=== PATIENT | female | born 1950 | race Caucasian/White ===

== ENCOUNTER → 2017-12-01 11:20 | Outpatient (CLI) | payer OTHER, SELFPAY ==
[2017-12-01 12:15] LABS: AST(SGOT) 37 U/L (15-37); Alanine Aminotransfer ALT/SGPT 58 U/L (13-56); Albumin, Serum 3.7 g/dL (3.2-5.0); Alkaline Phosphatase 103 U/L (45-117); Bilirubin, Direct 0.22 mg/dL (0.00-0.30); Cholesterol 148 mg/dL (200); Globulin 3.9 g/dL (2.2-4.2); High Density Lipoprotein 38 mg/dL; Protein, Total 7.6 g/dL (6.4-8.2); Triglycerides 201 mg/dL; Very Low Density Lipoprotein 40 mg/dL (5-40)
== END ==
PROVIDERS: Family Provider Nurse Practitioner Primary Care; PCP Nurse Practitioner Primary Care; Referring Provider Internal Medicine Cardiovascular Disease; Visit Provider Internal Medicine Cardiovascular Disease
DX: E78.00 Pure hypercholesterolemia, unspecified (principal)
CPT/HCPCS: 36415; 80061; 80076

== ENCOUNTER → 2018-11-11 | Outpatient (CLI) | payer OTHER, SELFPAY ==
[2018-11-11 13:32] VITALS: BMI 31.3
[2018-11-11 15:39] LABS: AST(SGOT) 16 U/L (15-37); Alanine Aminotransfer ALT/SGPT 20 U/L (13-56); Albumin, Serum 3.6 g/dL (3.2-5.0); Alkaline Phosphatase 94 U/L (45-117); Anion Gap 6 (5-15); BUN 9 mg/dL (7-18); BUN/Creat Ratio 10.1 RATIO (10-20); Bilirubin, Direct 0.18 mg/dL (0.00-0.30); Calcium,Total 8.9 mg/dL (8.5-10.1); Chloride 106 mmol/L (98-107); Cholesterol 176 mg/dL (200); Creatinine, Serum 0.89 mg/dL (0.55-1.02); EST Glomerular Filtration Rate 67 mL/min (>60); Est Glom Filt Rate - Afr Amer 81 mL/min (>60); Glucose 78 mg/dL (74-106); High Density Lipoprotein 40 mg/dL; Potassium 3.9 mmol/L (3.5-5.1); Protein, Total 7.6 g/dL (6.4-8.2); Sodium Level 142 mmol/L (136-145); Thyroid Stim Hormone (TSH) 3.39 uIU/mL (0.358-3.74); Triglycerides 230 mg/dL; Very Low Density Lipoprotein 46 mg/dL (5-40)
== END | disposition home or self-care (01) ==
LOC: LAB 14:13
PROVIDERS: Family Provider Nurse Practitioner Primary Care; PCP Nurse Practitioner Primary Care; Referring Provider Internal Medicine Cardiovascular Disease; Visit Provider Internal Medicine Cardiovascular Disease
DX: I48.0 Paroxysmal atrial fibrillation (principal); E78.00 Pure hypercholesterolemia, unspecified
CPT/HCPCS: 36415; 80048; 80061; 80076; 84443

== ENCOUNTER → 2018-11-21 | Outpatient (CLI) | payer OTHER, SELFPAY ==
[2018-11-11 13:32] VITALS: BMI 31.3
== END | disposition home or self-care (01) ==
LOC: PSN 09:24
PROVIDERS: Family Provider Nurse Practitioner Primary Care; PCP Nurse Practitioner Primary Care; Referring Provider Internal Medicine Cardiovascular Disease; Visit Provider Internal Medicine Cardiovascular Disease
DX: I48.0 Paroxysmal atrial fibrillation (principal)
CPT/HCPCS: 93225; 93226

== ENCOUNTER → 2020-03-07 07:52 | Outpatient (CLI) | payer OTHER, SELFPAY ==
[2020-03-05 08:41] VITALS: BMI 32.1
[2020-03-07 08:56] LABS: AST(SGOT) 13 U/L (15-37); Alanine Aminotransfer ALT/SGPT 16 U/L (13-56); Albumin, Serum 3.8 g/dL (3.2-5.0); Alkaline Phosphatase 81 U/L (45-117); Bilirubin, Direct 0.19 mg/dL (0.00-0.30); Cholesterol 154 mg/dL (200); Globulin 3.9 g/dL (2.2-4.2); High Density Lipoprotein 39 mg/dL; Protein, Total 7.7 g/dL (6.4-8.2); Triglycerides 206 mg/dL; Very Low Density Lipoprotein 41 mg/dL (5-40)
== END ==
PROVIDERS: PCP Nurse Practitioner Primary Care; Referring Provider Internal Medicine Cardiovascular Disease; Visit Provider Internal Medicine Cardiovascular Disease
DX: E78.00 Pure hypercholesterolemia, unspecified (principal)
CPT/HCPCS: 36415; 80061; 80076

== ENCOUNTER → 2021-09-23 | Outpatient (CLI) | payer OTHER, SELFPAY ==
[2021-09-23 12:01] LABS: AST(SGOT) 13 U/L (15-37); Alanine Aminotransfer ALT/SGPT 16 U/L (13-56); Alkaline Phosphatase 79 U/L (45-117); Bilirubin, Direct 0.24 mg/dL (0.00-0.30); Cholesterol 153 mg/dL (200); High Density Lipoprotein 48 mg/dL; Triglycerides 192 mg/dL; Very Low Density Lipoprotein 38 mg/dL (5-40)
== END | disposition home or self-care (01) ==
PROVIDERS: PCP Nurse Practitioner Primary Care; Visit Provider Internal Medicine Cardiovascular Disease
DX: E78.00 Pure hypercholesterolemia, unspecified (principal)
CPT/HCPCS: 36415; 80061; 80076

== ENCOUNTER → 2021-10-03 | Outpatient (CLI) | payer OTHER, SELFPAY ==
--- NOTE | 2021-10-03 12:37 | STRESSREP ---
Stress Test Report Exercise stress test. 71-year-old lady with a history of atrial fibrillation. Stress protocol: Resting EKG demonstrates normal sinus rhythm with a rate of 83 bpm normal intervals are noted resting blood pressure is 138/70 mmHg. The patient exercised according to the regular Bernard protocol for total duration of 4 minutes and 30 seconds completing 1 minute and 30 seconds into stage II of the Bernard protocol. The maximum heart rate attained was 123 bpm which was 83% of max impacted heart rate the maximum workload was 7 metabolic equivalents. The patient maintained sinus rhythm throughout the recording. The peak blood pressure was 178/78 mmHg. Rate-pressure/20,600. No clinical angina was noted the test was terminated due to dyspnea and leg discomfort and the target heart rate being achieved. Conclusion: Exercise stress test with no EKG criteria for ischemia at a moderate workload. No atrial fibrillation noted.
== END | disposition home or self-care (01) ==
LOC: CVS 10:35
PROVIDERS: PCP Nurse Practitioner Primary Care; Referring Provider Internal Medicine Cardiovascular Disease; Visit Provider Internal Medicine Cardiovascular Disease
DX: I48.92 Unspecified atrial flutter (principal); R06.00 Dyspnea, unspecified
CPT/HCPCS: 93017

== ENCOUNTER → 2022-09-16 | Outpatient (CLI) | payer OTHER, SELFPAY ==
[2022-09-16 10:14] LABS: AST(SGOT) 26 U/L (15-37); Alanine Aminotransfer ALT/SGPT 18 U/L (13-56); Albumin, Serum 3.6 g/dL (3.2-5.0); Alkaline Phosphatase 84 U/L (45-117); Bilirubin, Direct 0.13 mg/dL (0.00-0.30); Cholesterol 146 mg/dL (200); Globulin 4.4 g/dL (2.2-4.2); High Density Lipoprotein 47 mg/dL; Triglycerides 165 mg/dL; Very Low Density Lipoprotein 33 mg/dL (5-40)
== END | disposition home or self-care (01) ==
PROVIDERS: PCP Nurse Practitioner Primary Care; Referring Provider Internal Medicine Cardiovascular Disease; Visit Provider Internal Medicine Cardiovascular Disease
DX: E78.00 Pure hypercholesterolemia, unspecified (principal)
CPT/HCPCS: 36415; 80061; 80076

== ENCOUNTER → 2023-01-05 | Outpatient (CLI) | payer OTHER, SELFPAY ==
[2023-01-05 11:28] LABS: Anion Gap 2 (5-15); BUN 21 mg/dL (7-18); BUN/Creat Ratio 19.6 RATIO (10-20); Calcium,Total 9.7 mg/dL (8.5-10.1); Chloride 102 mmol/L (98-107); Creatinine, Serum 1.07 mg/dL (0.55-1.02); EST Glomerular Filtration Rate 53 mL/min (>60); Est Glom Filt Rate - Afr Amer 64 mL/min (>60); Glucose 119 mg/dL (74-106); Potassium 4.1 mmol/L (3.5-5.1); Sodium Level 136 mmol/L (136-145)
== END | disposition home or self-care (01) ==
PROVIDERS: PCP Nurse Practitioner Primary Care; Referring Provider Nurse Practitioner Gerontology; Visit Provider Nurse Practitioner Gerontology
DX: I10 Essential (primary) hypertension (principal); E87.6 Hypokalemia
CPT/HCPCS: 36415; 80048

== ENCOUNTER → 2023-01-27 | Outpatient (CLI) | payer OTHER, SELFPAY ==
[2023-01-27 13:28] LABS: Anion Gap 6 (5-15); BUN 19 mg/dL (7-18); BUN/Creat Ratio 17.1 RATIO (10-20); Calcium,Total 9.6 mg/dL (8.5-10.1); Chloride 100 mmol/L (98-107); Creatinine, Serum 1.11 mg/dL (0.55-1.02); EST Glomerular Filtration Rate 51 mL/min (>60); Est Glom Filt Rate - Afr Amer 62 mL/min (>60); Glucose 165 mg/dL (74-106); Potassium 3.8 mmol/L (3.5-5.1); Sodium Level 135 mmol/L (136-145)
== END | disposition home or self-care (01) ==
LOC: LAB 12:07
PROVIDERS: PCP Nurse Practitioner Primary Care; Referring Provider Nurse Practitioner Gerontology; Visit Provider Nurse Practitioner Gerontology
DX: I10 Essential (primary) hypertension (principal)
CPT/HCPCS: 36415; 80048

== ENCOUNTER → 2024-03-02 | Outpatient (CLI) | payer MEDICARE, SELFPAY ==
[2024-03-02 13:55] LABS: International Normalized Ratio 1.7; Prothrombin Time (Protime)PT. 19.9 SECONDS (11.7-14.9)
[2024-03-02 14:04] LABS: AST(SGOT) 14 U/L (15-37); Alanine Aminotransfer ALT/SGPT 14 U/L (13-56); Albumin, Serum 3.8 g/dL (3.2-5.0); Alkaline Phosphatase 104 U/L (45-117); Bilirubin, Direct 0.31 mg/dL (0.00-0.30); Cholesterol 140 mg/dL (200); Globulin 4.7 g/dL (2.2-4.2); High Density Lipoprotein 49 mg/dL; Protein, Total 8.5 g/dL (6.4-8.2); Triglycerides 128 mg/dL; Very Low Density Lipoprotein 26 mg/dL (5-40)
== END | disposition home or self-care (01) ==
LOC: LAB 13:16
PROVIDERS: Nurse Practitioner Family; PCP Nurse Practitioner Primary Care; Referring Provider Internal Medicine Cardiovascular Disease; Visit Provider Internal Medicine Cardiovascular Disease
DX: E78.00 Pure hypercholesterolemia, unspecified (principal); I48.92 Unspecified atrial flutter; I48.0 Paroxysmal atrial fibrillation; Z79.01 Long term (current) use of anticoagulants
CPT/HCPCS: 36415; 80061; 80076; 85610

== ENCOUNTER → 2024-04-18 | Outpatient (CLI) | payer MEDICARE, SELFPAY | END | disposition home or self-care (01) | LOC: LAB 14:56 | PROVIDERS: PCP Nurse Practitioner Primary Care; Referring Provider Nurse Practitioner Family; Visit Provider Nurse Practitioner Family | DX: Z00.00 Encounter for general adult medical examination without abnormal findings (principal) ==

== ENCOUNTER → 2024-09-12 | Outpatient (CLI) | payer MEDICARE, SELFPAY ==
--- OUTSIDE RECORDS SUMMARY | 2024-09-12 09:25 | XMS RPT_ITS | CCD ---
Author Organization [facility] Care Team Providers Care Brass Pickler Name Role Phone SOPHIA HYDROELECTRIC STATION OPERATOR CHIEF-BIN PACKER, YULISSA S Primary Care Physicia n Staci Hernandez Unavailable Unavailable Shauna Last Unavailable Unavailable Julia Cedeño Unavailable Unavailable Sophia FLATTENING PRESS OPERATOR, FLATTENING PRESS OPERATOR-C Yulissa Primary Care Provider Sophia FLATTENING PRESS OPERATOR, FLATTENING PRESS OPERATOR-C Yulissa Referring Provider [phone] Dr. Akhil Pina Attending Provider Dr. Akhil Pina Referring Provider Dr. Akhil Pina Other Provider SOPHIA HYDROELECTRIC STATION OPERATOR CHIEF-BIN PACKER, YULISSA S Attending Unava ilable SOPHIA HYDROELECTRIC STATION OPERATOR CHIEF-BIN PACKER, YULISSA S Primary Care Unava ilable SOPHIA HYDROELECTRIC STATION OPERATOR CHIEF-BIN PACKER, YULISSA S Attending Unava ilable SOPHIA HYDROELECTRIC STATION OPERATOR CHIEF-BIN PACKER, YULISSA S Primary Care Unava ilable YOVANI ROBISON, MR AKHIL S Attending Unavailable SOPHIA HYDROELECTRIC STATION OPERATOR CHIEF-BIN PACKER, YULISSA S Primary Care Unava ilable YOVANI ROBISON, MR AKHIL S Attending Unavailable SOPHIA HYDROELECTRIC STATION OPERATOR CHIEF-BIN PACKER, YULISSA S Primary Care Unava ilable Sophia FLATTENING PRESS OPERATOR, Yulissa Attending Unavailable Sophia FLATTENING PRESS OPERATOR, Yulissa Primary Care Unavailable Sophia FLATTENING PRESS OPERATOR, Yulissa Primary Care Unavailable Sophia FLATTENING PRESS OPERATOR, Yulissa Referring Unavailable Akhil Pina Attending Unavailable Sophia FLATTENING PRESS OPERATOR, Yulissa Attending Unavailable Roseland FLATTENING PRESS OPERATOR, Yulissa Primary Care Unavailable Ros[place] FLATTENING PRESS OPERATOR, Yulissa Attending Unavailable Sophia FLATTENING PRESS OPERATOR, Yulissa Primary Care Unavailable Sophia FLATTENING PRESS OPERATOR, Yulissa Attending Unavailable [place] FLATTENING PRESS OPERATOR, Yulissa Primary Care Unavailable Sophia FLATTENING PRESS OPERATOR, Yulissa Attending Unavailable [place] FLATTENING PRESS OPERATOR, Yulissa Primary Care Unavailable [place] FLATTENING PRESS OPERATOR, Yulissa Attending Unavailable [place] FLATTENING PRESS OPERATOR, Yulissa Primary Care Unavailable Roof FLATTENING PRESS OPERATOR, Venkatesh H Referring Unavailable Roof FLATTENING PRESS OPERATOR, Venkatesh H Attending Unavailable Sophia FLATTENING PRESS OPERATOR, Yulissa Primary Care Unavailable Sophia FLATTENING PRESS OPERATOR, Yulissa Primary Care Unavailable Yovani, [place] Referring Unavailable Yovani, Akhil Attending Unavailable Sophia FLATTENING PRESS OPERATOR, Yulissa Attending Unavailable [place] FLATTENING PRESS OPERATOR, Yulissa Primary Care Unavailable Sophia FLATTENING PRESS OPERATOR, Yulissa Primary Care Unavailable Sophia FLATTENING PRESS OPERATOR, Yulissa Attending Unavailable Sophia FLATTENING PRESS OPERATOR, Yulissa Primary Care Unavailable Sophia FLATTENING PRESS OPERATOR, Yulissa Attending Unavailable JOSE ISAACS DO Primary Care Physician [phone] SOPHIA HYDROELECTRIC STATION OPERATOR CHIEF-BIN PACKER, YULISSA S Attending Unava ilable SOPHIA HYDROELECTRIC STATION OPERATOR CHIEF-BIN PACKER, YULISSA S Primary Care Unava ilable JOSE ISAACS DO Primary Care Unavailable ADY ROJO DO Consulting Unavailable SAW CHAMBERS MD Attending Unavailable Teagan Patino Unavailable Unavailable CHAYO BELLO MD Attending Unavailadelita e JOSE ISAACS DO Consulting Unavailable JOSE IASACS DO Primary Care Unavailable ADY ROJO DO Admitting Unavailable ADY ROJO DO Consulting Unavailable Medications Current Medications Medication Drug Class(es) Dates Sig (Normalized) Sig (Original) acetaminophen 1000 mg oral tablet (1 source) Start: 09-06-2024 Tylenol Dose : 1,000 mg = 2 tab(s), Oral, TID, PRN as needed for pain, 0 Refill(s) Start Date: 09/06/24 Status: Ordered Repeat number: 1 allopurinol 100 mg oral tablet (20 sources) Xanthine Oxidase Inhibitor Start: 05-18-2024 allopurinol 100 mg oral tablet Dose : 100 mg = 1 tab(s), Oral, qDay, 0 Refill(s) Start Date: 05/18/24 Status: Ordered Repeat number: 1 Start: 11-09-2022 allopurinol 10 0 mg oral tablet Dose : 300 mg = 3 tab(s), Oral, qDay, # 270 tab(s), 3 Refill(s), Pharmacy: [facility] #[id number], 160, cm, 09/02/22 9:48:00 EDT, Height, kg, 09/02/22 9:48:00 EDT, Dosing Weight Start Date: 11/09/22 Status: Ordered Start: 11-06-2021 End: 11-03-2022 allopurinol 100 mg oral tabl et Dose : 300 mg = 3 tab(s), Oral, qDay, # 270 tab(s), 1 Refill(s), Pharmacy: [facility] #[id number], 160, cm, 04/07/22 5:47:00 EST, Height, kg, 04/07/22 5:47:00 EST, Dosing Weight Start Date: 05/07/22 Stop Date: 11/03/22 Status: Ordered Start: 09-23-2021 take 300 mg by mouth once daily Allopurinol Active 300 MG PO DAILY September 23, 2021 9:21am Start: 02-02-2017 End: 09-23-2021 take 100 mg by mouth twice daily Allopurinol Discontinued 100 MG PO TWICE A DAY November 11, 2018 12:38pm September 23, 2021 9:23am amLODIPine 5 mg oral tablet (20 sources) Dihydropyridine Calcium Channel Marycarmen Start: 08-31-2023 amLODIPine 5 mg oral tablet Dose : 5 mg = 1 tab(s), Oral, qDay, 0 Refill(s) Start Date: 08/31/23 Status: Ordered Repeat number: 1 Start: 12-23-2022 take 5 mg by mouth twice daily Amlodipine Active 5 MG PO TWICE A DAY December 23, 2022 10:16am Start: 10-28-2022 End: 10-30-2022 take 5 mg by mouth twice daily Amlodipine Discontinued 5 MG PO TWICE A DAY 180 October 28, 2022 12:40pm October 30, 2022 12:29pm Start: 09-23-2022 End: 10-28-2022 take 5 mg by mouth once daily Amlodipine Discontinued 5 MG PO DAILY September 23, 2022 8:22am October 28, 2022 12:41pm Start: 09-23-2022 End: 09-23-2022 take 5 mg by mouth once daily Amlodipine Discontinued 5 MG PO DAILY September 23, 2022 8:16am September 23, 2022 8:23am Start: 09-23-2021 End: 09-23-2021 take 10 mg by mouth once daily Amlodipine Discontinued 10 MG PO DAILY September 23, 2021 9:22am September 23, 2021 9:38am Start: 09-23-2021 End: 03-19-2023 take 10 mg by mouth once daily Amlodipine Discontinued 10 MG PO DAILY October 30, 2022 12:28pm December 23, 2022 10:16am Start: 05-02-2020 End: 04-27-2021 amLODIPine 10 mg oral tablet Dose : 10 mg = 1 tab(s), Oral, qDay, # 90 tab(s), 3 Refill(s), Pharmacy: [facility], 163, cm, 05/02/20 7:46:00 EST, Height, kg, 05/02/20 7:46:00 EST, Dosing Weight Start Date: 05/02/20 Stop Date: 04/27/21 Status: Ordered Start: 03-21-2019 End: 09-23-2021 take 5 mg by mouth once daily Amlodipine Discontinued 5 MG PO DAILY May 15, 2019 2:32pm March 05, 2020 9:06am calcium citrate 1500 mg / cholecalciferol 250 unt oral tablet (4 sources) Vitamin D Start: 02-02-2017 take 1 tablet by mouth once daily in the morning Calcium Citrate-Vitamin D3 (Citracal + D Maximum) 315-250 mg-unit tablet Active 1 TABLET PO EVERY MORNING February 02, 2017 12:00am Citracal Calcium + D Slow Release 1200 (11 sources) Start: 04-05-2019 Citracal Calci um + D Slow Release 1200 1 tab, Oral, qAM, 0 Refill(s) Start Date: 04/05/19 Status: Ordered Repeat number: 1 Start: 04-05-2019 Citracal Calci um + D Slow Release 1200 1 tab, Oral, qAM, 0 Refill(s) Start Date: 04/05/19 Status: Ordered Start: 04-05-2019 Citracal Calci um + D Slow Release 1200 1 tab, Oral, qAM, 0 Refill(s), 81.7 Start Date: 04/05/19 Status: Ordered flecainide acetate 100 mg oral tablet (20 sources) Antiarrhythmic Start: 08-31-2023 flecainide 100 mg oral tablet Dose : 100 mg = 1 tab(s), Oral, q12h, 0 Refill(s) Start Date: 08/31/23 Status: Ordered Repeat number: 1 Start: 04-05-2019 flecainide 50 mg oral tablet Dose : 50 mg = 1 tab(s), Oral, q12h, 0 Refill(s) Start Date: 04/05/19 Status: Ordered Start: 11-11-2018 End: 09-23-2021 take 100 mg by mouth every twelve hours Flecainide Discontinued 100 MG PO Q12H 180 May 15, 2019 2:34pm March 05, 2020 9:06am Start: 03-30-2017 End: 11-11-2018 take 1 tablet by mouth every twelve hours flecainide 50 mg tablet Discontinued 50 MG PO Q12H 180 June 01, 2018 8:42am November 11, 2018 12:48pm hydroCHLOROthiazide 12.5 mg oral tablet (19 sources) Thiazide Diuretic Start: 05-18-2024 hydroCHLOROthiazide 12.5 mg oral tablet Dose : 12.5 mg = 1 tab(s), Oral, qDay, 0 Refill(s) Start Date: 05/18/24 Status: Ordered Repeat number: 1 Start: 12-24-2022 take 12.5 mg by mout h once daily Hydrochlorothiazide Active 12.5 MG PO DAILY December 23, 2022 11:00pm Start: 03-23-2022 hydroCHLOROthi azide 12.5 mg oral tablet Dose : 12.5 mg = 1 tab(s), Oral, Daily, 0 Refill(s) Start Date: 03/23/22 Status: Ordered Start: 03-05-2020 End: 09-23-2021 take 12.5 mg by mouth once daily Hydrochlorothiazide Discontinued 12.5 MG PO DAILY June 12, 2021 7:57pm September 23, 2021 9:23am rivaroxaban 20 mg oral tablet (20 sources) Factor Xa Inhibitor Start: 03-08-2017 End: 12-28-2022 Rivaroxaban (Xarelto) 20 mg tablet Active 0 .ROUTE .COMPLEX December 28, 2022 7:06am TAKE 1 TABLET DAILY WITH THE EVENING MEAL traZODone hydrochloride 50 mg oral tablet (9 sources) Serotonin Reuptake Inhibitor Start: 08-31-2023 traZODone 50 mg oral tablet Dose : 50 mg = 1 tab(s), Oral, qHS, # 100 tab(s), 3 Refill(s), Pharmacy: [facility] #[id number], 162.3, cm, 08/31/23 9:22:00 EDT, Height, kg, 08/31/23 9:22:00 EDT, Dosing Weight Start Date: 08/31/23 Status: Ordered Quantity: 100.0 Unit: tab(s) Repeat number: 4 Start: 09-30-2021 End: 05-16-2023 traZODone 50 mg oral tablet Dose : 50 mg = 1 tab(s), Oral, qHS, # 90 tab(s), 3 Refill(s), Pharmacy: [facility] #[id number], 160, cm, 04/07/22 5:47:00 EST, Height, kg, 04/07/22 5:47:00 EST, Dosing Weight Start Date: 05/21/22 Stop Date: 05/16/23 Status: Ordered warfarin sodium 4 mg oral tablet (2 sources) Vitamin K Antagonist Start: 08-31-2023 warfarin 4 mg oral tablet See Instructions, 0 Refill(s) Start Date: 08/31/23 Status: Ordered Repeat number: 1 Completed/Discontinued Medications Medication Drug Class(es) Dates Sig (Normalized) Sig (Original) aspirin 81 mg delayed release oral tablet (4 sources) Platelet Aggregation Inhibitor, Nonsteroidal Anti-inflammatory Drug Start: 02-02-2017 End: 02-10-2017 Aspirin (Adult Low Dose Aspirin) 81 mg tablet,delayed release (DR/EC) Discontinued 81 MG PO daily February 02, 2017 12:00am February 10, 2017 2:07pm clopidogrel 75 mg oral tablet (4 sources) [id number] Platelet Inhibitor Start: 02-03-2017 End: 02-10-2017 take 1 tablet by mouth once Clopidogrel (Plavix) 75 mg tablet Discontinued 75 MG PO ONCE 30 February 03, 2017 12:00am February 10, 2017 2:07pm hydroCHLOROthiazide 25 mg / metoprolol tartrate 50 mg oral tablet (4 sources) Thiazide Diuretic, beta-Adrenergic Marycarmen Start: 02-02-2017 End: 02-10-2017 take 1 tablet by mouth twice daily Metoprolol Ta-Hydrochlorothi az Discontinued 1 TABLET PO TWICE A DAY February 02, 2017 12:00am February 10, 2017 2:06pm lisinopril 40 mg oral tablet (20 sources) Angiotensin Converting Enzyme Inhibitor Start: 08-31-2023 End: 08-25-2024 lisinopril 40 mg oral tablet Dose : 40 mg = 1 tab(s), Oral, qDay, # 90 tab(s), 3 Refill(s), Pharmacy: [facility] #[id number], 162.3, cm, 08/31/23 9:22:00 EDT, Height, kg, 08/31/23 9:22:00 EDT, Dosing Weight Start Date: 08/31/23 Stop Date: 08/25/24 Status: Ordered Quantity: 90.0 Unit: tab(s) Repeat number: 4 Start: 01-12-2019 End: 09-23-2022 take 40 mg by mouth once daily Lisinopril Active 40 MG PO DAILY September 23, 2022 8:22am Start: 11-11-2018 End: 01-12-2019 take 20 mg by mouth once daily Lisinopril Discontinued 20 MG PO DAILY November 11, 2018 12:54pm January 12, 2019 10:14am Start: 07-15-2018 End: 11-11-2018 take 20 mg by mouth once daily Lisinopril Discontinued 20 MG PO DAILY July 14, 2018 11:00pm November 11, 2018 12:54pm Start: 02-02-2017 End: 02-10-2017 take 5 mg by mouth once daily Lisinopril Discontinued 5 MG PO daily February 02, 2017 12:00am February 10, 2017 2:07pm 24 hr metoprolol succinate 25 mg extended release oral tablet (20 sources) beta-Adrenergic Marycarmen Start: 09-06-2024 End: 09-06-2024 take 1 tablet by mouth in the morning metoprolol succinate 25 mg oral TABLET extended release Start: 09/06/24 8:00:00 AM EDT, Dose = 25 mg, = 1 tab(s), Oral, 09/03/24 15:24:00 EDT Start Date: 09/06/24 Stop Date: 09/06/24 Status: Completed Repeat number: 1 Start: 09-05-2024 End: 09-05-2024 take 1 tablet by mouth in the morning metoprolol succinate 25 mg oral TABLET extended release Start: 09/05/24 8:00:00 AM EDT, Dose = 25 mg, = 1 tab(s), Oral, 09/03/24 15:24:00 EDT Start Date: 09/05/24 Stop Date: 09/05/24 Status: Completed Repeat number: 1 Start: 09-04-2024 End: 09-04-2024 take 1 tablet by mouth in the morning metoprolol succinate 25 mg oral TABLET extended release Start: 09/04/24 8:00:00 AM EDT, Dose = 25 mg, = 1 tab(s), Oral, 09/03/24 15:24:00 EDT Start Date: 09/04/24 Stop Date: 09/04/24 Status: Completed Repeat number: 1 Start: 09-23-2022 take 12.5 mg by mout h once daily at bedtime Metoprolol Succinate Active 12.5 MG PO .COMPLEX September 23, 2022 8:35am 12.5 mg orally qhs; Start: 09-02-2022 Metoprolol Suc cinate ER 25 mg oral TABLET extended release Dose : 25 mg = 1 tab(s), Oral, qDay, take 1 tablet by mouth at bedtime Start Date: 09/02/22 Status: Ordered Repeat number: 1 Start: 07-31-2022 End: 08-14-2022 take 12.5 mg by mouth once daily at bedtime Metoprolol Succinate Discontinued 12.5 MG PO .COMPLEX July 30, 2022 11:00pm August 14, 2022 8:58am 12.5 mg orally qhs; Start: 12-04-2019 End: 09-23-2022 take 25 mg by mouth once daily at bedtime Metoprolol Succinate Discontinued 25 MG PO .COMPLEX August 14, 2022 8:58am September 23, 2022 9:21am 25 mg orally qhs; Start: 11-11-2018 End: 07-31-2022 take 25 mg by mouth twice daily Metoprolol Tartrate Di scontinued 25 MG PO TWICE A DAY 180 July 15, 2021 7:53am September 23, 2021 9:38am Start: 03-08-2017 End: 11-11-2018 take 50 mg by mouth twice daily Metoprolol Tartrate Di scontinued 50 MG PO TWICE A DAY 180 April 29, 2018 1:11pm July 15, 2018 9:57am microencapsulated potassium chloride 20 meq extended release oral tablet (4 sources) Start: 02-05-2017 End: 02-10-2017 take 20 mEq by mouth twice daily at mealtime Potassium Chloride Discontinued 20 MEQ PO TWICE A DAY 6 3 February 05, 2017 12:00am February 10, 2017 2:07pm administer with food (meal or snack) simvastatin 20 mg oral tablet (20 sources) HMG-CoA Reductase Inhibitor Start: 09-02-2022 End: 08-28-2023 simvastatin 20 mg oral tablet Dose : 20 mg = 1 tab(s), Oral, qHS, # 90 tab(s), 3 Refill(s), Pharmacy: [facility], 160, cm, 09/02/22 9:48:00 EDT, Height Start Date: 09/02/22 Stop Date: 08/28/23 Status: Ordered Quantity: 90.0 Unit: tab(s) Repeat number: 4 Start: 02-02-2017 End: 12-01-2021 take 20 mg by mouth once daily in the evening Simvastatin Discontinued 20 MG PO EVERY EVENING 90 May 03, 2019 1:17pm March 05, 2020 9:06am sour rogers allergenic extract (4 sources) Non-Standardized Food Allergenic Extract, Non-Standardized Plant Allergenic Extract Start: 12-01-2017 End: 11-11-2018 Sour Rogers Extract Discontinued MG PO November 30, 2017 11:00pm November 11, 2018 12:37pm Start: 12-01-2017 End: 11-11-2018 Sour Rogers Extract Disconti nued MG PO December 01, 2017 12:00am November 11, 2018 1:37pm Problems Active Problems Problem Classification Problem Date Documented Da te Episodic/Chronic Allergic reactions (6 sources) Eczema 03-24-2022 Episodic Cardiac dysrhythmias (20 sources) Paroxysmal atrial flutter; Translations: [Unspecified atrial flutter] Onset: Chronic Cardiac dysrhythmias (15 sources) Intermittent palpitations; Translations: [Palpitations] 04-04-2019 Episodic Chronic kidney disease (13 sources) Chronic kidney disease; Translations: [Chronic kidney disease, unspecified] Onset: 5 05-02-2020 Chronic Coagulation and hemorrhagic disorders (3 sources) Other primary thrombophilia; 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] Onset: 5 Chronic Diabetes mellitus without complication (9 sources) Type 2 diabetes mellitus well controlled; Translations: [Type 2 diabetes mellitus without complication] 04-04-2019 Chronic Disorders of lipid metabolism (20 sources) Hypertriglyceridemia; Translations: [Hyperlipidemia] Onset: 5 04-04-2019 Chronic Diverticulosis and diverticulitis (2 sources) Diverticula of intestine; Translations: [Diverticulosis of large intestine without perforation or abscess without bleeding] Onset: 5 Chronic Essential hypertension (17 sources) Benign essential hypertension; Translations: [Essential hypertension] 04-04-2019 Chronic Fluid and electrolyte disorders (1 source) Hypokalemia; Translations: [Hypokalemia] 12-24-2022 Episodic Gout and other crystal arthropathies (11 sources) Gout 04-04-2019 Chronic Headache; including migraine (2 sources) Chronic headache disorder 05-18-2024 Episodic Hypertension with complications and secondary hypertension (2 sources) Chronic kidney disease due to hypertension; Translations: [Hypertensive chronic kidney disease with stage 1 through stage 4 chronic kidney disease, or unspecified chronic kidney disease] Onset: 5 Chronic Osteoarthritis (6 sources) Osteoarthritis of knee 03-24-2022 Chronic Other aftercare (4 sources) Patient encounter status; Translations: [Encounter for therapeutic drug level monitoring] 09-23-2021 Episodic Other aftercare (1 source) Long-term current use of anticoagulant; Translations: [local intermodal truck driver (current) use of anticoagulants] Episodic Other bone disease and musculoskeletal deformities (11 sources) Osteopenia 04-04-2019 Episodic Other circulatory disease (1 source) Retroperitoneal hemorrhage 09-03-2024 Episodic Other connective tissue disease (5 sources) Nontraumatic hematoma of soft tissue; Translations: [Nontraumatic hematoma of soft tissue] Onset: 5 Episodic Other connective tissue disease (2 sources) Subcutaneous hematoma; Translations: [Nontraumatic hematoma of soft tissue] Onset: 5 Episodic Other connective tissue disease (1 source) Hematoma 09-03-2024 Episodic Other gastrointestinal disorders (5 sources) Urgent desire for stool 08-01-2020 Episodic Other gastrointestinal disorders (5 sources) Retroperitoneal hematoma; Translations: [Retroperitoneal hematoma] Onset: 5 Episodic Other injuries and conditions due to external causes (1 source) Ischemia of muscle due to traumatic injury; Translations: [Traumatic ischemia of muscle, initial encounter] Episodic Other injuries and conditions due to external causes (1 source) Traumatic ischemia of muscle, initial encounter; Translations: [Traumatic ischemia of muscle, initial encounter] Onset: 5 Episodic Other lower respiratory disease (4 sources) Dyspnea on exertion; Translations: [Other forms of dyspnea] 09-22-2021 Episodic Other nervous system disorders (11 sources) Carpal tunnel syndrome 05-02-2020 Chronic Other non-traumatic joint disorders (5 sources) Pain in wrist 04-05-2019 Episodic Other non-traumatic joint disorders (5 sources) Shoulder pain 04-05-2019 Episodic Other nutritional; endocrine; and metabolic disorders (4 sources) Obesity; Translations: [Obesity, unspecified] 09-22-2021 Chronic Other screening for suspected conditions (not mental disorders or infectious disease) (4 sources) Thallium stress test abnormal; Translations: [Abnormal result of other cardiovascular function study] 07-31-2017 Episodic Other skin disorders (3 sources) Skin lesion 09-02-2022 Episodic Peripheral and visceral atherosclerosis (3 sources) Renal artery stenosis 04-04-2019 Chronic Phlebitis; thrombophlebitis and thromboembolism (2 sources) Thromboembolism of vein; Translations: [Acute embolism and thrombosis of unspecified vein] Onset: 5 Episodic Poisoning by other medications and drugs (4 sources) Poisoning by anticoagulants, accidental (unintentional), initial encounter; Translations: [Poisoning by anticoagulant] Onset: 5 Episodic Superficial injury; contusion (2 sources) Contusion of left thigh; Translations: [Contusion of left thigh, initial encounter] Onset: 5 Episodic Unclassified (9 sources) Patient encounter status 09-02-2022 Unclassified (1 source) Hypocoagulability state 09-03-2024 Past or Other Problems Problem Classification Problem Date Documented Da te Episodic/Chronic Other aftercare (1 source) local intermodal truck driver (current) use of anticoagulants; Translations: [snf (current) use of anticoagulants] Onset: 09-23-2023 Episodic Other aftercare (1 source) Encounter for therapeutic drug level monitoring; Translations: [Encounter for therapeutic drug level monitoring] Onset: 09-23-2023 Episodic Other aftercare (1 source) Other extermination inspector (current) drug therapy; Translations: [Other intermediate (current) drug therapy] Onset: 09-23-2023 Episodic Results Test Name Value Interpretation Reference Range Facility .Auto Diffon 09-06-2024 Basophil, Absolute 0.1 10 3/mcL Normal 0.0-0.[address] [facility] Comment on above: Performed By: #### H H, CK #### [address] [address] Basophils/100 WBC (Bld) 0.7 % Normal 0.0-2.5 [facility] Comment on above: Performed By: #### H H, CK #### [address] [address] Eosinophil, Absolute 0.1 10 3/mcL Normal 0.0-0.7 [facility] Comment on above: Performed By: #### H H, CK #### [address] [address] Eosinophils/100 WBC (Bld) 1.0 % Normal 0.0-6.0 [facility] Comment on above: Performed By: #### H H, CK #### [address] [address] Lymphocyte, Absolute 1.0 10 3/mcL Normal 0.9-4.3 [facility] Comment on above: Performed By: #### H H, CK #### [address] [address] Lymphocytes/100 WBC (Bld) 9.6 % Low 20.0-40.0 [facility] Comment on above: Performed By: #### H H, CK #### [address] [address] Monocyte, Absolute 0.7 10 3/mcL Normal 0.1-1.[address] [facility] Comment on above: Performed By: #### H H, CK #### [address] [address] Monocytes/100 WBC (Bld) 7.3 % Normal 2.0-13.0 [facility] Comment on above: Performed By: #### H H, CK #### [place] [address] Neutrophils/100 WBC (Bld) 81.4 % High 50.0-75.0 [facility] Comment on above: Performed By: #### H H, CK #### [place] [address] .NEUABSon 09-06-2024 Neutrophil, Absolute 8.4 10 3/mcL High 2.3-8.1 [facility] Comment on above: Performed By: #### H H, CK #### [place] [address] CBCon 09-06-2024 Erythrocyte distribution width (RBC) [Ratio] 15.2 % Normal 11.5-15.5 [facility] Comment on above: Performed By: #### H H, CK #### [place] [address] Hematocrit (Bld) [Volume fraction] 27.2 % Low 34.0-46.0 [facility] Comment on above: Performed By: #### H H, CK #### [place] [address] Hgb 9.2 G/dL Low 12.0-16.0 [facility] Comment on above: Performed By: #### H H, CK #### [place] [address] MCH (RBC) [Entitic mass] 29.3 pg Normal 27.0-33.0 [facility] Comment on above: Performed By: #### H H, CK #### [place] [address] MCHC 33.7 G/dL Normal 32.0-36.0 [facility] Comment on above: Performed By: #### H H, CK #### [place] [address] MCV (RBC) [Entitic vol] 87.0 fL Normal 80.0-99.0 [facility] Comment on above: Performed By: #### H H, CK #### [address] [address] Platelet 411 10 3/mcL Normal 150-450 [facility] Comment on above: Performed By: #### H H, CK #### [facility] [address] [place] [id number] Platelet mean volume (Bld) [Entitic vol] 8.1 fL Normal 6.6-10.5 [facility] Comment on above: Performed By: #### H H, CK #### [facility] [address] [place] [id number] RBC 3.13 10 6/mcL Low 4.10-5.30 [facility] Comment on above: Performed By: #### H H, CK #### [address] [address] WBC 10.3 10 3/mcL Normal 4.5-10.8 [facility] Comment on above: Performed By: #### H H, CK #### [address] [address] CKon 09-06-2024 CK [Catalytic activity/Vol] 286 U/L High 7-185 [facility] Comment on above: Performed By: #### H H, CK #### [address] [address] LABORATORYOrdered By: SYSTEM SYSTEM on 09-06-2024 Basophils (Bld) [#/Vol] 0.1 103/mcL Normal 0.0 - 0.3 10^3/mcL AH Workflow SS Basophils/100 WBC (Bld) 0.7 % Normal 0.0 - 2.5 % AH Workflow SS CK [Catalytic activity/Vol] 286 U/L High 7 - 185 U/L AH ADM SS Eosinophils (Bld) [#/Vol] 0.1 103/mcL Normal 0.0 - 0.7 10^3/mcL AH Workflow SS Eosinophils/100 WBC (Bld) 1.0 % Normal 0.0 - 6.0 % AH Workflow SS Erythrocyte distribution width (RBC) [Ratio] 15.2 % Normal 11.5 - 15.5 % AH Workflow SS Hematocrit (Bld) [Volume fraction] 27.2 % Low 34.0 - 46.0 % Workflow SS Hemoglobin (Bld) [Mass/Vol] 9.2 G/dL Low 12.0 - 16.0 G/dL Workflow SS Lymphocytes (Bld) [#/Vol] 1.0 103/mcL Normal 0.9 - 4.3 10^3/mcL Workflow SS Lymphocytes/100 WBC (Bld) 9.6 % Low 20.0 - 40.0 % Workflow SS MCH (RBC) [Entitic mass] 29.3 pg Normal 27.0 - 33.0 pg Workflow SS MCHC 33.7 G/dL Normal 32.0 - 36.0 G/dL Workflow SS MCV (RBC) [Entitic vol] 87.0 fL Normal 80.0 - 99.0 fL Workflow SS Monocytes (Bld) [#/Vol] 0.7 103/mcL Normal 0.1 - 1.4 10^3/mcL Workflow SS Monocytes/100 WBC (Bld) 7.3 % Normal 2.0 - 13.0 % Workflow SS Neutrophils (Bld) [#/Vol] 8.4 103/mcL High 2.3 - 8.1 10^3/mcL Workflow SS Neutrophils/100 WBC (Bld) 81.4 % High 50.0 - 75.0 % Workflow SS Platelet mean volume (Bld) [Entitic vol] 8.1 fL Normal 6.6 - 10.5 fL Workflow SS Platelets (Bld) [#/Vol] 411 103/mcL Normal 150 - 450 10^3/mcL Workflow SS PT Coag (PPP) [Time] 22.6 s High 9.0 - 1 4.4 seconds [facility] Comment on above: Interpretive Data: E ffective 09/13/07, Protime results may be affected by some antibiotics (i.e. Ciprofloxacin, Azithromycin, Bactrim) which may potentiate the action of oral anticoagulants, with further increases in Protime/INR. PT International Ratio 2.0 ratio Invalid Interpretation Code [facility] Comment on above: Interpretive Data: Ruchi ortiz [employer] (CHEST, 1991, 102:312S-25S) recommended therapeutic range for oral anticoagulant therapy is: LOW RISK: Prophylaxis of venous thrombosis INR: 2.0-3.0 Treatment of pulmonary embolism 2.0-3.0 Prevention of systemic embolism 2.0-3.0 HIGH RISK: Mechanical prosthetic valves 2.5-3.5 RBC (Bld) [#/Vol] 3.13 106/mcL Low 4.10 - 5.3 0 10^6/mcL AH Workflow SS WBC (Bld) [#/Vol] 10.3 103/mcL Normal 4.5 - 10.8 10^3/mcL AH Workflow SS PROon 09-06-2024 INR Coag (PPP) [Relative time] 2.0 {INR} Normal [facility] Comment on above: Result Comment: [employer] (CHEST, 1991, 102:312S-25S) recommended therapeutic range for oral anticoagulant therapy is: LOW RISK: Prophylaxis of venous thrombosis INR: 2.0-3.0 Treatment of pulmonary embolism 2.0-3.0 Prevention of systemic embolism 2.0-3.0 HIGH RISK: Mechanical prosthetic valves 2.5-3.5 Performed By: #### H H, CK #### [place] [address] PT Coag (PPP) [Time] 22.6 s High 9.0-14.[address] [facility] Comment on above: Result Comment: Effe ctive 09/13/07, Protime results may be affected by some antibiotics (i.e. Ciprofloxacin, Azithromycin, Bactrim) which may potentiate the action of oral anticoagulants, with further increases in Protime/INR. Performed By: #### H H, CK #### [place] [address] CKon 09-05-2024 CK [Catalytic activity/Vol] 293 U/L High 7-185 [facility] Comment on above: Performed By: #### H H, CK #### [address] [address] [facility] 09-05-2024 Hematocrit (Bld) [Volume fraction] 26.5 % Low 34.0-46.0 [facility] Comment on above: Performed By: #### H H, CK #### [place] [address] Hgb 9.0 G/dL Low 12.0-16.0 [facility] Comment on above: Performed By: #### H H, CK #### [facility] [address] [place] [address] LABORATORYOrdered By: SYSTEM SYSTEM on 09-05-2024 CK [Catalytic activity/Vol] 293 U/L High 7 - 185 U/L AH ADM SS Hematocrit (Bld) [Volume fraction] 26.5 % Low 34.0 - 46.0 % Workflow SS Hemoglobin (Bld) [Mass/Vol] 9.0 G/dL Low 12.0 - 16.0 G/dL Workflow SS PT Coag (PPP) [Time] 25.5 s High 9.0 - 1 4.4 seconds [facility] Comment on above: Interpretive Data: E ffective 09/13/07, Protime results may be affected by some antibiotics (i.e. Ciprofloxacin, Azithromycin, Bactrim) which may potentiate the action of oral anticoagulants, with further increases in Protime/INR. PT International Ratio 2.2 ratio Invalid Interpretation Code [facility] Comment on above: Interpretive Data: T angel [employer] (CHEST, 1991, 102:312S-25S) recommended therapeutic range for oral anticoagulant therapy is: LOW RISK: Prophylaxis of venous thrombosis INR: 2.0-3.0 Treatment of pulmonary embolism 2.0-3.0 Prevention of systemic embolism 2.0-3.0 HIGH RISK: Mechanical prosthetic valves 2.5-3.5 PROon 09-05-2024 INR Coag (PPP) [Relative time] 2.2 {INR} Normal [facility] Comment on above: Result Comment: [employer] (CHEST, 1991, 102:312S-25S) recommended therapeutic range for oral anticoagulant therapy is: LOW RISK: Prophylaxis of venous thrombosis INR: 2.0-3.0 Treatment of pulmonary embolism 2.0-3.0 Prevention of systemic embolism 2.0-3.0 HIGH RISK: Mechanical prosthetic valves 2.5-3.5 Performed By: #### P RO #### [facility] [address] [place] [address] PT Coag (PPP) [Time] 25.5 s High 9.0-14.[address] [facility] Comment on above: Result Comment: Effe ctive 09/13/07, Protime results may be affected by some antibiotics (i.e. Ciprofloxacin, Azithromycin, Bactrim) which may potentiate the action of oral anticoagulants, with further increases in Protime/INR. Performed By: #### P RO #### [address] [address] .Auto Diffon 09-04-2024 Basophil, Absolute 0.1 10 3/mcL Normal 0.0-0.[address] [facility] Comment on above: Performed By: #### A DIFF, CBC, MG, GFR, ANEU, CMP #### [address] [address] Basophils/100 WBC (Bld) 0.9 % Normal 0.0-2.5 [facility] Comment on above: Performed By: #### A DIFF, CBC, MG, GFR, ANEU, CMP #### [address] [address] Eosinophil, Absolute 0.3 10 3/mcL Normal 0.0-0.7 [facility] Comment on above: Performed By: #### A DIFF, CBC, MG, GFR, ANEU, CMP #### [address] [address] Eosinophils/100 WBC (Bld) 3.4 % Normal 0.0-6.0 [facility] Comment on above: Performed By: #### A DIFF, CBC, MG, GFR, ANEU, CMP #### [address] [address] Lymphocyte, Absolute 1.3 10 3/mcL Normal 0.9-4.3 [facility] Comment on above: Performed By: #### A DIFF, CBC, MG, GFR, ANEU, CMP #### [address] [address] Lymphocytes/100 WBC (Bld) 14.5 % Low 20.0-40.0 [facility] Comment on above: Performed By: #### A DIFF, CBC, MG, GFR, ANEU, CMP #### [address] [address] Monocyte, Absolute 0.9 10 3/mcL Normal 0.1-1.[address] [facility] Comment on above: Performed By: #### A DIFF, CBC, MG, GFR, ANEU, CMP #### [address] [address] Monocytes/100 WBC (Bld) 9.8 % Normal 2.0-13.0 [facility] Comment on above: Performed By: #### A DIFF, CBC, MG, GFR, ANEU, CMP #### [address] [address] Neutrophils/100 WBC (Bld) 71.4 % Normal 50.0-75.0 [facility] Comment on above: Performed By: #### A DIFF, CBC, MG, GFR, ANEU, CMP #### [address] [address] .GFRon 09-04-2024 Estimated Glomerular Filtration Rate 66 ml/min/1.73sqm Normal [facility] Comment on above: Result Comment: Stages of Chronic Kidney Disease (CKD) Stage Description eGFR(ml/min/1.73 sq.m.) CKD 1 Normal kidney function or >=90 normal kindney function with possible kidney damage (ex. Proteinuria) CKD 2 Kidney damage with mild loss 60-89 of kidney function CKD 3a Mild to moderate loss of kidney 45-59 function CKD 3b Moderate to severe loss of 30-44 of kindey function CKD 4 Severe loss of kidney function 15-29 CKD 5 Kidney failure <15 Note: (go live 2024) the eGFR calculation was updated to the 2020 CKD-EPI creatinine equation without a race factor to calculate the eGFR results. Performed By: #### H H, CK #### [address] [address] .NEUABSon 09-04-2024 Neutrophil, Absolute 6.3 10 3/mcL Normal 2.3-8.1 [facility] Comment on above: Performed By: #### A DIFF, CBC, MG, GFR, ANEU, CMP #### [address] [address] CBCon 09-04-2024 Erythrocyte distribution width (RBC) [Ratio] 15.4 % Normal 11.5-15.5 [facility] Comment on above: Performed By: #### A DIFF, CBC, MG, GFR, ANEU, CMP #### [place] [address] Hematocrit (Bld) [Volume fraction] 25.4 % Low 34.0-46.0 [facility] Comment on above: Performed By: #### A DIFF, CBC, MG, GFR, ANEU, CMP #### [place] [address] Hgb 8.6 G/dL Low 12.0-16.0 [facility] Comment on above: Performed By: #### A DIFF, CBC, MG, GFR, ANEU, CMP #### [place] [address] MCH (RBC) [Entitic mass] 29.5 pg Normal 27.0-33.0 [facility] Comment on above: Performed By: #### A DIFF, CBC, MG, GFR, ANEU, CMP #### [place] [address] MCHC 33.7 G/dL Normal 32.0-36.0 [facility] Comment on above: Performed By: #### A DIFF, CBC, MG, GFR, ANEU, CMP #### [place] [address] MCV (RBC) [Entitic vol] 87.4 fL Normal 80.0-99.0 [facility] Comment on above: Performed By: #### A DIFF, CBC, MG, GFR, ANEU, CMP #### [place] [address] Platelet 281 10 3/mcL Normal 150-450 [facility] Comment on above: Performed By: #### A DIFF, CBC, MG, GFR, ANEU, CMP #### [place] [address] Platelet mean volume (Bld) [Entitic vol] 8.4 fL Normal 6.6-10.5 [facility] Comment on above: Performed By: #### A DIFF, CBC, MG, GFR, ANEU, CMP #### [place] [address] RBC 2.91 10 6/mcL Low 4.10-5.30 [facility] Comment on above: Performed By: #### A DIFF, CBC, MG, GFR, ANEU, CMP #### [place] [address] WBC 8.9 10 3/mcL Normal 4.5-10.8 [facility] Comment on above: Performed By: #### A DIFF, CBC, MG, GFR, ANEU, CMP #### [place] [address] CKon 09-04-2024 CK [Catalytic activity/Vol] 467 U/L High 7-185 [facility] Comment on above: Performed By: #### C K, PRO #### [place] [address] CMPon 09-04-2024 Albumin Level 3.2 G/dL Normal 3.2-4.8 [facility] Comment on above: Performed By: #### H H, CK #### [place] [address] Albumin/Globulin [Mass ratio] 1.0 {ratio} Normal 0.9-1.6 [facility] Comment on above: Performed By: #### H H, CK #### [place] [address] ALP [Catalytic activity/Vol] 77 U/L Normal 38-126 [facility] Comment on above: Performed By: #### H H, CK #### [place] [address] ALT [Catalytic activity/Vol] 18 U/L Normal 10-49 [facility] Comment on above: Performed By: #### H H, CK #### [place] [address] AST [Catalytic activity/Vol] 32 U/L Normal 8-34 [facility] Comment on above: Performed By: #### H H, CK #### [place] [address] Bili Total 1.20 mg/dL Normal 0.20-1.20 [facility] Comment on above: Result Comment: Use of this assay is not recommended for patients undergoing treatment with eltrombopag due to the potential for falsely elevated results. Performed By: #### H H, CK #### [place] [address] BUN/Creatinine Ratio 22.2 ratio High 10.0-22.[address] [facility] Comment on above: Performed By: #### H H, CK #### [place] [address] Calcium [Mass/Vol] 9.3 mg/dL Normal 8.7-10.4 [facility] Comment on above: Performed By: #### H H, CK #### [place] [address] Chloride [Moles/Vol] 99 mmol/L Normal 98-[address] [facility] Comment on above: Performed By: #### H H, CK #### [place] [address] CO2 [Moles/Vol] 27 mmol/L Normal 22-32 [facility] Comment on above: Performed By: #### H H, CK #### [place] [address] Creatinine [Mass/Vol] 0.90 mg/dL Normal 0.50-1.20 [facility] Comment on above: Result Comment: Test ing performed on [employer] analyzer using enzymatic creatinine methodology. Performed By: #### H H, CK #### [place] [address] Electrolyte Balance 10.0 mEq/L Normal 4.0-15.0 [facility] Comment on above: Performed By: #### H H, CK #### [place] [id number] Globulin 3.3 G/dL Normal 2.5-4.2 [facility] Comment on above: Performed By: #### H H, CK #### [place] [address] Glucose [Mass/Vol] 113 mg/dL Normal 82-115 [facility] Comment on above: Performed By: #### H H, CK #### [facility] [address] [place] [address] Potassium [Moles/Vol] 4.7 mmol/L Normal 3.5-5.0 [facility] Comment on above: Performed By: #### H H, CK #### [facility] [address] [place] [address] Sodium [Moles/Vol] 136 mmol/L Normal 136-145 [facility] Comment on above: Performed By: #### H H, CK #### [address] [address] Total Protein 6.5 G/dL Normal 5.7-8.2 [facility] Comment on above: Performed By: #### H H, CK #### [address] [address] Urea nitrogen [Mass/Vol] 20.0 mg/dL Normal 8.0-22.0 [facility] Comment on above: Performed By: #### H H, CK #### [address] [address] LABORATORYOrdered By: Sixto Jones on 09-04-2024 Glucose [Mass/Vol] 123 mg/dL High 82 - 115 mg/dL [facility] LABORATORYOrdered By: SYSTEM SYSTEM on 09-04-2024 Albumin BCP dye [Mass/Vol] 3.2 G/dL Normal 3.2 - 4.8 G/dL ADM SS Albumin/Globulin [Mass ratio] 1.0 {ratio} Normal 0.9 - 1.6 ratio ADM SS ALP [Catalytic activity/Vol] 77 U/L Normal 38 - 126 U/L ADM SS ALT No additional P-5'-P [Catalytic activity/Vol] 18 U/L Normal 10 - 49 U/L ADM SS AST [Catalytic activity/Vol] 32 U/L Normal 8 - 34 U/L ADM SS Basophils (Bld) [#/Vol] 0.1 103/mcL Normal 0.0 - 0.3 10^3/mcL Workflow SS Basophils/100 WBC (Bld) 0.9 % Normal 0.0 - 2.5 % Workflow SS Bilirubin [Mass/Vol] 1.20 mg/dL Normal 0.20 - 1.20 mg/dL AH ADM SS Comment on above: Interpretive Data: U se of this assay is not recommended for patients undergoing treatment with eltrombopag due to the potential for falsely elevated results. Calcium [Mass/Vol] 9.3 mg/dL Normal 8.7 - 10. 4 mg/dL ADM SS Chloride [Moles/Vol] 99 mmol/L Normal 98 - 11 0 mEq/L AH ADM SS CK [Catalytic activity/Vol] 467 U/L High 7 - 185 U/L AH ADM SS CO2 [Moles/Vol] 27 mmol/L Normal 22 - 32 mEq/L ADM SS Creatinine [Mass/Vol] 0.90 mg/dL Normal 0.50 - 1.20 mg/dL ADM SS Comment on above: Interpretive Data: T esting performed on [employer] analyzer using enzymatic creatinine methodology. Electrolyte Balance 10.0 mEq/L Normal 4.0 - 15 .0 mEq/L ADM SS Eosinophils (Bld) [#/Vol] 0.3 103/mcL Normal 0.0 - 0.7 10^3/mcL Workflow SS Eosinophils/100 WBC (Bld) 3.4 % Normal 0.0 - 6.0 % Workflow SS Erythrocyte distribution width (RBC) [Ratio] 15.4 % Normal 11.5 - 15.5 % Workflow SS Estimated Glomerular Filtration Rate 66 ml/min/1.73sqm Invalid Interpretation Code Chemistry S Comment on above: Interpretive Data: Stages of Chronic Kidney Disease (CKD) Stage Description eGFR(ml/min/1.73 sq.m.) CKD 1 Normal kidney function or >=90 normal kindney function with possible kidney damage (ex. Proteinuria) CKD 2 Kidney damage with mild loss 60-89 of kidney function CKD 3a Mild to moderate loss of kidney 45-59 function CKD 3b Moderate to severe loss of 30-44 of kindey function CKD 4 Severe loss of kidney function 15-29 CKD 5 Kidney failure <15 Note: (go live 2024) the eGFR calculation was updated to the 2020 CKD-EPI creatinine equation without a race factor to calculate the eGFR results. Globulin 3.3 G/dL Normal 2.5 - 4.2 G/dL ADM SS Glucose [Mass/Vol] 113 mg/dL Normal 82 - 115 mg/dL ADM SS Hematocrit (Bld) [Volume fraction] 25.4 % Low 34.0 - 46.0 % Workflow SS Hemoglobin (Bld) [Mass/Vol] 8.6 G/dL Low 12.0 - 16.0 G/dL Workflow SS Lymphocytes (Bld) [#/Vol] 1.3 103/mcL Normal 0.9 - 4.3 10^3/mcL Workflow SS Lymphocytes/100 WBC (Bld) 14.5 % Low 20.0 - 40.0 % Workflow SS Magnesium [Mass/Vol] 1.8 mg/dL Normal 1.6 - 2 .4 mg/dL ADM SS MCH (RBC) [Entitic mass] 29.5 pg Normal 27.0 - 33.0 pg Workflow SS MCHC 33.7 G/dL Normal 32.0 - 36.0 G/dL Workflow SS MCV (RBC) [Entitic vol] 87.4 fL Normal 80.0 - 99.0 fL Workflow SS Monocytes (Bld) [#/Vol] 0.9 103/mcL Normal 0.1 - 1.4 10^3/mcL Workflow SS Monocytes/100 WBC (Bld) 9.8 % Normal 2.0 - 13.0 % Workflow SS Neutrophils (Bld) [#/Vol] 6.3 103/mcL Normal 2.3 - 8.1 10^3/mcL Workflow SS Neutrophils/100 WBC (Bld) 71.4 % Normal 50.0 - 75.0 % Workflow SS Platelet mean volume (Bld) [Entitic vol] 8.4 fL Normal 6.6 - 10.5 fL Workflow SS Platelets (Bld) [#/Vol] 281 103/mcL Normal 150 - 450 10^3/mcL Workflow SS Potassium [Moles/Vol] 4.7 mmol/L Normal 3.5 - 5.0 mEq/L ADM SS Protein [Mass/Vol] 6.5 G/dL Normal 5.7 - 8.2 G/dL ADM SS PT Coag (PPP) [Time] 26.9 s High 9.0 - 1 4.4 seconds [facility] SS Comment on above: Interpretive Data: E ffective 09/13/07, Protime results may be affected by some antibiotics (i.e. Ciprofloxacin, Azithromycin, Bactrim) which may potentiate the action of oral anticoagulants, with further increases in Protime/INR. PT International Ratio 2.3 ratio Invalid Interpretation Code AH [facility] SS Comment on above: Interpretive Data: [employer]uchi or[employer]iz [employer] (CHEST, 1991, 102:312S-25S) recommended therapeutic range for oral anticoagulant therapy is: LOW RISK: Prophylaxis of venous thrombosis INR: 2.0-3.0 Treatment of pulmonary embolism 2.0-3.0 Prevention of systemic embolism 2.0-3.0 HIGH RISK: Mechanical prosthetic valves 2.5-3.5 RBC (Bld) [#/Vol] 2.91 106/mcL Low 4.10 - 5.3 0 10^6/mcL Workflow SS Sodium [Moles/Vol] 136 mmol/L Normal 136 - 145 mEq/L AH ADM SS Urea nitrogen [Mass/Vol] 20.0 mg/dL Normal 8.0 - 22.0 mg/dL ADM SS Urea nitrogen/Creatinine [Mass ratio] 22.2 ratio High 10.0 - 22.0 ratio AH ADM SS WBC (Bld) [#/Vol] 8.9 103/mcL Normal 4.5 - 10.8 10^3/mcL Workflow SS MGon 09-04-2024 Magnesium [Mass/Vol] 1.8 mg/dL Normal 1.6-2.[address] [facility] Comment on above: Performed By: #### A DIFF, CBC, MG, GFR, ANEU, CMP #### [address] [address] PROon 09-04-2024 INR Coag (PPP) [Relative time] 2.3 {INR} Normal [facility] Comment on above: Result Comment: [employer] (CHEST, 1991, 102:312S-25S) recommended therapeutic range for oral anticoagulant therapy is: LOW RISK: Prophylaxis of venous thrombosis INR: 2.0-3.0 Treatment of pulmonary embolism 2.0-3.0 Prevention of systemic embolism 2.0-3.0 HIGH RISK: Mechanical prosthetic valves 2.5-3.5 Performed By: #### C K, PRO #### [address] [address] PT Coag (PPP) [Time] 26.9 s High 9.0-14.[address] [facility] Comment on above: Result Comment: Effe ctive 09/13/07, Protime results may be affected by some antibiotics (i.e. Ciprofloxacin, Azithromycin, Bactrim) which may potentiate the action of oral anticoagulants, with further increases in Protime/INR. Performed By: #### C K PRO #### [address] [address] .Auto Diffon 09-03-2024 Basophil, Absolute 0.1 10 3/mcL Normal 0.0-0.3 [facility] Comment on above: Performed By: #### C BC, ANEU, PRO, MDW, ADIFF #### [facility] [address] [place], [place] [address] Basophils/100 WBC (Bld) 1.0 % Normal 0.0-2.5 [facility] Comment on above: Performed By: #### C BC, ANEU, PRO, MDW, ADIFF #### [facility] [address] [place], [place] [address] Eosinophil, Absolute 0.2 10 3/mcL Normal 0.0-0.7 [facility] Comment on above: Performed By: #### C BC, ANEU, PRO, MDW, ADIFF #### [facility] [address] [place], [place] [address] Eosinophils/100 WBC (Bld) 1.8 % Normal 0.0-6.0 [facility] Comment on above: Performed By: #### C BC, ANEU, PRO, MDW, ADIFF #### [facility] [address] [place], [place] [address] Lymphocyte, Absolute 1.9 10 3/mcL Normal 0.9-4.3 [facility] Comment on above: Performed By: #### C BC, ANEU, PRO, MDW, ADIFF #### [facility] [address] [place], [place] [address] Lymphocytes/100 WBC (Bld) 15.6 % Low 20.0-40.0 [facility] Comment on above: Performed By: #### C BC, ANEU, PRO, MDW, ADIFF #### [facility] [address] [place], [place] [address] Monocyte, Absolute 1.1 10 3/mcL Normal 0.1-1.4 [facility] Comment on above: Performed By: #### C BC, ANEU, PRO, MDW, ADIFF #### [facility] [address] [place], [place] [address] Monocytes/100 WBC (Bld) 9.0 % Normal 2.0-13.0 [facility] Comment on above: Performed By: #### C BC, ANEU, PRO, MDW, ADIFF #### [facility] [address] [place], [place] [address] Neutrophils/100 WBC (Bld) 72.6 % Normal 50.0-75.0 [facility] Comment on above: Performed By: #### C BC, ANEU, PRO, MDW, ADIFF #### [facility] [address] [place], [place] [address] Basophil, Absolute 0.1 10 3/mcL Normal 0.0-0.3 [facility] Comment on above: Performed By: #### A DIFF, CK, ANEU, MORPH, GFR, CBC, PRO, MDW, BMP #### [facility] [address] [place], [place] [address] Basophils/100 WBC (Bld) 0.9 % Normal 0.0-2.5 [facility] Comment on above: Performed By: #### A DIFF, CK, ANEU, MORPH, GFR, CBC, PRO, MDW, BMP #### [facility] [address] [place], [place] [address] Eosinophil, Absolute 0.2 10 3/mcL Normal 0.0-0.7 [facility] Comment on above: Performed By: #### A DIFF, CK, ANEU, MORPH, GFR, CBC, PRO, MDW, BMP #### [facility] [address] [place], [place] [address] Eosinophils/100 WBC (Bld) 1.5 % Normal 0.0-6.0 [facility] Comment on above: Performed By: #### A DIFF, CK, ANEU, MORPH, GFR, CBC, PRO, MDW, BMP #### [facility] [address] [place], [place] [address] Lymphocyte, Absolute 2.0 10 3/mcL Normal 0.9-4.3 [facility] Comment on above: Performed By: #### A DIFF, CK, ANEU, MORPH, GFR, CBC, PRO, MDW, BMP #### [facility] [address] [place], [place] [address] Lymphocytes/100 WBC (Bld) 15.5 % Low 20.0-40.0 [facility] Comment on above: Performed By: #### A DIFF, CK, ANEU, MORPH, GFR, CBC, PRO, MDW, BMP #### [facility] [address] [place], [place] [address] Monocyte, Absolute 1.4 10 3/mcL Normal 0.1-1.4 [facility] Comment on above: Performed By: #### A DIFF, CK, ANEU, MORPH, GFR, CBC, PRO, MDW, BMP #### [facility] [address] [place], [place] [address] Monocytes/100 WBC (Bld) 10.6 % Normal 2.0-13.0 [facility] Comment on above: Performed By: #### A DIFF, CK, ANEU, MORPH, GFR, CBC, PRO, MDW, BMP #### [facility] [address] [place], [place] [address] Neutrophils/100 WBC (Bld) 71.5 % Normal 50.0-75.0 [facility] Comment on above: Performed By: #### A DIFF, CK, ANEU, MORPH, GFR, CBC, PRO, MDW, BMP #### [facility] [address] [place], [place] [address] .GFRon 09-03-2024 Estimated Glomerular Filtration Rate 53 ml/min/1.73sqm Normal [facility] Comment on above: Result Comment: Stages of Chronic Kidney Disease (CKD) Stage Description eGFR(ml/min/1.73 sq.m.) CKD 1 Normal kidney function or >=90 normal kindney function with possible kidney damage (ex. Proteinuria) CKD 2 Kidney damage with mild loss 60-89 of kidney function CKD 3a Mild to moderate loss of kidney 45-59 function CKD 3b Moderate to severe loss of 30-44 of kindey function CKD 4 Severe loss of kidney function 15-29 CKD 5 Kidney failure <15 Note: (go live 2024) the eGFR calculation was updated to the 2020 CKD-EPI creatinine equation without a race factor to calculate the eGFR results. Performed By: #### C BC, ANEU, PRO, MDW, ADIFF #### [facility] [address] [place], [place] [address] .MDWon 09-03-2024 Monocyte Distribution Width 20.48 High 0.00-20.00 ALBERTO MASSILLON Comment on above: Result Comment: For adults in ED, MDW>20.0 may be associated with a higher risk of sepsis during the first 12hrs of hospital admission Performed By: #### C BC, ANEU, PRO, MDW, ADIFF #### [address] [place] [address] Monocyte Distribution Width 16.95 Normal 0.00-20.00 ALBERTO MASSILLON Comment on above: Result Comment: For ED adult patients suspected of sepsis, MDW<=20.0 does not rule out sepsis or risk of sepsis Performed By: #### A DIFF, CK, ANEU, MORPH, GFR, CBC, PRO, MDW, BMP #### [address] [place], [place] [address] .Morphon 09-03-2024 Platelet Estimate Normal Normal ALBERTO MASSILLON Comment on above: Performed By: #### A DIFF, CK, ANEU, MORPH, GFR, CBC, PRO, MDW, BMP #### [address] [place], [place] [address] .NEUABSon 09-03-2024 Neutrophil, Absolute 8.7 10 3/mcL High 2.3-8.1 AU LTMAN MASSILLON Comment on above: Performed By: #### C BC, ANEU, PRO, MDW, ADIFF #### Alberto [place] [address] [place], [place] [address] Neutrophil, Absolute 9.1 10 3/mcL High 2.3-8.1 AU LTMAN MASSILLON Comment on above: Performed By: #### A DIFF, CK, ANEU, MORPH, GFR, CBC, PRO, MDW, BMP #### Alberto [place] [address] [place], [place] [address] BMPon 09-03-2024 BUN/Creatinine Ratio 32 ratio High 7-27 MATTEO MAN MASSILLON Comment on above: Performed By: #### C BC, ANEU, PRO, MDW, ADIFF #### Alberto [place] [address] [place], [place] [address] Calcium [Mass/Vol] 9.3 mg/dL Normal 8.4-10.2 AULTMA N MASSILLON Comment on above: Performed By: #### C BC, ANEU, PRO, MDW, ADIFF #### [facility] [address] [place], [place] [address] Chloride [Moles/Vol] 98 mmol/L Normal 98-107 MATTEO MAN MASSILLON Comment on above: Performed By: #### C BC, ANEU, PRO, MDW, ADIFF #### [facility] [address] [place], [place] [address] CO2 [Moles/Vol] 30 mmol/L Normal 23-31 ALBERTO MASSILLON Comment on above: Performed By: #### C BC, ANEU, PRO, MDW, ADIFF #### Alberto [place] [address] [place], [place] [address] Creatinine [Mass/Vol] 1.09 mg/dL High 0.51-0.95 AUL TMAN MASSILLON Comment on above: Performed By: #### C BC, ANEU, PRO, MDW, ADIFF #### [facility] [address] [place], [place] [address] Electrolyte Balance 6.0 mEq/L Normal 4.0-15.0 AULTM AN MASSILLON Comment on above: Performed By: #### C BC, ANEU, PRO, MDW, ADIFF #### Alberto [place] [address] [place], [place] [address] Glucose [Mass/Vol] 138 mg/dL High 83-110 AULTMA N MASSILLON Comment on above: Performed By: #### C BC, ANEU, PRO, MDW, ADIFF #### Alberto [place] [address] [place], [place] [address] Potassium [Moles/Vol] 4.1 mmol/L Normal 3.5-5.1 AUL TMAN MASSILLO Comment on above: Performed By: #### C BC, ANEU, PRO, MDW, ADIFF #### Alberto [place] [address] [place], [place] [address] Sodium [Moles/Vol] 134 mmol/L Low 136-145 AULTMA N MASSILLON Comment on above: Performed By: #### C BC, ANEU, PRO, MDW, ADIFF #### Alberto [place] [place], [place] [address] Urea nitrogen [Mass/Vol] 35 mg/dL High 7-18 ALBERTO MASSILLO Comment on above: Performed By: #### C BC, ANEU, PRO, MDW, ADIFF #### Alberto [place] [address] [place], [place] [address] CBCon 09-03-2024 Erythrocyte distribution width (RBC) [Ratio] 15.5 % Normal 11.5-15.5 [facility] Comment on above: Performed By: #### C BC, ANEU, PRO, MDW, ADIFF ####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 High risk 500 or higher Very high risk Performed By: #### L IPID, CMP, ANEU, VIDH, CBC, GFR, ADIFF #### [address] [address] PBNPon 05-17-2024 Natriuretic peptide B (Bld) [Mass/Vol] 189 pg/mL Normal 0-450 [facility] Comment on above: Result Comment: NT-p roBNP results of less than 300 pg/mL effectively rules out acute congestive heart failure with 99% negative predictive value. Performed By: #### P BNP #### [facility] [address] [place], [place] [address] VIDHon 05-17-2024 Vit. D 25-Hydroxy 67.6 ng/mL Normal [facility] Comment on above: Result Comment: Inte rpretive Values Based on Total 25(OH) Vitamin D: Deficient <20 ng/mL Insufficient 20 - <30 ng/mL Sufficient 30-100 ng/mL Performed By: #### L IPID, CMP, ANEU, VIDH, CBC, GFR, ADIFF #### [place] [place], [place] [address] Lipid Profileon 03-02-2024 Cholesterol [Mass/Vol] 140 mg/dL Normal 200 [facility] Comment on above: Order Comment: PT IA NTED LABS DONE NOW Result Comment: <200 mg/dL Desirable 200-240 mg/dL Borderline >240 mg/dL High Risk Performed By: #### L 500.4100, L500.3400 #### [facility] [address] [place], [address] Cholesterol in HDL [Mass/Vol] 49 mg/dL Normal [facility] Comment on above: Order Comment: PT IA NTED LABS DONE NOW Result Comment: The drugs N-Acetylcysteine and Metamizole may falsely depress this assay. Reference Range HDL <40 mg/dL Low HDL Cholesterol HDL >or= 60 mg/dL High HDL Cholesterol Performed By: #### L 500.4100, L500.3400 #### [facility] [address] [place], [address] Cholesterol in LDL [Mass/Vol] 65 mg/dL Normal 0-130 [facility] Comment on above: Order Comment: PT IA NTED LABS DONE NOW Performed By: #### L 500.4100, L500.3400 #### [facility] [address] [place], [address] Cholesterol in VLDL [Mass/Vol] 26 mg/dL Normal 5-40 [facility] Comment on above: Order Comment: PT [place] NTED LABS DONE NOW Performed By: #### L 500.4100, L500.3400 #### [facility] [address] [place], [address] Triglyceride [Mass/Vol] 128 mg/dL Normal [facility] Comment on above: Order Comment: PT IA NTED LABS DONE NOW Result Comment: The drugs N-Acetylcysteine and Metamizole may falsely depress this assay. Serum Triglycerides Reference Interval Normal <150 mg/dL Borderline high 150 - 199 mg/dL High 200 - 499 mg/dL Very High > or = 500 mg/dL Performed By: #### L 500.4100, L500.3400 #### [facility] [address] [place], [address] CHOL Normal 200 [facility] Comment on above: Result Comment: EXPI RED Performed By: #### L 500.3400, L500.4100 #### [facility] [address] [place], [address] HDL Normal [facility] Comment on above: Result Comment: EXPI RED Performed By: #### L 500.3400, L500.4100 #### [facility] [address] [place], [address] LDL Normal 0-130 [facility] Comment on above: Result Comment: EXPI RED Performed By: #### L 500.3400, L500.4100 #### [facility] [address] [place], [address] TRIG Normal [facility] Comment on above: Result Comment: EXPI RED Performed By: #### L 500.3400, L500.4100 #### [facility] [address] [place], [address] VLDL Normal 5-40 [facility] Comment on above: Result Comment: EXPI RED Performed By: #### L 500.3400, L500.4100 #### [facility] [address] [place], [address] Liver Profileon 03-02-2024 Albumin [Mass/Vol] 3.8 g/dL Normal 3.2-5.0 [facility] Comment on above: Order Comment: PT [place] NTED LABS DONE NOW Performed By: #### L 500.4100, L500.3400 #### [facility] [address] [place], [address] ALK P 104 U/L Normal 45-117 [facility] Comment on above: Order Comment: PT IA NTED LABS DONE NOW Performed By: #### L 500.4100, L500.3400 #### [facility] [address] [place], [address] ALT [Catalytic activity/Vol] 14 U/L Normal 13-56 [facility] Comment on above: Order Comment: PT WA NTED LABS DONE NOW Performed By: #### L 500.4100, L500.3400 #### [facility] [address] [place], [address] AST [Catalytic activity/Vol] 14 U/L Low 15-37 [facility] Comment on above: Order Comment: PT WA NTED LABS DONE NOW Performed By: #### L 500.4100, L500.3400 #### [facility] [address] [place], [address] Bilirubin [Mass/Vol] 1.10 mg/dL High 0.20-1.00 [facility] Comment on above: Order Comment: PT WA NTED LABS DONE NOW Result Comment: For patients on eltrombopag therapy, use of Dimension [place] TBIL is not recommended. Performed By: #### L 500.4100, L500.3400 #### [facility] [address] [place], [address] Bilirubin.direct [Mass/Vol] 0.31 mg/dL High 0.00-0.30 [facility] Comment on above: Order Comment: PT IA NTED LABS DONE NOW Performed By: #### L 500.4100, L500.3400 #### [facility] [address] [place], [address] Globulin (S) [Mass/Vol] 4.7 g/dL High 2.2-4.2 [facility] Comment on above: Order Comment: PT IA NTED LABS DONE NOW Performed By: #### L 500.4100, L500.3400 #### [facility] [address] [place], [address] T PROT 8.5 g/dL High 6.4-8.2 [facility] Comment on above: Order Comment: PT IA NTED LABS DONE NOW Performed By: #### L 500.4100, L500.3400 #### [facility] [address] [place], [address] ALB Normal 3.2-5.0 [facility] Comment on above: Result Comment: EXPI RED Performed By: #### L 500.3400, L500.4100 #### [facility] [address] [place], [address] ALK P Normal 45-117 [facility] Comment on above: Result Comment: EXPI RED Performed By: #### L 500.3400, L500.4100 #### [facility] [address] [place], [address] ALT Normal 13-56 [facility] Comment on above: Result Comment: EXPI RED Performed By: #### L 500.3400, L500.4100 #### [facility] [address] [place], [address] AST Normal 15-37 [facility] Comment on above: Result Comment: EXPI RED Performed By: #### L 500.3400, L500.4100 #### [facility] [address] [place], [address] D BILI Normal 0.00-0.30 [facility] Comment on above: Result Comment: EXPI RED Performed By: #### L 500.3400, L500.4100 #### [facility] [address] [place], [address] T BILI Normal 0.20-1.00 [facility] Comment on above: Result Comment: EXPI RED Performed By: #### L 500.3400, L500.4100 #### [facility] [address] [place], [address] T PROT Normal 6.4-8.2 [facility] Comment on above: Result Comment: EXPI RED Performed By: #### L 500.3400, L500.4100 #### [facility] [address] [place], [address] Prothrombin Time w/INRon INR Coag (PPP) [Relative time] 1.7 {INR} Normal [facility] Comment on above: Order Comment: Comme nts: STANDING ORDER: Fax to [facility] Performed By: #### L 300.3900 #### [facility] [address] [place], [address] PT Coag (PPP) [Time] 19.9 s High 11.7-14.9 [facility] Comment on above: Order Comment: Comme nts: STANDING ORDER: Fax to [facility] Performed By: #### L 300.3900 #### [facility] [address] [place], [address] LABORATORYOrdered By: SYSTEM SYSTEM on 01-19-2024 INR Coag (PPP) [Relative time] 2.0 {INR} Invalid Interpretation Code AO [facility] Comment on above: Interpretive Data: [employer]uchi ortiz [employer] (CHEST, 1991, 102:312S-25S) recommended therapeutic range for oral anticoagulant therapy is: LOW RISK: Prophylaxis of venous thrombosis INR: 2.0-3.0 Treatment of pulmonary embolism 2.0-3.0 Prevention of systemic embolism 2.0-3.0 HIGH RISK: Mechanical prosthetic valves 2.5-3.5 PT Coag (PPP) [Time] 23.2 s High 9.0 - 1 4.4 seconds AO [facility] PROon 01-19-2024 PT Coag (PPP) [Time] 23.2 s High 9.0-14.4 [facility] Comment on above: Performed By: #### P RO #### [address] [address] PT International Ratio 2.0 Normal [facility] Comment on above: Result Comment: [employer] (CHEST1991, 102:312S-25S) recommended therapeutic range for oral anticoagulant therapy is: LOW RISK: Prophylaxis of venous thrombosis INR: 2.0-3.0 Treatment of pulmonary embolism 2.0-3.0 Prevention of systemic embolism 2.0-3.0 HIGH RISK: Mechanical prosthetic valves 2.5-3.5 Performed By: #### P RO #### [address] [address] LABORATORYOrdered By: SYSTEM SYSTEM on 12-27-2023 INR Coag (PPP) [Relative time] 1.3 {INR} Invalid Interpretation Code AO [facility] Comment on above: Interpretive Data: [employer]uchi [employer] (CHEST1991, 102:312S-25S) recommended therapeutic range for oral anticoagulant therapy is: LOW RISK: Prophylaxis of venous thrombosis INR: 2.0-3.0 Treatment of pulmonary embolism 2.0-3.0 Prevention of systemic embolism 2.0-3.0 HIGH RISK: Mechanical prosthetic valves 2.5-3.5 PT Coag (PPP) [Time] 15.0 s High 9.0 - 1 4.4 seconds AO [facility] PROon 12-27-2023 PT Coag (PPP) [Time] 15.0 s High 9.0-14.4 [facility] Comment on above: Performed By: #### P RO #### [address] [address] PT International Ratio 1.3 [facility] Comment on above: Result Comment: [employer] (CHEST, 1991, 102:312S-25S) recommended therapeutic range for oral anticoagulant therapy is: LOW RISK: Prophylaxis of venous thrombosis INR: 2.0-3.0 Treatment of pulmonary embolism 2.0-3.0 Prevention of systemic embolism 2.0-3.0 HIGH RISK: Mechanical prosthetic valves 2.5-3.5 Performed By: #### P RO #### [address] [address] LABORATORYOrdered By: SYSTEM SYSTEM on 11-18-2023 INR Coag (PPP) [Relative time] 2.0 {INR} Invalid Interpretation Code AO [facility] Comment on above: Interpretive Data: [employer] (CHEST1991, 102:312S-25S) recommended therapeutic range for oral anticoagulant therapy is: LOW RISK: Prophylaxis of venous thrombosis INR: 2.0-3.0 Treatment of pulmonary embolism 2.0-3.0 Prevention of systemic embolism 2.0-3.0 HIGH RISK: Mechanical prosthetic valves 2.5-3.5 PT Coag (PPP) [Time] 23.3 s High 9.0 - 1 4.4 seconds AO [facility] PROon 11-18-2023 PT Coag (PPP) [Time] 23.3 s High 9.0-14.4 [facility] Comment on above: Performed By: #### L IPID, CMP, ANEU, VIDH, CBC, GFR, ADIFF #### [address] [address] PT International Ratio 2.0 Normal [facility] Comment on above: Result Comment: [employer] (CHEST, 1991, 102:312S-25S) recommended therapeutic range for oral anticoagulant therapy is: LOW RISK: Prophylaxis of venous thrombosis INR: 2.0-3.0 Treatment of pulmonary embolism 2.0-3.0 Prevention of systemic embolism 2.0-3.0 HIGH RISK: Mechanical prosthetic valves 2.5-3.5 Performed By: #### L IPID, CMP, ANEU, VIDH, CBC, GFR, ADIFF #### [address] [place], [place] [address] BD BONE DENSITY DEXA AXIAL S Mariela 10-13-2023 BD BONE DENSITY DEXA AXIAL SKELETON ORIGINAL EXAMINATION: BONE DENSITOMETRY 10/13/2023 2:08 pm TECHNIQUE: A bone density dual x-ray absorptiometry (DEXA) scan was performed of the axial (e.g. hips, spine) and/or appendicular (e.g. radius) skeleton as appropriate. COMPARISON: 05/19/2013 HISTORY: ORDERING SYSTEM PROVIDED HISTORY: Reason for Exam: Osteoporosis Screening FINDINGS: T Score Left Femoral Neck: -2.8 Left Femoral Neck: 0.543 (g/cm2) T Score Left Hip: -2.5 Left Hip: 0.639 (g/cm2) T Score Lumbar Spine: -0.7 Lumbar Spine: 0.969 (g/cmd2) BMD change from previous hip:-8.2% BMD change from previous lumbar Spine: 14.6% IMPRESSION: Osteoporosis by WHO criteria. World Health Organization criteria: (Comparing with young normal sex matched population) - Normal: T-score at or above -1 SD (standard deviation) - Osteopenia: T-score between -1 and -2.5 SD - Osteoporosis: T-score at or below -2.5 SD The NOF recommends that FDA-approved medical therapies be considered in post-menopausal women and men age >/= 50 years with a: * Hip or vertebral fracture, or * T-score of /= 20% for major osteoporotic fractures or * >/= 3% for hip fractures All treatment decisions require clinical judgement and consideration of individual patient factors, including patient preferences, comorbidities, previous drug use, risk factors not captured in the FRAX registered model (e.g., frailty, falls, vitamin D deficiency, increased bone turnover, interval significant decline in bone density) and possible under- or over-estimation of fracture risk by FRAX. Interpreted by: Tano Lentz DO Preliminary Report By: Tano Lentz DO Electronically signed By Tano Lentz DO Dictated Date: 10/13/2023 2:46:24 PM Prelim Date: 10/13/2023 2:47:13 PM Sign Date: 10/13/2023 2:47:13 PM Ordering Provider: YULISSA Quispe [facility] (ID) MA MAMMOGRAM SCREENING BILAT ZHANGL W/TOMOon 10-13-2023 MA MAMMOGRAM SCREENING BILATERAL W/LOIS ORIGINAL FROM: [id number] [place], [place] [address] PROCEDURE FOR: NADGEE PAPPAS [address] [place] [address] Home: PID#: [id number] Exam#: [id number] : 1950 Age: 73 TO: YULISSA ROACH HYDROELECTRIC STATION OPERATOR [facility] [address] [place], [place] [address] Fax: NO FAX EXAMINATION: SCREENING DIGITAL BILATERAL MAMMOGRAM WITH TOMOSYNTHESIS, 10/13/2023 1:47 pm TECHNIQUE: Screening mammography of the bilateral breasts was performed with tomosynthesis. 2D standard and 3D tomosynthesis combination imaging performed through both breasts in the MLO and CC projection. Computer aided detection was utilized in the interpretation of this exam. COMPARISON: 03/05/2014 HISTORY: Breast cancer screening. FINDINGS: BREAST DENSITY: There are scattered areas of fibroglandular density. There are benign appearing calcifications in both breasts. There are no significant masses or calcifications. IMPRESSION: No mammographic evidence of malignancy. Continued screening with annual mammograms is recommended. Shade Ma risk calculations, generated with the history provided, report this patient's 10 year risk and lifetime risk for developing breast cancer at 2.1% and 2.1%, respectively. Based on this assessment tool, if the patient's calculated lifetime risk is below 20%, then the patient is considered at average risk for developing breast cancer. If the patient's calculated lifetime risk is at or above 20%, then the patient is considered high risk for developing breast cancer and may be a candidate for supplemental breast MRI screening in addition to annual mammographic screening per the [employer]. BIRADS: BI-RADS: 2: Benign RECALL: 1 year screening RECALL TYPE: mammo LETTER SENT: Normal BI-RADS 1 and 2 Interpreted by: Tano Wright MD Preliminary Report By: Tano Wright MD Electronically signed By Tano Wright MD Dictated Date: 10/13/2023 7:15:49 PM Prelim Date: 10/13/2023 7:17:57 PM Sign Date: 10/13/2023 7:17:57 PM Ordering Provider: YULISSA ROACH [employer]ove Parts Cutter: MELA TRAN RT(R)(M)(CT) letter sent: Normal BI-RADS 1 and 2 Mammogram BI-RADS: 2 Benign Normal [facility] (ID) PROon 10-13-2023 PT Coag (PPP) [Time] 25.6 s High 9.0-14.4 [facility]) Comment on above: Performed By: #### C MP, GFR, LIPID, CBC, ADIFF, ANEU #### [address] [place], [place] [address] PT International Ratio 2.2 Normal [facility]) Comment on above: Result Comment: [employer] (CHEST, 1992, 102:312S-25S) recommended therapeutic range for oral anticoagulant therapy is: LOW RISK: Prophylaxis of venous thrombosis INR: 2.0-3.0 Treatment of pulmonary embolism 2.0-3.0 Prevention of systemic embolism 2.0-3.0 HIGH RISK: Mechanical prosthetic valves 2.5-3.5 Performed By: #### C MP, GFR, LIPID, CBC, ADIFF, ANEU #### [address] [place], [place] [address] 12 [place] [facility]23 12 Lead EKG performed by [facility] [address] [place] [address] 12 Lead E[place] [facility] 09/23/23 0934 MR#: [id number] Acct: [id number] Name: NADEGE PAPPAS Rep #: [id number] : 1950 73 From: Akhil Pina MD Attending Dr: Dr. Akhil Pina MD Status: DEP A MB Ordering Dr: Akhil Pina MD Date: 09/23/23 [place] [facility] Sex: F C Admitted: BMS/12 Lead [place] [facility] [place] Report Interpretation ---Sinus Bradycardia WITHIN NORMAL LIMITSElectronically signed on 09/27/2023 at 07:23 by Akhil Pina [employer] Version [id number] 09/27/2328 Date Akhil Pina MD CC: DARIO Roach Date Dictated: 09/23/23933 Date Transcribed: 09/23/23933 Drug Abuse Technician: [place] Signed Normal [facility] Cardiology Visit Reporton Cardiology Visit Report [facility] [address] [place] [address]. [address] [place] [address] OFFICE VISIT Date of Service: 09/23/23 MR#: [id number] Acct: [id number] Name: NADEGE PAPPAS Rep #: [id number] : 1950 Provider: Dr. Akhil Pina MD Age/Sex: 73/F [place] [facility] [place] Status: Signed HPI HPI History of Present Illness Details: NADEGE PAPPAS, is a 73 F who presents to the office today for a follow-up visit. She is a lady who had presented with shortness of breath as well as palpitations. She had been evaluated with a stress test which demonstrated mild ischemia involving the basal to mid inferior lateral wall she went on to undergo a cardiac catheterization which demonstrated essentially normal coronary arteries. From a cardiac standpoint, the patient is doing well. She denies any palpitations, chest pain, pressure or heaviness. She denies SOB, Orthopnea, and PND. She does not have bleeding issues; no blood in urine, stool or nosebleeds. She denies any decrease in energy level, myalgias, or claudication. She does not have edema, or sudden weight gain. She denies dizziness, lightheadedness, syncopal or near syncopal episodes, and headaches. Intake Vital Signs 09/23/22 09:10 09/23/23 09:34 Height 5 ft 3 in 5 ft 3 in Weight: 177 lb BMI 31.3 BP 140/79 H Blood Pressure Location Lt brachial Position Sitting Respiration 16 Pulse 58 L Pulse Source Monitor Intake Visit Reasons: 1 Y FU Pulmonologist Intensivist Required: No Accompanied by: Self Is patient in pain?: No Allergies No Known Allergies Allergy (Verified 09/23/23 09:36) Medications ???Medication ???Instructions ???Recorded ???Confirmed ???Type calcium citrate 315 mg 1 tab PO QAM 02/02/17 09/23/23 History calcium-vitamin D3 6.25 mcg (250 unit) tablet (Citracal + Vitamin D Maximum) lisinopril 40 mg tablet 40 mg PO DAILY #90 tabs 05/10/23 09/23/23 Rx metoprolol succinate 25 mg 25 mg PO QHS #90 TABLETS 08/09/23 09/23/23 Rx tablet,extended release 24 hr warfarin 2 mg tablet 2 mg PO DAILY #90 tabs 09/01/23 09/23/23 Rx allopurinol 100 mg tablet 100 mg PO DAILY 09/23/23 09/23/23 History amlodipine 5 mg tablet 5 mg PO DAILY #90 tabs 09/23/23 09/23/23 Rx cholecalciferol (vitamin D3) 10 10 mcg PO DAILY 09/23/23 09/23/23 History mcg (400 unit) capsule flecainide 100 mg tablet 100 mg PO Q12H #180 tabs 09/23/23 09/23/23 Rx simvastatin 20 mg tablet 20 mg PO QPM #90 tabs 09/23/23 09/23/23 Rx trazodone 50 mg tablet 50 mg PO QHS 09/23/23 09/23/23 History Have you fallen in the past year?: No PFSH Medical History Essential hypertension Paroxysmal atrial flutter Paroxysmal atrial fibrillation Type 2 diabetes mellitus without complications Obesity Gout Hyperlipidemia Surgical History History of cataract surgery (12/2019) History of left heart catheterization (02/08/17) Status post right knee replacement Family History Father CAD (coronary artery disease) CABG and PPM Social History Smoking Status: Never smoker alcohol intake: never substance use type: does not use ROS Const Const: Positive for difficulty sleeping (using trazadone); Negative for fatigue, weakness, headache(s) or daytime sleepiness ENT ENT: Negative for headache(s), dizziness or Nosebleed/epistaxis Cardio Chest Pain: No Palpitations: No Edema: None Resp Respiratory: Negative for SOB with activity, SOB at rest, SOB orthopnea SOB lying down or Cough GI GI: Negative nausea, vomiting or heartburn Neuro Neuro: Negative for dizziness, lightheadedness, near syncope, headache(s) or weakness Endo Endo: Negative for fatigue Cardiology Exam Const Appearance: cooperative, healthy appearing, no acute distress, well developed and well groomed Nutritional Appearance: average body habitus and well nourished Orientation: alert, awake and oriented x3 Head Head: normal to inspection, normocephalic and atraumatic Ears: hearing grossly normal bilaterally and external ears normal Nose: external nose normal, nares normal, nasal mucous membranes and turbinates normal, septum normal and no nasal discharge Face and Sinus: face symmetric Mouth: oral mucosae normal, tongue normal, oropharynx normal and moist mucous membranes Teeth and gingiva: dentition normal Throat: posterior oropharynx normal, tonsils normal and uvula midline Eyes General: appearance normal, both eyes and all related structures Eyelids: eyelids normal Conjunctivae: conjunctivae normal Pupils: PERRL, normal by confrontation and accommodation normal EOM: EOM intact bilaterally Neck N (more content not included)... Normal [facility] HFPon 09-20-2023 Bili Indirect 0.5 mg/dL Normal [facility] ([place]) Comment on above: Performed By: #### C MP, GFR, LIPID, CBC, ADIFF, ANEU #### Alberto [address] [address] Albumin Level 3.6 G/dL Normal 3.4-4.8 [facility] ([place]) Comment on above: Performed By: #### C MP, GFR, LIPID, CBC, ADIFF, ANEU #### [address] [address] Albumin/Globulin [Mass ratio] 0.9 {ratio} Low 1.1-2.5 [facility] ([place]) Comment on above: Performed By: #### C MP, GFR, LIPID, CBC, ADIFF, ANEU #### [address] [address] ALP [Catalytic activity/Vol] 84 U/L Normal 40-135 [facility] ([place]) Comment on above: Performed By: #### C MP, GFR, LIPID, CBC, ADIFF, ANEU #### [place] [id number] ALT [Catalytic activity/Vol] 20 U/L Normal 14-59 [facility] ([place]) Comment on above: Performed By: #### C MP, GFR, LIPID, CBC, ADIFF, ANEU #### [place] [id number] AST [Catalytic activity/Vol] 10 U/L Normal 10-40 [facility] ([place]) Comment on above: Performed By: #### C MP, GFR, LIPID, CBC, ADIFF, ANEU #### [address] [address] Bili Direct 0.1 mg/dL Normal 0.0-0.2 [facility] ([place]) Comment on above: Result Comment: Use of this assay is not recommended for patients undergoing treatment with eltrombopag due to the potential for falsely elevated results. Performed By: #### C MP, GFR, LIPID, CBC, ADIFF, ANEU #### [address] [address] Bili Total 0.6 mg/dL Normal 0.2-1.0 [facility] ([place]) Comment on above: Result Comment: Use of this assay is not recommended for patients undergoing treatment with eltrombopag due to the potential for falsely elevated results. Performed By: #### C MP, GFR, LIPID, CBC, ADIFF, ANEU #### [address] [address] Globulin 3.8 G/dL Normal [facility] ([place]) Comment on above: Performed By: #### C MP, GFR, LIPID, CBC, ADIFF, ANEU #### [address] [address] Total Protein 7.4 G/dL Normal 6.4-8.2 [facility] ([place]) Comment on above: Performed By: #### C MP, GFR, LIPID, CBC, ADIFF, ANEU #### [address] [address] LIPIDon 09-20-2023 Cholesterol [Mass/Vol] 147 mg/dL Normal 0-200 [facility] ([place]) Comment on above: Result Comment: Chol esterol Reference Interval: Less than 200 Desirable 200-239 Borderline high risk 240 and above High risk Performed By: #### C MP, GFR, LIPID, CBC, ADIFF, ANEU #### [address] [address] Cholesterol in HDL [Mass/Vol] 50 mg/dL Normal 40-60 [facility] ([place]) Comment on above: Performed By: #### C MP, GFR, LIPID, CBC, ADIFF, ANEU #### [address] [address] Cholesterol in LDL [Mass/Vol] 68 mg/dL Normal 0-130 [facility] ([place]) Comment on above: Performed By: #### C MP, GFR, LIPID, CBC, ADIFF, ANEU #### [address] [address] Triglyceride [Mass/Vol] 145 mg/dL Normal 0-150 [facility] ([place]) Comment on above: Result Comment: Trig lyceride Reference Interval: Less than 150 Normal 150-199 Borderline high risk 200-499 High risk 500 or higher Very high risk Performed By: #### C MP, GFR, LIPID, CBC, ADIFF, ANEU #### [address] [address] PROon 09-20-2023 PT Coag (PPP) [Time] 28.1 s High 9.0-14.4 [facility] ([place]) Comment on above: Performed By: #### P RO #### [address] [address] PT International Ratio 2.4 Normal [facility] ([place]) Comment on above: Result Comment: [employer] (CHEST, 1991, 102:312S-25S) recommended therapeutic range for oral anticoagulant therapy is: LOW RISK: Prophylaxis of venous thrombosis INR: 2.0-3.0 Treatment of pulmonary embolism 2.0-3.0 Prevention of systemic embolism 2.0-3.0 HIGH RISK: Mechanical prosthetic valves 2.5-3.5 Performed By: #### P RO #### [address] [address] .Auto Diffon 08-31-2023 Basophil, Absolute 0.1 10 3/mcL Normal 0.0-0.2 [facility] ([place]) Comment on above: Performed By: #### C MP, GFR, LIPID, CBC, ADIFF, ANEU #### [address] [address] Basophils/100 WBC (Bld) 0.9 % Normal 0.0-2.5 [facility] ([place]) Comment on above: Performed By: #### C MP, GFR, LIPID, CBC, ADIFF, ANEU #### [address] [address] Eosinophil, Absolute 0.2 10 3/mcL Normal 0.0-0.4 [facility] ([place]) Comment on above: Performed By: #### C MP, GFR, LIPID, CBC, ADIFF, ANEU #### [address] [address] Eosinophils/100 WBC (Bld) 2.1 % Normal 0.0-7.0 [facility] ([place]) Comment on above: Performed By: #### C MP, GFR, LIPID, CBC, ADIFF, ANEU #### [address] [address] Lymphocyte, Absolute 1.8 10 3/mcL Normal 0.8-3.9 [facility] ([place]) Comment on above: Performed By: #### C MP, GFR, LIPID, CBC, ADIFF, ANEU #### [address] [address] Lymphocytes/100 WBC (Bld) 20.8 % Normal 10.0-50.0 [facility] ([place]) Comment on above: Performed By: #### C MP, GFR, LIPID, CBC, ADIFF, ANEU #### [address] [address] Monocyte, Absolute 0.7 10 3/mcL Normal 0.2-1.0 [facility] ([place]) Comment on above: Performed By: #### C MP, GFR, LIPID, CBC, ADIFF, ANEU #### [address] [address] Monocytes/100 WBC (Bld) 8.0 % Normal 1.7-13.0 [facility] ([place]) Comment on above: Performed By: #### C MP, GFR, LIPID, CBC, ADIFF, ANEU #### [address] [address] Neutrophils/100 WBC (Bld) 68.2 % Normal 37.0-80.0 [facility] ([place]) Comment on above: Performed By: #### C MP, GFR, LIPID, CBC, ADIFF, ANEU #### [address] [address] .GFRon 08-31-2023 GFR Non- 44 ml/min/1.73sqm Normal [facility] ([place]) Comment on above: Result Comment: GFR Population mean for , Non- Americans Ages 20-29 = 116 mL/min/1.73 sq.m. Ages 30-39 = 107 mL/min/1.73 sq.m. Ages 40-49 = 99 mL/min/1.73 sq.m. Ages 50-59 = 93 mL/min/1.73 sq.m. Ages 60-69 = 85 mL/min/1.73 sq.m. Ages 70+ = 75 mL/min/1.73 sq.m. Chronic Kidney Disease: Less than 60 mL/min/1.73 square meters End Stage Renal Disease: Less than 15 mL/min/1.73 square meters Performed By: #### C MP, GFR, LIPID, CBC, ADIFF, ANEU #### [address] [address] GFR 54 ml/min/1.73sqm Normal [facility] ([place]) Comment on above: Result Comment: GFR Population mean for , Non- Americans Ages 20-29 = 116 mL/min/1.73 sq.m. Ages 30-39 = 107 mL/min/1.73 sq.m. Ages 40-49 = 99 mL/min/1.73 sq.m. Ages 50-59 = 93 mL/min/1.73 sq.m. Ages 60-69 = 85 mL/min/1.73 sq.m. Ages 70+ = 75 mL/min/1.73 sq.m. Chronic Kidney Disease: Less than 60 mL/min/1.73 square meters End Stage Renal Disease: Less than 15 mL/min/1.73 square meters Performed By: #### C MP, GFR, LIPID, CBC, ADIFF, ANEU #### [address] [address] .NEUABSon 08-31-2023 Neutrophil, Absolute 6.0 10 3/mcL Normal 2.9-6.2 [facility] ([place]) Comment on above: Performed By: #### C MP, GFR, LIPID, CBC, ADIFF, ANEU #### [address] [address] CBCon 08-31-2023 Erythrocyte distribution width (RBC) [Ratio] 15.3 % High 11.5-14.5 [facility] ([place]) Comment on above: Performed By: #### C MP, GFR, LIPID, CBC, ADIFF, ANEU #### [address] [address] Hematocrit (Bld) [Volume fraction] 37.5 % Normal 37.0-47.0 [facility] ([place]) Comment on above: Performed By: #### C MP, GFR, LIPID, CBC, ADIFF, ANEU #### [address] [address] Hgb 12.4 G/dL Normal 12.0-16.0 [facility] ([place]) Comment on above: Performed By: #### C MP, GFR, LIPID, CBC, ADIFF, ANEU #### [address] [address] MCH (RBC) [Entitic mass] 30.0 pg Normal 27.0-31.2 [facility] ([place]) Comment on above: Performed By: #### C MP, GFR, LIPID, CBC, ADIFF, ANEU #### [address] [address] MCHC 33.0 G/dL Normal 33.0-37.0 [facility] ([place]) Comment on above: Performed By: #### C MP, GFR, LIPID, CBC, ADIFF, ANEU #### [address] [address] MCV (RBC) [Entitic vol] 91.0 fL Normal 80.0-94.0 [facility] ([place]) Comment on above: Performed By: #### C MP, GFR, LIPID, CBC, ADIFF, ANEU #### [address] [address] Platelet 282 10 3/mcL Normal 130-400 [facility] ([place]) Comment on above: Performed By: #### C MP, GFR, LIPID, CBC, ADIFF, ANEU #### [address] [address] Platelet mean volume (Bld) [Entitic vol] 8.7 fL Normal 7.4-10.4 [facility] ([place]) Comment on above: Performed By: #### C MP, GFR, LIPID, CBC, ADIFF, ANEU #### [place] [id number] RBC 4.12 10 6/mcL Low 4.20-5.40 [facility] ([place]) Comment on above: Performed By: #### C MP, GFR, LIPID, CBC, ADIFF, ANEU #### [address] [address] WBC 8.8 10 3/mcL Normal 4.6-10.8 [facility] ([place]) Comment on above: Performed By: #### C MP, GFR, LIPID, CBC, ADIFF, ANEU #### [address] [address] CMPon 08-31-2023 Albumin Level 3.9 G/dL Normal 3.4-4.8 [facility] ([place]) Comment on above: Performed By: #### C MP, GFR, LIPID, CBC, ADIFF, ANEU #### [address] [address] Albumin/Globulin [Mass ratio] 1.1 {ratio} Normal 1.1-2.5 [facility] ([place]) Comment on above: Performed By: #### C MP, GFR, LIPID, CBC, ADIFF, ANEU #### [address] [address] ALP [Catalytic activity/Vol] 82 U/L Normal 40-135 [facility] ([place]) Comment on above: Performed By: #### C MP, GFR, LIPID, CBC, ADIFF, ANEU #### [address] [address] ALT [Catalytic activity/Vol] 16 U/L Normal 14-59 [facility] ([place]) Comment on above: Performed By: #### C MP, GFR, LIPID, CBC, ADIFF, ANEU #### [address] [address] AST [Catalytic activity/Vol] 13 U/L Normal 10-40 [facility] ([place]) Comment on above: Performed By: #### C MP, GFR, LIPID, CBC, ADIFF, ANEU #### [address] [address] Bili Total 0.6 mg/dL Normal 0.2-1.0 [facility] ([place]) Comment on above: Result Comment: Use of this assay is not recommended for patients undergoing treatment with eltrombopag due to the potential for falsely elevated results. Performed By: #### C MP, GFR, LIPID, CBC, ADIFF, ANEU #### [address] [address] BUN/Creatinine Ratio 23 ratio Normal 7-27 [facility] ([place]) Comment on above: Performed By: #### C MP, GFR, LIPID, CBC, ADIFF, ANEU #### [address] [address] Calcium [Mass/Vol] 9.6 mg/dL Normal 8.4-10.2 [facility] ([place]) Comment on above: Performed By: #### C MP, GFR, LIPID, CBC, ADIFF, ANEU #### [address] [address] Chloride [Moles/Vol] 98 mmol/L Normal 98-107 [facility] ([place]) Comment on above: Performed By: #### C MP, GFR, LIPID, CBC, ADIFF, ANEU #### [address] [address] CO2 [Moles/Vol] 31 mmol/L Normal 23-31 [facility] ([place]) Comment on above: Performed By: #### C MP, GFR, LIPID, CBC, ADIFF, ANEU #### [address] [address] Creatinine [Mass/Vol] 1.19 mg/dL High 0.55-1.02 [facility] ([place]) Comment on above: Performed By: #### C MP, GFR, LIPID, CBC, ADIFF, ANEU #### [address] [address] Electrolyte Balance 7.0 mEq/L Normal 4.0-15.0 [facility] ([place]) Comment on above: Performed By: #### C MP, GFR, LIPID, CBC, ADIFF, ANEU #### [address] [address] Globulin 3.7 G/dL Normal [facility] ([place]) Comment on above: Performed By: #### C MP, GFR, LIPID, CBC, ADIFF, ANEU #### [address] [address] Glucose [Mass/Vol] 104 mg/dL Normal 83-110 [facility] ([place]) Comment on above: Performed By: #### C MP, GFR, LIPID, CBC, ADIFF, ANEU #### [address] [address] Potassium [Moles/Vol] 4.4 mmol/L Normal 3.5-5.1 [facility] ([place]) Comment on above: Performed By: #### C MP, GFR, LIPID, CBC, ADIFF, ANEU #### [address] [address] Sodium [Moles/Vol] 136 mmol/L Normal 136-145 [facility] ([place]) Comment on above: Performed By: #### C MP, GFR, LIPID, CBC, ADIFF, ANEU #### [address] [address] Total Protein 7.6 G/dL Normal 6.4-8.2 [facility] ([place]) Comment on above: Performed By: #### C MP, GFR, LIPID, CBC, ADIFF, ANEU #### [address] [address] Urea nitrogen [Mass/Vol] 27 mg/dL High 7-18 [facility] ([place]) Comment on above: Performed By: #### C MP, GFR, LIPID, CBC, ADIFF, ANEU #### [address] [address] LIPIDon 08-31-2023 Cholesterol [Mass/Vol] 132 mg/dL Normal 0-200 [facility] ([place]) Comment on above: Result Comment: Chol esterol Reference Interval: Less than 200 Desirable 200-239 Borderline high risk 240 and above High risk Performed By: #### C MP, GFR, LIPID, CBC, ADIFF, ANEU #### [address] [address] Cholesterol in HDL [Mass/Vol] 47 mg/dL Normal 40-60 [facility] ([place]) Comment on above: Performed By: #### C MP, GFR, LIPID, CBC, ADIFF, ANEU #### [address] [address] Cholesterol in LDL [Mass/Vol] 49 mg/dL Normal 0-130 [facility] ([place]) Comment on above: Performed By: #### C MP, GFR, LIPID, CBC, ADIFF, ANEU #### [address] [address] Triglyceride [Mass/Vol] 181 mg/dL High 0-150 [facility] ([place]) Comment on above: Result Comment: Trig lyceride Reference Interval: Less than 150 Normal 150-199 Borderline high risk 200-499 High risk 500 or higher Very high risk Performed By: #### C MP, GFR, LIPID, CBC, ADIFF, ANEU #### [address] [address] PROon 08-31-2023 PT Coag (PPP) [Time] 31.9 s High 9.0-14.4 [facility] ([place]) Comment on above: Performed By: #### C MP, GFR, LIPID, CBC, ADIFF, ANEU #### [address] [address] PT International Ratio 2.8 Normal [facility] ([place]) Comment on above: Result Comment: [employer] (CHEST, 1992, 102:312S-25S) recommended therapeutic range for oral anticoagulant therapy is: LOW RISK: Prophylaxis of venous thrombosis INR: 2.0-3.0 Treatment of pulmonary embolism 2.0-3.0 Prevention of systemic embolism 2.0-3.0 HIGH RISK: Mechanical prosthetic valves 2.5-3.5 Performed By: #### C MP, GFR, LIPID, CBC, ADIFF, ANEU #### [address] [address] PROon 08-27-2023 PT Coag (PPP) [Time] 73.0 s High 9.0-14.4 [facility] ([place]) Comment on above: Performed By: #### P RO #### [address] [address] PT International Ratio 6.2 Critically abnormal [facility] ([place]) Comment on above: Result Comment: [employer] (CHEST, 1991, 102:312S-25S) recommended therapeutic range for oral anticoagulant therapy is: LOW RISK: Prophylaxis of venous thrombosis INR: 2.0-3.0 Treatment of pulmonary embolism 2.0-3.0 Prevention of systemic embolism 2.0-3.0 HIGH RISK: Mechanical prosthetic valves 2.5-3.5 Performed By: #### P RO #### [place] [id number] PROon 08-18-2023 PT Coag (PPP) [Time] 46.9 s High 9.0-14.4 [facility] ([place]) Comment on above: Performed By: #### C MP, GFR, LIPID, CBC, ADIFF, ANEU #### [place] [id number] PT International Ratio 4.0 Normal [facility] ([place]) Comment on above: Result Comment: [employer] (CHEST1991, 102:312S-25S) recommended therapeutic range for oral anticoagulant therapy is: LOW RISK: Prophylaxis of venous thrombosis INR: 2.0-3.0 Treatment of pulmonary embolism 2.0-3.0 Prevention of systemic embolism 2.0-3.0 HIGH RISK: Mechanical prosthetic valves 2.5-3.5 Performed By: #### C MP, GFR, LIPID, CBC, ADIFF, ANEU #### [place] [address] PROon 08-09-2023 PT Coag (PPP) [Time] 18.9 s High 9.0-14.4 [facility] ([place]) Comment on above: Performed By: #### C MP, GFR, LIPID, CBC, ADIFF, ANEU #### [place] [address] PT International Ratio 1.6 Normal [facility] ([place]) Comment on above: Result Comment: [employer] (CHEST, 1991, 102:312S-25S) recommended therapeutic range for oral anticoagulant therapy is: LOW RISK: Prophylaxis of venous thrombosis INR: 2.0-3.0 Treatment of pulmonary embolism 2.0-3.0 Prevention of systemic embolism 2.0-3.0 HIGH RISK: Mechanical prosthetic valves 2.5-3.5 Performed By: #### C MP, GFR, LIPID, CBC, ADIFF, ANEU #### [address] [place] [address] [place], [place] [address] Basophil percentageOrdered B y: Annalisa Mabry on 01-27-2023 Chloride [Moles/Vol] 100 mmol/L 98-107 [facility] Glucose [Mass/Vol] 165 mg/dL 74-106 [facility] Comment on above: Fasting Glucose resu lt greater than or equal to 126 mg/dL suggests DIABETES MELLITUS per A.D.A. criteria. Potassium [Moles/Vol] 3.8 mmol/L 3.5-5.1 [facility] Sodium [Moles/Vol] 135 mmol/L 136-145 [facility] Laboratory - Chemistry and C hemistry - challengeOrdered By: Annalisa Mabry on 01-27-2023 CO2 [Moles/Vol] 29.0 mmol/L 21.0-32.0 [facility] Urea nitrogen/Creatinine [Mass ratio] 17.1 mg/mg 10-20 [facility] No Panel InformationOrdered By: Annalisa Mabry on 01-27-2023 Estimated GFR (MDRD) Amer 62 mL/min >60 [facility] Comment on above: GFR Calc Estimated GFR (MDRD) Non-Af Amer 51 mL/min >60 [facility] Comment on above: Non- GFR Calc Serum or plasma calcium carter urement (mass/volume)Ordered By: Annalisa Mabry on 01-27-2023 Calcium [Mass/Vol] 9.6 mg/dL 8.5-10.1 [facility] Serum or plasma creatinine m easurement (mass/volume)Ordered By: Annalisa Mabry on 01-27-2023 Creatinine [Mass/Vol] 1.11 mg/dL 0.55-1.02 [facility] Comment on above: The validity of the calculated GFR & GFRAA in patients over 70 years has not been determined. Clinical correlation is essential. Serum or plasma urea nitroge n measurement (mass/volume)Ordered By: Annalisa Mabry on 01-27-2023 Urea nitrogen [Mass/Vol] 19 mg/dL - [facility] Thin prep Papanicolaou smear with manual screeningOrdered By: Annalisa Mabry on 01-27-2023 Thin prep Papanicolaou smear with manual screening 6 5-15 [facility] Basophil percentageOrdered B y: Annalisa Mabry on 01-05-2023 Chloride [Moles/Vol] 102 mmol/L 98-107 [facility] Glucose [Mass/Vol] 119 mg/dL 74-106 [facility] Comment on above: Fasting Glucose resu lt from 100 to 125 mg/dL suggests IMPAIRED HOMEOSTASIS per A.D.A. criteria. Potassium [Moles/Vol] 4.1 mmol/L 3.5-5.1 [facility] Sodium [Moles/Vol] 136 mmol/L 136-145 [facility] Laboratory - Chemistry and C hemistry - challengeOrdered By: Annalisa Mabry on 01-05-2023 CO2 [Moles/Vol] 32.0 mmol/L 21.0-32.0 [facility] Urea nitrogen/Creatinine [Mass ratio] 19.6 mg/mg 10- [facility] No Panel InformationOrdered By: Annalisa Mabry on 01-05-2023 Estimated GFR (MDRD) Amer 64 mL/min >60 [facility] Comment on above: GFR Calc Estimated GFR (MDRD) Non-Af Amer 53 mL/min >60 [facility] Comment on above: Non- GFR Calc Serum or plasma calcium carter urement (mass/volume)Ordered By: Annalisa Mabry on 01-05-2023 Calcium [Mass/Vol] 9.7 mg/dL 8.5-10.1 [facility] Serum or plasma creatinine m easurement (mass/volume)Ordered By: Annalisa Mabry on 01-05-2023 Creatinine [Mass/Vol] 1.07 mg/dL 0.55-1.02 [facility] Comment on above: The validity of the calculated GFR & GFRAA in patients over 70 years has not been determined. Clinical correlation is essential. Serum or plasma urea nitroge n measurement (mass/volume)Ordered By: Annalisa Mabry on 01-05-2023 Urea nitrogen [Mass/Vol] 21 mg/dL - [facility] Thin prep Papanicolaou smear with manual screeningOrdered By: Annalisa Mabry on 01-05-2023 Thin prep Papanicolaou smear with manual screening 2 5-15 [facility] Basophil percentageOrdered B y: Akhil Pina on 09-16-2022 Bilirubin [Mass/Vol] 0.80 mg/dL 0.20-1.00 [facility] Comment on above: For patients on eltr ombopag therapy, use of Dimension Imboden TBIL is not recommended. Cholesterol [Mass/Vol] 146 mg/dL <200 [facility] Comment on above: <200 mg/dL Desirable 200-240 mg/dL Borderline >240 mg/dL High Risk Protein [Mass/Vol] 8.0 g/dL 6.4-8.2 [facility] Triglyceride [Mass/Vol] 165 mg/dL <199 [facility] Comment on above: The drugs N-Acetylcy steine and Metamizole may falsely depress this assay.Serum Triglycerides Reference Interval Normal <150 mg/dL Borderline high 150 - 199 mg/dL High 200 - 499 mg/dL Very High > or = 500 mg/dL Direct bilirubinOrdered By: Akhil Pina on 09-16-2022 Bilirubin.direct [Mass/Vol] 0.13 mg/dL 0.00-0.30 [facility] Laboratory - Chemistry and C hemistry - challengeOrdered By: Akhil Pina on 09-16-2022 ALP [Catalytic activity/Vol] 84 U/L 45-117 [facility] ALT [Catalytic activity/Vol] 18 U/L 13-56 [facility] Globulin (S) [Mass/Vol] 4.4 g/dL 2.2-4.2 [facility] Serum or plasma albumin carter urement (mass/volume)Ordered By: Akhil Pina on 09-16-2022 Albumin [Mass/Vol] 3.6 g/dL 3.2-5.0 [facility] Serum or plasma cholesterol in HDL measurement (mass/volume)Ordered By: Akhil Pina on 09-16-2022 Cholesterol in HDL [Mass/Vol] 47 mg/dL >40 [facility] Comment on above: The drugs N-Acetylcy steine and Metamizole may falsely depress this assay. Reference Range HDL <40 mg/dL Low HDL Cholesterol HDL >or= 60 mg/dL High HDL Cholesterol Serum or plasma cholesterol in VLDL measurement (mass/volume)Ordered By: Akhil Pina on 09-16-2022 Cholesterol in VLDL [Mass/Vol] 33 mg/dL 5-40 [facility] Serum or plasma low density lipoprotein (LDL) cholesterol measurement (mass/volume)Ordered By: Akhil Pina on 09-16-2022 Cholesterol in LDL [Mass/Vol] 66 mg/dL 0-130 [facility] Thin prep Papanicolaou smear with manual screeningOrdered By: Akhil Pina on 09-16-2022 Thin prep Papanicolaou smear with manual screening 26 U/L 15-37 [facility] Comment on above: Slight Hemolysis, Re sult may be falsely increased. LABORATORYOrdered By: SYSTEM SYSTEM on 08-31-2022 Albumin BCP dye [Mass/Vol] 3.8 G/dL Invalid Interpretation Code 3.4 - 4.8 G/dL AO ADM SS Albumin/Globulin [Mass ratio] 1.1 {ratio} Invalid Interpretation Code 1.1 - 2.5 ratio AO ADM SS ALP [Catalytic activity/Vol] 84 U/L Invalid Interpretation Code 40 - 135 U/L AO ADM SS ALT With P-5'-P [Catalytic activity/Vol] 16 U/L Invalid Interpretation Code 14 - 59 U/L AO ADM SS AST With P-5'-P [Catalytic activity/Vol] 14 U/L Invalid Interpretation Code 10 - 40 U/L AO ADM SS Basophil, Absolute 0.1 103/mcL Invalid Interpretation Code 0.0 - 0.2 10^3/mcL AO Workflow SS Basophils/100 WBC (Bld) 1.0 % Invalid Interpretation Code 0.0 - 2.5 % AO Workflow SS Bilirubin [Mass/Vol] 0.7 mg/dL Invalid Interpretation Code 0.2 - 1.0 mg/dL AO ADM SS Calcium [Mass/Vol] 9.6 mg/dL Invalid Interpretation Code 8.4 - 10.2 mg/dL AO ADM SS Chloride [Moles/Vol] 101 mmol/L Invalid Interpretation Code 98 - 107 mmol/L AO ADM SS CO2 [Moles/Vol] 29 mmol/L Invalid Interpretation Code 23 - 31 mmol/L AO ADM SS Creatinine [Mass/Vol] 0.95 mg/dL Invalid Interpretation Code 0.55 - 1.02 mg/dL AO ADM SS Electrolyte Balance 10.0 mEq/L Invalid Interpretation Code 4.0 - 15.0 mEq/L AO ADM SS Eosinophil, Absolute 0.2 103/mcL Invalid Interpretation Code 0.0 - 0.4 10^3/mcL AO Workflow SS Eosinophils/100 WBC (Bld) 2.6 % Invalid Interpretation Code 0.0 - 7.0 % AO Workflow SS Erythrocyte distribution width (RBC) [Ratio] 16.3 % Invalid Interpretation Code 11.5 - 14.5 % AO Workflow SS Free T4 [Mass/Vol] 0.77 ng/dL Invalid Interpretation Code 0.76 - 1.46 ng/dL AO ADM SS GFR/1.73 sq M.predicted among blacks MDRD (S/P/Bld) [Vol rate/Area] 70 ml/min/1.73sqm Invalid Interpretation Code AO Chemistry S GFR/1.73 sq M.predicted among non-blacks MDRD (S/P/Bld) [Vol rate/Area] 58 ml/min/1.73sqm Invalid Interpretation Code AO Chemistry S Globulin 3.5 G/dL Invalid Interpretation Code AO ADM SS Glucose [Mass/Vol] 118 mg/dL Invalid Interpretation Code 83 - 110 mg/dL AO ADM SS HbA1c (Bld) [Mass fraction] 6.4 % Invalid Interpretation Code 4.3 - 6.4 % AO ADM SS Hematocrit (Bld) [Volume fraction] 38.5 % Invalid Interpretation Code 37.0 - 47.0 % AO Workflow SS Hemoglobin (Bld) [Mass/Vol] 12.7 G/dL Invalid Interpretation Code 12.0 - 16.0 G/dL AO Workflow SS Lymphocyte, Absolute 1.8 103/mcL Invalid Interpretation Code 0.8 - 3.9 10^3/mcL AO Workflow SS Lymphocytes/100 WBC (Bld) 24.1 % Invalid Interpretation Code 10.0 - 50.0 % AO Workflow SS MCH (RBC) [Entitic mass] 29.1 pg Invalid Interpretation Code 27.0 - 31.2 pg AO Workflow SS MCHC 33.0 G/dL Invalid Interpretation Code 33.0 - 37.0 G/dL AO Workflow SS MCV (RBC) [Entitic vol] 88.4 fL Invalid Interpretation Code 80.0 - 94.0 fL AO Workflow SS Monocyte, Absolute 0.6 103/mcL Invalid Interpretation Code 0.2 - 1.0 10^3/mcL AO Workflow SS Monocytes/100 WBC (Bld) 8.0 % Invalid Interpretation Code 1.7 - 13.0 % AO Workflow SS Neutrophil, Absolute 4.9 103/mcL Invalid Interpretation Code 2.9 - 6.2 10^3/mcL AO Workflow SS Neutrophils/100 WBC (Bld) 64.3 % Invalid Interpretation Code 37.0 - 80.0 % AO Workflow SS Platelet mean volume (Bld) [Entitic vol] 8.9 fL Invalid Interpretation Code 7.4 - 10.4 fL AO Workflow SS Platelets (Bld) [#/Vol] 293 103/mcL Invalid Interpretation Code 130 - 400 10^3/mcL AO Workflow SS Potassium [Moles/Vol] 4.6 mmol/L Invalid Interpretation Code 3.5 - 5.1 mmol/L AO ADM SS Protein [Mass/Vol] 7.3 G/dL Invalid Interpretation Code 6.4 - 8.2 G/dL AO ADM SS RBC (Bld) [#/Vol] 4.36 106/mcL Invalid Interpretation Code 4.20 - 5.40 10^6/mcL AO Workflow SS Sodium [Moles/Vol] 140 mmol/L Invalid Interpretation Code 136 - 145 mmol/L AO ADM SS TSH Qn 3.34 m[IU]/L Invalid Interpretation Code 0.36 - 3.74 mcIU/mL AO ADM SS Urea nitrogen [Mass/Vol] 18 mg/dL Invalid Interpretation Code 7 - 18 mg/dL AO ADM SS Urea nitrogen/Creatinine [Mass ratio] 19 ratio Invalid Interpretation Code 7 - 27 ratio AO ADM SS Uric Acid Lvl 5.5 mg/dL Invalid Interpretation Code 2.6 - 6.2 mg/dL AO ADM SS WBC (Bld) [#/Vol] 7.6 103/mcL Invalid Interpretation Code 4.6 - 10.8 10^3/mcL AO Workflow SS LABORATORYOrdered By: Lu Mcbride on 08-31-2022 Cholesterol [Mass/Vol] 152 mg/dL Invalid Interpretation Code 0 - 200 mg/dL AO ADM SS Cholesterol in HDL [Mass/Vol] 47 mg/dL Invalid Interpretation Code 40 - 60 mg/dL AO ADM SS Cholesterol in LDL [Mass/Vol] 79 mg/dL Invalid Interpretation Code 0 - 130 mg/dL AO ADM SS Triglyceride [Mass/Vol] 128 mg/dL Invalid Interpretation Code 0 - 150 mg/dL AO ADM SS LABORATORYOrdered By: Jolynn Cantrell on 04-07-2022 ABO/Rh Interp Positive Invalid Interpretation Code AO BB SS Antibody Screen Gel Negative ABSC (04/07/22 6:47 AM) Invalid Interpretation Code AO BB SS LABORATORYOrdered By: Lu Mcbride on 03-23-2022 ABO/Rh Interp Positive Invalid Interpretation Code AO BB SS Antibody Screen Gel Negative ABSC (03/23/22 9:41 AM) Invalid Interpretation Code AO BB SS Basophil, Absolute 0.1 103/mcL Invalid Interpretation Code 0.0 - 0.2 10^3/mcL AO Workflow SS Basophils/100 WBC (Bld) 0.7 % Invalid Interpretation Code 0.0 - 2.5 % AO Workflow SS Eosinophil, Absolute 0.2 103/mcL Invalid Interpretation Code 0.0 - 0.4 10^3/mcL AO Workflow SS Eosinophils/100 WBC (Bld) 2.1 % Invalid Interpretation Code 0.0 - 7.0 % AO Workflow SS Erythrocyte distribution width (RBC) [Ratio] 15.6 % Invalid Interpretation Code 11.5 - 14.5 % AO Workflow SS Hematocrit (Bld) [Volume fraction] 40.1 % Invalid Interpretation Code 37.0 - 47.0 % AO Workflow SS Hemoglobin (Bld) [Mass/Vol] 13.3 G/dL Invalid Interpretation Code 12.0 - 16.0 G/dL AO Workflow SS Lymphocyte, Absolute 1.5 103/mcL Invalid Interpretation Code 0.8 - 3.9 10^3/mcL AO Workflow SS Lymphocytes/100 WBC (Bld) 19.2 % Invalid Interpretation Code 10.0 - 50.0 % AO Workflow SS MCH (RBC) [Entitic mass] 28.9 pg Invalid Interpretation Code 27.0 - 31.2 pg AO Workflow SS MCHC 33.1 G/dL Invalid Interpretation Code 33.0 - 37.0 G/dL AO Workflow SS MCV (RBC) [Entitic vol] 87.2 fL Invalid Interpretation Code 80.0 - 94.0 fL AO Workflow SS Monocyte, Absolute 0.6 103/mcL Invalid Interpretation Code 0.2 - 1.0 10^3/mcL AO Workflow SS Monocytes/100 WBC (Bld) 7.4 % Invalid Interpretation Code 1.7 - 13.0 % AO Workflow SS Neutrophil, Absolute 5.6 103/mcL Invalid Interpretation Code 2.9 - 6.2 10^3/mcL AO Workflow SS Neutrophils/100 WBC (Bld) 70.6 % Invalid Interpretation Code 37.0 - 80.0 % AO Workflow SS Platelet mean volume (Bld) [Entitic vol] 8.8 fL Invalid Interpretation Code 7.4 - 10.4 fL AO Workflow SS Platelets (Bld) [#/Vol] 314 103/mcL Invalid Interpretation Code 130 - 400 10^3/mcL AO Workflow SS RBC (Bld) [#/Vol] 4.59 106/mcL Invalid Interpretation Code 4.20 - 5.40 10^6/mcL AO Workflow SS WBC (Bld) [#/Vol] 7.9 103/mcL Invalid Interpretation Code 4.6 - 10.8 10^3/mcL AO Workflow SS LABORATORYOrdered By: SYSTEM SYSTEM on 03-23-2022 Albumin BCP dye [Mass/Vol] 4.0 G/dL Invalid Interpretation Code 3.4 - 4.8 G/dL AO ADM SS Calcium [Mass/Vol] 9.7 mg/dL Invalid Interpretation Code 8.4 - 10.2 mg/dL AO ADM SS Chloride [Moles/Vol] 101 mmol/L Invalid Interpretation Code 98 - 107 mmol/L AO ADM SS CO2 [Moles/Vol] 28 mmol/L Invalid Interpretation Code 23 - 31 mmol/L AO ADM SS Creatinine [Mass/Vol] 0.87 mg/dL Invalid Interpretation Code 0.55 - 1.02 mg/dL AO ADM SS Electrolyte Balance 8.0 mEq/L Invalid Interpretation Code 4.0 - 15.0 mEq/L AO ADM SS GFR 77 ml/min/1.73sqm Invalid Interpretation Code AO Chemistry S GFR Non- 64 ml/min/1.73sqm Invalid Interpretation Code AO Chemistry S Glucose [Mass/Vol] 116 mg/dL Invalid Interpretation Code 83 - 110 mg/dL AO ADM SS HbA1c (Bld) [Mass fraction] 6.3 % Invalid Interpretation Code 4.3 - 6.4 % AO ADM SS Potassium [Moles/Vol] 4.3 mmol/L Invalid Interpretation Code 3.5 - 5.1 mmol/L AO ADM SS Sodium [Moles/Vol] 137 mmol/L Invalid Interpretation Code 136 - 145 mmol/L AO ADM SS Urea nitrogen [Mass/Vol] 15 mg/dL Invalid Interpretation Code 7 - 18 mg/dL AO ADM SS Urea nitrogen/Creatinine [Mass ratio] 17 ratio Invalid Interpretation Code 7 - 27 ratio AO ADM SS LABORATORYOrdered By: Estevan Izaguirre on 09-30-2021 Albumin BCP dye [Mass/Vol] 3.0 G/dL Invalid Interpretation Code 3.4 - 4.8 G/dL AO ADM SS Albumin/Globulin [Mass ratio] 0.6 {ratio} Invalid Interpretation Code 1.1 - 2.5 ratio AO ADM SS ALP [Catalytic activity/Vol] 83 U/L Invalid Interpretation Code 40 - 135 U/L AO ADM SS ALT With P-5'-P [Catalytic activity/Vol] 20 U/L Invalid Interpretation Code 14 - 59 U/L AO ADM SS AST With P-5'-P [Catalytic activity/Vol] 15 U/L Invalid Interpretation Code 10 - 40 U/L AO ADM SS Bilirubin [Mass/Vol] 0.9 mg/dL Invalid Interpretation Code 0.2 - 1.0 mg/dL AO ADM SS Calcium [Mass/Vol] 9.9 mg/dL Invalid Interpretation Code 8.4 - 10.2 mg/dL AO ADM SS Chloride [Moles/Vol] 98 mmol/L Invalid Interpretation Code 98 - 107 mmol/L AO ADM SS CO2 [Moles/Vol] 32 mmol/L Invalid Interpretation Code 23 - 31 mmol/L AO ADM SS Creatinine [Mass/Vol] 0.97 mg/dL Invalid Interpretation Code 0.55 - 1.02 mg/dL AO ADM SS Electrolyte Balance 7.0 mEq/L Invalid Interpretation Code 4.0 - 15.0 mEq/L AO ADM SS Globulin 4.9 G/dL Invalid Interpretation Code AO ADM SS Glucose [Mass/Vol] 117 mg/dL Invalid Interpretation Code 83 - 110 mg/dL AO ADM SS Potassium [Moles/Vol] 4.7 mmol/L Invalid Interpretation Code 3.5 - 5.1 mmol/L AO ADM SS Protein [Mass/Vol] 7.9 G/dL Invalid Interpretation Code 6.4 - 8.2 G/dL AO ADM SS Sodium [Moles/Vol] 137 mmol/L Invalid Interpretation Code 136 - 145 mmol/L AO ADM SS Urea nitrogen [Mass/Vol] 18 mg/dL Invalid Interpretation Code 7 - 18 mg/dL AO ADM SS Urea nitrogen/Creatinine [Mass ratio] 19 ratio Invalid Interpretation Code 7 ratio AO ADM SS Uric Acid Lvl 5.4 mg/dL Invalid Interpretation Code 2.6 - 6.2 mg/dL AO ADM SS LABORATORYOrdered By: Lu Mcbride on 09-30-2021 Basophil, Absolute 0.1 103/mcL Invalid Interpretation Code 0.0 - 0.2 10^3/mcL AO Workflow SS Basophils/100 WBC (Bld) 1.0 % Invalid Interpretation Code 0.0 - 2.5 % AO Workflow SS Eosinophil, Absolute 0.2 103/mcL Invalid Interpretation Code 0.0 - 0.4 10^3/mcL AO Workflow SS Eosinophils/100 WBC (Bld) 2.7 % Invalid Interpretation Code 0.0 - 7.0 % AO Workflow SS Erythrocyte distribution width (RBC) [Ratio] 14.5 % Invalid Interpretation Code 11.5 - 14.5 % AO Workflow SS HbA1c (Bld) [Mass fraction] 6.5 % Invalid Interpretation Code 4.3 - 6.4 % AO ADM SS Hematocrit (Bld) [Volume fraction] 41.0 % Invalid Interpretation Code 37.0 - 47.0 % AO Workflow SS Hemoglobin (Bld) [Mass/Vol] 13.8 G/dL Invalid Interpretation Code 12.0 - 16.0 G/dL AO Workflow SS Lymphocyte, Absolute 1.8 103/mcL Invalid Interpretation Code 0.8 - 3.9 10^3/mcL AO Workflow SS Lymphocytes/100 WBC (Bld) 22.9 % Invalid Interpretation Code 10.0 - 50.0 % AO Workflow SS MCH (RBC) [Entitic mass] 30.0 pg Invalid Interpretation Code 27.0 - 31.2 pg AO Workflow SS MCHC 33.6 G/dL Invalid Interpretation Code 33.0 - 37.0 G/dL AO Workflow SS MCV (RBC) [Entitic vol] 89.3 fL Invalid Interpretation Code 80.0 - 94.0 fL AO Workflow SS Monocyte, Absolute 0.6 103/mcL Invalid Interpretation Code 0.2 - 1.0 10^3/mcL AO Workflow SS Monocytes/100 WBC (Bld) 7.7 % Invalid Interpretation Code 1.7 - 13.0 % AO Workflow SS Neutrophil, Absolute 5.3 103/mcL Invalid Interpretation Code 2.9 - 6.2 10^3/mcL AO Workflow SS Neutrophils/100 WBC (Bld) 65.7 % Invalid Interpretation Code 37.0 - 80.0 % AO Workflow SS Platelet mean volume (Bld) [Entitic vol] 9.0 fL Invalid Interpretation Code 7.4 - 10.4 fL AO Workflow SS Platelets (Bld) [#/Vol] 307 103/mcL Invalid Interpretation Code 130 - 400 10^3/mcL AO Workflow SS RBC (Bld) [#/Vol] 4.59 106/mcL Invalid Interpretation Code 4.20 - 5.40 10^6/mcL AO Workflow SS WBC 8.1 103/mcL Invalid Interpretation Code 4.6 - 10.8 10^3/mcL AO Workflow SS LABORATORYOrdered By: SYSTEM SYSTEM on 09-30-2021 GFR 68 ml/min/1.73sqm Invalid Interpretation Code AO Chemistry S GFR Non- 56 ml/min/1.73sqm Invalid Interpretation Code AO Chemistry S Monocyte distribution width Auto (Bld) [Entitic vol] Not Performed 1 *NA* (09/30/21 10:38 AM) Invalid Interpretation Code 0.00 - 20.00 AO Hematology S Comment on above: Result Comment: MDW testing performed only on adult ER patients between the ages of 18-89 years. Basophil percentageon 2021 Bilirubin [Mass/Vol] 0.80 mg/dL 0.20-1.00 [facility] Work Phone: Comment on above: For patients on eltr ombopag therapy, use of Dimension Imboden TBIL is not recommended. Cholesterol [Mass/Vol] 153 mg/dL <200 [facility] Work Phone: Comment on above: <200 mg/dL Desirable 200-240 mg/dL Borderline >240 mg/dL High Risk Protein [Mass/Vol] 8.0 g/dL 6.4-8.2 [facility] Work Phone: Triglyceride [Mass/Vol] 192 mg/dL <199 [facility] Work Phone: Comment on above: The drugs N-Acetylcy steine and Metamizole may falsely depress this assay.Serum Triglycerides Reference Interval Normal <150 mg/dL Borderline high 150 - 199 mg/dL High 200 - 499 mg/dL Very High > or = 500 mg/dL Direct bilirubinon Bilirubin.direct [Mass/Vol] 0.24 mg/dL 0.00-0.30 [facility] Work Phone: Laboratory - Chemistry and C hemistry - challengeon 09-23-2021 ALP [Catalytic activity/Vol] 79 U/L 45-117 [facility] Work Phone: ALT [Catalytic activity/Vol] 16 U/L 13-56 [facility] Work Phone: Globulin (S) [Mass/Vol] 4.0 g/dL 2.2-4.2 [facility] Work Phone: Serum or plasma albumin carter urement (mass/volume)on 09-23-2021 Albumin [Mass/Vol] 4.0 g/dL 3.2-5.0 [facility] Work Phone: Serum or plasma cholesterol in HDL measurement (mass/volume)on 09-23-2021 Cholesterol in HDL [Mass/Vol] 48 mg/dL >40 [facility] Work Phone: Comment on above: The drugs N-Acetylcy steine and Metamizole may falsely depress this assay. Reference Range HDL <40 mg/dL Low HDL Cholesterol HDL >or= 60 mg/dL High HDL Cholesterol Serum or plasma cholesterol in VLDL measurement (mass/volume)on 09-23-2021 Cholesterol in VLDL [Mass/Vol] 38 mg/dL 5-40 [facility] Work Phone: Serum or plasma low density lipoprotein (LDL) cholesterol measurement (mass/volume)on 09-23-2021 Cholesterol in LDL [Mass/Vol] 67 mg/dL 0-130 [facility] Work Phone: Thin prep Papanicolaou smear with manual screeningon 09-23-2021 Thin prep Papanicolaou smear with manual screening 13 U/L 15-37 [facility] Work Phone: LABORATORYOrdered By: Tena Morley on 03-03-2021 ADMITTED TO INTENSIVE CARE UNIT FOR CONDITION OF INTEREST:FIND:PT:^PAT IENT:ORD: No (03/03/21 12:15 PM) Invalid Interpretation Code AO Auto Urine SS EMPLOYED IN A HEALTHCARE SETTING:FIND:PT:^TALON ENT:ORD: Unknown (03/03/21 12:15 PM) Invalid Interpretation Code AO Auto Urine SS FIRST TEST FOR CONDITION OF INTEREST:FIND:PT:^PAT IENT:ORD: Unknown (03/03/21 12:15 PM) Invalid Interpretation Code AO Auto Urine SS HAS SYMPTOMS RELATED TO CONDITION OF INTEREST:FIND:PT:^PAT IENT:ORD: Yes (03/03/21 12:15 PM) Invalid Interpretation Code AO Auto Urine SS Illness or injury onset date and time [id number] Invalid Interpretation Code AO Auto Urine SS Patient was hospitalized because of this condition No (03/03/21 12:15 PM) Invalid Interpretation Code AO Auto Urine SS status Unknown (03/03/21 12:15 PM) Invalid Interpretation Code AO Auto Urine SS RESIDES IN A CONGREGATE CARE SETTING:FIND:PT:^TALON ENT:ORD: Unknown (03/03/21 12:15 PM) Invalid Interpretation Code AO Auto Urine SS SARS-CoV-2 (COVID-19) RNA RICARDO+probe Ql (Resp) Positive *ABN* (03/03/21 12:15 PM) Invalid Interpretation Code Negative AO Auto Urine SS SARS-CoV-2 (COVID-19) RNA RICARDO+probe Ql (Unsp spec) Positive results are indicative of the presence of SARS-CoV-2 RNA; clinical correlation with patient history and other diagnostic information is necessary to determine patient infection status. Positive results do not rule out bacterial infection or co-infection with other viruses. The agent detected may not be the definite cause of disease. Laboratories within the [facility] and its territories are required to report all positive results to the appropriate public health authorities.Detection of analyte target(s) does not imply that the corresponding virus(es) are infectious or are the causative agents for clinical symptoms.There is a risk of false positive values resulting from cross-contamination by target organisms, their nucleic acids or amplified product, or from non-specific signals in the assay.NIKOLAY SARS-CoV-2 Assay is a Real-Time reverse-transcriptase polymerase chain reaction (RT-PCR) based qualitative in vitro diagnostic test intended for the qualitative detection of nucleic acid from the SARS-CoV-2 in nasopharyngeal swab specimens collected from individuals suspected of COVID-19 by their healthcare provider. Testing is limited to laboratories certified under the Clinical Laboratory Improvement Amendments of 1988 (CLIA), 42 U.S.C. 263a, to perform moderate and high complexity tests. Invalid Interpretation Code AO Auto Urine SS History and Physical - Surgi denice Update < 30 dayson 01-04-2020 History and Physical - Surgical Update < 30 days History & Physical Reviewed: I have reviewed the History and Physical dated: 16-Dec-2019 History and Physical reviewed and relevant findings noted. Patient examined to review pertinent physical findings.: No significant changes Home Medications Reviewed: no changes noted Allergies Reviewed: no changes noted ERAS (Enhanced Recovery After Surgery): ERAS Patient: no Consent: COVID-19 Consent: COVID-19 Risk ConsentSurgeon has reviewed palma risks related to the risk of candace COVID-19 and if they contract COVID-19 what the risks are. Signatures/Attestation: Note Completion: Attending Provider Inpatient Certification StatementObservation patient/other outpatient visits Electronic Signatures: Mitch Dominguez) (Signed 04-Jan-2020 07:06) Authored: History & Physical Reviewed, ERAS, Consent, Note Completion Last Updated: 04-Jan-2020 07:06 by Mitch Doimnguez) [facility] Preop Checkliston 01-04-2020 Preop Checklist Preop Checklist: Preop Checklist: Arrival [id number] Arrival Time06:35 Procedure Typeleft eye cataract Temperature C37.4 degrees C Temperature F99.3 degrees F Heart Rate55 beats per minute Respiratory Rate16 breath per minute Blood Pressure Czyvltvk330 mm/Hg Blood Pressure Tdgaxwomv18 mm/Hg NPO [id number] 17:30 ID Band Onyes Allergy Bandno known allergies Consent Signedyes H&P Completeyes Anesthesia Assessment Completedyes EKG Performednot ordered Chest X-Ray Performednot ordered HCG Urine TestN/A Chlorhexadine Bath Givennot applicable Nasal Antiseptic Appliednot applicable Hair Washednot applicable Hat placed on prior to transportnot applicable SCD's Appliednot applicable LOVE Hose Appliednot ordered Denturesnot applicable Prostheticsnot applicable Hearing Aidsnot applicable Valuables Securedleft in patient room Glasses / Contactsnot applicable Bowel Prepno Cardiovascular Assessment: Apicalregular Radial Pulsespalpable Pedal Pulsespalpable Respiratory Assessment: Respirationsunlabored Air Exchangeequal Breath Soundsclear Neurological Assessment: Level of Consciousnessalert Mobilitymoves all extremities Able to Express Selfyes Age Appropriateyes Emotional Statuscalm Preop Education: Surgical Site Infection Preventionyes Pain Scales and Managementyes Language / Communication: Language / CommunicationEnglish Electronic Signatures: Mami Tomlin (RN) (Signed 04-Jan-2020 07:14) Authored: Preop Checklist Last Updated: 04-Jan-2020 07:14 by Mami Tomlin (RN) [facility] CORONAVIRUS 2019, SCREEN ASY NELAOMATICon 01-01-2020 CORONAVIRUS 2019,PCR NOT DETECTED Normal Not Detected [facility] Comment on above: Result Comment: . This assay is designed to detect the N, ORF1ab and/or S genes of SARS-CoV-2 via nucleic acid amplification. A Negative (NOT DETECTED) result does not preclude 2019-nCoV infection since the adequacy of sample collection and/or low viral burden may result in presence of viral nucleic acids below the clinical sensitivity of this test method. Negative (NOT DETECTED) result should not be used as the sole basis for treatment or other patient management decisions. Rather negative results should be combined with clinical observations, patient history, and epidemiological information to make patient management decisions. Fact sheet for providers: https://www.fda.gov/media/936901/download Fact sheet for patients: https://www.fda.gov/media/061322/download This test has received FDA Emergency Use Authorization (EUA) and has been verified by [facility] ([facility]). This test is only authorized for the duration of time that circumstances exist to justify the authorization of the emergency use of in vitro diagnostic tests for the detection of SARS-CoV-2 virus and/or diagnosis of COVID-19 infection under section 564(b)(1) of the Act, 21 U.S.C. 360bbb-3(b)(1), unless the authorization is terminated or revoked sooner. [facility] is certified under CLIA-88 as qualified to perform high complexity testing. Testing is performed in the [facility] laboratories located at [address] [place] [address]. Performed By: #### C OVSC #### [address] [place] [address] Lab Specimen Source Nasal, Nasopharyngeal [facility] Comment on above: Performed By: #### C OVSC #### [facility] [id number] [place] [address] CORONAVIRUS 2019, SCREEN ASY MPTOMATICon 12-27-2019 EMPLOYED IN HEALTHCARE? Unknown Normal [facility] Comment on above: Performed By: #### C OVSC #### [facility] [id number] [place] [id number] FIRST COVID NASAL SWAB TEST? Unknown [facility] Comment on above: Performed By: #### C OVSC #### [facility] [address] [place] [address] HOSPITALIZED (OR PLANNED TO BE ADMITTED)? Unknown Normal [facility] Comment on above: Performed By: #### C OVSC #### [facility] [address] [place] [address] ICU? Unknown Normal [facility] Comment on above: Performed By: #### C OVSC #### [facility] [address] [place] [address] ? Unknown Normal [facility] Comment on above: Performed By: #### C OVSC #### [facility] [address] [place] [address] REQUIRED FOR PROCEDURE/SURGERY? Unknown Normal [facility] Comment on above: Performed By: #### C OVSC #### [facility] [address] [place] [address] RESIDENT IN CONGREGATE CARE SETTING? Unknown Normal [facility] Comment on above: Performed By: #### C OVSC #### [facility] [address] [place] [address] SYMPTOMATIC DEFINED BY CDC? Unknown Normal [facility] Comment on above: Performed By: #### C OVSC #### [facility] [address] EMPLOYEE? Unknown Normal [facility] Comment on above: Performed By: #### C OVSC #### [facility] [address] [place] [id number] Patient Profile - Preop v2on 12-27-2019 Patient Profile - Preop v2 Profile: Initial Info: How to be Addressedsharon(1) Spoken Language PreferredEnglish (1) Source of Informationpatient Are you currently using the [email or web address] Record or MyDentistMIG Chinayes (1) Instructions Givenappropriate clothing, bring responsible adult as the tram driver (procedure may be cancelled if no tram driver), center location, insurance information Prep Instructions Reviewedyes Instructed to Have No Fluids Aftermidnight Stated Reason for Admissionleft eye cataract Primary Contact Name and [phone] Limitations on Visitors/Phone Callsnone Patient Belongingsremains with patient Patient Belongings Remaining with Patientclothing Medications Brought to Hospitalno General Health: Weight in kg81.5 kilogram(s) Weight in ouk752.6 pound(s) Weight Methodactual (measured) Scale Typestanding Height in feet5 feet Height in inches4 inch(es) Height in cm162.5 centimeter(s) Height Methodstated BMI (kg/m2)30.863 square meter Patient or Family Member Reaction to Anesthesiano previous reaction; no previous family member reaction Blood Avoidance/Restrictionsn one Previous Transfusion Reactionno Health Mgmt: Symptoms/Conditions Managed at [facility] Barriers to Managing Healthnone Relationship/Environ: Living Arrangementshouse Lives Withspouse Resource/Environmental Concernsnone Anticipated Transition [facility] Services Anticipated at Transitionnone Substance: Current or Former Substance Use never: Cigarette/Tobacco(1), e-Cigarette/Vaping(1), Alcohol(1), Street Drugs Risk Screens: COVID-19 Screening Completedno exposure or symptoms Advance Directive/DNRno Advance Directive Information Givenpatient/family declined During the past month, have you often been bothered by feeling down, depressed or hopelessno During the past month, have you often had little interest or pleasure in doing thingsno Have you had any thoughts of harming yourselfno Have you had any thoughts of harming anyone elseno Are you or have you been threatened or abused physically,emotionally or sexually abused by anyoneno Do you feel UNSAFE going back to the place you are livingno Patient is Able to be Assessed for Learningyes Factors Influencing Readiness to Learnmotivation to learn Factors that Impact Ability to Learnnone Devices/Methods Used to Communicatenone Learning Preferencesverbal instruction; written material Cultural Considerationsnone Developmental Considerationsnone Alevism Considerationsnone Other learner availableyes... Learnerfamily Factors Influencing Readiness to Learnrequests information, motivation to learn Factors that Impact Ability to Learnvisual problems Devices/Methods Used to Communicatenone Learning Preferencesverbal instruction, written material Cultural Considerationsnone Developmental Considerationsnone Alevism Considerationsnone Falls RiskPatient location auto qualifies him/her for HIGH RISK. Are there any cultural, spiritual, yarsanism practices/values/needs that are important for us to knowno Do you want a visit/item from Pastoral Ca[facility] Would you like your Director Retail Brand Development/Cash Register Mechanic notifiedno Pain Scalenumerical 0-10 Pain Scale Educationteaching provided Current Pain Level0 = None Acceptable Pain Level3 = Mild Expression of Pain (nonverbal)none Chronic Painno Information Review: Allergies, Home Meds and Significant Events have been Reviewed and Verified with Patient/Familyyes Allergy, Intolerance, Adverse Event: Allergies: No Known Allergies: Active Electronic Signatures: Mami Tomlin (IVAN) (Signed 04-Jan-2020 06:51) Authored: Initial Info, General Health, Health Mgmt, Relationship/Environ, Risk Screens, Additional Information Staci Torres) (Signed 27-Dec-2019 14:31) Authored: Initial Info, General Health, Relationship/Environ, Substance, Risk Screens, Additional Information Last Updated: 04-Jan-2020 06:51 by Mami Tomlin (IVAN) References: 1. Data Referenced From Patient Profile - Preop v2 04-Dec-2019 11:53 Normal [facility] History and Physical - Surgi denice Update < 30 dayson 12-07-2019 History and Physical - Surgical Update < 30 days History & Physical Reviewed: I have reviewed the History and Physical dated: 13-Nov-2019 History and Physical reviewed and relevant findings noted. Patient examined to review pertinent physical findings.: No significant changes Home Medications Reviewed: no changes noted Allergies Reviewed: no changes noted ERAS (Enhanced Recovery After Surgery): ERAS Patient: no Consent: COVID-19 Consent: COVID-19 Risk ConsentSurgeon has reviewed palma risks related to the risk of candace COVID-19 and if they contract COVID-19 what the risks are. Signatures/Attestation: Note Completion: Attending Provider Inpatient Certification StatementObservation patient/other outpatient visits Electronic Signatures: Mitch Dominguez) (Signed 07-Dec-2019 07:01) Authored: History & Physical Reviewed, ERAS, Consent, Note Completion Last Updated: 07-Dec-2019 07:01 by Mitch Dominguez) [facility] Preop Checkliston 12-07-2019 Preop Checklist Preop Checklist: Preop Checklist: Arrival [id number] Arrival Time06:20 Procedure Typeright cataract NPO [id number] 20:30 NPO Commentsips of water with am meds ID Band Onyes Allergy Bandno known allergies Consent Signedyes H&P Completeyes Anesthesia Assessment Completedyes SCD's Appliednot applicable LOVE Hose Appliednot ordered Denturesnot applicable Prostheticsnot applicable Hearing Aidsnot applicable Valuables Securednot applicable Glasses / Contactsnot applicable Cardiovascular Assessment: Apicalregular Radial Pulsespalpable Extremitieswarm Respiratory Assessment: Respirationsunlabored regular Air Exchangeequal Breath Soundsclear Neurological Assessment: Level of Consciousnessalert Mobilitymoves all extremities Able to Express Selfyes Age Appropriateyes Emotional Statuscalm Preop Education: Surgical Site Infection Preventionyes Pain Scales and Managementyes Language / Communication: Language / CommunicationEnglish Electronic Signatures: Irene Snowden (IVAN) (Signed 07-Dec-2019 06:57) Authored: Preop Checklist Last Updated: 07-Dec-2019 06:57 by Irene Snowden (IVAN) [facility] CORONAVIRUS 2019, SCREEN ASY MPTOMATICon 12-06-2019 CORONAVIRUS 2019,PCR NOT DETECTED Normal Not Detected [facility] Comment on above: Result Comment: This assay is designed to detect the N, ORF1ab and/or S genes of SARS-CoV-2 via nucleic acid amplification. A Negative (NOT DETECTED) result does not preclude 2019-nCoV infection since the adequacy of sample collection and/or low viral burden may result in presence of viral nucleic acids below the clinical sensitivity of this test method. Negative (NOT DETECTED) result should not be used as the sole basis for treatment or other patient management decisions. Rather negative results should be combined with clinical observations, patient history, and epidemiological information to make patient management decisions. Fact sheet for providers: https://www.fda.gov/media/079630/download Fact sheet for patients: https://www.fda.gov/media/660789/download This test has received FDA Emergency Use Authorization (EUA) and has been verified by [facility] ([facility]). This test is only authorized for the duration of time that circumstances exist to justify the authorization of the emergency use of in vitro diagnostic tests for the detection of SARS-CoV-2 virus and/or diagnosis of COVID-19 infection under section 564(b)(1) of the Act, 21 U.S.C. 360bbb-3(b)(1), unless the authorization is terminated or revoked sooner. [facility] is certified under CLIA-88 as qualified to perform high complexity testing. Testing is performed in the [facility] laboratories located at [address] [place] [address]. Performed By: #### C [facility] #### [address] [place] [address] CORONAVIRUS 2019, SCREEN ASY MPTOMATICon 12-05-2019 Lab Specimen Source Nasal, Nasopharyngeal Normal [facility] Comment on above: Performed By: #### C [facility] #### [address] [place] [address] Patient Profile - Preop v2on 12-04-2019 Patient Profile - Preop v2 Profile: Initial Info: How to be Addressedsharon Spoken Language PreferredEnglish Source of Informationpatient Are you currently using the Personal Electronic Health Record or MyDentistMIG Chinayes Instructions Givenappropriate clothing, center location, bring responsible adult as the tram driver (procedure may be cancelled if no tram driver) Prep Instructions Reviewedyes Instructed to Have No Fluids Aftermidnight Stated Reason for Admissionright eye cataract Primary Contact Name and [phone] Patient Belongingsremains with patient Patient Belongings Remaining with Patientclothing Medications Brought to Hospitalno General Health: Weight in kg81.1 kilogram(s) Weight in bcw620.7 pound(s) Weight Methodactual (measured) Scale Typestanding Height in feet5 feet Height in inches4 inch(es) Height in cm162.5 centimeter(s) Height Methodstated BMI (kg/m2)30.712 square meter Patient or Family Member Reaction to Anesthesiano previous reaction Relationship/Environ: Resource/Environmental Concernsnone Substance: Current or Former Substance Use never: Cigarette/Tobacco, e-Cigarette/Vaping, Alcohol, Street Drugs Risk Screens: COVID-19 Screening Completedno exposure or symptoms Advance Directive/DNRno Advance Directive Information Givenpatient/family declined During the past month, have you often been bothered by feeling down, depressed or hopelessno During the past month, have you often had little interest or pleasure in doing thingsno Have you had any thoughts of harming yourselfno Have you had any thoughts of harming anyone elseno Are you or have you been threatened or abused physically,emotionally or sexually abused by anyoneno Do you feel UNSAFE going back to the place you are livingno Patient is Able to be Assessed for Learningyes Factors Influencing Readiness to Learnmotivation to learn Factors that Impact Ability to Learnnone Devices/Methods Used to Communicatenone Learning Preferencesverbal instruction; written material Cultural Considerationsnone Developmental Considerationsnone Alevism Considerationsnone Other learner availableyes... Learnerfamily Factors Influencing Readiness to Learnrequests information, motivation to learn Factors that Impact Ability to Learnvisual problems Devices/Methods Used to Communicatenone Learning Preferencesverbal instruction, written material Cultural Considerationsnone Developmental Considerationsnone Alevism Considerationsnone Falls RiskPatient location auto qualifies him/her for HIGH RISK. Are there any cultural, spiritual, yarsanism practices/values/needs that are important for us to knowno Do you want a visit/item from [facility] Would you like your Director Retail Brand Development/Cash Register Mechanic notifiedno Pain Scalenumerical 0-10 Pain Scale Educationteaching provided Current Pain Level0 = None Acceptable Pain Level3 = Mild Chronic Painno Information Review: Allergies, Home Meds and Significant Events have been Reviewed and Verified with Patient/Familyyes Allergy, Intolerance, Adverse Event: Allergies: No Known Allergies: Active Problem List: Medical History: Hypercholesterolemia: Catalog Name: Pure hypercholesterolemia, unspecified Hypertension: Catalog Name: Essential (primary) hypertension Gout: Catalog Name: Gout, unspecified Angina of effort: Catalog Name: Other forms of angina pectoris Surg History: History of tubal ligation: Catalog Name: Tubal ligation status H/O total knee replacement: Catalog Name: Presence of unspecified artificial knee joint Electronic Signatures: Irene Snowden) (Signed 07-Dec-2019 06:48) Authored: Initial Info, General Health, Relationship/Environ, Risk Screens, Additional Information Staci Torres) (Signed 04-Dec-2019 11:55) Authored: Initial Info, General Health, Substance, Risk Screens, Additional Information Last Updated: 07-Dec-2019 06:48 by Irene Snowden (RN) [facility] Vital Signs Date Time Vital Sign Value Performing Clinician Facility 04-18-2022 09:32-0500 Body temperature 98.24 [degF] MONTRELL VERDIN DO [facility] 04-18-2022 09:32-0500 Diastolic Blood Pressure Non-Invasive 70 1 MONTRELL VERDIN DO [facility] 04-18-2022 09:32-0500 Heart rate 77 /min MONTRELL VERDIN DO [facility] 04-18-2022 09:32-0500 Respiratory rate 18 /min MONTRELL VERDIN DO [facility] 04-18-2022 09:32-0500 Systolic Blood Pressure Non-Invasive 132 1 MONTRELL VERDIN DO [facility] 04-07-2022 14:26-0500 Diastolic Blood Pressure Non-Invasive [address] ELIZABET MYERS MD [facility] 04-07-2022 14:26-0500 Heart rate 65 /min DR ELIZABET MYERS MD [facility] 04-07-2022 14:26-0500 Respiratory rate 14 /min DR ELIZABET MYERS MD [facility] 04-07-2022 14:26-0500 Systolic Blood Pressure Non-Invasive [address] ELIZABET MYERS MD [facility] 04-07-2022 12:40-0500 Diastolic Blood Pressure Non-Invasive [address] ELIZABET MYERS MD [facility] 04-07-2022 12:40-0500 Heart rate 67 /min DR ELIZABET MYERS MD [facility] 04-07-2022 12:40-0500 Respiratory rate 13 /min DR ELIZABET MYERS MD [facility] 04-07-2022 12:40-0500 Systolic Blood Pressure Non-Invasive [address] ELIZABET MYERS MD [facility] 04-07-2022 12:02-0500 Diastolic Blood Pressure Non-Invasive [address] ELIZABET MYERS MD [facility] 04-07-2022 12:02-0500 Heart rate 65 /min DR ELIZABET MYERS MD [facility] 04-07-2022 12:02-0500 Respiratory rate 15 /min DR ELIZABET MYERS MD [facility] 04-07-2022 12:02-0500 Systolic Blood Pressure Non-Invasive [address] ELIZABET MYERS MD [facility] 04-07-2022 08:48-0500 Body temperature 97.16 [degF] DR ELIZABET MYERS MD [facility] 04-07-2022 08:48-0500 Reason For Taking VItal Signs DR ELIZABET MYERS MD [facility] 04-07-2022 08:40-0500 Heart rate 65 /min DR ELIZABET MYERS MD [facility] 04-07-2022 08:40-0500 Respiratory Rate - Anes 12 br/min DR ELIZABET MYERS MD [facility] 04-07-2022 08:35-0500 Heart rate 60 /min DR ELIZABET MYERS MD [facility] 04-07-2022 08:35-0500 Respiratory Rate - Anes 11 br/min DR ELIZABET MYERS MD [facility] 04-07-2022 08:30-0500 Heart rate 61 /min DR ELIZABET MYERS MD [facility] 04-07-2022 08:30-0500 Respiratory Rate - Anes 0 br/min DR ELIZABET MYERS MD [facility] 04-07-2022 05:47-05[address] Blood Pressure Cuff Size DR ELIZABET MYERS MD [facility] 04-07-2022 05:47-[address] ELIZABET MYERS MD [facility] 04-07-2022 05:47-[address] ELIZABET Menjivar [facility] 04-07-2022 05:47-0500 Body height [address] ELIZABET MYERS MD [facility] 04-07-2022 05:47-0500 Body temperature 98.06 [degF] DR ELIZABET MYERS MD [facility] 04-07-2022 05:47-0500 Body weight 77.[address] ELIZABET MYERS MD [facility] 04-07-2022 05:47-0500 Body weight 30.2 kg/m2 DR ELIZABET MYERS MD [facility] 03-23-2022 09:20-[address] ELIZABET MYERS MD [facility] 03-23-2022 09:20-[address] ELIZABET Menjivar [facility] 03-23-2022 09:20-0500 Body height [address] ELIZABET MYERS MD [facility] 03-23-2022 09:20-0500 Body weight 79.[address] ELIZABET MYERS MD [facility] 03-23-2022 09:20-0500 Body weight 31.05 kg/m2 DR ELIZABET MYERS MD [facility] 03-23-2022 09:20-0500 Diastolic Blood Pressure Non-Invasive [address] ELIZABET MYERS MD [facility] 03-23-2022 09:20-0500 Heart rate 48 /min DR ELIZABET MYERS MD [facility] 03-23-2022 09:20-0500 Respiratory rate 18 /min DR ELIZABET MYERS MD [facility] 03-23-2022 09:20-0500 Systolic Blood Pressure Non-Invasive [address] ELIZABET MYERS MD [facility] 09-23-2021 10:16-0400 Body height 160.02 cm FLATTENING PRESS OPERATORWaqar Roach FLATTENING PRESS OPERATOR Work Phone: [facility] Work Phone: 09-23-2021 10:16-0400 Body mass index (BMI) [Ratio] 32.4 kg/m2 FLATTENING PRESS OPERATORWaqar Roach FLATTENING PRESS OPERATOR Work Phone: [facility] Work Phone: 09-23-2021 10:16-0400 Body weight 83 kg FLATTENING PRESS OPERATORWaqar Roach FLATTENING PRESS OPERATOR Work Phone: [facility] Work Phone: 09-23-2021 10:16-0400 Diastolic blood pressure 66 mm[Hg] FLATTENING PRESS OPERATOR-C Yulissa Roach FLATTENING PRESS OPERATOR Work Phone: [facility] Work Phone: 09-23-2021 10:16-0400 Heart rate 56 /min FLATTENING PRESS OPERATOR-C Yulissa Roach FLATTENING PRESS OPERATOR Work Phone: [facility] Work Phone: 09-23-2021 10:16-0400 Respiratory rate 16 /min FLATTENING PRESS OPERATOR-C Yulissa Roach FLATTENING PRESS OPERATOR Work Phone: [facility] Work Phone: 09-23-2021 10:16-0400 SaO2% (BldA) [Mass fraction] 96 % FLATTENING PRESS OPERATOR-C Yulissa Roach FLATTENING PRESS OPERATOR Work Phone: [facility] Work Phone: 09-23-2021 10:16-0400 Systolic blood pressure 127 mm[Hg] FLATTENING PRESS OPERATOR-C Yulissa Roach FLATTENING PRESS OPERATOR Work Phone: [facility] Work Phone: Encounters Encounter Date Encounter Type Care Provider Facility Start: 09-03-2024 Emergency department patient visit JOSE ISAACS DO Facility:[facility] Start: 09-03-2024 End: 09-06-2024 Evaluation and management of inpatient ADY ROJO DO [facility] Start: 07-28-2024 Encounter for genera l adult medical examination without abnormal findings Venkatesh Myles NP [facility] Start: 05-17-2024 End: 05-17-2024 ambulatory YULISSA ROACH HYDROELECTRIC STATION OPERATOR CHIEF-BIN PACKER Facility:[facility] Start: 04-18-2024 End: 04-18-2024 ambulatory Venkatesh Myles NP Facility:[facility] Start: 03-02-2024 End: 03-02-2024 ambulatory Yulissa Roach FLATTENING PRESS OPERATOR Facility:[facility] Start: 01-19-2024 ambulatory Yulissa Roach FLATTENING PRESS OPERATOR Facil ity:[facility] Start: 12-27-2023 ambulatory Yulissa Roach FLATTENING PRESS OPERATOR Facil ity:[facility] Start: 11-18-2023 ambulatory Yulissa Roach FLATTENING PRESS OPERATOR Facil ity:[facility] Start: 10-13-2023 End: 10-13-2023 ambulatory YULISSA ROACH HYDROELECTRIC STATION OPERATOR CHIEF-BIN PACKER Facility:[facility] Start: 10-13-2023 End: 10-13-2023 Patient encounter procedure YULISSA ROACH HYDROELECTRIC STATION OPERATOR CHIEF-BIN PACKER [facility] Start: 10-13-2023 ambulatory Yulissa Flormer FLATTENING PRESS OPERATOR Facil ity:[facility] Start: 09-23-2023 End: 09-23-2023 ambulatory Yulissa Flormer FLATTENING PRESS OPERATOR Facility:[facility] Start: 09-20-2023 ambulatory Yulissa Roach FLATTENING PRESS OPERATOR Facil ity:[facility] Start: 09-20-2023 End: 09-20-2023 ambulatory MR AKHIL PINA MD Facility:[facility] Start: 08-31-2023 ambulatory Yulissa Flormer FLATTENING PRESS OPERATOR Facil ity:[facility] Start: 08-31-2023 End: 08-31-2023 ambulatory YULISSA ROACH HYDROELECTRIC STATION OPERATOR CHIEF-BIN PACKER Facility:[facility] Start: 08-27-2023 ambulatory Yulissa Roach FLATTENING PRESS OPERATOR Facil ity:[facility] Start: 08-18-2023 ambulatory Yulissa Roach FLATTENING PRESS OPERATOR Facil ity:[facility] Start: 08-09-2023 ambulatory MR AKHIL PINA MD Fac ility:[facility] Start: 08-09-2023 End: 09-02-2024 Lab-Standing Order MR AKHIL PINA MD [facility] Start: 08-09-2023 ambulatory Yulissa Roach FLATTENING PRESS OPERATOR Facil ity:[facility] Start: 01-27-2023 End: 01-27-2023 ambulatory [facility] Work Phone: Start: 01-27-2023 End: 01-27-2023 Patient encounter procedure [facility] Work Phone: Start: 01-05-2023 End: 01-05-2023 Patient encounter procedure [facility] Work Phone: Start: 09-16-2022 End: 09-16-2022 ambulatory [facility] Work Phone: Start: 09-16-2022 End: 09-16-2022 Patient encounter procedure [facility] Work Phone: Start: 08-31-2022 End: 08-31-2022 Patient encounter procedure YULISSA ROACH HYDROELECTRIC STATION OPERATOR CHIEF-BIN PACKER [facility] Start: 04-18-2022 End: 04-18-2022 Emergency department patient visit MONTRELL Hsieh LAMBERT BUCHANAN [facility] Start: 04-07-2022 End: 04-07-[address] ELIZABET MYERS MD [facility] Start: 03-23-2022 End: 03-23-[address] ELIZABET MYERS MD [facility] Start: 03-23-2022 End: 03-23-[address] ELIZABET MYERS MD [facility] Start: 10-03-2021 Non-patient / Non-visit FLATTENING PRESS OPERATOR-C Aimee Roach FLATTENING PRESS OPERATOR Work Phone: [facility] Start: 10-03-2021 End: 10-03-2021 Patient encounter procedure FLATTENING PRESS OPERATOR-C Yulissa Roach FLATTENING PRESS OPERATOR Work Phone: [facility] Start: 09-30-2021 End: 09-30-2021 Patient encounter procedure YULISSA ROACH HYDROELECTRIC STATION OPERATOR CHIEF-BIN PACKER [facility] Start: 09-23-2021 End: 09-23-2021 Patient encounter procedure FLATTENING PRESS OPERATOR-C Yulissa Roach FLATTENING PRESS OPERATOR Work Phone: [facility] Start: 09-23-2021 End: 09-23-2021 Patient encounter procedure FLATTENING PRESS OPERATOR-C Yulissa Roach FLATTENING PRESS OPERATOR Work Phone: [facility] Start: 04-02-2021 End: 04-02-2021 Patient encounter procedure ZAHRAA JACOBS HYDROELECTRIC STATION OPERATOR CHIEF-BIN PACKER [facility] Start: 03-03-2021 End: 03-03-2021 Patient encounter procedure JOSE ISAACS DO [facility] Procedures Date Procedure Procedure Detail Performing Clinician Start: 04-07-2022 Total replacement of left knee joint DR ELIZABET MYERS MD Start: 02-08-2017 Cardiac catheter (ph ysical object) JOSE ISAACS DO Laparoscopy JOSE ISAACS D O Comment on above: opened tubes before [address] RICKIE ROBISON Comment on above: right Plan of Treatment Date Care Activity Detail Author Cardiovascular stress testing [facility] Work Phone: Immunizations Immunization Date Immunization Notes Care Provider [facility] 11-22-2023 influenza, high dose seasonal, preservative-free; Translations: [Fluad PF Prefilled Syringe ] MR AKHIL PINA MD [facility] 08-31-2023 Pneumococcal conjuga te PCV20, polysaccharide [id number] conjugate, adjuvant, PF; Translations: [Prevnar 20] YULISSA ROACH HYDROELECTRIC STATION OPERATOR CHIEF-BIN PACKER [facility] 12-14-2022 influenza virus vacc ine, unspecified formulation YULISSA ROACH HYDROELECTRIC STATION OPERATOR CHIEF-BIN PACKER [facility] 01-01-2022 influenza virus vacc ine, unspecified formulation DR ELIZABET MYERS MD [facility] 12-01-2019 influenza, injectabl e, quadrivalent, preservative free; Translations: [Fluarix PF Quadrivalent ] JOSE ISAACS DO [facility] 12-06-2018 influenza, injectabl e, quadrivalent, preservative free; Translations: [Fluarix PF Quadrivalent ] JOSE ISAACS DO [facility] 12-27-2017 influenza virus vacc ine, unspecified formulation JOSE ISAACS DO [facility] 08-07-2013 pneumococcal polysaccharide vaccine, [address] ELIZABET MYERS MD [facility] 08-07-2013 zoster vaccine, live DR GRETTA MYERS MD [facility] 07-29-2012 tetanus toxoid, redu hunter diphtheria toxoid, and acellular pertussis vaccine, adsorbed JOSE ISAACS DO [facility] Payers Date Payer Category Payer Medicare [id number] 2024 Private Health Insurance [id number] 2024 Medicare [id number] 2023 Unknown [id number] 2023 Medicare [id number] 2023 [facility] [id number] 2012 Unknown [id number] 2010 Unknown [id number] 1948 Unknown [id number] 2.16.8 [id number] 1948 Unknown [id number] 2.16.8 40.1.579156.3.579.2.627 1948 Unknown [id number] 2.16.8 40.1.882036.3.579.2.627 1948 Unknown [id number] 2.16.8 40.1.698841.3.579.2.627 1948 Unknown [id number] 2.16.8 40.1.357250.3.579.2.627 1948 Unknown [id number] 2.16. 840.1.464457.3.579.2.627 1948 Unknown [id number] 2.16. 840.1.726058.3.579.2.627 Unknown [id number] 2.16.8 40.1.659020.3.579.2.462 Unknown [id number] 2.16.8 40.1.540365.3.579.2.462 Unknown [id number] 2.16.8 40.1.634441.3.579.2.462 Unknown [id number] 2.16.8 40.1.251234.3.579.2.462 Unknown [id number] 2.16.8 40.1.721170.3.579.2.462 Unknown [id number] 2.16.8 40.1.423711.3.579.2.462 Unknown [id number] 2.16.8 40.1.552833.3.579.2.462 Unknown [id number] 2.16.8 40.1.835077.3.579.2.462 Unknown [id number] 2.16.8 40.1.776657.3.579.2.462 Unknown [id number] 2.16.8 40.1.714171.3.579.2.462 Unknown [id number] 2.16.8 40.1.942697.3.579.2.462 Unknown [id number] 2.16.8 40.1.324699.3.579.2.462 Social History Date Type Detail Facility Start: 04-04-2019 End: 05-18-2024 Never smoked tobacco (finding) [facility] Start: 1950 Sex Assigned At Female A [facility] Start: 09-23-2021 End: 09-23-2022 Tobacco smoking status MIIS Unknown if ever smoked [facility] Sexual Orientation [facility] Start: 01-24-2019 Sex Female (finding) [facility] Functional Status Date Assessment Result Facility 04-18-2022 Functional Status ID band on, Call device within reach, Bed in low position, Wheels locked, Upper/Half-Length side-rails up, Phone within reach, personal items within reach, Assistive devices within reach, Toileting device within reach, Bedside Cart Locked, Visitor at bedside, Safety level maintained [facility] 04-07-2022 Functional Status Mod I [facility] 04-07-2022 Functional Status ice on [facility] 04-07-2022 Functional Status Maintained [facility] 03-23-2022 Functional Status Sensory Deficits None A [facility] Mental Status Date Assessment Result Facility 04-18-2022 Mental Status Oriented x 4 [facility] 04-07-2022 Mental Status Oriented x 4 [facility] 04-07-2022 Mental Status [facility] Clinical Notes 08-01-2020 to 09-06-2024 Note Date & Type Note Facility 09-06-2024 Discharge summary Date of Service 09/06/2024 Discharge Diagnosis Acute left knee pain with a hematoma. Extension of hematoma into the retroperitoneal region. Supratherapeutic INR. History of atrial fibrillation on Coumadin. Rhabdomyolysis. Hypertension. Morbid obesity. Anemia. Hospital Course 74-year-old female with history of atrial fibrillation on Coumadin, prediabetes, essential hypertension, chronic kidney disease who was at [place] 2 weeks ago noted that she had trauma to her left lower extremity Wednesday 08/30 followed by progressively worsening pain and swelling of the left lower extremity presented to the ER in [place] today due to significant left lower extremity pain, swelling, difficulty with ambulation. On evaluation in the ER vitals unremarkable. CBC white count 12.7, PT 95, INR 7.8, creatinine 1.09, BUN 35, CPK 726. CT left lower extremity identified intramuscular hematoma of the left iliopsoas muscle with extension into the posterior left retroperitoneum and intramuscular hematoma in the left thigh. She received morphine 4 mg IV push, 2.5 mg oral vitamin K, 1500 units of IV Kcentra stat and was transferred to [facility] for further management. Patient was gently hydrated for rhabdomyolysis which continued to trend down. Coumadin has been held. INR at the time of discharge is 2. Patient follows with a locomotive electrician at [facility] who also manages her Coumadin levels. Discussed with patient and her to follow-up with locomotive electrician in 1 to 2 weeks regarding restarting Coumadin versus Xarelto versus Eliquis. She may also discuss about what possible watchman's procedure with her locomotive electrician. Her pain has been controlled with oxycodone in the beginning, now only on Tylenol 1 g scheduled 4 times a day. Continue to monitor liver enzymes. Patient has also been found to be anemic likely secondary to blood loss. This can also be monitored as outpatient. She can also benefit from iron supplements as outpatient. Patient was advised to follow-up with both her locomotive electrician and PCP regarding resumption of anticoagulation. Allergies NKA Consults No qualifying data available. Imaging Results and Diagnostics CT Angiography Abd/Pelvis/Bilat Lower Ex Result Date: September 03, 2024 Verified By: MAYCOL ABAD MD CLINICAL STATEMENT: IMPRESSION: 1. No arterial stenosis or occlusion in the pelvis or bilateral lowerextremities.2. Intramuscular hematoma in the left iliacus muscle with extension into theposterior left retroperitoneum.3. Intramuscular hematoma in the left thigh.4. Bilateral total knee replacements with left knee joint effusion.5. Diverticulosis of the colon without signs of acute diverticulitis.6. 2.2 cm calcified uterine fibroid. XR Knee 3 Views Left Result Date: September 03, 2024 Verified By: MAYCOL ABAD MD CLINICAL STATEMENT: IMPRESSION: 1. No fracture or dislocation of the left hip or left femur.2. Left total knee arthroplasty without radiographic evidence of complication.3. Moderate left knee joint effusion. XR Femur Minimum 2 Views Left Result Date: September 03, 2024 Verified By: MAYCOL ABAD MD CLINICAL STATEMENT: IMPRESSION: 1. No fracture or dislocation of the left hip or left femur.2. Left total knee arthroplasty without radiographic evidence of complication.3. Moderate left knee joint effusion. Subjective Patient indicates improvement in her and leg pain. Physical Exam Vitals and Measurements T: 36.8 C (Oral) HR: 96 (Apical) RR: 18 BP: 132/60 SpO2: 96% Weight Dosing Weight: 80.1 kg (09/03/24) Dosing Weight: 80.1 kg (09/03/24) General: Alert, no acute distress Heart: RRR, S1/S2. No murmurs. Lungs: CTA B/L, unlabored Abdomen: Soft, nontender, nondistended, positive bowel sounds Extremities: swelling in the left thigh and knee, improved per patient, +2 dorsalis pedis pulses bilaterally. Pending Labs and Studies CBC, INR, CMP Code Status No qualifying data available. Admission Date 09/03/2024 Discharge Date 09/06/2024 Medications New Prescription acetaminophen (Tylenol)1,000 Milligram by mouth three (3) times a day as needed as needed for pain. Unchanged allopurinol (allopurinol 100 mg oral tablet)1 tab(s) by mouth once a day. calcium-vitamin D (Citracal Calcium + D Slow Release 1200)1 tab by mouth once a day (in the morning). flecainide (flecainide 100 mg oral tablet)1 tab(s) by mouth every 12 hours. metoprolol (Metoprolol Succinate ER 25 mg oral TABLET extended release)1 tab(s) by mouth once a day. take 1 tablet by mouth at bedtime. simvastatin (simvastatin 20 mg oral tablet)1 tab(s) by mouth daily at bedtime for 90 Days. Refills: 3. traZODone (traZODone 50 mg oral tablet)1 tab(s) by mouth daily at bedtime. Refills: 3. Discontinued amLODIPine (amLODIPine 5 mg oral tablet)1 tab(s) by mouth once a day. lisinopril (lisinopril 40 mg oral tablet)1 tab(s) by mouth once a day for 90 Days. Refills: 3. warfarin (warfarin 4 mg oral tablet) Follow Up Follow Up with Dr. Muñoz, Cardiology. Follow-up for recommendations about future anticoagulation warfarin versus Xarelto versus Eliquis versus watchman's procedure. When:Within 1-2 days Follow Up with JOSE ISAACS DO When:Within 1-2 days Where:[address] [place] [address]- [phone] Additional Information: Please call the office to schedule a hospital follow up appointment. Follow Up Appointments No qualifying data available. Follow Up Labs/Studies Discharge Labs Discharge Outpatient Labwork - Ordered -- CBC, INR, Bleeding, follow-up within: 1-2 days, Results Notify to: JOSE ISAACS DO, 09/06/24 13:51:00 EDT Discharge Outpatient Labwork - Ordered -- CBC, INR CBC, INR, CMP, Bleeding, follow-up within: 1-2 days, Results Notify to: JOSE ISAACS DO, 09/06/24 13:54:00 EDT Discharge Studies No Follow-up Studies Discharge Diet Discharge Diet - Ordered -- No changes were made to your diet during your hospital stay. Please resume your pre hospitalization diet on discharge., 09/06/24 13:51:00 EDT Discharge Activity Discharge Activity - Ordered -- Activity As Tolerated, Additional instructions include:, 09/06/24 13:51:00 EDT Condition on Discharge Improved Discharge Disposition Home Information Provided To patient, her , medical staff Time Spent > 35 min Digitally Signed by FRED ROSALES MD on 09/06/2024 09:52 PM [facility] 09-06-2024 Hospital Discharg e instructions Patient Education 09/06/2024 16:16:54 Acute Pain, Adult Acute Pain, Adult Acute pain is a type of sudden pain that may last for just a few days or for as long as six months. It is often related to an illness, injury, or medical procedure. Acute pain may be mild, moderate, or severe. Pain can make it hard for you to do your normal, daily activities. It can cause anxiety and lead to other problems if it is left untreated. Treatment depends on the cause and severity of your pain. Acute pain usually goes away once your injury has healed or you are no longer ill. Follow these instructions at home: Medicines Take hegc-rql-ljzierl and prescription medicines only as told by your health care provider. Take the lowest dose of medicine for the shortest amount of time needed to relieve the pain. If you are taking prescription pain medicine: ?Do not stop taking the medicine suddenly. Talk to your health care provider about how and when to discontinue prescription medicine. ?Do not take more pills than told by your health care provider even if your pain is severe. ?Do not take other watb-dzi-clwryev pain medicines in addition to prescription pain medicine unless told by your health care provider. ?Ask your health care provider if the medicine requires you to avoid driving or using heavy machinery. ?Ask your health care provider if the medicine can cause constipation. You may need to take these actions to prevent or treat constipation: ?Drink enough fluid to keep your urine pale yellow. ?Eat foods that are high in fiber, such as beans, whole grains, and fresh fruits and vegetables. ?Take ulmx-ylb-cacboyw or prescription medicines. ?Limit foods that are high in fat and processed sugars, such as fried or sweet foods. Managing pain, stiffness, and swelling If directed, put ice on the affected area. To do this: Put ice in a plastic bag. Place a towel between your skin and the bag. Leave the ice on for 20 minutes, 2 3 times a day. If directed, apply heat to the affected area as often as told by your health care provider. Use the heat source that your health care provider recommends, such as a moist heat pack or a heating pad. Place a towel between your skin and the heat source. Leave the heat on for 20 30 minutes. Remove the heat if your skin turns bright red. This is especially important if you are unable to feel pain, heat, or cold. You may have a greater risk of getting burned. Activity Rest as told by your health care provider. Return to your normal activities as told by your health care provider. Ask your health care provider what activities are safe for you. General instructions Check your pain level as told by your health care provider. Ask your health care provider if other strategies such as distraction, relaxation, or physical therapies can help your pain. Keep all follow-up visits as told by your health care provider. This is important. Contact a health care provider if: Your pain is not controlled by medicine. Your pain does not improve or gets worse. You have side effects from pain medicines, such as vomiting or confusion. Get help right away if you: Have severe pain. Have trouble breathing. Lose consciousness. Have chest pain or pressure that lasts for more than a few minutes, or if you have other symptoms along with chest pain, including if you: ?Have pain or discomfort in one or both arms, your back, neck, jaw, or stomach. ?Have shortness of breath. ?Break out in a cold sweat. ?Feel nauseous. ?Become light-headed. These symptoms may represent a serious problem that is an emergency. Do not wait to see if the symptoms will go away. Get medical help right away. Call your local emergency services (911 in the [place] Do not drive yourself to the hospital. Summary Acute pain may be mild, moderate, or severe. It usually goes away once your injury has healed or you are no longer ill. Take paer-taf-eetrysn and prescription medicines only as told by your health care provider. Ask your health care provider if the medicine prescribed to you can cause constipation. Contact a health care provider if your pain is not controlled by medicine. This information is not intended to replace advice given to you by your health care provider. Make sure you discuss any questions you have with your health care provider. Document Released: 03/01/2016 Document Revised: 07/03/2019 Document Reviewed: 07/03/2019 Elsevier Patient Education 2020 [employer] Follow Up Care 09/03/2024 00:01:16 With:Dr. Muñoz, Cardiology. Follow-up for recommendations about future anticoagulation warfarin versus Xarelto versus Eliquis versus watchman's procedure. Address:Unknown When:1-2 days With:JOSE ISAACS DO Address: [address] [place] [phone]- [phone] When:1-2 days Comments:Please call the office to schedule a hospital follow up appointment. [facility] 09-06-2024 Note Discharge Instructions Thank you for allowing [facility] to assist you with your healthcare needs. The following is important discharge information regarding your hospital visit. Your Care Team JOSE ISAACS DO Your Diagnosis Hypocoagulable state Nontraumatic hematoma of muscle Retroperitoneal bleed Warfarin toxicity What to do next Scheduled Follow-Up Appointments Appointment Type When With Where Contact Information StatusPC OV 10/19/2024 10:00 AM EDT JOSE ISAACS DO [facility] Confirmed Follow Up Appointments Follow Up with Dr. Muñoz, Cardiology. Follow-up for recommendations about future anticoagulation warfarin versus Xarelto versus Eliquis versus watchman's procedure. When:Within 1-2 days Follow Up with JOSE ISAACS DO When:Within 1-2 days Where:[address] [place] [phone]- [phone] Additional Information: Please call the office to schedule a hospital follow up appointment. The Following Activity and Diet Have Been Ordered for You Discharge Activity - Ordered -- Activity As Tolerated, Additional instructions include:, 09/06/24 13:51:00 EDT Discharge Diet - Ordered -- No changes were made to your diet during your hospital stay. Please resume your pre hospitalization diet on discharge., 09/06/24 13:51:00 EDT The Following Equipment Has Been Ordered for You No qualifying data available. The Following Treatments Have Been Ordered for You Discharge Labs Discharge Outpatient Labwork - Ordered -- CBC, INR, Bleeding, follow-up within: 1-2 days, Results Notify to: JOSE ISAACS DO, 09/06/24 13:51:00 EDT Discharge Outpatient Labwork - Ordered -- CBC, INR CBC, INR, CMP, Bleeding, follow-up within: 1-2 days, Results Notify to: TAMARAKRISTOPHERJOSE , 09/06/24 13:54:00 EDT Discharge Radiology No qualifying data available. Other Therapies No qualifying data available. Post Acute Orders No qualifying data available. Someone Will Contact You Regarding These Home Health Referrals No home referrals have been ordered for you. No one will call you. Allergies NKA Medications Please ask your primary doctor or pharmacist before taking any other medication not listed, including over the counter drugs, herbal medications, vitamins and or supplements as they may interact with your home medications. What How Much When Instructions Last Dose New acetaminophen (Tylenol) 1,000 Milligram by mouth Three (3) times a day as needed for as needed for pain Unchanged allopurinol (allopurinol 100 mg oral tablet) 1 tab(s) by mouth Once a day Unchanged calcium-vitamin D (Citracal Calcium + D Slow Release 1200) 1 tab by mouth Once a day (in the morning) Unchanged flecainide (flecainide 100 mg oral tablet) 1 tab(s) by mouth Every 12 hours Unchanged metoprolol (Metoprolol Succinate ER 25 mg oral TABLET extended release) 1 tab(s) by mouth Once a day take 1 tablet by mouth at bedtime Unchanged simvastatin (simvastatin 20 mg oral tablet) 1 tab(s) by mouth Daily at bedtime Duration: 90 Days Unchanged traZODone (traZODone 50 mg oral tablet) 1 tab(s) by mouth Daily at bedtime What How Much When Comments Stop Taking amLODIPine (amLODIPine 5 mg oral tablet) 1 tab(s) by mouth Once a day Stop Taking lisinopril (lisinopril 40 mg oral tablet) 1 tab(s) by mouth Once a day Duration: 90 Days Stop Taking warfarin (warfarin 4 mg oral tablet) See instructions Please take this list to your next doctor s visit. Bring all medications you take, including over the counter medications, herbals and other supplements with you to your doctor s visit. Patients and families are reminded to discard old lists and to update any records with all medication providers or retail pharmacies. Education Materials Acute Pain, Adult Acute pain is a type of sudden pain that may last for just a few days or for as long as six months. It is often related to an illness, injury, or medical procedure. Acute pain may be mild, moderate, or severe. Pain can make it hard for you to do your normal, daily activities. It can cause anxiety and lead to other problems if it is left untreated. Treatment depends on the cause and severity of your pain. Acute pain usually goes away once your injury has healed or you are no longer ill. Follow these instructions at home: Medicines Take nhag-qyq-zznipic and prescription medicines only as told by your health care provider. Take the lowest dose of medicine for the shortest amount of time needed to relieve the pain. If you are taking prescription pain medicine: ? Do not stop taking the medicine suddenly. Talk to your health care provider about how and when to discontinue prescription medicine. ? Do not take more pills than told by your health care provider even if your pain is severe. ? Do not take other mant-tue-vllypov pain medicines in addition to prescription pain medicine unless told by your health care provider. ? Ask your health care provider if the medicine requires you to avoid driving or using heavy machinery. ? Ask your health care provider if the medicine can cause constipation. You may need to take these actions to prevent or treat constipation: ? Drink enough fluid to keep your urine pale yellow. ? Eat foods that are high in fiber, such as beans, whole grains, and fresh fruits and vegetables. ? Take ycms-usz-wogutef or prescription medicines. ? Limit foods that are high in fat and processed sugars, such as fried or sweet foods. Managing pain, stiffness, and swelling If directed, put ice on the affected area. To do this: Put ice in a plastic bag. Place a towel between your skin and the bag. Leave the ice on for 20 minutes, 2 3 times a day. If directed, apply heat to the affected area as often as told by your health care provider. Use the heat source that your health care provider recommends, such as a moist heat pack or a heating pad. Place a towel between your skin and the heat source. Leave the heat on for 20 30 minutes. Remove the heat if your skin turns bright red. This is especially important if you are unable to feel pain, heat, or cold. You may have a greater risk of getting burned. Activity Rest as told by your health care provider. Return to your normal activities as told by your health care provider. Ask your health care provider what activities are safe for you. General instructions Check your pain level as told by your health care provider. Ask your health care provider if other strategies such as distraction, relaxation, or physical therapies can help your pain. Keep all follow-up visits as told by your health care provider. This is important. Contact a health care provider if: Your pain is not controlled by medicine. Your pain does not improve or gets worse. You have side effects from pain medicines, such as vomiting or confusion. Get help right away if you: Have severe pain. Have trouble breathing. Lose consciousness. Have chest pain or pressure that lasts for more than a few minutes, or if you have other symptoms along with chest pain, including if you: ? Have pain or discomfort in one or both arms, your back, neck, jaw, or stomach. ? Have shortness of breath. ? Break out in a cold sweat. ? Feel nauseous. ? Become light-headed. These symptoms may represent a serious problem that is an emergency. Do not wait to see if the symptoms will go away. Get medical help right away. Call your local emergency services (911 in the [place] Do not drive yourself to the hospital. Summary Acute pain may be mild, moderate, or severe. It usually goes away once your injury has healed or you are no longer ill. Take kuzc-ddd-zgiygyw and prescription medicines only as told by your health care provider. Ask your health care provider if the medicine prescribed to you can cause constipation. Contact a health care provider if your pain is not controlled by medicine. This information is not intended to replace advice given to you by your health care provider. Make sure you discuss any questions you have with your health care provider. Document Released: 03/01/2016 Document Revised: 07/03/2019 Document Reviewed: 07/03/2019 [employer] Patient Education 2020 [employer] Additional Information VACCINATE! IT SAVES LIVES! Members of the community who have not yet received the COVID-19 vaccine and would like to receive it can visit one of [facility] vaccine clinics. There are many vaccine clinic locations within the [facility]. For locations and available times, please visit https://gettheshot.coronavirus.o hio.gov/. It is important to note that some COVID mobile vaccine clinics are held outdoors and may be canceled in rainy or stormy conditions. To learn more about pediatric vaccinations (ages 5-11), we invite you to visit the [facility] webpage. [email or web address].[facility].org/p ages/3590-Dlkna-Oevoaptfskq-Freq zwgoty-Yzgdb-Ezfeiczqv.html To learn more about the COVID-19 vaccine, we invite you to visit the CDC website for a list of frequently asked questions.https://www.cdc.gov/co ronavirus/2019-ncov/vaccines/faq .html [employer] Patient Portal Access Instructions: Stay connected with your healthcare team and access your personal medical information anytime with the [employer] Patient Portal. Please follow the directions below to create your [employer] account: 1.Access the email account you provided upon registration to the hospital/physician office.2.Look for an invitation email from [facility].3.Open the email and access the invitation link: Accept Invitation to [employer].4.Fill in the required luong to create your account. To access your account, visit [employer]. Click the blue button labeled Access Patient Portal and then log in with the username and password that you created in the steps above. You will be able to view your test results, lab results, a summary of your visits, upcoming appointments and more. There is also a convenient messaging option where you can send secure messages to your provider. In addition, you will have the ability to download any documents or summaries to your computer and/or send the information securely to a physician. Remember that your healthcare information is confidential, so carefully consider who you will allow to register on the [employer] Patient Portal for access to your information. You can also access the [employer] Patient Portal on the [employer]. Simply click on Patient Portal and then log into your account. If you would like to receive a full copy of your medical records, please contact the [facility] Medical Records Department by calling [phone], Wednesday through Wednesday between 8 a.m. and 4:30 p.m. HOW TO SAFELY DISPOSE OF PRESCRIPTION MEDICATIONS Please use one of the following methods to safely dispose of your unused medications. 1.Use a drug disposal kit: the drug disposal pouch allows you to safely discard your old and unused drugs. Ask your nurse to give you one when you are discharged.2.Visit a local take-back location: Many local pharmacies and police departments have programs that collect old and unwanted prescription drugs. Call your local pharmacy or go to http://[email or web address] [place] [employer]/6Q2Wp6m to find one close to you.3.Make use of household items: Use cat litter or old coffee grounds to dispose medications if other options are not available. Mix your drugs with these household products, seal them in an airtight container and throw it into the garbage. Call [facility]: [phone] to be sure your drugs can be disposed of in this way. Some medicines may require a different approach.4.Never flush your medications down the toilet. IF YOU HAVE BEEN PRESCRIBED AN OPIOID FOR PAIN If you have been prescribed an opioid (such as hydrocodone, oxycodone or morphine), it is critical to understand the possible side effects and risks of opioid pain medications. Even when taken as directed, opioids can have several side effects including: Tolerance, meaning you might need to take more of a medication for the same pain relief. Nausea, vomiting and/or constipation. Sleepiness, dizziness, dry mouth, confusion, depression or itching. Physical dependence, meaning you have withdrawal symptoms when a medication is stopped, can develop within a few days. KNOW YOUR RESPONSIBILITIES It is important to know exactly how much and how often to take the opioid pain medications you are prescribed. Never take opioids in higher amounts or more often than prescribed. Do not combine opioids with alcohol or other drugs that cause drowsiness, such as benzodiazepines, also known as benzos, including diazepam and alprazolam, muscle relaxants or sleep aids. Never sell or share prescription opioids. This is illegal. Store opioids in a secure place and out of reach of others (including children, family, friends and visitors). The last page of this document has been signed and retained as a CHART COPY. Signatures Patient Education Materials Acute Pain, Adult Medication Leaflets My discharge plan and instructions have been reviewed and explained to me and IMIAN SHARON L understand my current condition and have read and understand these discharge instructions. I have received a written copy of the plan/instructions. If I have questions, I am aware that I should contact my doctor. Patient/Conveyor Worker Signature: Date/Time: Relationship to Patient: Witness Name/Signature: Date/Time: [facility] 09-06-2024 Note Date of Service 09/06/2024 Subjective 74-year-old female with history of atrial fibrillation on Coumadin, prediabetes, essential hypertension, chronic kidney disease who was at [facility] 2 weeks ago noted that she had trauma to her left lower extremity Wednesday 08/30 followed by progressively worsening pain and swelling of the left lower extremity presented to the ER in [place] today due to significant left lower extremity pain, swelling, difficulty with ambulation. On evaluation in the ER vitals unremarkable. CBC white count 12.7, PT 95, INR 7.8, creatinine 1.09, BUN 35, CPK 726. CT left lower extremity identified intramuscular hematoma of the left iliopsoas muscle with extension into the posterior left retroperitoneum and intramuscular hematoma in the left thigh. She received morphine 4 mg IV push, 2.5 mg oral vitamin K, 1500 units of IV Kcentra stat and was transferred to [facility] for further management. Patient has been getting gentle hydration for rhabdomyolysis which is continued to trend down. Coumadin has been held. Her pain has been controlled with oxycodone in the beginning, now only on Tylenol 1 g scheduled 4 times a day. Continue to monitor liver enzymes. Patient has also been found to be anemic likely secondary to blood loss. Patient to be discharged on iron supplements at the time of discharge. Objective Vitals and Measurements T: 36.8 C (Oral) TMIN: 36.8 C (Oral) TMAX: 37.0 C (Oral) HR: 96 (Apical) RR: 18 BP: 132/60 SpO2: 96% Intake and Output 7AM Yesterday to 7AM Today Intake and Output (Last 24 hours) Intake Oral Intake 1335.00 Administration Information 600.00 Output Weighed Diapers 1.00 Stool Count 2.00 Urine Count 10.00 Total Summary Total Intake 1935.00 Total Output 1.00 Fluid Balance 1934.00 Physical Exam Weight Dosing Weight: 80.1 kg (09/03/24) Dosing Weight: 80.1 kg (09/03/24) Medications Medications (16) Active Scheduled: (9) acetaminophen 500 mg Tablet 1,000 mg 2 tab(s), Oral, QID allopurinol 100 mg tablet 100 mg 1 tab(s), Oral, qDay calcium-vitamin D 500 mg-200 units tablet 1 tab, Oral, qAM docusate-senna (Senokot S) 50 mg-8.6 mg Tablet 1 tab(s), Oral, BID flecainide 100 mg tablet 100 mg 1 tab(s), Oral, q12h heparin 5,000 units/mL (1 mL) vial 5,000 unit(s) 1 mL, Subcutaneous, q8h metoprolol succinate 25 mg ER tablet 25 mg 1 tab(s), Oral, qDay polyethylene glycol 3350 - UD packet 17 gram(s) 15 mL, Oral, qDay traZODONE 50 mg Tablet 50 mg 1 tab(s), Oral, qHS Continuous: (1) Lactated Ringers 1,000 mL 1,000 mL, Intravenous, 75 mL/hr PRN: (6) dextrose 50% Solution Disp syringe 50 mL 25 gram(s) 50 mL, IV Push, AsDirected melatonin 3 mg tablet 3 mg 1 tab(s), Oral, qHS morphine 2 mg/mL 1 mL syringe 2 mg 1 mL, IV Push, q2h ondansetron 2 mg/ 1 mL 2 mL INJ 4 mg 2 mL, IV Push, q6h ondansetron 4 mg tablet 4 mg 1 tab(s), Oral, q6h oxycodone 5 mg tablet (immediate release) 5 mg 1 tab(s), Oral, q6hr Lab Results 09/06 09:09 WBC: 10.3 Hgb: 9.2 L Hct: 27.2 L Platelet: 411 Neutrophil %: 81.4 H Protime: 22.6 H PT International Ratio: 2.0 08 09:55 Hgb: 9.0 L Hct: 26.5 L Protime: 25.5 H PT International Ratio: 2.2 EKG No qualifying data available. Assessment/Plan Acute left knee pain with a hematoma. Extension of hematoma into the retroperitoneal region. Supratherapeutic INR. History of atrial fibrillation on Coumadin. Rhabdomyolysis. Hypertension. Morbid obesity. Anemia. Digitally Signed by FRED ROSALES MD on 09/06/2024 09:47 PM [facility] 09-05-2024 Note Date of Service 09/05/2024 Chief Complaint left knee pain, hematoma Subjective Patient seen and examined discussed with staff. Patient is currently lying in bed not in any distress more alert interactive. Patient had been somewhat less responsive earlier on. Patient's pain medications are being adjusted at this time. Patient complaining of severe pain 9 out of 10 in his left knee as well as on the side on the left side. Patient appears to have contusion and ecchymotic areas. HPI: 74-year-old female with history of atrial fibrillation on Coumadin, prediabetes, essential hypertension, chronic kidney disease who was at [place] 2 weeks ago noted that she had trauma to her left lower extremity Wednesday 08/30 followed by progressively worsening pain and swelling of the left lower extremity presented to the ER in [place] today due to significant left lower extremity pain, swelling, difficulty with ambulation. On evaluation in the ER vitals unremarkable. CBC white count 12.7, PT 95, INR 7.8, creatinine 1.09, BUN 35, CPK 726. CT left lower extremity identified intramuscular hematoma of the left iliopsoas muscle with extension into the posterior left retroperitoneum and intramuscular hematoma in the left thigh. She received morphine 4 mg IV push, 2.5 mg oral vitamin K, 1500 units of IV Kcentra stat and was transferred to [facility] for further management. Patient has left knee pain which is being closely monitored and adjusted in pain medication has been adjusted to oxycodone 5 mg Q6 because of increased sedation with the higher dose. Patient INR appears to have come down at this time and will need to be restarted on Coumadin. Patient CPK is trending down. Patient is continued on IV fluids. Patient noted to have anemia will benefit from iron at the time of discharge. Objective Vitals and Measurements T: 37.0 C (Oral) TMIN: 36.1 C (Oral) TMAX: 37.0 C (Oral) HR: 83 RR: 18 BP: 133/67 SpO2: 93% General Appearance: no acute distress, Head: atraumatic, perrrla, EENT:moist mucosa,, normal pharynx, normal tonsils and adenoids and tongue Neck:trachea midline, no carotid bruit, no mass or lymphadenopathy. Cardiac: RRR, no murmurs, normal S1 and S2 Lungs: Normal chest wall expansion, clear to auscultation Abdomen: Soft nontender nondistended, normal bowel sounds all quadrants, no hepatomegaly, guarding Genitourinary: No inguinal hernia, Musculoskeletal:Range of Motion intact in all extremities, strength intact, Extremities: No edema, Neurological:Awake alert oriented x3, cranial nerves II through XII intact, DTR intact, sensory function intact, Skin: Warm dry, pink, no rash, purpura, petechia. left knee edema, dusky, left chest wall with ecchymotic area Psychiatric: Normal affect, intact cognition, Intake and Output 7AM Yesterday to 7AM Today Intake and Output (Last 24 hours) Intake Oral Intake 980.00 Output Stool Count 3.00 Urine Count 8.00 Total Summary Total Intake 980.00 Total Output 0.00 Fluid Balance 980.00 Physical Exam Weight Dosing Weight: 80.1 kg (09/03/24) Dosing Weight: 80.1 kg (09/03/24) Medications Medications (16) Active Scheduled: (9) acetaminophen 500 mg Tablet 1,000 mg 2 tab(s), Oral, QID allopurinol 100 mg tablet 100 mg 1 tab(s), Oral, qDay calcium-vitamin D 500 mg-200 units tablet 1 tab, Oral, qAM docusate-senna (Senokot S) 50 mg-8.6 mg Tablet 1 tab(s), Oral, BID flecainide 100 mg tablet 100 mg 1 tab(s), Oral, q12h heparin 5,000 units/mL (1 mL) vial 5,000 unit(s) 1 mL, Subcutaneous, q8h metoprolol succinate 25 mg ER tablet 25 mg 1 tab(s), Oral, qDay polyethylene glycol 3350 - UD packet 17 gram(s) 15 mL, Oral, qDay traZODONE 50 mg Tablet 50 mg 1 tab(s), Oral, qHS Continuous: (1) Lactated Ringers 1,000 mL 1,000 mL, Intravenous, 75 mL/hr PRN: (6) dextrose 50% Solution Disp syringe 50 mL 25 gram(s) 50 mL, IV Push, AsDirected melatonin 3 mg tablet 3 mg 1 tab(s), Oral, qHS morphine 2 mg/mL 1 mL syringe 2 mg 1 mL, IV Push, q2h ondansetron 2 mg/ 1 mL 2 mL INJ 4 mg 2 mL, IV Push, q6h ondansetron 4 mg tablet 4 mg 1 tab(s), Oral, q6h oxycodone 5 mg tablet (immediate release) 5 mg 1 tab(s), Oral, q6hr Lab Results 09/05 09:55 Hgb: 9.0 L Hct: 26.5 L Protime: 25.5 H PT International Ratio: 2.2 09/04 08:03 WBC: 8.9 Hgb: 8.6 L Hct: 25.4 L Platelet: 281 Neutrophil %: 71.4 Protime: 26.9 H PT International Ratio: 2.3 Glucose Level: 113 Sodium Level: 136 Potassium Level: 4.7 BUN: 20.0 Creatinine Lvl (s): 0.90 EKG No qualifying data available. Assessment/Plan Hypocoagulable state Nontraumatic hematoma of muscle Retroperitoneal bleed Warfarin toxicity Orders: oxyCODONE(oxyCODONE 5 mg oral tablet ( IMMEDIATE release )), 5 mg= 1 tab(s), Oral, q6hr, PRN Complete Blood Count(CBC), 09/06/24 5:00:00 EDT, Next AM Draw (one day only), Blood, Once, Preferred Lab: [facility], Stop date 09/06/24 5:00:00 EDT CPK, 09/06/24 5:00:00 EDT, Next AM Draw (one day only), Blood, Once, Preferred Lab: [facility], Stop date 09/06/24 5:00:00 EDT Prothrombin Time - Panel(INR/PT), 09/06/24 5:01:00 EDT, Next AM Draw (one day only), Blood, Once, Preferred Lab: [facility], Stop date 09/06/24 5:01:00 EDT ROUTINE EMERGENCY TREATMENT - DNRCC-A, DO NOT INTUBATE, 09/05/24 16:22:00 EDT, Constant order Vital Signs, 09/05/24 16:21:00 EDT, q8hr assessment and plan: 1: Acute left knee pain, with hematoma: continue with pain control, increased activity, will decrease oxycodone 5mg q6 prn, 2: supratherapeutic INR, reversed in ED with Kcentra and vitamin k, inr trending down merry 2.2 today 3: hypercoagulable state inr being monitored closely 4: traumatic rhabdomyolysis due to fall, cpk trending down, gentle hydration to be continmued 5: htn continue home bp meds 6: morbid obesity : diet exercise 7: a fib rate controlled with flecainide and will need to restart coumadin in 1 2 days and follow hgb/hct 8: Anemia likely acute blood loss continue to monitor will benefit from iron at the time of discharge. High risk due to complicated medical history status post fall intractable pain will need to restart Coumadin in the next 1 to 2 days follow-up with CPK which is trending down. cbc, pt/inr cpk in am Anticipated Date of Discharge Level of Care Indication Regular Floor DVT Prophylaxis Contraindicated Maintenance IVF Indication Hypovolemia / RUT Indwelling Urinary Catheter Indication NA No indwelling catheter Anticipated Timeline of Discharge 48 hours Anticipated DC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 fracture, or * T-score of /= 20% for major osteoporotic fractures or * >/= 3% for hip fractures All treatment decisions require clinical judgement and consideration of individual patient factors, including patient preferences, comorbidities, previous drug use, risk factors not captured in the FRAX registered model (e.g., frailty, falls, vitamin D deficiency, increased bone turnover, interval significant decline in bone density) and possible under- or over-estimation of fracture risk by FRAX. Interpreted by: Tano Lentz DO Preliminary Report By: Tano Lentz DO Electronically signed By Tano Lentz DO Dictated Date: 10/13/2023 2:46:24 PM Prelim Date: 10/13/2023 2:47:13 PM Sign Date: 10/13/2023 2:47:13 PM [facility] Plan note Future Scheduled Tests Laboratory* Basic Metabolic Panel 09/01/23 [facility] 02-18-2023 Hospital Discharge instructions Patient Education 04/18/2022 09:46:51 Post Op Wound Check, General Wound Check After Surgery, No Complication Surgery involves cutting through layers of skin, fatty tissue, muscle, and sometimes bone and cartilage. Stitches or courtney are used to close all layers of the wound. The stitches on the inside willdissolve in about 2 to 3 weeks. Any stitches or courtney used on the outside need to be removed in about 7 to 14 days, depending on the location. It is normal to have some clear or bloody discharge on the wound covering or bandage (dressing) forthe first few days after surgery. If your wound was stitched closed, you should not have to change the dressing more than twice a day in the first few days. Bleeding or discharge requiring more frequent dressing changes can be a sign of a problem. It is normal to feel pain at the incision site. The pain decreases as the wound heals. Most of the pain and soreness from the skin incision should go away by the time the sutures or courtney are removed. Soreness and pain from deeper tissues may last another week or two. Pain that continues more than a few weeks after surgery or pain that worsens anytime after surgery can be a sign of a problem, such as: Infection Separation of wound edges Collection of blood or other below the skin Home care Different types of surgery require different types of care and dressing changes. It is important tofollow all instructions and advice from your surgeon, as well as other members of your healthcare team. Wound care If you smoke, get help to quit. Smoking interferes with wound healing. Ask your healthcare providerabout ways to quit. Keep the wound clean, as directed by your healthcare provider. Change the dressing as directed. Change the dressing sooner if it becomes wet or stained with bloodor fluid from the wound. Bathe with a sponge (no shower or tub baths) for the first few days after surgery, or until there is no more drainage from the wound. Unless you received different instructions from your surgeon, youcan then shower. Don't soak the area in water (no baths or swimming) until the tape, stitches, or courtney are removed and any wound opening has dried out and healed. Changing the dressing Wash your hands before changing the dressings. Carefully remove the dressing and tape; don t just yank it off. If it sticks to the wound, you may need to wet it a little to remove it, unless your healthcare provider told you not to wet it. Wash your hands again before putting on a new, clean dressing. Gently clean the wound with clean water (or saline) using gauze or a clean washcloth. Don't rub it or pick at it. Don't use soap, alcohol, hydrogen peroxide, or any other cleanser. If you were told to dry the wound before putting on a new dressing, gently pat it dry. Don't rub. Put the old dressing in a sealed plastic bag and throw it out. Don't reuse it. Wash your hands again when you are done. Types of dressings Your healthcare team will tell you what type of dressing to put on your wound. Follow your healthcare team s instructions carefully, and contact them if you have any questions. Two common types of dressings are described below. You may have one of these or another type. Dry dressing. Use dry gauze. If the wound is still draining, use a nonadherent dressing, which shouldn t stick to the wound. Wet-to-dry dressing. Wet the gauze, and squeeze out the excess water (or saline), before putting iton. Then, cover this with a dry pad. Medicines If you were given antibiotics, take them until they are used up or your healthcare provider tells you to stop. It is important to finish the antibiotics even though you feel better, to make sure the infection has cleared. You can take acetaminophen or ibuprofen for pain, unless you were given a different pain medicine to use. If you have chronic liver or kidney disease, or have ever had a stomach ulcer or gastrointestinal bleeding, or are taking blood thinner medicines, talk with your healthcare provider before using these medicines. Aspirin should never be used in anyone under 18 years of age who is ill with a fever. It may cause severe liver damage. Follow-up care Follow up with your healthcare provider, or as advised, for your next wound check or removal of your stitches, courtney, or tape. If a culture was done, you will be notified if the results will affect your treatment. You can callas directed for the results. If imaging tests, such as X-rays, an ultrasound, or CT scan were done, they will be reviewed by a specialist. You will be notified of the results, especially if they affect treatment. Call 911 Call 911 if any of these occur: Trouble breathing or swallowing, wheezing Hoarse voice or trouble speaking Extreme confusion Extreme drowsiness or trouble awakening Fainting or loss of consciousness Rapid heart rate or very slow heart rate Vomiting blood, or large amounts of blood in stool Discomfort in the center of the chest that feels like pressure, squeezing, a sense of fullness, or pain. Discomfort or pain in other upper body areas, such as the back, one or both arms, neck, jaw, or stomach Stroke symptoms (spot a stroke FAST ) oF: Face drooping. One side of the face is numb or droops. oA: Arm weakness. One arm feels weak or numb. oS: Speech difficulty: Speech is slurred, or the person is unable to speak. oT: Time to call 911. Even if symptoms go away, call 911. When to seek medical advice Call your healthcare provider right away if any of the following occur: Increasing pain at the site of surgery Fever of 100.4 F (38 C) or higher, or as directed by your healthcare provider Redness around the wound Fluid, pus, or blood draining from the wound Vomiting, constipation, or diarrhea [id number] [employer]. [address] [place] [address]. All rights reserved. This information is not intended as a substitute for professional medical care. Always follow yourhealthcare professional's instructions. Follow Up Care 04/18/2022 09:26:34 With:ELIZABET MYERS MD Address: [address] [place] [address] [address] [employer] [facility] [place] [address] [phone] When:2-4 days [facility] 02-18-2023 Note Discharge Instructions Thank you for allowing [facility] to assist you with your healthcare needs. The following is importantdischarge information regarding your hospital visit. Diagnosis from Today's Visit Knee pain-swelling What to Do Next Instructions from Your Care Team No qualifying data available. Post Acute Orders No qualifying data available. You Need to Schedule the Following Appointments Follow Up with ELIZABET MYERS MD When Within 2-4 days Where: [address] [place] [address] [facility] [address] [place] [address]- [phone] Allergies NKA Medications Please ask your primary doctor or pharmacist before taking any other medication not listed, including over the counter drugs, herbal medications, vitamins and or supplements as they may interact withyour home medications. What How Much When Instructions Last Dose Unchanged allopurinol (allopurinol 100 mg oral tablet) 3 tab(s) by mouth Once a day Duration: 90 Days Unchanged amLODIPine (amLODIPine 10 mg oral tablet) 1 tab(s) by mouth Once a day Duration: 90 Days Unchanged calcium-vitamin D (Citracal Calcium + D Slow Release 1200) 1 tab by mouth Once a day (in the morning) Unchanged flecainide (flecainide 50 mg oral tablet) 1 tab(s) by mouth Every 12 hours Unchanged hydroCHLOROthiazide (hydroCHLOROthiazide 12.5 mg oral tablet) 1 tab(s) by mouth Every day Unchanged lisinopril (lisinopril 40 mg oral tablet) 1 tab(s) by mouth Once a day Unchanged metoprolol (metoprolol succinate 25 mg oral TABLET extended release) 1 tab(s) by mouth Two (2) times a day Do not crush or chew (controlled release) Unchanged rivaroxaban (Xarelto 20 mg oral tablet) 1 tab(s) by mouth Once a day (in the evening) Unchanged simvastatin (simvastatin 20 mg oral tablet) 1 tab(s) by mouth Daily at bedtime Unchanged traZODone (traZODone 50 mg oral tablet) 1 tab(s) by mouth Daily at bedtime Duration: 90 Days Please take this list to your next doctor s visit. Bring all medications you take, including over the counter medications, herbals and other supplements with you to your doctor s visit. Patients and families are reminded to discard old lists and to update any records with all medication providers or retail pharmacies. Education Materials Wound Check After Surgery, No Complication Surgery involves cutting through layers of skin, fatty tissue, muscle, and sometimes bone and cartilage. Stitches or courtney are used to close all layers of the wound. The stitches on the inside willdissolve in about 2 to 3 weeks. Any stitches or courtney used on the outside need to be removed in about 7 to 14 days, depending on the location. It is normal to have some clear or bloody discharge on the wound covering or bandage (dressing) forthe first few days after surgery. If your wound was stitched closed, you should not have to change the dressing more than twice a day in the first few days. Bleeding or discharge requiring more frequent dressing changes can be a sign of a problem. It is normal to feel pain at the incision site. The pain decreases as the wound heals. Most of the pain and soreness from the skin incision should go away by the time the sutures or courtney are removed. Soreness and pain from deeper tissues may last another week or two. Pain that continues more than a few weeks after surgery or pain that worsens anytime after surgery can be a sign of a problem, such as: Infection Separation of wound edges Collection of blood or other below the skin Home care Different types of surgery require different types of care and dressing changes. It is important tofollow all instructions and advice from your surgeon, as well as other members of your healthcare team. Wound care If you smoke, get help to quit. Smoking interferes with wound healing. Ask your healthcare providerabout ways to quit. Keep the wound clean, as directed by your healthcare provider. Change the dressing as directed. Change the dressing sooner if it becomes wet or stained with bloodor fluid from the wound. Bathe with a sponge (no shower or tub baths) for the first few days after surgery, or until there is no more drainage from the wound. Unless you received different instructions from your surgeon, youcan then shower. Don't soak the area in water (no baths or swimming) until the tape, stitches, or courtney are removed and any wound opening has dried out and healed. Changing the dressing Wash your hands before changing the dressings. Carefully remove the dressing and tape; don t just yank it off. If it sticks to the wound, you may need to wet it a little to remove it, unless your healthcare provider told you not to wet it. Wash your hands again before putting on a new, clean dressing. Gently clean the wound with clean water (or saline) using gauze or a clean washcloth. Don't rub it or pick at it. Don't use soap, alcohol, hydrogen peroxide, or any other cleanser. If you were told to dry the wound before putting on a new dressing, gently pat it dry. Don't rub. Put the old dressing in a sealed plastic bag and throw it out. Don't reuse it. Wash your hands again when you are done. Types of dressings Your healthcare team will tell you what type of dressing to put on your wound. Follow your healthcare team s instructions carefully, and contact them if you have any questions. Two common types of dressings are described below. You may have one of these or another type. Dry dressing. Use dry gauze. If the wound is still draining, use a nonadherent dressing, which shouldn t stick to the wound. Wet-to-dry dressing. Wet the gauze, and squeeze out the excess water (or saline), before putting iton. Then, cover this with a dry pad. Medicines If you were given antibiotics, take them until they are used up or your healthcare provider tells you to stop. It is important to finish the antibiotics even though you feel better, to make sure the infection has cleared. You can take acetaminophen or ibuprofen for pain, unless you were given a different pain medicine to use. If you have chronic liver or kidney disease, or have ever had a stomach ulcer or gastrointestinal bleeding, or are taking blood thinner medicines, talk with your healthcare provider before using these medicines. Aspirin should never be used in anyone under 18 years of age who is ill with a fever. It may cause severe liver damage. Follow-up care Follow up with your healthcare provider, or as advised, for your next wound check or removal of your stitches, courtney, or tape. If a culture was done, you will be notified if the results will affect your treatment. You can callas directed for the results. If imaging tests, such as X-rays, an ultrasound, or CT scan were done, they will be reviewed by a specialist. You will be notified of the results, especially if they affect treatment. Call 911 Call 911 if any of these occur: Trouble breathing or swallowing, wheezing Hoarse voice or trouble speaking Extreme confusion Extreme drowsiness or trouble awakening Fainting or loss of consciousness Rapid heart rate or very slow heart rate Vomiting blood, or large amounts of blood in stool Discomfort in the center of the chest that feels like pressure, squeezing, a sense of fullness, or pain. Discomfort or pain in other upper body areas, such as the back, one or both arms, neck, jaw, or stomach Stroke symptoms (spot a stroke FAST ) oF: Face drooping. One side of the face is numb or droops. oA: Arm weakness. One arm feels weak or numb. oS: Speech difficulty: Speech is slurred, or the person is unable to speak. oT: Time to call 911. Even if symptoms go away, call 911. When to seek medical advice Call your healthcare provider right away if any of the following occur: Increasing pain at the site of surgery Fever of 100.4 F (38 C) or higher, or as directed by your healthcare provider Redness around the wound Fluid, pus, or blood draining from the wound Vomiting, constipation, or diarrhea [id number] [employer] [address] [place] [address], [place] [address]. All rights reserved. This information is not intended as a substitute for professional medical care. Always follow yourhealthcare professional's instructions. Additional Information VACCINATE! IT SAVES LIVES! Members of the community who have not yet received the COVID-19 vaccine and would like to receive it can visit one of [facility] vaccine clinics. There are many vaccine clinic locations within the [facility]. For locations and available times, please visit www.[email or web address].[email or web address]/. It is important to note that some COVID mobile vaccine clinics are held outdoors and may be canceled in rainy or stormy conditions. To learn more about pediatric vaccinations (ages 5-11), we invite you to visit the [facility] webpage. https://www.[email or web address].org/pages/[email or web address]-Uaplf-Wjdpwfnuayd-Nxdenaaodq-Pesna-Eik [email or web address] learn more about the COVID-19 vaccine, we invite you to visit the CDC website for a list of frequently asked questions. https://www.cdc.gov/coronavirus/2019-ncov/vaccines/faq.html [facility] Patient Portal Access Instructions: Stay connected with your healthcare team and access your personal medical information anytime with the [facility] Patient Portal. If you would like a full copy of your medical records please contact the [facility] Medical Records Department Wednesday through Wednesday between 8a.m. and 4:30p.m. Please follow the directions below to access the portal: 1.Access the email account you provided upon registration to the hospital.2.Look for an invitation email from [facility].3.Open the email and access the invitation link: Accept Invitation to [facility]4.Fill in the required luong to create your account. Sign into [email or web address] with your username and password that you created in the above steps to stay up to date. You can then view a summary of results, a summary of your visits, and the ability to download your summaries to your computer or send the information securely to a physician. Remember that your healthcare information is confidential, so carefully consider who you will allow to register on the [facility] Patient Portal for access to your information. You can also access the [facility] Patient Portal on the [employer] sophia. Simply click on Health Records under [employer] and then click on the [employer] logo. HOW TO SAFELY DISPOSE OF PRESCRIPTION MEDICATIONS Please use one of the following methods to safely dispose of your unused medications. 1.Use a drug disposal kit: the drug disposal pouch allows you to safely discard your old and unuseddrugs. Ask your nurse to give you one when you are discharged.2.Visit a local take-back location: Many local pharmacies and police departments have programs that collect old and unwanted prescriptiondrugs. Call your local pharmacy or go to [email or web address]/2A1Jy3j to find one close to you.3.Make use of household items: Use cat litter or old coffee grounds to dispose medications if other options arenot available. Mix your drugs with these household products, seal them in an airtight container andthrow it into the garbage. Call [facility]: [phone] to be sure your drugs can be disposed of in this way. Some medicines may require a different approach.4.Never flush your medications down the toilet. IF YOU HAVE BEEN PRESCRIBED AN OPIOIDS FOR PAIN If you have been prescribed an opioid (such as hydrocodone, oxycodone or morphine), it is critical to understand the possible side effects and risks of opioid pain medications. Even when taken as directed, opioids can have several side effects including: Tolerance, meaning you might need to take more of a medication for the same pain relief. Nausea, vomiting and/or constipation. Sleepiness, dizziness, dry mouth, confusion, depression or itching. Physical dependence, meaning you have withdrawal symptoms when a medication is stopped ? this can develop within a few days. KNOW YOUR RESPONSIBILITIES It is important to know exactly how much and how often to take the opioid pain medications you are prescribed. Never take opioids in higher amounts or more often than prescribed. Do not combine opioids with alcohol or other drugs that cause drowsiness, such as benzodiazepines, also known as benzos,including diazepam and alprazolam, muscle relaxants or sleep aids. Never sell or share prescriptionopioids. This is illegal. Store opioids in a secure place and out of reach of others (including children, family, friends and visitors). The last page(s) of this document has been signed and retained as a CHART COPY Signatures Patient Education Materials Post Op Wound Check, General Medication Leaflets My discharge plan and instructions have been reviewed and explained to me and IMIAN SHARON L understand my current condition and have read and understand these discharge instructions. I have received a written copy of the plan/instructions. If I have questions, I am aware that I should contact my doctor. Patient/Conveyor Worker Signature: Date/Time: Relationship to Patient: Witness Name/Signature: Date/Time: [facility]02-07-2023 Hospital Discharge instructions Patient Education 04/07/2022 09:02:54 Monitored Anesthesia Care, Care After Monitored Anesthesia Care, Care After These instructions provide you with information about caring for yourself after your procedure. Your health care provider may also give you more specific instructions. Your treatment has been plannedaccording to current medical practices, but problems sometimes occur. Call your health care provider if you have any problems or questions after your procedure. What can I expect after the procedure? After your procedure, you may: Feel sleepy for several hours. Feel clumsy and have poor balance for several hours. Feel forgetful about what happened after the procedure. Have poor judgment for several hours. Feel nauseous or vomit. Have a sore throat if you had a breathing tube during the procedure. Follow these instructions at home: For at least 24 hours after the procedure: Have a responsible adult stay with you. It is important to have someone help care for you until youare awake and alert. Rest as needed. Do not: ?Participate in activities in which you could fall or become injured. ?Drive. ?Use heavy machinery. ?Drink alcohol. ?Take sleeping pills or medicines that cause drowsiness. ?Make important decisions or sign legal documents. ?Take care of children on your own. Eating and drinking Follow the diet that is recommended by your health care provider. If you vomit, drink water, juice, or soup when you can drink without vomiting. Make sure you have little or no nausea before eating solid foods. General instructions Take mlta-ucn-ksoswmz and prescription medicines only as told by your health care provider. If you have sleep apnea, surgery and certain medicines can increase your risk for breathing problems. Follow instructions from your health care provider about wearing your sleep device: ?Anytime you are sleeping, including during daytime naps. ?While taking prescription pain medicines, sleeping medicines, or medicines that make you drowsy. If you smoke, do not smoke without supervision. Keep all follow-up visits as told by your health care provider. This is important. Contact a health care provider if: You keep feeling nauseous or you keep vomiting. You feel light-headed. You develop a rash. You have a fever. Get help right away if: You have trouble breathing. Summary For several hours after your procedure, you may feel sleepy and have poor judgment. Have a responsible adult stay with you for at least 24 hours or until you are awake and alert. This information is not intended to replace advice given to you by your health care provider. Make sure you discuss any questions you have with your health care provider. Document Released: 06/07/2016 Document Revised: 05/16/2018 Document Reviewed: 06/07/2016 [employer] Patient Education 2020 [employer]. 04/07/2022 09:02:47 Spinal Anesthesia and Epidural Anesthesia, Care After Spinal Anesthesia and Epidural Anesthesia, Care After These instructions provide you with information about caring for yourself after your procedure. Your health care provider may also give you more specific instructions. Your treatment has been plannedaccording to current medical practices, but problems sometimes occur. Call your health care provider if you have any problems or questions after your procedure. What can I expect after the procedure? After the procedure, it is common to have: Sleepiness. Nausea. Vomiting. Numbness or tingling in your legs. Trouble urinating. Itching. Follow these instructions at home: For at least 24 hours after the procedure: Have a responsible adult stay with you. It is important to have someone help care for you until youare awake and alert. Rest as needed. Do not: ?Participate in activities in which you could fall or become injured. ?Drive. ?Use heavy machinery. ?Drink alcohol. ?Take sleeping pills or medicines that cause drowsiness. ?Make important decisions or sign legal documents. ?Take care of children on your own. Eating and drinking If you vomit, drink water, juice, or soup when you can drink without vomiting. Drink enough fluid to keep your urine pale yellow. Make sure you have little or no nausea before eating solid foods. Follow the diet recommended by your health care provider. General instructions Return to your normal activities as told by your health care provider. Ask your health care provider what activities are safe for you. Take dwlf-yme-ykvzptm and prescription medicines only as told by your health care provider. If you have sleep apnea, surgery and certain medicines can increase your risk for breathing problems. Follow instructions from your health care provider about wearing your sleep device: ?Anytime you are sleeping, including during daytime naps. ?While taking prescription pain medicines, sleeping medicines, or medicines that make you drowsy. Do not use any products that contain nicotine or tobacco, such as cigarettes and e-cigarettes. If you need help quitting, ask your health care provider. If you smoke, do not smoke without supervision. Keep all follow-up visits as told by your health care provider. This is important. Contact a health care provider if: You have nausea and vomiting that continue the day after anesthetic medicine was given. You develop a rash. Get help right away if: You have a fever. You have a persistent or severe headache. You develop blurred or double vision. You develop dizziness or feel light-headed. You faint. You have weakness, numbness, or tingling in your arms or legs. You have difficulty breathing. You are unable to pass urine. Summary After your procedure, it is common to have sleepiness, nausea, vomiting, and trouble passing urine. For at least 24 hours after the procedure, do not do things that will make you more likely to get hurt. Also, do not drive, use heavy machinery, or make important decisions. Do not eat solid foods until you have no nausea and no vomiting. Do not use products that contain nicotine or tobacco. Get help if you have a fever, persistent headache, blurred or double vision, weakness or numbness in arms and legs, or difficulty breathing or passing urine. This information is not intended to replace advice given to you by your health care provider. Make sure you discuss any questions you have with your health care provider. Document Released: 05/07/2004 Document Revised: 08/07/2019 Document Reviewed: 06/08/2016 [employer] Patient Education 2020 [employer]. 04/07/2022 09:02:33 Nausea and Vomiting, Adult Nausea and Vomiting, Adult Nausea is the feeling that you have an upset stomach or that you are about to vomit. Vomiting is when stomach contents are thrown up and out of the mouth as a result of nausea. Vomiting can make you feel weak and cause you to become dehydrated. Dehydration can make you feel tired and thirsty, cause you to have a dry mouth, and decrease how often you urinate. Older adults and people with other diseases or a weak disease-fighting system (immune system) are at higher risk for dehydration. It is important to treat your nausea and vomiting as told by your health care provider. Follow these instructions at home: Watch your symptoms for any changes. Tell your health care provider about them. Follow these instructions to care for yourself at home. Eating and drinking Take an oral rehydration solution (ORS). This is a drink that is sold at pharmacies and retail stores. Drink clear fluids slowly and in small amounts as you are able. Clear fluids include water, ice chips, low-calorie sports drinks, and fruit juice that has water added (diluted fruit juice). Eat bland, aiiq-jm-dujtzy foods in small amounts as you are able. These foods include bananas, applesauce, rice, lean meats, toast, and crackers. Avoid fluids that contain a lot of sugar or caffeine, such as energy drinks, sports drinks, and soda. Avoid alcohol. Avoid spicy or fatty foods. General instructions Take vzlt-suu-bsnrrlm and prescription medicines only as told by your health care provider. Drink enough fluid to keep your urine pale yellow. Wash your hands often using soap and water. If soap and water are not available, use hand certified prosthetist vice president. Make sure that all people in your household wash their hands well and often. Rest at home while you recover. Watch your condition for any changes. Breathe slowly and deeply when you feel nauseated. Keep all follow-up visits as told by your health care provider. This is important. Contact a health care provider if: Your symptoms get worse. You have new symptoms. You have a fever. You cannot drink fluids without vomiting. Your nausea does not go away after 2 days. You feel light-headed or dizzy. You have a headache. You have muscle cramps. You have a rash. You have pain while urinating. Get help right away if: You have pain in your chest, neck, arm, or jaw. You feel extremely weak or you faint. You have persistent vomiting. You have vomit that is bright red or looks like black coffee grounds. You have bloody or black stools or stools that look like tar. You have a severe headache, a stiff neck, or both. You have severe pain, cramping, or bloating in your abdomen. You have difficulty breathing, or you are breathing very quickly. Your heart is beating very quickly. Your skin feels cold and clammy. You feel confused. You have signs of dehydration, such as: ?Dark urine, very little urine, or no urine. ?Cracked lips. ?Dry mouth. ?Sunken eyes. ?Sleepiness. ?Weakness. These symptoms may represent a serious problem that is an emergency. Do not wait to see if the symptoms will go away. Get medical help right away. Call your local emergency services (911 in the [place] Do not drive yourself to the hospital. Summary Nausea is the feeling that you have an upset stomach or that you are about to vomit. As nausea getsworse, it can lead to vomiting. Vomiting can make you feel weak and cause you to become dehydrated. Follow instructions from your health care provider about eating and drinking to prevent dehydration. Take rfnu-llb-zvrenmt and prescription medicines only as told by your health care provider. Contact your health care provider if your symptoms get worse, or you have new symptoms. Keep all follow-up visits as told by your health care provider. This is important. This information is not intended to replace advice given to you by your health care provider. Make sure you discuss any questions you have with your health care provider. Document Released: 02/15/2006 Document Revised: 06/09/2019 Document Reviewed: 07/26/2018 [employer] Patient Education 2020 [employer]. 04/07/2022 09:02:27 Total Knee Replacement, Care After Total Knee Replacement, Care After This sheet gives you information about how to care for yourself after your procedure. Your health care provider may also give you more specific instructions. If you have problems or questions, contact your health care provider. What can I expect after the procedure? After the procedure, it is common to have: Pain. Swelling. A small amount of blood or clear fluid coming from your incision. Limited range of motion. Follow these instructions at home: Medicines Take pgwz-zyn-opyqqzj and prescription medicines only as told by your health care provider. If you were prescribed a blood thinner (anticoagulant), take it as told by your health care provider. Ask your health care provider if the medicine prescribed to you: ?Requires you to avoid driving or using heavy machinery. ?Can cause constipation. You may need to take actions to prevent or treat constipation, such as: ?Drink enough fluid to keep your urine pale yellow. ?Take woot-evj-duntyqr or prescription medicines. ?Eat foods that are high in fiber, such as beans, whole grains, and fresh fruits and vegetables. ?Limit foods that are high in fat and processed sugars, such as fried or sweet foods. Bathing Do not take baths, swim, or use a hot tub until your health care provider approves. Ask your healthcare provider if you may take showers. You may only be allowed to take sponge baths. Keep your bandage (dressing) dry until your health care provider says it can be removed. Incision care and drain care Follow instructions from your health care provider about how to take care of your incision. Make sure you: ?Wash your hands with soap and water before and after you change your dressing. If soap and water are not available, use hand certified prosthetist vice president. ?Change your dressing as told by your health care provider. ?Leave stitches (sutures), skin glue, or adhesive strips in place. These skin closures may need to stay in place for 2 weeks or longer. If adhesive strip edges start to loosen and curl up, you may trim the loose edges. Do not remove adhesive strips completely unless your health care provider tells you to do that. Check your incision area and drain site every day for signs of infection. Check for: ?More redness, swelling, or pain. ?More fluid or blood. ?Warmth. ?Pus or a bad smell. If you have a drain, follow instructions from your health care provider about caring for it. Managing pain, stiffness, and swelling If directed, put ice on your knee. ?Put ice in a plastic bag or use the icing device (cold flow pad or cryocuff) that you were given. Follow instructions from your health care provider about how to use the icing device. ?Place a towel between your skin and the bag or between your skin and the icing device. ?Leave the ice on for 20 minutes, 2 3 times per day. If directed, apply heat to the affected area before you exercise. Use the heat source that your health care provider recommends, such as a moist heat pack or a heating pad. ?Place a towel between your skin and the heat source. ?Leave the heat on for 20 30 minutes. ?Remove the heat if your skin turns bright red. This is especially important if you are unable to feel pain, heat, or cold. You may have a greater risk of getting burned. Move your toes often to avoid stiffness and to lessen swelling. Raise (elevate) your leg above the level of your heart while you are sitting or lying down. ?Use several pillows to keep your leg straight. ?Do not put a pillow just under the knee. If the knee is bent for a long time, this may lead to stiffness. Wear elastic knee support as told by your health care provider. Activity Rest as told by your health care provider. Avoid sitting for a long time without moving. Get up to take short walks every 1 2 hours. This is important to improve blood flow and breathing. Ask for help if you feel weak or unsteady. Ask your health care provider what activities are safe for you. Avoid high-impact activities, including running, jumping rope, and jumping jacks. Do not play contact sports until your health care provider approves. Do exercises as told by your physical therapist. If you have been sent home with a continuous passive motion machine, use it as told by your health care provider. Safety Do not use your leg to support your body weight until your health care provider approves. Use crutches or a walker as told by your health care provider. Do not drive until your health care provider approves. Ask your health care provider when it is safe to drive. General instructions Do not use any products that contain nicotine or tobacco, such as cigarettes, e- cigarettes, and chewing tobacco. These can delay healing after surgery. If you need help quitting, ask your health careprovider. Wear compression stockings as told by your health care provider. Tell your health care provider if you plan to have dental work. Also: ?Tell your dentist about your joint replacement. ?Ask your health care provider if there are any special instructions you need to follow before having dental care and routine cleanings. Keep all follow-up visits as told by your health care provider. This is important. Contact a health care provider if you have: More redness, swelling, or pain around your incision or drain. More fluid or blood coming from your incision or drain. Pus or a bad smell coming from your incision or drain. Warmth on your incision or drain site. A fever. An incision that breaks open. Knee pain that does not go away. Range of motion in your knee that is getting worse. A prosthesis that feels loose. Get help right away if you have: Pain or swelling in your calf or thigh. Shortness of breath or difficulty breathing. Chest pain. Summary After the procedure, it is common to have pain and swelling, blood or fluid coming from your incision, and limited range of motion. Follow instructions from your health care provider about how to take care of your incision. Use crutches or a walker as told by your health care provider. If you were prescribed a blood thinner (anticoagulant), take it as told by your health care provider. Keep all follow-up visits as told by your health care provider. This is important. This information is not intended to replace advice given to you by your health care provider. Make sure you discuss any questions you have with your health care provider. Document Released: 09/04/2005 Document Revised: 06/26/2019 Document Reviewed: 09/29/2018 [employer] Patient Education 2020 [employer]. Follow Up Care 01/20/2022 11:31:21 With:LAURA RAMIREZ Address: [facility] [address] [place] [phone] (1) When:04/20/2022 10:15:00 [facility] 02-07-2023 Note ORIGINAL EXAMINATION: TWO XRAY VIEWS OF THE LEFT KNEE04/07/2022 9:05 am XR portable AP and cross-table lateral two views COMPARISON: 04/02/2021 HISTORY: ORDERING SYSTEM PROVIDED HISTORY: Reason for Exam: Status Post Arthroplasty, Status Post Arthroplasty , check prosthesis alignment FINDINGS: The left knee joint has been replaced with a prosthesis that show satisfactory alignment. There are expected postoperative changes in the soft tissues. IMPRESSION: Expected postoperative appearance following left knee replacement surgery. Interpreted by: Dragan Blunt MD Preliminary Report By: Dragan Blunt MD Electronically signed By Dragan Blunt MD Dictated Date: 04/07/2022 9:27:00 AM Prelim Date: 04/07/2022 9:27:28 AM Sign Date: 04/07/2022 9:27:28 AM Ordering Provider[facility] [id number] Summary of episode note Discharge Instructions Thank you for allowing [facility] to assist you with your healthcare needs. The following is importantdischarge information regarding your hospital visit. Your Care Team YULISSA ROACH What to do next Scheduled Follow-Up Appointments Appointment Type When With Where Contact InformationPT Outpatient Evaluation 04/09/2022 09:30 AM EST [facility] OV 09/22/2022 09:30 AM EDT YULISSA ROACH [facility] [address] [id number] Follow Up Appointments Follow Up with LAURA RAMIREZ When 04/20/2022 10:15 AM EST Where: [facility] [address] [place] [address]- [employer] (1) The Following Activity and Diet Have Been Ordered for You No qualifying data available. No qualifying data available. Someone Will Contact You Regarding These Home Health Referrals No home referrals have been ordered for you. No one will call you. Allergies NKA Medications Please ask your primary doctor or pharmacist before taking any other medication not listed, including over the counter drugs, herbal medications, vitamins and or supplements as they may interact withyour home medications. What How Much When Instructions Last Dose Unchanged allopurinol (allopurinol 100 mg oral tablet) 3 tab(s) by mouth Once a day Duration: 90 Days Unchanged amLODIPine (amLODIPine 10 mg oral tablet) 1 tab(s) by mouth Once a day Duration: 90 Days Unchanged calcium-vitamin D (Citracal Calcium + D Slow Release 1200) 1 tab by mouth Once a day (in the morning) Unchanged flecainide (flecainide 50 mg oral tablet) 1 tab(s) by mouth Every 12 hours Unchanged hydroCHLOROthiazide (hydroCHLOROthiazide 12.5 mg oral tablet) 1 tab(s) by mouth Every day Unchanged lisinopril (lisinopril 40 mg oral tablet) 1 tab(s) by mouth Once a day Unchanged metoprolol (metoprolol succinate 25 mg oral TABLET extended release) 1 tab(s) by mouth Two (2) times a day Do not crush or chew (controlled release) Unchanged rivaroxaban (Xarelto 20 mg oral tablet) 1 tab(s) by mouth Once a day (in the evening) Unchanged simvastatin (simvastatin 20 mg oral tablet) 1 tab(s) by mouth Daily at bedtime Unchanged traZODone (traZODone 50 mg oral tablet) 1 tab(s) by mouth Daily at bedtime Duration: 90 Days Unchanged triamcinolone topical (triamcinolone 0.5% topical cream) 1 application Topical Two (2) times a day Duration: 14 Days Please take this list to your next doctor s visit. Bring all medications you take, including over the counter medications, herbals and other supplements with you to your doctor s visit. Patients and families are reminded to discard old lists and to update any records with all medication providers or retail pharmacies. Education Materials Monitored Anesthesia Care, Care After These instructions provide you with information about caring for yourself after your procedure. Your health care provider may also give you more specific instructions. Your treatment has been plannedaccording to current medical practices, but problems sometimes occur. Call your health care provider if you have any problems or questions after your procedure. What can I expect after the procedure? After your procedure, you may: Feel sleepy for several hours. Feel clumsy and have poor balance for several hours. Feel forgetful about what happened after the procedure. Have poor judgment for several hours. Feel nauseous or vomit. Have a sore throat if you had a breathing tube during the procedure. Follow these instructions at home: For at least 24 hours after the procedure: Have a responsible adult stay with you. It is important to have someone help care for you until youare awake and alert. Rest as needed. Do not: ? Participate in activities in which you could fall or become injured. ? Drive. ? Use heavy machinery. ? Drink alcohol. ? Take sleeping pills or medicines that cause drowsiness. ? Make important decisions or sign legal documents. ? Take care of children on your own. Eating and drinking Follow the diet that is recommended by your health care provider. If you vomit, drink water, juice, or soup when you can drink without vomiting. Make sure you have little or no nausea before eating solid foods. General instructions Take cgcx-ecc-afjzvji and prescription medicines only as told by your health care provider. If you have sleep apnea, surgery and certain medicines can increase your risk for breathing problems. Follow instructions from your health care provider about wearing your sleep device: ? Anytime you are sleeping, including during daytime naps. ? While taking prescription pain medicines, sleeping medicines, or medicines that make you drowsy. If you smoke, do not smoke without supervision. Keep all follow-up visits as told by your health care provider. This is important. Contact a health care provider if: You keep feeling nauseous or you keep vomiting. You feel light-headed. You develop a rash. You have a fever. Get help right away if: You have trouble breathing. Summary For several hours after your procedure, you may feel sleepy and have poor judgment. Have a responsible adult stay with you for at least 24 hours or until you are awake and alert. This information is not intended to replace advice given to you by your health care provider. Make sure you discuss any questions you have with your health care provider. Document Released: 06/07/2016 Document Revised: 05/16/2018 Document Reviewed: 06/07/2016 [employer] Patient Education 2020 [employer] Spinal Anesthesia and Epidural Anesthesia, Care After These instructions provide you with information about caring for yourself after your procedure. Your health care provider may also give you more specific instructions. Your treatment has been plannedaccording to current medical practices, but problems sometimes occur. Call your health care provider if you have any problems or questions after your procedure. What can I expect after the procedure? After the procedure, it is common to have: Sleepiness. Nausea. Vomiting. Numbness or tingling in your legs. Trouble urinating. Itching. Follow these instructions at home: For at least 24 hours after the procedure: Have a responsible adult stay with you. It is important to have someone help care for you until youare awake and alert. Rest as needed. Do not: ? Participate in activities in which you could fall or become injured. ? Drive. ? Use heavy machinery. ? Drink alcohol. ? Take sleeping pills or medicines that cause drowsiness. ? Make important decisions or sign legal documents. ? Take care of children on your own. Eating and drinking If you vomit, drink water, juice, or soup when you can drink without vomiting. Drink enough fluid to keep your urine pale yellow. Make sure you have little or no nausea before eating solid foods. Follow the diet recommended by your health care provider. General instructions Return to your normal activities as told by your health care provider. Ask your health care provider what activities are safe for you. Take srqv-isg-dpvwkfk and prescription medicines only as told by your health care provider. If you have sleep apnea, surgery and certain medicines can increase your risk for breathing problems. Follow instructions from your health care provider about wearing your sleep device: ? Anytime you are sleeping, including during daytime naps. ? While taking prescription pain medicines, sleeping medicines, or medicines that make you drowsy. Do not use any products that contain nicotine or tobacco, such as cigarettes and e-cigarettes. If you need help quitting, ask your health care provider. If you smoke, do not smoke without supervision. Keep all follow-up visits as told by your health care provider. This is important. Contact a health care provider if: You have nausea and vomiting that continue the day after anesthetic medicine was given. You develop a rash. Get help right away if: You have a fever. You have a persistent or severe headache. You develop blurred or double vision. You develop dizziness or feel light-headed. You faint. You have weakness, numbness, or tingling in your arms or legs. You have difficulty breathing. You are unable to pass urine. Summary After your procedure, it is common to have sleepiness, nausea, vomiting, and trouble passing urine. For at least 24 hours after the procedure, do not do things that will make you more likely to get hurt. Also, do not drive, use heavy machinery, or make important decisions. Do not eat solid foods until you have no nausea and no vomiting. Do not use products that contain nicotine or tobacco. Get help if you have a fever, persistent headache, blurred or double vision, weakness or numbness in arms and legs, or difficulty breathing or passing urine. This information is not intended to replace advice given to you by your health care provider. Make sure you discuss any questions you have with your health care provider. Document Released: 05/07/2004 Document Revised: 08/07/2019 Document Reviewed: 06/08/2016 [employer] Patient Education 2020 [employer]. Nausea and Vomiting, Adult Nausea is the feeling that you have an upset stomach or that you are about to vomit. Vomiting is when stomach contents are thrown up and out of the mouth as a result of nausea. Vomiting can make you feel weak and cause you to become dehydrated. Dehydration can make you feel tired and thirsty, cause you to have a dry mouth, and decrease how often you urinate. Older adults and people with other diseases or a weak disease-fighting system (immune system) are at higher risk for dehydration. It is important to treat your nausea and vomiting as told by your health care provider. Follow these instructions at home: Watch your symptoms for any changes. Tell your health care provider about them. Follow these instructions to care for yourself at home. Eating and drinking Take an oral rehydration solution (ORS). This is a drink that is sold at pharmacies and retail stores. Drink clear fluids slowly and in small amounts as you are able. Clear fluids include water, ice chips, low-calorie sports drinks, and fruit juice that has water added (diluted fruit juice). Eat bland, qhvm-pv-csremk foods in small amounts as you are able. These foods include bananas, applesauce, rice, lean meats, toast, and crackers. Avoid fluids that contain a lot of sugar or caffeine, such as energy drinks, sports drinks, and soda. Avoid alcohol. Avoid spicy or fatty foods. General instructions Take zqad-uce-cidptdi and prescription medicines only as told by your health care provider. Drink enough fluid to keep your urine pale yellow. Wash your hands often using soap and water. If soap and water are not available, use hand certified prosthetist vice president. Make sure that all people in your household wash their hands well and often. Rest at home while you recover. Watch your condition for any changes. Breathe slowly and deeply when you feel nauseated. Keep all follow-up visits as told by your health care provider. This is important. Contact a health care provider if: Your symptoms get worse. You have new symptoms. You have a fever. You cannot drink fluids without vomiting. Your nausea does not go away after 2 days. You feel light-headed or dizzy. You have a headache. You have muscle cramps. You have a rash. You have pain while urinating. Get help right away if: You have pain in your chest, neck, arm, or jaw. You feel extremely weak or you faint. You have persistent vomiting. You have vomit that is bright red or looks like black coffee grounds. You have bloody or black stools or stools that look like tar. You have a severe headache, a stiff neck, or both. You have severe pain, cramping, or bloating in your abdomen. You have difficulty breathing, or you are breathing very quickly. Your heart is beating very quickly. Your skin feels cold and clammy. You feel confused. You have signs of dehydration, such as: ? Dark urine, very little urine, or no urine. ? Cracked lips. ? Dry mouth. ? Sunken eyes. ? Sleepiness. ? Weakness. These symptoms may represent a serious problem that is an emergency. Do not wait to see if the symptoms will go away. Get medical help right away. Call your local emergency services (911 in the [place] Do not drive yourself to the hospital. Summary Nausea is the feeling that you have an upset stomach or that you are about to vomit. As nausea getsworse, it can lead to vomiting. Vomiting can make you feel weak and cause you to become dehydrated. Follow instructions from your health care provider about eating and drinking to prevent dehydration. Take jlcq-nch-agzklqc and prescription medicines only as told by your health care provider. Contact your health care provider if your symptoms get worse, or you have new symptoms. Keep all follow-up visits as told by your health care provider. This is important. This information is not intended to replace advice given to you by your health care provider. Make sure you discuss any questions you have with your health care provider. Document Released: 02/15/2006 Document Revised: 06/09/2019 Document Reviewed: 07/26/2018 [employer] Patient Education 2020 [employer] Total Knee Replacement, Care After This sheet gives you information about how to care for yourself after your procedure. Your health care provider may also give you more specific instructions. If you have problems or questions, contact your health care provider. What can I expect after the procedure? After the procedure, it is common to have: Pain. Swelling. A small amount of blood or clear fluid coming from your incision. Limited range of motion. Follow these instructions at home: Medicines Take bmns-gdx-ramyunx and prescription medicines only as told by your health care provider. If you were prescribed a blood thinner (anticoagulant), take it as told by your health care provider. Ask your health care provider if the medicine prescribed to you: ? Requires you to avoid driving or using heavy machinery. ? Can cause constipation. You may need to take actions to prevent or treat constipation, such as: ? Drink enough fluid to keep your urine pale yellow. ? Take ecgu-woc-vktyjtf or prescription medicines. ? Eat foods that are high in fiber, such as beans, whole grains, and fresh fruits and vegetables. ? Limit foods that are high in fat and processed sugars, such as fried or sweet foods. Bathing Do not take baths, swim, or use a hot tub until your health care provider approves. Ask your healthcare provider if you may take showers. You may only be allowed to take sponge baths. Keep your bandage (dressing) dry until your health care provider says it can be removed. Incision care and drain care Follow instructions from your health care provider about how to take care of your incision. Make sure you: ? Wash your hands with soap and water before and after you change your dressing. If soap and water are not available, use hand certified prosthetist vice president. ? Change your dressing as told by your health care provider. ? Leave stitches (sutures), skin glue, or adhesive strips in place. These skin closures may need to stay in place for 2 weeks or longer. If adhesive strip edges start to loosen and curl up, you may trim the loose edges. Do not remove adhesive strips completely unless your health care provider tells you to do that. Check your incision area and drain site every day for signs of infection. Check for: ? More redness, swelling, or pain. ? More fluid or blood. ? Warmth. ? Pus or a bad smell. If you have a drain, follow instructions from your health care provider about caring for it. Managing pain, stiffness, and swelling If directed, put ice on your knee. ? Put ice in a plastic bag or use the icing device (cold flow pad or cryocuff) that you were given. Follow instructions from your health care provider about how to use the icing device. ? Place a towel between your skin and the bag or between your skin and the icing device. ? Leave the ice on for 20 minutes, 2 3 times per day. If directed, apply heat to the affected area before you exercise. Use the heat source that your health care provider recommends, such as a moist heat pack or a heating pad. ? Place a towel between your skin and the heat source. ? Leave the heat on for 20 30 minutes. ? Remove the heat if your skin turns bright red. This is especially important if you are unable to feel pain, heat, or cold. You may have a greater risk of getting burned. Move your toes often to avoid stiffness and to lessen swelling. Raise (elevate) your leg above the level of your heart while you are sitting or lying down. ? Use several pillows to keep your leg straight. ? Do not put a pillow just under the knee. If the knee is bent for a long time, this may lead to stiffness. Wear elastic knee support as told by your health care provider. Activity Rest as told by your health care provider. Avoid sitting for a long time without moving. Get up to take short walks every 1 2 hours. This is important to improve blood flow and breathing. Ask for help if you feel weak or unsteady. Ask your health care provider what activities are safe for you. Avoid high-impact activities, including running, jumping rope, and jumping jacks. Do not play contact sports until your health care provider approves. Do exercises as told by your physical therapist. If you have been sent home with a continuous passive motion machine, use it as told by your health care provider. Safety Do not use your leg to support your body weight until your health care provider approves. Use crutches or a walker as told by your health care provider. Do not drive until your health care provider approves. Ask your health care provider when it is safe to drive. General instructions Do not use any products that contain nicotine or tobacco, such as cigarettes, e- cigarettes, and chewing tobacco. These can delay healing after surgery. If you need help quitting, ask your health careprovider. Wear compression stockings as told by your health care provider. Tell your health care provider if you plan to have dental work. Also: ? Tell your dentist about your joint replacement. ? Ask your health care provider if there are any special instructions you need to follow before having dental care and routine cleanings. Keep all follow-up visits as told by your health care provider. This is important. Contact a health care provider if you have: More redness, swelling, or pain around your incision or drain. More fluid or blood coming from your incision or drain. Pus or a bad smell coming from your incision or drain. Warmth on your incision or drain site. A fever. An incision that breaks open. Knee pain that does not go away. Range of motion in your knee that is getting worse. A prosthesis that feels loose. Get help right away if you have: Pain or swelling in your calf or thigh. Shortness of breath or difficulty breathing. Chest pain. Summary After the procedure, it is common to have pain and swelling, blood or fluid coming from your incision, and limited range of motion. Follow instructions from your health care provider about how to take care of your incision. Use crutches or a walker as told by your health care provider. If you were prescribed a blood thinner (anticoagulant), take it as told by your health care provider. Keep all follow-up visits as told by your health care provider. This is important. This information is not intended to replace advice given to you by your health care provider. Make sure you discuss any questions you have with your health care provider. Document Released: 09/04/2005 Document Revised: 06/26/2019 Document Reviewed: 09/29/2018 [employer] Patient Education 2020 [employer] Additional Information VACCINATE! IT SAVES LIVES! Members of the community who have not yet received the COVID-19 vaccine and would like to receive it can visit one of [facility] vaccine clinics. There are many vaccine clinic locations within the [facility]. For locations and available times, please visit [email or web address]/. It is important to note that some COVID mobile vaccine clinics are held outdoors and may be canceled in rainy or stormy conditions. To learn more about pediatric vaccinations (ages 5-11), we invite you to visit the [facility] webpage. [email or web address]/[email or web address]-Zyqns-[email or web address] stions.htmlTo learn more about the COVID-19 vaccine, we invite you to visit the [email or web address] website for a list of frequently asked questions. [email or web address]-[email or web address]-Oicosexk/zqznl-Xcqhexs-Zsdnrstyyt _[email or web address]-Questions.pdf [facility] Patient Portal Access Instructions: Stay connected with your healthcare team and access your personal medical information anytime with the [employer] Patient Portal.If you would like a full copy of your medical records, please contact the [facility] Medical Records Department, Wednesday through Wednesday between 8a.m. and 4:30p.m. Please follow the directions below to access the portal: 1.Access the email account you provided upon registration to the [facility].2.Look for an invitation email from [facility].3.Open the email and access the invitation link: Accept Invitation to [employer]4.Fill in the required luong to create your account. Sign into [email or web address] with your username and password that you created in the above steps to stay up to date. You can then view a summary of results, a summary of your visits, and the ability to download your summaries to your computer or send the information securely to a physician. Remember that your healthcare information is confidential, so carefully consider who you will allow to register on the [employer] Patient Portal for access to your information. You can also access the [employer] Patient Portal on the [email or web address]. Simply click on Health Records under [employer] and then click on the [email or web address] logo. HOW TO SAFELY DISPOSE OF PRESCRIPTION MEDICATIONS Please use one of the following methods to safely dispose of your unused medications. 1.Use a drug disposal kit: the drug disposal pouch allows you to safely discard your old and unuseddrugs. Ask your nurse to give you one when you are discharged.2.Visit a local take-back location: Many local pharmacies and police departments have programs that collect old and unwanted prescriptiondrugs. Call your local pharmacy or go to [email or web address]/3M6Tl9d to find one close to you.3.Make use of household items: Use cat litter or old coffee grounds to dispose medications if other options arenot available. Mix your drugs with these household products, seal them in an airtight container andthrow it into the garbage. Call [facility]: [phone] to be sure your drugs can be disposed of in this way. Some medicines may require a different approach.4.Never flush your medications down the toilet. IF YOU HAVE BEEN PRESCRIBED AN OPIOID FOR PAIN If you have been prescribed an opioid (such as hydrocodone, oxycodone or morphine), it is critical to understand the possible side effects and risks of opioid pain medications. Even when taken as directed, opioids can have several side effects including: Tolerance, meaning you might need to take more of a medication for the same pain relief. Nausea, vomiting and/or constipation. Sleepiness, dizziness, dry mouth, confusion, depression or itching. Physical dependence, meaning you have withdrawal symptoms when a medication is stopped, can develop within a few days. KNOW YOUR RESPONSIBILITIES It is important to know exactly how much and how often to take the opioid pain medications you are prescribed. Never take opioids in higher amounts or more often than prescribed. Do not combine opioids with alcohol or other drugs that cause drowsiness, such as benzodiazepines, also known as benzos, including diazepam and alprazolam, muscle relaxants or sleep aids. Never sell or share prescription opioids. This is illegal. Store opioids in a secure place and out of reach of others (including children, family, friends and visitors). The last page of this document has been signed and retained as a CHART COPY. [employer] Patient Education Materials Monitored Anesthesia Care, Care After Spinal Anesthesia and Epidural Anesthesia, Care After Nausea and Vomiting, Adult Total Knee Replacement, Care After Medication Leaflets My discharge plan and instructions have been reviewed and explained to me and I,NADEGE PAPPAS understand my current condition and have read and understand these discharge instructions. I have received a written copy of the plan/instructions. If I have questions, I am aware that I should contact my doctor. Patient/Conveyor Worker Signature: Date/Time: Relationship to Patient: Witness Name/Signature: Date/Time: [facility]02-07-2023 Note ORIGINAL EXAMINATION: TWO XRAY VIEWS OF THE LEFT KNEE04/07/2022 9:05 am XR portable AP and cross-table lateral two views COMPARISON: 04/02/2021 HISTORY: ORDERING SYSTEM PROVIDED HISTORY: Reason for Exam: Status Post Arthroplasty, Status Post Arthroplasty , check prosthesis alignment FINDINGS: The left knee joint has been replaced with a prosthesis that show satisfactory alignment. There are expected postoperative changes in the soft tissues. IMPRESSION: Expected postoperative appearance following left knee replacement surgery. Interpreted by: Dragan Blunt MD Preliminary Report By: Dragan Blunt MD Electronically signed By Dragan Blunt MD Dictated Date: 04/07/2022 9:27:00 AM Prelim Date: 04/07/2022 9:27:28 AM Sign Date: 04/07/2022 9:27:28 AM Ordering Provider: [facility]02-07-2023 Anesthesiology Consult note Patient: NADEGE PAPPAS Age: 71 years Sex: Female : 1950 Associated Diagnoses: None Author: VETO PERDOMO Preoperative Information Anesthesia history Patient's history: negative. Family's history: negative. Health Status Allergies: Allergic Reactions (Selected) NKA, Allergies (1) ActiveReaction NKANone Documented Current medications: (Selected) Inpatient Medications Ordered Betadine 10% topical solution: 17.5 mL, mL/hr, Topical (INT), PREOP pharm Decadron: 10 mg, 1 mL, IV Push, AsDirected Kefzol: 2 gram(s), 200 mL/hr, IV Piggyback, PREOP pharm LR 1,000 mL: 20 mL/hr, Intravenous, Stop: 04/07/22 23:59:00 EST Naropin 25 mg + Toradol 15 mg + EPINEPHrine 1 mg/mL injectable solution 0.3 mg + morphine 2.5 mg...: 25 mg, 5 mL, mL/hr, Other, PREOP pharm Naropin 25 mg + Toradol 15 mg + EPINEPHrine 1 mg/mL injectable solution 0.3 mg + morphine 2.5 mg...: 25 mg, 5 mL, mL/hr, Other, PREOP pharm tranexamic acid 1 g / 100 mL 0.7% NaCl PMX: 1 gram(s), 100 mL, 300 mL/hr, IV Piggyback, AsDirected tranexamic acid 1 g / 100 mL 0.7% NaCl PMX: 1 gram(s), 100 mL, 300 mL/hr, IV Piggyback, AsDirected Prescriptions Prescribed allopurinol 100 mg oral tablet: 300 mg, 3 tab(s), Oral, qDay, for 90 day(s), 270 tab(s), 1 Refill(s) amLODIPine 10 mg oral tablet: 10 mg, 1 tab(s), Oral, qDay, for 90 day(s), 90 tab(s), 3 Refill(s) traZODone 50 mg oral tablet: 50 mg, 1 tab(s), Oral, qHS, for 90 day(s), 90 tab(s), 3 Refill(s) triamcinolone 0.5% topical cream: 1 sophia, Topical, BID, for 14 day(s), 60 gram(s), 0 Refill(s) Documented Medications Documented Citracal Calcium + D Slow Release 1200: 1 tab, Oral, qAM, 0 Refill(s) Xarelto 20 mg oral tablet: 20 mg, 1 tab(s), Oral, qPM, 0 Refill(s) flecainide 50 mg oral tablet: 50 mg, 1 tab(s), Oral, q12h, 0 Refill(s) hydroCHLOROthiazide 12.5 mg oral tablet: 12.5 mg, 1 tab(s), Oral, Daily, 0 Refill(s) lisinopril 40 mg oral tablet: 40 mg, 1 tab(s), Oral, qDay, 0 Refill(s) metoprolol succinate 25 mg oral TABLET extended release: 25 mg, 1 tab(s), Oral, BID, Do not crush or chew (controlled release), 90 tab(s), 0 Refill(s) simvastatin 20 mg oral tablet: 20 mg, 1 tab(s), Oral, qHS, 0 Refill(s), Medications (8) Active Scheduled: (7) ceFAZolin 2 gram(s), IV Piggyback, PREOP pharm dexamethasone 10 mg/mL (1mL) SDV 10 mg 1 mL, IV Push, AsDirected povidone iodine topical 17.5 mL, Topical (INT), PREOP pharm ropivacaine 25 mg + ketorolac 15 mg + epinephrine 0.3 mg + morphine 2.5 mg 25 mg 5 mL, Other, PREOPpharm ropivacaine 25 mg + ketorolac 15 mg + epinephrine 0.3 mg + morphine 2.5 mg 25 mg 5 mL, Other, PREOPpharm tranexamic acid PMX 1 gram(s) 100 mL, IV Piggyback, AsDirected tranexamic acid PMX 1 gram(s) 100 mL, IV Piggyback, AsDirected Continuous: (1) Lactated Ringers 1,000 mL 1,000 mL, Intravenous, 20 mL/hr PRN: (0) Problem list: Medical Atrial fibrillation / SNOMED CT 58444174 / Confirmed Benign essential hypertension / SNOMED CT 1097574 / Confirmed Carpal tunnel syndrome / SNOMED CT 56989604 / Confirmed Chronic kidney disease / SNOMED CT 5968072227 / Confirmed Eczema / SNOMED CT 36074568 / Confirmed Gout / SNOMED CT 844830668 / Confirmed Hypertriglyceridemia / SNOMED CT 896821435 / Confirmed Intermittent palpitations / SNOMED CT 172350434 / Confirmed Knee osteoarthritis / SNOMED CT 319917220 / Confirmed Osteopenia / SNOMED CT 747160635 / Confirmed, Active Problems (10) Atrial fibrillation Benign essential hypertension Carpal tunnel syndrome Chronic kidney disease Eczema Gout Hypertriglyceridemia Intermittent palpitations Knee osteoarthritis Osteopenia Histories Past Medical History: No active or resolved past medical history items have been selected or recorded. Family History: Cancer Mother () Myocardial infarction Father () Procedure history: Cardiac catheter ([id number]) on 02/08/2017 at 66 Years. Laparoscopy ([id number]). 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 . Physical Examination Vital Signs 04/07/2022 5:47 EST Temperature Temporal Artery 36.7 DegC Apical Heart Rate 72 bpm Respiratory Rate 12 br/min LOW Systolic Blood Pressure Non-Invasive 130 mmHg Diastolic Blood Pressure Non-Invasive 65 mmHg Blood Pressure Method Automatic Blood Pressure Location Left arm Blood Pressure Cuff Size Large Vital Signs(last 24 hrs) Last Charted Resp Rate L 12br/min (APR 07 05:47) SGF318 mmHg (APR 07:47) DBP65 mmHg (APR 07 05:47) BMI30.2 (APR 07:47) Measurements from flowsheet : Measurements 04/07/2022 5:47 EST Height 160 cm Admission Weight 77.3 kg Weight Method Stated Willis Body Weight 52.38 kg Body Mass Index 30.2 kg/m2 Body Mass Index 30.2 kg/m2 Pain assessment: Pain Assessment 04/07/2022 6:11 EST Primary Pain Intensity 8 04/07/2022 5:47 EST Primary Pain Location Knee Primary Pain Laterality Left Primary Pain Intensity 8 Pain Scale Type 0-10 Pain scale . General: Alert and oriented. Airway: Normal temporomandibular joint mobility. Mallampati classification: II (soft palate, fauces, uvula visible). Dentition Evaluation: Denies loose/chipped teeth. Respiratory: Lungs are clear to auscultation, Respirations are non-labored. Cardiovascular: Normal rate, Regular rhythm. Neurologic: Alert, Oriented. Review / Management Results review: No qualifying data available , Lab results 04/07/2022 6:15 EST SN - Preop - CTm Pt Ready for OR/Proced 04/07/2022 6:15 04/07/2022 6:15 EST SN - Preop - CTm Pt in SDS Room 04/07/2022 5:43 04/07/2022 6:11 EST Primary Pain Intensity 8 IV Present Present Hand Right 04/07/2022 20 gauge Peripheral IV Activity: Insert new site Peripheral IV Dressing Condition: Clean, Dry, Intact Peripheral IV Dressing Activity: Applied, Transparent dressing Peripheral IV Line Status/Patency: Flushes easily Peripheral IV Site Condition: No complications Peripheral IV Equipment: Extension set, PRN Adaptor Peripheral IV Number of Attempts: 2 celecoxib 400 mg mg citric acid-sodium citrate Not Done: Not Appropriate at this Time (Not Done) famotidine 20 mg mg oxyCODONE 10 mg mg Lactated Ringers Injection 1,000 mL mL 04/07/2022 5:47 EST Designated Person #1 We May Share MELBA SCHMITT [phone] Designated Person #1 Relationship Daughter Privacy Restrictions Requested None Height 160 cm Admission Weight 77.3 kg Weight Method Stated Willis Body Weight 52.38 kg Body Mass Index 30.2 kg/m2 Body Mass Index 30.2 kg/m2 Temperature Temporal Artery 36.7 DegC Apical Heart Rate 72 bpm Respiratory Rate 12 br/min LOW Systolic Blood Pressure Non-Invasive 130 mmHg Diastolic Blood Pressure Non-Invasive 65 mmHg Blood Pressure Method Automatic Blood Pressure Location Left arm Blood Pressure Cuff Size Large Primary Pain Location Knee Primary Pain Laterality Left Primary Pain Intensity 8 Pain Scale Type 0-10 Pain scale Heart Rhythm Regular Oxygen Therapy Room air Oxygen Saturation 96 % Abdomen Description Non-distended Abdomen Palpation Non-Tender Bowel Sounds All Quadrants Present Urinary Elimination Voiding, no difficulties Status N/A Skin Temperature Warm Skin Description [place], Dry Skin Integrity Intact Neurological Symptoms Patient denies Extremity Movement Equal Characteristics of Speech Clear Level of Consciousness Alert ROMINA Yes Strength All Extremities Strong Tone All Extremities Normal Sensation All Extremities Intact Affect/Behavior Appropriate Orientation Oriented x 4 Sensory Deficits None Sleep Apnea Snore No Sleep Apnea Tired No Sleep Apnea Obstruction No Sleep Apnea Pressure Yes Sleep Apnea BMI No Sleep Apnea Age Yes Sleep Apnea Neck No Sleep Apnea Gender No Sleep Apnea Score 2 High Risk for Sleep Apnea No Diagnosed With Sleep Apnea No Advanced Directives No - refuses information Infectious Disease Symptoms Patient states no symptoms Infectious Disease Recent Exposure No Alcohol and Drug Use No Employee of Institutional Living No Health Care Employee No History of Exposure to TB No History of Positive Chest X-Ray for TB No History of Positive TB Skin Test No Homeless No Known Immunosuppression No Recent Immigrant No Resident of Institutional Living No Bloody Sputum No Fatigue No Fever No Loss of Appetite No Night Sweats No Persistent Cough > 3 Weeks No Weight Loss No Allergies No Director Acute On Yes Consent Form Signed Yes Patient Dressed In Hospital gown CHG Preoperative Wash/Wipe Night before procedure, Day of procedure, Site specific wipe CHG Skin Prep Completed for Eligible Surgery History & Physical Update On Chart Yes History & Physical On Chart Yes Obstructive Sleep Apnea Assess Completed Yes Safety Brochure Information Reviewed Unable to complete Alberto Coello Video Viewed No Barriers to Learning None evident Teaching Method Explanation, Printed materials Teaching Evaluation Verbalizes/Nonverbally indicates understanding Preferred Written Language Upper Sorbian Preferred Spoken Language Upper Sorbian Information Given by Patient Patient's Current Physicians Patient's Current Physicians Discharge To, Anticipated Home independently Activity Status ADL Awake SCD On/Re-applied right knee high Antiembolism Stocking On/Re-applied right thigh high NPO Status Maintained Standard Safety ID band on, Call device within reach, Bed in low position, Wheels locked, Upper/Half-Length side-rails up, Safety level maintained, Non- Slip footwear Prev Test Positive/Diagnosis w/COVID-19 No Current Quarantine/Isolated any Illness No Any Contact with Sick Animals/Birds No Traveled Anywhere in Last 30 Days No Allergy Band on and Verified No Patient ID Band on and Verified Yes Implants Verified Yes Pacemaker/AICD Verified Yes Blood Consent Signed Yes Last Fluid Intake 04/06/2022 20:00 Last Food Intake 04/06/2022 18:00 Patient Cleared for Surgery By YULISSA ROACH APRN-BIN PACKER Cardiac Clearance For Surgery By AKHIL PINA MD Lost Weight Unintentionally Recently No Eat Poorly Due to Decreased Appetite No Total MST Score 0 N/A Personal Devices, Patient Valuables None Anesthesia/Transfusions Prior anesthesia Admission Note-Nursing Same Day Patient History . Assessment and Plan [place] [employer] Anesthesiologists (ASA) physical status classification: Class III. Anesthetic Preoperative Plan Anesthetic technique: Spinal. Regional: Spinal. Postoperative pain management: adductor canal. Risks discussed: nausea, vomiting, headache, hypotension, allergic reaction, serious complications. Informed consent: signed by patient. Digitally Signed by VETO PERDOMO on 04/07/2022 06:47 AM [facility]01-23-2023 Note ORIGINAL EXAMINATION: CT OF THE LEFT KNEE WITHOUT CONTRAST 03/23/2022 9:13 am TECHNIQUE: CT of the left knee was performed without the administration of intravenous contrast. Multiplanar reformatted images are provided for review. Automated exposure control, iterative reconstruction, and/or weight based adjustment of the mA/kV was utilized to reduce the radiation dose to as low as reasonably achievable. COMPARISON: 04/02/2021 HISTORY ORDERING SYSTEM PROVIDED HISTORY: Reason for Exam: UNILATERAL PRIMARY OSTEOARTHRITIS, LEFT KNEE FINDINGS: Bones: Diffuse osseous demineralization. No evidence of acute fracture or dislocation. No aggressive appearing osseous abnormality or periostitis. Soft Tissue: There is a small to moderate suprapatellar effusion. Small to moderate volume popliteal cyst. Joint: There are severe degenerative changes in the medial femorotibial compartment including osteophyte formation, joint space loss, subchondral sclerosis, and subchondral cystic changes. There is mild lateral femorotibial and mild to moderate patellofemoral degenerative changes including osteophyte formation, subchondral sclerosis, and subchondral cystic formation. Chondrocalcinosis present of the mediolateral femorotibial compartments. Small quadriceps and patellar enthesophyte. Mild pubic symphysis osteoarthrosis. No erosions. Right knee arthroplasty noted on crosscutter radiographs. Scattered colonic diverticulosis without diverticulitis. Phleboliths. No lymphadenopathy. Type 1 os navicular. IMPRESSION: 1. No aggressive osseous lesion. No acute osseous abnormalities. 2. Advanced tricompartmental osteoarthrosis with chondrocalcinosis. 3. Moderate volume joint effusion. I have personally reviewed the images of this examination and agree with the resident's findings and interpretations. Interpreted by: Montrell Rodriguez DO Preliminary Report By: Alton Ramsey Electronically signed By Montrell Rodriguez DO Dictated Date: 03/23/2022 9:14:31 AM Prelim Date: 03/23/2022 9:53:09 PM Sign Date: 03/23/2022 9:53:09 PM Ordering Provider: ELIZABET LUCIA [facility]01-23-2023 Note ORIGINAL EXAMINATION: CT OF THE LEFT KNEE WITHOUT CONTRAST 03/23/2022 9:13 am TECHNIQUE: CT of the left knee was performed without the administration of intravenous contrast. Multiplanar reformatted images are provided for review. Automated exposure control, iterative reconstruction, and/or weight based adjustment of the mA/kV was utilized to reduce the radiation dose to as low as reasonably achievable. COMPARISON: 04/02/2021 HISTORY ORDERING SYSTEM PROVIDED HISTORY: Reason for Exam: UNILATERAL PRIMARY OSTEOARTHRITIS, LEFT KNEE FINDINGS: Bones: Diffuse osseous demineralization. No evidence of acute fracture or dislocation. No aggressive appearing osseous abnormality or periostitis. Soft Tissue: There is a small to moderate suprapatellar effusion. Small to moderate volume popliteal cyst. Joint: There are severe degenerative changes in the medial femorotibial compartment including osteophyte formation, joint space loss, subchondral sclerosis, and subchondral cystic changes. There is mild lateral femorotibial and mild to moderate patellofemoral degenerative changes including osteophyte formation, subchondral sclerosis, and subchondral cystic formation. Chondrocalcinosis present of the mediolateral femorotibial compartments. Small quadriceps and patellar enthesophyte. Mild pubic symphysis osteoarthrosis. No erosions. Right knee arthroplasty noted on crosscutter radiographs. Scattered colonic diverticulosis without diverticulitis. Phleboliths. No lymphadenopathy. Type 1 os navicular. IMPRESSION: 1. No aggressive osseous lesion. No acute osseous abnormalities. 2. Advanced tricompartmental osteoarthrosis with chondrocalcinosis. 3. Moderate volume joint effusion. I have personally reviewed the images of this examination and agree with the resident's findings and interpretations. Interpreted by: Montrell Rodriguez DO Preliminary Report By: Alton Ramsey Electronically signed By Montrell Rodriguez DO Dictated Date: 03/23/2022 9:14:31 AM Prelim Date: 03/23/2022 9:53:09 PM Sign Date: 03/23/2022 9:53:09 PM Ordering Provider: [facility]01-21-2022 Note HNO ID: [id number] Author: Mitch Dominguez MD Service: ? Author Type: Physician Type: Progress Notes Filed: 03/21/2021 9:25 AM Note Text: ASSESSMENT/PLAN: 1. 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 2. Pseudophakia of both eyes - ICD9: V43.1, ICD10: Z96.1 Intraocular lens implant in good position Both Eyes. 3. Essential hypertension - ICD9: 401.9, ICD10: I10 Continue to monitor with primary care physician. Mitch Dominguez MD I have confirmed and edited as necessary the relevant ophthalmic history, review of systems, surgical history, and ophthalmological examination findings as obtained by the ophthalmic technical staff. I have seen and examined Nadege Pappas. I have discussed the examination findings, diagnosis, and treatment options with Nadege Pappas and/or her family. I have also reviewed and agree with the assessment and plan as stated above and agree with all its relevant components. I gave the patient the opportunity to ask questions about the findings, diagnosis, and treatment options.[facility]12-17-2021 NoteHNO ID: [id number] Author: Catalina Barrios OD Service: ? Author Type: HEEL ROOM SUPERVISOR Type: Progress Notes Filed: 02/14/2021 8:43 AM Note Text: ASSESSMENT/PLAN: 1. Punctate keratitis of both eyes - ICD9: 370.21, ICD10: H16.143 (primary diagnosis) Recommended the use of artificial tears four times per day to maintain good vision and comfort. Discussed contacting the office if there is a change in comfort or vision. Also suggested the use of hot compresses as desired. 2. Posterior vitreous detachment of right eye - ICD9: 379.21, ICD10: H43.811 3. Vitreous floaters of both eyes - ICD9: 379.24, ICD10: H43.393 Vitreal floaters stable both eyes. Retinas flat and intact with no apparent retinal tear or traction. Discussed symptoms of retinal tear/detachment and if seen patient will return to clinic without delay. 4. After cataract not obscuring vision, bilateral - ICD9: 366.52, ICD10: H26.493 Continue to monitor. 5. Pseudophakia of both eyes - ICD9: V43.1, ICD10: Z96.1 Posterior chamber intraocular lenses are well positioned. Return in 3 weeks to check dry eye and acuities [facility]ina [facility] + Plan note Future Scheduled Tests Laboratory* Basic Metabolic Panel 08/01/20 Radiology* XR Knee 3 Views Left 04/02/21 [facility] Evaluation + Plan note Future Appointments Appointment Date:03/04/2021 08:20:00 AM Scheduled Provider:VENU WAKEFIELD Location:[facility] Appointment Type:Telehealth Future Scheduled Tests Laboratory* Basic Metabolic Panel 08/01/20 * A1C Hemoglobin 03/08/20 [facility] Evaluation + Plan note Future Appointments Appointment Date:04/07/2022 09:30:00 AM Scheduled Provider:YULISSA ROACH Location:[facility] Appointment Type:PC OV Follow Up Future Scheduled Tests Radiology* XR Knee 3 Views Left 04/02/21 [facility] evaluation + Plan note Future Appointments Appointment Date:03/24/2022 10:00:00 AM Scheduled Provider:YULISSA ROACH Location:[facility] Appointment Type:PC OV Follow Up Appointment Date:04/09/2022 09:30:00 AM Scheduled Provider: [facility] Type:PT Outpatient Evaluation Future Scheduled Tests Radiology* XR Knee 3 Views Left 04/02/21 [facility] Evaluation + Plan note Future Appointments Appointment Date:04/09/2022 09:30:00 AM Scheduled Provider: Location:[facility] Appointment Type:PT Outpatient Evaluation Appointment Date:09/22/2022 09:30:00 AM Scheduled Provider:YULISSA ROACH Location:[facility] Appointment Type:PC OV [facility] Evaluation + Plan note Future Appointments Appointment Date:04/21/2022 09:30:00 AM Scheduled Provider:Brian Young PTA [id number] Location:[facility] Appointment Type:PT Treatment - [place] Appointment Date:04/22/2022 10:00:00 AM Scheduled Provider: Location:[facility] Appointment Type:PT Treatment - [place] Appointment Date:04/24/2022 09:45:00 AM Scheduled Provider: Location:[facility] Appointment Type:[place] Appointment Date:04/27/2022 10:00:00 AM Scheduled Provider: Location:[facility] Appointment Type:PT [place] Appointment Date:04/29/2022 10:00:00 AM Scheduled Provider: Location:[facility] Appointment Type:PT [place] Appointment Date:05/01/2022 09:45:00 AM Scheduled Provider: Location:[facility] Appointment Type:PT Treatment - [place] Appointment Date:05/04/2022 09:15:00 AM Scheduled Provider:Brian Young PTA [id number] Location:[facility] Appointment Type:PT Treatment - [place] Appointment Date:05/08/2022 10:15:00 AM Scheduled Provider: Location:[facility] Appointment Type:PT Treatment - [place] Appointment Date:09/22/2022 09:30:00 AM Scheduled Provider:YULISSA ROACH Location:[facility] Appointment Type:[facility] Evaluation + Plan note Future Appointments Appointment Date:09/02/2022 10:00:00 AM Scheduled Provider:YULISSA ROACH Location:[facility] Appointment Type: OV [facility] Evaluation + Plan note Future Appointments Appointment Date:10/19/2024 10:00:00 AM Scheduled Provider:JOSE ISAACS DO Location:[facility] Appointment Type:[facility] Evaluation note* Diagnosis Onset Date Resolution Status Essential hypertension chron ic Hyperlipidemia chronic Paroxysmal atrial flutter ch ronic [facility] Work Phone: Evaluation noteNo assessment information available [facility] Work Phone: Hospital course Narrative No data available for this section [facility] Hospital Discharge instructions No data available for this section [facility] Progress note No data available for this section [facility] Summary Purpose Family History No Family History Records Found Relationship Condition Age at Onset Recorded Date/T chase father Coronary artery disease Unknown Advance Directives No Advanced Directives Records Found Advance Directive Response Recorded Date/ Time Advance Directives No January 11:04am Living Will No February 08 11:04am Power of Six Pack Loader Operator No February 08, 2017 11:04am Advance Directive Response Recorded Date/ Time Advance Directives No January 10:04am Living Will No February 08 10:04am Power of Six Pack Loader Operator No February 08, 2017 10:04am Procedure Findings Note Post Operative Note: Post-Pr ocedure Diagnosis: 1. 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 Regular Astigmatism Right Eye Procedure: 1. Cataract Extraction with Toric Intraocular Lens Implant Right Eye Surgeon: Mitch Dominguez MD Resident/Fellow/Other Stone Cleaner: None Estimated Blood Loss (mL): none Specimen: no Findings: 1. 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 Regular Astigmatism Right Eye Operative Report Dictated: Dictation: not applicable - note contains Operative Report Operative Report: The patient was correctly identified in the pre-operative area and the operative eye was marked. The operative eye was dilated in the pre-op area. Under the slit lamp the operative eye was marked using a fine marking pen at 3 o'clock, 6 o'clock and 9 o'clock at the limbus. The patient was taken to the operating room and time out was performed prior to starting the procedure. Combined anesthesia with IV sedation and topical tetracaine eye drops was given. The operative eye was prep (more content not included)... Note Post Operative Note: Post-Pr ocedure Diagnosis: 1. Combined Form Age Related Cataract Left Eye 2. Regular Astigmatism Left Eye Procedure: 1. Cataract Extraction with Toric Intraocular Lens Implant Left Eye Surgeon: Mitch Dominguez MD Resident/Fellow/Other Stone Cleaner: None Estimated Blood Loss (mL): none Specimen: no Findings: 1. Combined Form Age Related Cataract Left Eye 2. Regular Astigmatism Left Eye Operative Report Dictated: Dictation: not applicable - note contains Operative Report Operative Report: The patient was correctly identified in the pre-operative area and the operative eye was marked. The operative eye was dilated in the pre-op area. Under the slit lamp the operative eye was marked using a fine marking pen at 3 o'clock, 6 o'clock and 9 o'clock at the limbus. The patient was taken to the operating room and time out was performed prior to starting the procedure. Combined anesthesia with IV sedation and topical tetracaine eye drops was given. The operative eye was prepped a (more content not included)... Chief Complaint and Reason for Visit Chief Complaint 1 Y FU E ORDER Reason for Visit Essential hypertensi on Hyperlipidemia Paroxysmal atrial flutter Chief Complaint 1 Y FU E ORDER AFIB Atrial fibrillation Reason for Visit Essential hypertensi on Hyperlipidemia Paroxysmal atrial flutter Chief Complaint E ORDER E ORDER Additional Source Comments INFORMATION SOURCE (unrecogn ized section and content) DATE CREATED AUTHOR 01/02/2020 [facility] DATE CREATED AUTHOR AUTHOR'S ORGANIZ ATION 01/09/2020 [facility] DATE CREATED AUTHOR AUTHOR'S ORGANIZ ATION 03/24/2021 [facility] DATE CREATED AUTHOR AUTHOR'S ORGANIZ ATION 10/16/2023 [facility] ([place] DATE CREATED AUTHOR AUTHOR'S ORGANIZ ATION 07/30/2024 [facility] DATE CREATED AUTHOR AUTHOR'S ORGANIZ ATION 09/04/2024 [facility] DATE CREATED AUTHOR AUTHOR'S ORGANIZ ATION 09/04/2024 [facility] DATE CREATED AUTHOR AUTHOR'S ORGANIZ ATION 09/11/2024 [facility] Goals (unrecognized section and content) Goals may be documented in a n alternate section Care Team (unrecognized sect ion and content) Care Team Personnel Name: Miguel Last Position: P3 Scheduling - Bill Of Lading Clerk Advanced Member Role: Other Name: Staci Hernandez Position: P3 Scheduling - Bill Of Lading Clerk Advanced Member Role: Other Name: Miguel Cedeño Bill Of Lading Clerkyash Sánchez Position: P3 Scheduling - Bill Of Lading Clerk Advanced Member Role: Other Name: YULISSA ROACH HYDROELECTRIC STATION OPERATOR CHIEF-BIN PACKER Position: P4 Advanced Practice Nurse Med Service: Employed Provider Member Role: Primary Care Physician Address: Address: [address] [place] [address] Care Team Related Persons Name: DECLINED, DECLINED Name: KESHIA SANTACRUZ Care Team Personnel Name: Staci Hernandez Position: P3 Scheduling - Bill Of Lading Clerk Advanced Member Role: Other Name: Miguel Cedeño Bill Of Lading Clerk Julia Sánchez Position: P3 Scheduling - Bill Of Lading Clerk Advanced Member Role: Other Name: YULISSA ROACH HYDROELECTRIC STATION OPERATOR CHIEF-BIN PACKER Position: P4 Advanced Practice Nurse Member Role: Primary Care Physician Address: Address: [address] Care Team Related Persons Name: DECLINED, DECLINED Name: KESHIA SANTACRUZ Care Team Personnel Name: Staci Hernandez Position: P3 Scheduling - Bill Of Lading Clerk Advanced Member Role: Other Name: Miguel Cedeño Bill Of Lading Clerkyash Sánchez Position: P3 Scheduling - Bill Of Lading Clerk Advanced Member Role: Other Name: SOPHIA YULISSA Garcia HYDROELECTRIC STATION OPERATOR CHIEF-BIN PACKER Position: P4 Advanced Practice Nurse Member Role: Primary Care Physician Address: Address: [address] Care Team Related Persons Name: DECLINED, DECLINED Name: KESHIA SANTACRUZ Care Team Personnel Name: Staci Hernandez Position: P3 Scheduling - Bill Of Lading Clerk Advanced Member Role: Other Name: Miguel Cedeño Bill Of Lading Clerk Julia L Position: P3 Scheduling - Bill Of Lading Clerk Advanced Member Role: Other Name: SOPHIA YULISSA Garcia HYDROELECTRIC STATION OPERATOR CHIEF-BIN PACKER Position: P4 Advanced Practice Nurse Member Role: Primary Care Physician Address: Address: [address] Care Team Related Persons Name: KESHIA SANTACRUZ Name: KESHIA SANTACRUZ Care Team Personnel Name: Staci Hernandez Position: P3 Scheduling - Bill Of Lading Clerk Advanced Member Role: Other Name: Miguel Cedeño Bill Of Lading Clerk Julia L Position: P3 Scheduling - Bill Of Lading Clerk Advanced Member Role: Other Name: YULISSA ROACH HYDROELECTRIC STATION OPERATOR CHIEF-BIN PACKER Position: P4 Advanced Practice Nurse Member Role: Primary Care Physician Address: Address: [address] Care Team Related Persons Name: DECLINED, DECLINED Name: NEETA KESHIA Patient Care team informatio n (unrecognized section and content) Team Status: Active Member Role Status Dates Yulissa Roach FLATTENING PRESS OPERATOR, FLATTENING PRESS OPERATOR-C Family Provider Active Yulissa Roach FLATTENING PRESS OPERATOR, FLATTENING PRESS OPERATOR-C Primary Care Provider Active Team Status: Inactive Member Role Status Dates Yulissa Roach FLATTENING PRESS OPERATOR, FLATTENING PRESS OPERATOR-C Primary Care Provider Active Akhil ROBBINS MD Attending Provider Active Dr. Akhil Pina MD Referring Provider Active Team Status: Inactive Member Role Status Dates Yulissa Roach FLATTENING PRESS OPERATOR, FLATTENING PRESS OPERATOR-C Primary Care Provider Active Annalisa Mabry FLATTENING PRESS OPERATOR, FLATTENING PRESS OPERATOR-C Attending Provider, Referring P louise Active FOR RECORDS PERTAINING TO PATIENTS WHO ARE OR HAVE BEEN ENROLLED IN A CHEMICAL DEPENDENCY/SUBSTANCEABUSE PROGRAM, SOME INFORMATION MAY BE OMITTED. This clinical summary was aggregated from multiple sources. Caution should be exercised in using it in the provision of clinical care. This summary normalizes information from multiple sources, and as a consequence, information in this document may materially change the coding, format and clinical context of patient data. In addition, data may be omitted in some cases. CLINICAL DECISIONS SHOULD BE BASED ON THE PRIMARY CLINICAL RECORDS. [facility] [employer] [facility]. provides no warranty or guarantee of the accuracy or completeness of information in this document.
--- OUTSIDE RECORDS SUMMARY | 2024-09-12 09:25 | XMS RPT_ITS | CCD ---
Author Organization [facility] Care Team Providers Care Plastics Bench Mechanic Name Role Phone SOPHIA ARTS EDUCATION TEACHER-CAR CLEANING SUPERVISOR, YULISSA S Primary Care Physicia n Staci Hernandez Unavailable Unavailable Shauna Last Unavailable Unavailable Julia Cedeño Unavailable Unavailable Sophia HIGH SCHOOL ADMISSIONS REPRESENTATIVE, HIGH SCHOOL ADMISSIONS REPRESENTATIVE-C Yulissa Primary Care Provider Sophia HIGH SCHOOL ADMISSIONS REPRESENTATIVE, HIGH SCHOOL ADMISSIONS REPRESENTATIVE-C Yulissa Referring Provider [phone] Dr. Akhil Pina Attending Provider Dr. Akhil Pina Referring Provider [phone] Akhil Pina Other Provider SOPHIA ARTS EDUCATION TEACHER-CAR CLEANING SUPERVISOR, YULISSA S Attending Unava ilable SOPHIA ARTS EDUCATION TEACHER-CAR CLEANING SUPERVISOR, YULISSA S Primary Care Unava ilable SOPHIA ARTS EDUCATION TEACHER-CAR CLEANING SUPERVISOR, YULISSA S Attending Unava ilable OSPHIA ARTS EDUCATION TEACHER-CAR CLEANING SUPERVISOR, YULISSA S Primary Care Unava ilable YOVANI ROBISON, MR AKHIL S Attending Unavailable SOPHIA ARTS EDUCATION TEACHER-CAR CLEANING SUPERVISOR, YULISSA S Primary Care Unava ilable YOVANI ROBISON, MR AKHIL S Attending Unavailable SOPHIA ARTS EDUCATION TEACHER-CAR CLEANING SUPERVISOR, YULISSA S Primary Care Unava ilable Sophia HIGH SCHOOL ADMISSIONS REPRESENTATIVE, Yulissa Attending Unavailable Sophia HIGH SCHOOL ADMISSIONS REPRESENTATIVE, Yulissa Primary Care Unavailable Sophia HIGH SCHOOL ADMISSIONS REPRESENTATIVE, Yulissa Primary Care Unavailable Sophia HIGH SCHOOL ADMISSIONS REPRESENTATIVE, Yulissa Referring Unavailable Akhil Pina Attending Unavailable Sophia HIGH SCHOOL ADMISSIONS REPRESENTATIVE, Yulissa Attending Unavailable Cordry [place] HIGH SCHOOL ADMISSIONS REPRESENTATIVE, Yulissa Primary Care Unavailable Cordry [place] HIGH SCHOOL ADMISSIONS REPRESENTATIVE, Yulissa Attending Unavailable Sophia HIGH SCHOOL ADMISSIONS REPRESENTATIVE, Yulissa Primary Care Unavailable Sophia HIGH SCHOOL ADMISSIONS REPRESENTATIVE, Yulissa Attending Unavailable Cordry [place] HIGH SCHOOL ADMISSIONS REPRESENTATIVE, Yulissa Primary Care Unavailable Sophia HIGH SCHOOL ADMISSIONS REPRESENTATIVE, Yulissa Attending Unavailable Cordry [place] HIGH SCHOOL ADMISSIONS REPRESENTATIVE, Yulissa Primary Care Unavailable Cordry [place] HIGH SCHOOL ADMISSIONS REPRESENTATIVE, Yulissa Attending Unavailable Cordry [place] HIGH SCHOOL ADMISSIONS REPRESENTATIVE, Yulissa Primary Care Unavailable Roof HIGH SCHOOL ADMISSIONS REPRESENTATIVE, Venkatesh H Referring Unavailable Roof HIGH SCHOOL ADMISSIONS REPRESENTATIVE, Venkatesh H Attending Unavailable Sophia HIGH SCHOOL ADMISSIONS REPRESENTATIVE, Yulissa Primary Care Unavailable Sophia HIGH SCHOOL ADMISSIONS REPRESENTATIVE, Yulissa Primary Care Unavailable Yovani, Callands Referring Unavailable Yovani, Akhil Attending Unavailable Sophia HIGH SCHOOL ADMISSIONS REPRESENTATIVE, Yulissa Attending Unavailable Cordry [place] HIGH SCHOOL ADMISSIONS REPRESENTATIVE, Yulissa Primary Care Unavailable Sophia HIGH SCHOOL ADMISSIONS REPRESENTATIVE, Yulissa Primary Care Unavailable Sophia HIGH SCHOOL ADMISSIONS REPRESENTATIVE, Yulissa Attending Unavailable Sophia HIGH SCHOOL ADMISSIONS REPRESENTATIVE, Yulissa Primary Care Unavailable Sophia HIGH SCHOOL ADMISSIONS REPRESENTATIVE, Yulissa Attending Unavailable JOSE ISAACS DO Primary Care Physician [phone] SOPHIA ARTS EDUCATION TEACHER-CAR CLEANING SUPERVISOR, YULISSA S Attending Unava ilable SOPHIA ARTS EDUCATION TEACHER-CAR CLEANING SUPERVISOR, YULISSA S Primary Care Unava ilable JOSE ISAACS DO Primary Care Unavailable ADY ROJO DO Consulting Unavailable SAW CHAMBERS MD Attending Unavailable Teagan Patino Unavailable Unavailable CHAYO BELLO MD Attending Unavailadelita e JOSE ISAACS DO Consulting Unavailable JOSE ISAACS DO Primary Care Unavailable ADY [...] qDay, # 270 tab(s), 3 Refill(s), Pharmacy: [facility] #[id number], 160, cm, 09/02/22 9:48:00 EDT, Height, kg, 09/02/22 9:48:00 EDT, Dosing Weight Start Date: 11/09/22 Status: Ordered Start: 11-06-2021 End: 11-03-2022 allopurinol 100 mg oral tabl et Dose : 300 mg = 3 tab(s), Oral, qDay, # 270 tab(s), 1 Refill(s), [id number], 160, cm, 04/07/22 5:47:00 EST, Height, kg, [...] qDay, # 90 tab(s), 3 Refill(s), Pharmacy: [facility], 163, cm, 05/02/20 7:46:00 EST, [...] qHS, # 100 tab(s), 3 Refill(s), Pharmacy: [facility] #[id number], 162.3, cm, 08/31/23 9:22:00 EDT, Height, kg, 08/31/23 9:22:00 EDT, Dosing Weight Start Date: 08/31/23 Status: Ordered Quantity: 100.0 Unit: tab(s) Repeat number: 4 Start: 09-30-2021 End: 05-16-2023 traZODone 50 mg oral tablet Dose : 50 mg = 1 tab(s), Oral, qHS, # 90 tab(s), 3 Refill(s), Pharmacy: [facility] #[id number], 160, cm, 04/07/22 5:47:00 EST, Height, kg, [...] qDay, # 90 tab(s), 3 Refill(s), Pharmacy: [facility] #[id number], 162.3, cm, 08/31/23 9:22:00 EDT, Height, kg, [...] qHS, # 90 tab(s), 3 Refill(s), Pharmacy: [facility], 160, cm, 09/02/22 9:48:00 EDT, [...] source) Long-term current use of anticoagulant; Translations: [ad terminal makeup operator (current) use of anticoagulants] Episodic Other bone [...] Da te Episodic/Chronic Other aftercare (1 source) ad terminal makeup operator (current) use of anticoagulants; Translations: [MCFP (current) use of anticoagulants] Onset: 09-23-2023 Episodic Other aftercare (1 source) Encounter for therapeutic drug level monitoring; Translations: [Encounter for therapeutic drug level monitoring] Onset: 09-23-2023 Episodic Other aftercare (1 source) Other terminal gauger (current) drug therapy; Translations: [Other detention (current) drug therapy] Onset: 09-23-2023 Episodic Results Test Name Value Interpretation Reference Range Facility .Auto Diffon 09-06-2024 Basophil, Absolute 0.1 10 3/mcL Normal 0.0-0.3 [facility] Comment on above: Performed By: #### H H, CK #### [address] [address] Basophils/100 WBC (Bld) 0.7 % Normal 0.0-2.5 [facility] Comment on above: Performed By: #### H H, CK #### [address] [address] Eosinophil, Absolute 0.1 10 3/mcL Normal 0.0-0.7 [facility] Comment on above: Performed By: #### H H, CK #### [address] [address] Eosinophils/100 WBC (Bld) 1.0 % Normal 0.0-6.0 [facility] Comment on above: Performed By: #### H H, CK #### [address] [address] Lymphocyte, Absolute 1.0 10 3/mcL Normal 0.9-4.3 [facility] Comment on above: Performed By: #### H H, CK #### [address] [address] Lymphocytes/100 WBC (Bld) 9.6 % Low 20.0-40.0 [facility] Comment on above: Performed By: #### H H, CK #### [address] [address] Monocyte, Absolute 0.7 10 3/mcL Normal 0.1-1.4 [facility] Comment on above: Performed By: #### H H, CK #### [address] [address] Monocytes/100 WBC (Bld) 7.3 % Normal 2.0-13.0 [facility] Comment on above: Performed By: #### H H, CK #### [place] [address] Neutrophils/100 WBC (Bld) 81.4 % High 50.0-75.0 [facility] Comment on above: Performed By: #### H H, CK #### [place] [address] .NEUABSon 09-06-2024 Neutrophil, Absolute 8.4 10 3/mcL High 2.3-8.1 [facility] Comment on above: Performed By: #### H H, CK #### [place] [address] CBCon 09-06-2024 Erythrocyte distribution width (RBC) [Ratio] 15.2 % Normal 11.5-15.5 [facility] Comment on above: Performed By: #### H H, CK #### [place] [address] Hematocrit (Bld) [Volume fraction] 27.2 % Low 34.0-46.0 [facility] Comment on above: Performed By: #### H H, CK #### [place] [address] Hgb 9.2 G/dL Low 12.0-16.0 [facility] Comment on above: Performed By: #### H H, CK #### [place] [address] MCH (RBC) [Entitic mass] 29.3 pg Normal 27.0-33.0 [facility] Comment on above: Performed By: #### H H, CK #### [place] [address] MCHC 33.7 G/dL Normal 32.0-36.0 [facility] Comment on above: Performed By: #### H H, CK #### [place] [address] MCV (RBC) [Entitic vol] 87.0 fL Normal 80.0-99.0 [facility] Comment on above: Performed By: #### H H, CK #### [address] [address] Platelet 411 10 3/mcL Normal 150-450 [facility] Comment on above: Performed By: #### H H, CK #### [facility] [address] [place] [address] Platelet mean volume (Bld) [Entitic vol] 8.1 fL Normal 6.6-10.5 [facility] Comment on above: Performed By: #### H H, CK #### [facility] [address] [place] [address] RBC 3.13 10 6/mcL Low 4.10-5.30 [facility] Comment on above: Performed By: #### H H, CK #### [address] [address] WBC 10.3 10 3/mcL Normal 4.5-10.8 [facility] Comment on above: Performed By: #### H H, CK #### [address] [address] CKon 09-06-2024 CK [Catalytic activity/Vol] 286 U/L High 7-185 [facility] Comment on above: Performed By: #### H H, CK #### [address] [address] LABORATORYOrdered By: SYSTEM SYSTEM on 09-06-2024 Basophils [...] s High 9.0 - 1 4.4 seconds [facility] Comment on above: Interpretive Data: E ffective 09/13/07, Protime results may be affected by some antibiotics (i.e. Ciprofloxacin, Azithromycin, Bactrim) which may potentiate the action of oral anticoagulants, with further increases in Protime/INR. PT International Ratio 2.0 ratio Invalid Interpretation Code [facility] Comment on above: Interpretive Data: Ruchi ortiz [employer] (CHEST, 1991, 102:312S-25S) [...] Coag (PPP) [Relative time] 2.0 {INR} Normal [facility] Comment on above: Result Comment: [employer] (CHEST, 1991, 102:312S-25S) recommended therapeutic range for oral anticoagulant therapy is: LOW RISK: Prophylaxis of venous thrombosis INR: 2.0-3.0 Treatment of pulmonary embolism 2.0-3.0 Prevention of systemic embolism 2.0-3.0 HIGH RISK: Mechanical prosthetic valves 2.5-3.5 Performed By: #### H H, CK #### [place] [address] PT Coag (PPP) [Time] 22.6 s High 9.0-14.4 [facility] Comment on above: Result Comment: Effe ctive 09/13/07, Protime results may be affected by some antibiotics (i.e. Ciprofloxacin, Azithromycin, Bactrim) which may potentiate the action of oral anticoagulants, with further increases in Protime/INR. Performed By: #### H H, CK #### [place] [address] CKon 09-05-2024 CK [Catalytic activity/Vol] 293 U/L High 7-185 [facility] Comment on above: Performed By: #### H H, CK #### [address] [address] [facility] 09-05-2024 Hematocrit (Bld) [Volume fraction] 26.5 % Low 34.0-46.0 [facility] Comment on above: Performed By: #### H H, CK #### [place] [address] Hgb 9.0 G/dL Low 12.0-16.0 [facility] Comment on above: Performed By: #### H H, CK #### [facility] [address] [place] [address] LABORATORYOrdered By: SYSTEM SYSTEM on 09-05-2024 CK [...] Comment on above: Interpretive Data: T angel [employer] (CHEST, 1991, 102:312S-25S) recommended therapeutic range for oral anticoagulant therapy is: LOW RISK: Prophylaxis of venous thrombosis INR: 2.0-3.0 Treatment of pulmonary embolism 2.0-3.0 Prevention of systemic embolism 2.0-3.0 HIGH RISK: Mechanical prosthetic valves 2.5-3.5 PROon 09-05-2024 INR Coag (PPP) [Relative time] 2.2 {INR} Normal [facility] Comment on above: Result Comment: [employer] (CHEST, 1991, 102:312S-25S) recommended therapeutic range for oral anticoagulant therapy is: LOW RISK: Prophylaxis of venous thrombosis INR: 2.0-3.0 Treatment of pulmonary embolism 2.0-3.0 Prevention of systemic embolism 2.0-3.0 HIGH RISK: Mechanical prosthetic valves 2.5-3.5 Performed By: #### P RO #### [facility] [address] [place] [address] PT Coag (PPP) [Time] 25.5 s High 9.0-14.4 [facility] Comment on above: Result Comment: Effe ctive 09/13/07, Protime results may be affected by some antibiotics (i.e. Ciprofloxacin, Azithromycin, Bactrim) which may potentiate the action of oral anticoagulants, with further increases in Protime/INR. Performed By: #### P RO #### [address] [address] .Auto Diffon 09-04-2024 Basophil, Absolute 0.1 10 3/mcL Normal 0.0-0.3 [facility] Comment on above: Performed By: #### A DIFF, CBC, MG, GFR, ANEU, CMP #### [address] [address] Basophils/100 WBC (Bld) 0.9 % Normal 0.0-2.5 [facility] Comment on above: Performed By: #### A DIFF, CBC, MG, GFR, ANEU, CMP #### [address] [address] Eosinophil, Absolute 0.3 10 3/mcL Normal 0.0-0.7 [facility] Comment on above: Performed By: #### A DIFF, CBC, MG, GFR, ANEU, CMP #### [address] [address] Eosinophils/100 WBC (Bld) 3.4 % Normal 0.0-6.0 [facility] Comment on above: Performed By: #### A DIFF, CBC, MG, GFR, ANEU, CMP #### [address] [address] Lymphocyte, Absolute 1.3 10 3/mcL Normal 0.9-4.3 [facility] Comment on above: Performed By: #### A DIFF, CBC, MG, GFR, ANEU, CMP #### [address] [address] Lymphocytes/100 WBC (Bld) 14.5 % Low 20.0-40.0 [facility] Comment on above: Performed By: #### A DIFF, CBC, MG, GFR, ANEU, CMP #### [address] [address] Monocyte, Absolute 0.9 10 3/mcL Normal 0.1-1.4 [facility] Comment on above: Performed By: #### A DIFF, CBC, MG, GFR, ANEU, CMP #### [address] [address] Monocytes/100 WBC (Bld) 9.8 % Normal 2.0-13.0 [facility] Comment on above: Performed By: #### A DIFF, CBC, MG, GFR, ANEU, CMP #### [address] [address] Neutrophils/100 WBC (Bld) 71.4 % Normal 50.0-75.0 [facility] Comment on above: Performed By: #### A DIFF, CBC, MG, GFR, ANEU, CMP #### [address] [address] .GFRon 09-04-2024 Estimated Glomerular Filtration Rate 66 ml/min/1.73sqm Normal [facility] Comment on above: Result Comment: [...] Performed By: #### H H, CK #### [address] [address] .NEUABSon 09-04-2024 Neutrophil, Absolute 6.3 10 3/mcL Normal 2.3-8.1 [facility] Comment on above: Performed By: #### A DIFF, CBC, MG, GFR, ANEU, CMP #### [address] [address] CBCon 09-04-2024 Erythrocyte distribution width (RBC) [Ratio] 15.4 % Normal 11.5-15.5 [facility] Comment on above: Performed By: #### A DIFF, CBC, MG, GFR, ANEU, CMP #### [place] [address] Hematocrit (Bld) [Volume fraction] 25.4 % Low 34.0-46.0 [facility] Comment on above: Performed By: #### A DIFF, CBC, MG, GFR, ANEU, CMP #### [place] [address] Hgb 8.6 G/dL Low 12.0-16.0 [facility] Comment on above: Performed By: #### A DIFF, CBC, MG, GFR, ANEU, CMP #### [place] [address] MCH (RBC) [Entitic mass] 29.5 pg Normal 27.0-33.0 [facility] Comment on above: Performed By: #### A DIFF, CBC, MG, GFR, ANEU, CMP #### [place] [address] MCHC 33.7 G/dL Normal 32.0-36.0 [facility] Comment on above: Performed By: #### A DIFF, CBC, MG, GFR, ANEU, CMP #### [place] [address] MCV (RBC) [Entitic vol] 87.4 fL Normal 80.0-99.0 [facility] Comment on above: Performed By: #### A DIFF, CBC, MG, GFR, ANEU, CMP #### [place] [address] Platelet 281 10 3/mcL Normal 150-450 [facility] Comment on above: Performed By: #### A DIFF, CBC, MG, GFR, ANEU, CMP #### [place] [address] Platelet mean volume (Bld) [Entitic vol] 8.4 fL Normal 6.6-10.5 [facility] Comment on above: Performed By: #### A DIFF, CBC, MG, GFR, ANEU, CMP #### [place] [address] RBC 2.91 10 6/mcL Low 4.10-5.30 [facility] Comment on above: Performed By: #### A DIFF, CBC, MG, GFR, ANEU, CMP #### [place] [address] WBC 8.9 10 3/mcL Normal 4.5-10.8 [facility] Comment on above: Performed By: #### A DIFF, CBC, MG, GFR, ANEU, CMP #### [place] [address] CKon 09-04-2024 CK [Catalytic activity/Vol] 467 U/L High 7-185 [facility] Comment on above: Performed By: #### C K, PRO #### [place] [address] CMPon 09-04-2024 Albumin Level 3.2 G/dL Normal 3.2-4.8 [facility] Comment on above: Performed By: #### H H, CK #### [place] [address] Albumin/Globulin [Mass ratio] 1.0 {ratio} Normal 0.9-1.6 [facility] Comment on above: Performed By: #### H H, CK #### [place] [address] ALP [Catalytic activity/Vol] 77 U/L Normal 38-126 [facility] Comment on above: Performed By: #### H H, CK #### [place] [address] ALT [Catalytic activity/Vol] 18 U/L Normal 10-49 [facility] Comment on above: Performed By: #### H H, CK #### [place] [address] AST [Catalytic activity/Vol] 32 U/L Normal 8-34 [facility] Comment on above: Performed By: #### H H, CK #### [place] [address] Bili Total 1.20 mg/dL Normal 0.20-1.20 [facility] Comment on above: Result Comment: Use of this assay is not recommended for patients undergoing treatment with eltrombopag due to the potential for falsely elevated results. Performed By: #### H H, CK #### [place] [address] BUN/Creatinine Ratio 22.2 ratio High 10.0-22.0 [facility] Comment on above: Performed By: #### H H, CK #### [place] [address] Calcium [Mass/Vol] 9.3 mg/dL Normal 8.7-10.4 [facility] Comment on above: Performed By: #### H H, CK #### [place] [address] Chloride [Moles/Vol] 99 mmol/L Normal 98-110 [facility] Comment on above: Performed By: #### H H, CK #### [place] [address] CO2 [Moles/Vol] 27 mmol/L Normal 22-32 [facility] Comment on above: Performed By: #### H H, CK #### [place] [address] Creatinine [Mass/Vol] 0.90 mg/dL Normal 0.50-1.20 [facility] Comment on above: Result Comment: Test ing performed on DropMat analyzer using enzymatic creatinine methodology. Performed By: #### H H, CK #### [place] [address] Electrolyte Balance 10.0 mEq/L Normal 4.0-15.0 [facility] Comment on above: Performed By: #### H H, CK #### [place] [id number] Globulin 3.3 G/dL Normal 2.5-4.2 [facility] Comment on above: Performed By: #### H H, CK #### [place] [address] Glucose [Mass/Vol] 113 mg/dL Normal 82-115 [facility] Comment on above: Performed By: #### H H, CK #### [facility] [address] [place] [address] Potassium [Moles/Vol] 4.7 mmol/L Normal 3.5-5.0 [facility] Comment on above: Performed By: #### H H, CK #### [facility] [address] [place] [address] Sodium [Moles/Vol] 136 mmol/L Normal 136-145 [facility] Comment on above: Performed By: #### H H, CK #### [address] [address] Total Protein 6.5 G/dL Normal 5.7-8.2 [facility] Comment on above: Performed By: #### H H, CK #### [address] [address] Urea nitrogen [Mass/Vol] 20.0 mg/dL Normal 8.0-22.0 [facility] Comment on above: Performed By: #### H H, CK #### [address] [address] LABORATORYOrdered By: Sixto Jones on 09-04-2024 Glucose [Mass/Vol] 123 mg/dL High 82 - 115 mg/dL [facility] LABORATORYOrdered By: SYSTEM SYSTEM on 09-04-2024 [...] above: Interpretive Data: T esting performed on DropMat analyzer using enzymatic creatinine methodology. Electrolyte Balance [...] Comment on above: Interpretive Data: Ruchi ortiz [employer] (CHEST, 1991, 102:312S-25S) [...] 09-04-2024 Magnesium [Mass/Vol] 1.8 mg/dL Normal 1.6-2.4 [facility] Comment on above: Performed By: #### A DIFF, CBC, MG, GFR, ANEU, CMP #### [address] [address] PROon 09-04-2024 INR Coag (PPP) [Relative time] 2.3 {INR} Normal [facility] Comment on above: Result Comment: [employer] (CHEST, 1991, 102:312S-25S) recommended therapeutic range for oral anticoagulant therapy is: LOW RISK: Prophylaxis of venous thrombosis INR: 2.0-3.0 Treatment of pulmonary embolism 2.0-3.0 Prevention of systemic embolism 2.0-3.0 HIGH RISK: Mechanical prosthetic valves 2.5-3.5 Performed By: #### C K, PRO #### [address] [address] PT Coag (PPP) [Time] 26.9 s High 9.0-14.4 [facility] Comment on above: Result Comment: Effe ctive 09/13/07, Protime results may be affected by some antibiotics (i.e. Ciprofloxacin, Azithromycin, Bactrim) which may potentiate the action of oral anticoagulants, with further increases in Protime/INR. Performed By: #### C K PRO #### [address] [address] .Auto Diffon 09-03-2024 Basophil, Absolute 0.1 10 3/mcL Normal 0.0-0.3 [facility] Comment on above: Performed By: #### C BC, ANEU, PRO, MDW, ADIFF #### [facility] [address] [place], [place] [address] Basophils/100 WBC (Bld) 1.0 % Normal 0.0-2.5 [facility] Comment on above: Performed By: #### C BC, ANEU, PRO, MDW, ADIFF #### [facility] [address] [place], [place] [address] Eosinophil, Absolute 0.2 10 3/mcL Normal 0.0-0.7 [facility] Comment on above: Performed By: #### C BC, ANEU, PRO, MDW, ADIFF #### [facility] [address] [place], [place] [address] Eosinophils/100 WBC (Bld) 1.8 % Normal 0.0-6.0 [facility] Comment on above: Performed By: #### C BC, ANEU, PRO, MDW, ADIFF #### [facility] [address] [place], [place] [address] Lymphocyte, Absolute 1.9 10 3/mcL Normal 0.9-4.3 [facility] Comment on above: Performed By: #### C BC, ANEU, PRO, MDW, ADIFF #### [facility] [address] [place], [place] [address] Lymphocytes/100 WBC (Bld) 15.6 % Low 20.0-40.0 [facility] Comment on above: Performed By: #### C BC, ANEU, PRO, MDW, ADIFF #### [facility] [address] [place], [place] [address] Monocyte, Absolute 1.1 10 3/mcL Normal 0.1-1.4 [facility] Comment on above: Performed By: #### C BC, ANEU, PRO, MDW, ADIFF #### [facility] [address] [place], [place] [address] Monocytes/100 WBC (Bld) 9.0 % Normal 2.0-13.0 [facility] Comment on above: Performed By: #### C BC, ANEU, PRO, MDW, ADIFF #### [facility] [address] [place], [place] [address] Neutrophils/100 WBC (Bld) 72.6 % Normal 50.0-75.0 [facility] Comment on above: Performed By: #### C BC, ANEU, PRO, MDW, ADIFF #### [facility] [address] [place], [place] [address] Basophil, Absolute 0.1 10 3/mcL Normal 0.0-0.3 [facility] Comment on above: Performed By: #### A DIFF, CK, ANEU, MORPH, GFR, CBC, PRO, MDW, BMP #### [facility] [address] [place], [place] [address] Basophils/100 WBC (Bld) 0.9 % Normal 0.0-2.5 [facility] Comment on above: Performed By: #### A DIFF, CK, ANEU, MORPH, GFR, CBC, PRO, MDW, BMP #### [facility] [address] [place], [place] [address] Eosinophil, Absolute 0.2 10 3/mcL Normal 0.0-0.7 [facility] Comment on above: Performed By: #### A DIFF, CK, ANEU, MORPH, GFR, CBC, PRO, MDW, BMP #### [facility] [address] [place], [place] [address] Eosinophils/100 WBC (Bld) 1.5 % Normal 0.0-6.0 [facility] Comment on above: Performed By: #### A DIFF, CK, ANEU, MORPH, GFR, CBC, PRO, MDW, BMP #### [facility] [place] [address] [place], [place] [address] Lymphocyte, Absolute 2.0 10 3/mcL Normal 0.9-4.3 [facility] Comment on above: Performed By: #### A DIFF, CK, ANEU, MORPH, GFR, CBC, PRO, MDW, BMP #### [facility] [address] [place], [place] [address] Lymphocytes/100 WBC (Bld) 15.5 % Low 20.0-40.0 ALBERTO MASSILLON Comment on above: Performed By: #### A DIFF, CK, ANEU, MORPH, GFR, CBC, PRO, MDW, BMP #### [facility] [place] [address] [place], [place] [address] Monocyte, Absolute 1.4 10 3/mcL Normal 0.1-1.4 MATTEO MAN MASSILLON Comment on above: Performed By: #### A DIFF, CK, ANEU, MORPH, GFR, CBC, PRO, MDW, BMP #### [facility] [place] [address] [place], [place] [address] Monocytes/100 WBC (Bld) 10.6 % Normal 2.0-13.0 ALBERTO MASSILLON Comment on above: Performed By: #### A DIFF, CK, ANEU, MORPH, GFR, CBC, PRO, MDW, BMP #### [facility] [address] [place], [place] [address] Neutrophils/100 WBC (Bld) 71.5 % Normal 50.0-75.0 ALBERTO MASSILLON Comment on above: Performed By: #### A DIFF, CK, ANEU, MORPH, GFR, CBC, PRO, MDW, BMP #### [facility] [place] [address] [place], [place] [address] .GFRon 09-03-2024 Estimated Glomerular Filtration Rate 53 [...] BC, ANEU, PRO, MDW, ADIFF #### [facility] [place] [address] [place], [place] [address] .MDWon 09-03-2024 Monocyte Distribution Width 20.48 High 0.00-20.00 ALBERTO MASSILLON Comment on above: Result Comment: For adults in ED, MDW>20.0 may be associated with a higher risk of sepsis during the first 12hrs of hospital admission Performed By: #### C BC, ANEU, PRO, MDW, ADIFF #### [facility] [place] [address] [place] [address] Monocyte Distribution Width 16.95 Normal 0.00-20.00 ALBERTO MASSILLON Comment on above: Result Comment: For ED adult patients suspected of sepsis, MDW<=20.0 does not rule out sepsis or risk of sepsis Performed By: #### A DIFF, CK, ANEU, MORPH, GFR, CBC, PRO, MDW, BMP #### [facility] [place] [address] [place], [place] [address] .Morphon 09-03-2024 Platelet Estimate Normal Normal ALBERTO MASSILLON Comment on above: Performed By: #### A DIFF, CK, ANEU, MORPH, GFR, CBC, PRO, MDW, BMP #### [facility] [place] [address] [place], [place] [address] .NEUABSon 09-03-2024 Neutrophil, Absolute 8.7 10 3/mcL High 2.3-8.1 AU LTMAN MASSILLON Comment on above: Performed By: #### C BC, ANEU, PRO, MDW, ADIFF #### [facility]to [place] [address] [place], [place] [address] Neutrophil, Absolute 9.1 10 3/mcL High 2.3-8.1 AU LTMAN MASSILLON Comment on above: Performed By: #### A DIFF, CK, ANEU, MORPH, GFR, CBC, PRO, MDW, BMP #### [facility] [place] [address] [place], [place] [address] BMPon 09-03-2024 BUN/Creatinine Ratio 32 ratio High 7-27 MATTEO MAN MASSILLON Comment on above: Performed By: #### C BC, ANEU, PRO, MDW, ADIFF #### [facility] [place] [address] [place], [place] [address] Calcium [Mass/Vol] 9.3 mg/dL Normal 8.4-10.2 AULTMA N MASSILLON Comment on above: Performed By: #### C BC, ANEU, PRO, MDW, ADIFF #### [facility] [address] [place], [place] [address] Chloride [Moles/Vol] 98 mmol/L Normal 98-107 MATTEO MAN MASSILLON Comment on above: Performed By: #### C BC, ANEU, PRO, MDW, ADIFF #### [facility] [address] [place], [place] [address] CO2 [Moles/Vol] 30 mmol/L Normal 23-31 ALBERTO MASSILLON Comment on above: Performed By: #### C BC, ANEU, PRO, MDW, ADIFF #### [facility] [place] [address] [place], [place] [address] Creatinine [Mass/Vol] 1.09 mg/dL High 0.51-0.95 AUL TMAN MASSILLON Comment on above: Performed By: #### C BC, ANEU, PRO, MDW, ADIFF #### [facility] [address] [place], [place] [address] Electrolyte Balance 6.0 mEq/L Normal 4.0-15.0 AULTM AN MASSILLON Comment on above: Performed By: #### C BC, ANEU, PRO, MDW, ADIFF #### [facility] [place] [address] [place], [place] [address] Glucose [Mass/Vol] 138 mg/dL High 83-110 AULTMA N MASSILLON Comment on above: Performed By: #### C BC, ANEU, PRO, MDW, ADIFF #### [facility] [place] [address] [place], [place] [address] Potassium [Moles/Vol] 4.1 mmol/L Normal 3.5-5.1 AUL TMAN MASSILLO Comment on above: Performed By: #### C BC, ANEU, PRO, MDW, ADIFF #### [facility] [place] [address] [place], [place] [address] Sodium [Moles/Vol] 134 mmol/L Low 136-145 AULTMA N MASSILLON Comment on above: Performed By: #### C BC, ANEU, PRO, MDW, ADIFF #### [facility] [place] [address] [place], [place] [address] Urea nitrogen [Mass/Vol] 35 mg/dL High 7-18 ALBERTO MASSILLO Comment on above: Performed By: #### C BC, ANEU, PRO, MDW, ADIFF #### [facility] [place] [address] [place], [place] [address] CBCon 09-03-2024 Erythrocyte distribution width (RBC) [Ratio] 15.5 % Normal 11.5-15.5 [facility] Comment on above: Performed By: #### C BC, ANEU, PRO, MDW, ADIFF #### [facility] [place] [address] [place], [place] [address] Hematocrit (Bld) [Volume fraction] 29.7 % Low 34.0-46.0 ALBERTO MASSILLO Comment on above: Performed By: #### C BC, ANEU, PRO, MDW, ADIFF #### [facility] [place] [address] [place], [place] [address] Hgb 9.7 G/dL Low 12.0-16.0 ALBERTO MASSILLON Comment on above: Performed By: #### C BC, ANEU, PRO, MDW, ADIFF #### [facility] [place] [address] [place], [place] [address] MCH (RBC) [Entitic mass] 28.5 pg Normal 27.0-33.0 ALBERTO MASSILLON Comment on above: Performed By: #### C BC, ANEU, PRO, MDW, ADIFF #### [facility] [address] [place], [place] [address] MCHC 32.8 G/dL Normal 32.0-36.0 ALBERTO MASSILLON Comment on above: Performed By: #### C BC, ANEU, PRO, MDW, ADIFF #### [facility] [address] [place], [place] [address] MCV (RBC) [Entitic vol] 87.0 fL Normal 80.0-99.0 ALBERTO MASSILLON Comment on above: Performed By: #### C BC, ANEU, PRO, MDW, ADIFF #### [facility] [address] [place], [place] [address] Platelet 313 10 3/mcL Normal 150-450 ALBERTO MASSILLON Comment on above: Performed By: #### C BC, ANEU, PRO, MDW, ADIFF #### [facility] [address] [place] [id number] Platelet mean volume (Bld) [Entitic vol] 8.3 fL Normal 6.6-10.5 ALBERTO MASSILLON Comment on above: Performed By: #### C BC, ANEU, PRO, MDW, ADIFF #### [facility] [address] [place], [place] [address] RBC 3.41 10 6/mcL Low 4.10-5.30 ALBERTO MASSILLON Comment on above: Performed By: #### C BC, ANEU, PRO, MDW, ADIFF #### [facility] [place] [address] [place], [place] [address] WBC 11.9 10 3/mcL High 4.5-10.8 ALBERTO MASSILLON Comment on above: Performed By: #### C BC, ANEU, PRO, MDW, ADIFF #### [facility] [place] [address] [place], [place] [address] Erythrocyte distribution width (RBC) [Ratio] 15.8 % High 11.5-15.5 ALBERTO MASSILLON Comment on above: Performed By: #### A DIFF, CK, ANEU, MORPH, GFR, CBC, PRO, MDW, BMP #### [facility] [address] [place], [place] [address] Hematocrit (Bld) [Volume fraction] 30.9 % Low 34.0-46.0 [facility] Comment on above: Performed By: #### A DIFF, CK, ANEU, MORPH, GFR, CBC, PRO, MDW, BMP #### [facility] [address] [place], [place] [address] Hgb 10.1 G/dL Low 12.0-16.0 [facility] Comment on above: Performed By: #### A DIFF, CK, ANEU, MORPH, GFR, CBC, PRO, MDW, BMP #### [facility] [address] [place], [place] [address] MCH (RBC) [Entitic mass] 28.6 pg Normal 27.0-33.0 [facility] Comment on above: Performed By: #### A DIFF, CK, ANEU, MORPH, GFR, CBC, PRO, MDW, BMP #### [facility] [address] [place], [place] [address] MCHC 32.8 G/dL Normal 32.0-36.0 [facility] Comment on above: Performed By: #### A DIFF, CK, ANEU, MORPH, GFR, CBC, PRO, MDW, BMP #### [facility] [address] [place], [place] [address] MCV (RBC) [Entitic vol] 87.3 fL Normal 80.0-99.0 [facility] Comment on above: Performed By: #### A DIFF, CK, ANEU, MORPH, GFR, CBC, PRO, MDW, BMP #### [facility] [address] [place] [id number] Platelet 327 10 3/mcL Normal 150-450 [facility] Comment on above: Performed By: #### A DIFF, CK, ANEU, MORPH, GFR, CBC, PRO, MDW, BMP #### [facility] [address] [place] [id number] Platelet mean volume (Bld) [Entitic vol] 8.4 fL Normal 6.6-10.5 ALBERTO MASSILLON Comment on above: Performed By: #### A DIFF, CK, ANEU, MORPH, GFR, CBC, PRO, MDW, BMP #### [facility] [place] [address] [place], [place] [address] RBC 3.54 10 6/mcL Low 4.10-5.30 ALBERTO MASSILLON Comment on above: Performed By: #### A DIFF, CK, ANEU, MORPH, GFR, CBC, PRO, MDW, BMP #### [facility] [place] [address] [place], [place] [address] WBC 12.7 10 3/mcL High 4.5-10.8 ALBERTO MASSILLON Comment on above: Performed By: #### A DIFF, CK, ANEU, MORPH, GFR, CBC, PRO, MDW, BMP #### [facility] [address] [place], [place] [address] CKon 09-03-2024 CK [Catalytic activity/Vol] 726 U/L High 26-192 ALBERTONITO HUTSONILLON Comment on above: Performed By: #### C BC, ANEU, PRO, MDW, ADIFF #### [facility] [address] [place], [place] [address] CT ANGIOGRAPHY ABD/PELVIS/BI LAT LOWER EXTREMon 09-03-2024 [...] 09/03/2024 3:13:12 AM Ordering Provider: SAW Quispe [facility] 09-03-2024 Hematocrit (Bld) [Volume fraction] 27.0 % Low 34.0-46.0 [facility] Comment on above: Performed By: #### H H #### [place] [address] Hgb 9.0 G/dL Low 12.0-16.0 [facility] Comment on above: Performed By: #### H H #### [place] [address] LABORATORYOrdered By: SYSTEM SYSTEM on 09-03-2024 Basophils [...] PRO, MDW, ADIFF #### Alberto [facility] [address] [place], [place] [address] PT International Ratio 7.9 Critically abnormal ALBERTO ARIAS Comment on above: Result Comment: [employer] (CHEST, 1992, 102:312S-25S) recommended therapeutic range for oral anticoagulant therapy is: LOW RISK: Prophylaxis of venous thrombosis INR: 2.0-3.0 Treatment of pulmonary embolism 2.0-3.0 Prevention of systemic embolism 2.0-3.0 HIGH RISK: Mechanical prosthetic valves 2.5-3.5 Performed By: #### C ASHLEE MONGE PRO, MDW, ADIFF #### [facility] [address] [place], [place] [address] PT Coag (PPP) [Time] 95.7 s High 9.0-14.4 MATTEOLT NITO ARIAS Comment on above: Performed By: #### C ASHLEE MONGE PRO, MDW, ADIFF #### [facility] [address] [place], [place] [address] PT International Ratio 7.8 Critically abnormal ALBERTONITO HUTSONJUDY Comment on above: Result Comment: [employer] (CHEST, 1992, 102:312S-25S) recommended therapeutic range for oral anticoagulant therapy is: LOW RISK: Prophylaxis of venous thrombosis INR: 2.0-3.0 Treatment of pulmonary embolism 2.0-3.0 Prevention of systemic embolism 2.0-3.0 HIGH RISK: Mechanical prosthetic valves 2.5-3.5 Performed By: #### C ASHLEE MONGE PRO, MDW, ADIFF #### [facility] [address] [place], [place] [address] XR FEMUR MINIMUM 2 VIEWS LEF Ton [...] Date: 09/03/2024 2:02:10 AM Ordering Provider: SAW HCAMBERS Interpreted by: Maycol Abad MD Preliminary Report [...] 2:02:10 AM Ordering Provider: SAW CHAMBERS Normal [facility] .Auto Diffon 05-17-2024 Basophil, Absolute 0.0 10 3/mcL Normal 0.0-0.2 [facility] Comment on above: Performed By: #### L IPID, CMP, ANEU, VIDH, CBC, GFR, ADIFF #### [address] [address] Basophils/100 WBC (Bld) 0.7 % Normal 0.0-2.5 [facility] Comment on above: Performed By: #### L IPID, CMP, ANEU, VIDH, CBC, GFR, ADIFF #### [address] [address] Eosinophil, Absolute 0.2 10 3/mcL Normal 0.0-0.7 [facility] Comment on above: Performed By: #### L IPID, CMP, ANEU, VIDH, CBC, GFR, ADIFF #### [address] [address] Eosinophils/100 WBC (Bld) 2.5 % Normal 0.0-7.0 [facility] Comment on above: Performed By: #### L IPID, CMP, ANEU, VIDH, CBC, GFR, ADIFF #### [address] [address] Lymphocyte, Absolute 1.6 10 3/mcL Normal 0.9-4.3 [facility] Comment on above: Performed By: #### L IPID, CMP, ANEU, VIDH, CBC, GFR, ADIFF #### [address] [address] Lymphocytes/100 WBC (Bld) 23.1 % Normal 20.0-40.0 [facility] Comment on above: Performed By: #### L IPID, CMP, ANEU, VIDH, CBC, GFR, ADIFF #### [address] [address] Monocyte, Absolute 0.6 10 3/mcL Normal 0.1-1.4 [facility] Comment on above: Performed By: #### L IPID, CMP, ANEU, VIDH, CBC, GFR, ADIFF #### [address] [address] Monocytes/100 WBC (Bld) 9.6 % Normal 2.0-13.0 [facility] Comment on above: Performed By: #### L IPID, CMP, ANEU, VIDH, CBC, GFR, ADIFF #### [address] [address] Neutrophils/100 WBC (Bld) 64.1 % Normal 50.0-75.0 [facility] Comment on above: Performed By: #### L IPID, CMP, ANEU, VIDH, CBC, GFR, ADIFF #### [address] [address] .GFRon 05-17-2024 Estimated Glomerular Filtration Rate 55 ml/min/1.73sqm Normal [facility] Comment on above: Result Comment: Stages [...] CMP, ANEU, VIDH, CBC, GFR, ADIFF #### [address] [address] .NEUABSon 05-17-2024 Neutrophil, Absolute 4.3 10 3/mcL Normal 2.3-8.1 [facility] Comment on above: Performed By: #### L IPID, CMP, ANEU, VIDH, CBC, GFR, ADIFF #### [address] [address] CBCon 05-17-2024 Erythrocyte distribution width (RBC) [Ratio] 16.5 % High 11.5-15.5 [facility] Comment on above: Performed By: #### L IPID, CMP, ANEU, VIDH, CBC, GFR, ADIFF #### [place] [address] Hematocrit (Bld) [Volume fraction] 40.7 % Normal 34.0-46.0 [facility] Comment on above: Performed By: #### L IPID, CMP, ANEU, VIDH, CBC, GFR, ADIFF #### [place] [address] Hgb 13.4 G/dL Normal 12.0-16.0 [facility] Comment on above: Performed By: #### L IPID, CMP, ANEU, VIDH, CBC, GFR, ADIFF #### [address] [address] MCH (RBC) [Entitic mass] 27.9 pg Normal 27.0-33.0 [facility] Comment on above: Performed By: #### L IPID, CMP, ANEU, VIDH, CBC, GFR, ADIFF #### [address] [address] MCHC 32.9 G/dL Normal 32.0-36.0 [facility] Comment on above: Performed By: #### L IPID, CMP, ANEU, VIDH, CBC, GFR, ADIFF #### [place] [id number] MCV (RBC) [Entitic vol] 84.9 fL Normal 80.0-99.0 [facility] Comment on above: Performed By: #### L IPID, CMP, ANEU, VIDH, CBC, GFR, ADIFF #### [address] [address] Platelet 255 10 3/mcL Normal 150-450 [facility] Comment on above: Performed By: #### L IPID, CMP, ANEU, VIDH, CBC, GFR, ADIFF #### [address] [address] Platelet mean volume (Bld) [Entitic vol] 8.8 fL Normal 6.6-10.5 [facility] Comment on above: Performed By: #### L IPID, CMP, ANEU, VIDH, CBC, GFR, ADIFF #### [address] [address] RBC 4.79 10 6/mcL Normal 4.10-5.30 [facility] Comment on above: Performed By: #### L IPID, CMP, ANEU, VIDH, CBC, GFR, ADIFF #### [address] [address] WBC 6.8 10 3/mcL Normal 4.5-10.8 [facility] Comment on above: Performed By: #### L IPID, CMP, ANEU, VIDH, CBC, GFR, ADIFF #### [address] [address] CMPon 05-17-2024 Albumin Level 3.9 G/dL Normal 3.4-4.8 [facility] Comment on above: Performed By: #### L IPID, CMP, ANEU, VIDH, CBC, GFR, ADIFF #### [address] [address] Albumin/Globulin [Mass ratio] 1.0 {ratio} Low 1.1-2.5 [facility] Comment on above: Performed By: #### L IPID, CMP, ANEU, VIDH, CBC, GFR, ADIFF #### [address] [address] ALP [Catalytic activity/Vol] 101 U/L Normal 40-135 [facility] Comment on above: Performed By: #### L IPID, CMP, ANEU, VIDH, CBC, GFR, ADIFF #### [address] [address] ALT [Catalytic activity/Vol] 14 U/L Normal 14-59 [facility] Comment on above: Performed By: #### L IPID, CMP, ANEU, VIDH, CBC, GFR, ADIFF #### [address] [address] AST [Catalytic activity/Vol] 12 U/L Normal 10-40 [facility] Comment on above: Performed By: #### L IPID, CMP, ANEU, VIDH, CBC, GFR, ADIFF #### [address] [address] Bili Total 0.9 mg/dL Normal 0.2-1.0 [facility] Comment on above: Result Comment: Use of this assay is not recommended for patients undergoing treatment with eltrombopag due to the potential for falsely elevated results. Performed By: #### L IPID, CMP, ANEU, VIDH, CBC, GFR, ADIFF #### [address] [address] BUN/Creatinine Ratio 14 ratio Normal 7-27 [facility] Comment on above: Performed By: #### L IPID, CMP, ANEU, VIDH, CBC, GFR, ADIFF #### [address] [address] Calcium [Mass/Vol] 9.7 mg/dL Normal 8.4-10.2 [facility] Comment on above: Performed By: #### L IPID, CMP, ANEU, VIDH, CBC, GFR, ADIFF #### [address] [address] Chloride [Moles/Vol] 100 mmol/L Normal 98-107 [facility] Comment on above: Performed By: #### L IPID, CMP, ANEU, VIDH, CBC, GFR, ADIFF #### [address] [address] CO2 [Moles/Vol] 30 mmol/L Normal 23-31 [facility] Comment on above: Performed By: #### L IPID, CMP, ANEU, VIDH, CBC, GFR, ADIFF #### [address] [address] Creatinine [Mass/Vol] 1.05 mg/dL High 0.55-1.02 [facility] Comment on above: Result Comment: Test ing performed on Siemens Dimension EXL analyzer using a modified kinetic Jess technique. Performed By: #### L IPID, CMP, ANEU, VIDH, CBC, GFR, ADIFF #### [address] [address] Electrolyte Balance 6.0 mEq/L Normal 4.0-15.0 [facility] Comment on above: Performed By: #### L IPID, CMP, ANEU, VIDH, CBC, GFR, ADIFF #### [place] [address] Globulin 4.0 G/dL High 1.5-3.8 [facility] Comment on above: Performed By: #### L IPID, CMP, ANEU, VIDH, CBC, GFR, ADIFF #### [address] [address] Glucose [Mass/Vol] 84 mg/dL Normal 83-110 [facility] Comment on above: Performed By: #### L IPID, CMP, ANEU, VIDH, CBC, GFR, ADIFF #### [address] [address] Potassium [Moles/Vol] 3.9 mmol/L Normal 3.5-5.1 [facility] Comment on above: Performed By: #### L IPID, CMP, ANEU, VIDH, CBC, GFR, ADIFF #### [address] [address] Sodium [Moles/Vol] 136 mmol/L Normal 136-145 [facility] Comment on above: Performed By: #### L IPID, CMP, ANEU, VIDH, CBC, GFR, ADIFF #### [address] [address] Total Protein 7.9 G/dL Normal 6.4-8.2 [facility] Comment on above: Performed By: #### L IPID, CMP, ANEU, VIDH, CBC, GFR, ADIFF #### [address] [address] Urea nitrogen [Mass/Vol] 15 mg/dL Normal 7-18 [facility] Comment on above: Performed By: #### L IPID, CMP, ANEU, VIDH, CBC, GFR, ADIFF #### [address] [address] LIPIDon 05-17-2024 Cholesterol [Mass/Vol] 135 mg/dL Normal 0-200 [facility] Comment on above: Result Comment: Chol esterol Reference Interval: Less than 200 Desirable 200-239 Borderline high risk 240 and above High risk Performed By: #### L IPID, CMP, ANEU, VIDH, CBC, GFR, ADIFF #### [address] [address] Cholesterol in HDL [Mass/Vol] 55 mg/dL Normal 40-60 [facility] Comment on above: Performed By: #### L IPID, CMP, ANEU, VIDH, CBC, GFR, ADIFF #### [address] [address] Cholesterol in LDL [Mass/Vol] 52 mg/dL Normal 0-130 [facility] Comment on above: Performed By: #### L IPID, CMP, ANEU, VIDH, CBC, GFR, ADIFF #### [address] [address] Triglyceride [Mass/Vol] 140 mg/dL Normal 0-150 [facility] Comment on above: Result Comment: Trig lyceride Reference Interval: Less than 150 Normal 150-199 Borderline high risk 200-499 High risk 500 or higher Very high risk Performed By: #### L IPID, CMP, ANEU, VIDH, CBC, GFR, ADIFF #### [address] [address] PBNPon 05-17-2024 Natriuretic peptide B (Bld) [Mass/Vol] 189 pg/mL Normal 0-450 [facility] Comment on above: Result Comment: NT-p roBNP results of less than 300 pg/mL effectively rules out acute congestive heart failure with 99% negative predictive value. Performed By: #### P BNP #### [facility] [address] [place], [place] [address] VIDHon 05-17-2024 Vit. D 25-Hydroxy 67.6 ng/mL Normal [facility] Comment on above: Result Comment: Inte rpretive Values Based on Total 25(OH) Vitamin D: Deficient <20 ng/mL Insufficient 20 - <30 ng/mL Sufficient 30-100 ng/mL Performed By: #### L IPID, CMP, ANEU, VIDH, CBC, GFR, ADIFF #### [place] [id number] [place], [place] [address] Lipid Profileon 03-02-2024 Cholesterol [Mass/Vol] 140 mg/dL Normal 200 [facility] Comment on above: Order Comment: PT DE NTED LABS DONE NOW Result Comment: <200 mg/dL Desirable 200-240 mg/dL Borderline >240 mg/dL High Risk Performed By: #### L 500.4100, L500.3400 #### [facility] [address] [place], [address] Cholesterol in HDL [Mass/Vol] 49 mg/dL Normal [facility] Comment on above: Order Comment: PT DE NTED LABS DONE NOW Result Comment: The drugs N-Acetylcysteine and Metamizole may falsely depress this assay. Reference Range HDL <40 mg/dL Low HDL Cholesterol HDL >or= 60 mg/dL High HDL Cholesterol Performed By: #### L 500.4100, L500.3400 #### [facility] [address] [place], [address] Cholesterol in LDL [Mass/Vol] 65 mg/dL Normal 0-130 [facility] Comment on above: Order Comment: PT DE NTED LABS DONE NOW Performed By: #### L 500.4100, L500.3400 #### [facility] [address] [place], [address] Cholesterol in VLDL [Mass/Vol] 26 mg/dL Normal 5-40 [facility] Comment on above: Order Comment: PT WA NTED LABS DONE NOW Performed By: #### L 500.4100, L500.3400 #### [facility] [address] [place], [address] Triglyceride [Mass/Vol] 128 mg/dL Normal [facility] Comment on above: Order Comment: PT DE NTED LABS DONE NOW Result Comment: The drugs N-Acetylcysteine and Metamizole may falsely depress this assay. Serum Triglycerides Reference Interval Normal <150 mg/dL Borderline high 150 - 199 mg/dL High 200 - 499 mg/dL Very High > or = 500 mg/dL Performed By: #### L 500.4100, L500.3400 #### [facility] [address] [place], [address] CHOL Normal 200 [facility] Comment on above: Result Comment: EXPI RED Performed By: #### L 500.3400, L500.4100 #### [facility] [address] [place], [address] HDL Normal [facility] Comment on above: Result Comment: EXPI RED Performed By: #### L 500.3400, L500.4100 #### [facility] [address] [place], [address] LDL Normal 0-130 [facility] Comment on above: Result Comment: EXPI RED Performed By: #### L 500.3400, L500.4100 #### [facility] [address] [place], [address] TRIG Normal [facility] Comment on above: Result Comment: EXPI RED Performed By: #### L 500.3400, L500.4100 #### [facility] [address] [place], [address] VLDL Normal 5-40 [facility] Comment on above: Result Comment: EXPI RED Performed By: #### L 500.3400, L500.4100 #### [facility] [address] [place], [address] Liver Profileon 03-02-2024 Albumin [Mass/Vol] 3.8 g/dL Normal 3.2-5.0 [facility] Comment on above: Order Comment: PT WA NTED LABS DONE NOW Performed By: #### L 500.4100, L500.3400 #### [facility] [address] [place], [address] ALK P 104 U/L Normal 45-117 [facility] Comment on above: Order Comment: PT DE NTED LABS DONE NOW Performed By: #### L 500.4100, L500.3400 #### [facility] [address] [place], [address] ALT [Catalytic activity/Vol] 14 U/L Normal 13-56 [facility] Comment on above: Order Comment: PT WA NTED LABS DONE NOW Performed By: #### L 500.4100, L500.3400 #### [facility] [address] [place], [address] AST [Catalytic activity/Vol] 14 U/L Low 15-37 [facility] Comment on above: Order Comment: PT WA NTED LABS DONE NOW Performed By: #### L 500.4100, L500.3400 #### [facility] [address] [place], [address] Bilirubin [Mass/Vol] 1.10 mg/dL High 0.20-1.00 [facility] Comment on above: Order Comment: PT WA NTED LABS DONE NOW Result Comment: For patients on eltrombopag therapy, use of Dimension [place] TBIL is not recommended. Performed By: #### L 500.4100, L500.3400 #### [facility] [address] [place], [address] Bilirubin.direct [Mass/Vol] 0.31 mg/dL High 0.00-0.30 [facility] Comment on above: Order Comment: PT DE NTED LABS DONE NOW Performed By: #### L 500.4100, L500.3400 #### [facility] [address] [place], [address] Globulin (S) [Mass/Vol] 4.7 g/dL High 2.2-4.2 [facility] Comment on above: Order Comment: PT DE NTED LABS DONE NOW Performed By: #### L 500.4100, L500.3400 #### [facility] [address] [place], [address] T PROT 8.5 g/dL High 6.4-8.2 [facility] Comment on above: Order Comment: PT DE NTED LABS DONE NOW Performed By: #### L 500.4100, L500.3400 #### [facility] [address] [place], [address] ALB Normal 3.2-5.0 [facility] Comment on above: Result Comment: EXPI RED Performed By: #### L 500.3400, L500.4100 #### [facility] [address] [place], [address] ALK P Normal 45-117 [facility] Comment on above: Result Comment: EXPI RED Performed By: #### L 500.3400, L500.4100 #### [facility] [address] [place], [address] ALT Normal 13-56 [facility] Comment on above: Result Comment: EXPI RED Performed By: #### L 500.3400, L500.4100 #### [facility] [address] [place], [address] AST Normal 15-37 [facility] Comment on above: Result Comment: EXPI RED Performed By: #### L 500.3400, L500.4100 #### [facility] [address] [place], [address] D BILI Normal 0.00-0.30 [facility] Comment on above: Result Comment: EXPI RED Performed By: #### L 500.3400, L500.4100 #### [facility] [address] [place], [address] T BILI Normal 0.20-1.00 [facility] Comment on above: Result Comment: EXPI RED Performed By: #### L 500.3400, L500.4100 #### [facility] [address] [place], [address] T PROT Normal 6.4-8.2 [facility] Comment on above: Result Comment: EXPI RED Performed By: #### L 500.3400, L500.4100 #### [facility] [address] [place], [address] Prothrombin Time w/INRon INR Coag (PPP) [Relative time] 1.7 {INR} Normal [facility] Comment on above: Order Comment: Comme nts: STANDING ORDER: Fax to [facility] Lab Performed By: #### L 300.3900 #### [facility] [address] [place], [address] PT Coag (PPP) [Time] 19.9 s High 11.7-14.9 [facility] Comment on above: Order Comment: Comme nts: STANDING ORDER: Fax to [facility] Lab Performed By: #### L 300.3900 #### [facility] [address] [place], [address] LABORATORYOrdered By: SYSTEM SYSTEM on 01-19-2024 INR Coag (PPP) [Relative time] 2.0 {INR} Invalid Interpretation Code AO [facility] Comment on above: Interpretive Data: [employer]uchi [employer]tiz [employer] (CHEST, 1991, 102:312S-25S) [...] Coag (PPP) [Time] 23.2 s High 9.0-14.4 [facility] Comment on above: Performed By: #### P RO #### [address] [address] PT International Ratio 2.0 Normal [facility] Comment on above: Result Comment: [employer] (CHEST1991, 102:312S-25S) recommended therapeutic range for oral anticoagulant therapy is: LOW RISK: Prophylaxis of venous thrombosis INR: 2.0-3.0 Treatment of pulmonary embolism 2.0-3.0 Prevention of systemic embolism 2.0-3.0 HIGH RISK: Mechanical prosthetic valves 2.5-3.5 Performed By: #### P RO #### [address] [address] LABORATORYOrdered By: SYSTEM SYSTEM on 12-27-2023 INR Coag (PPP) [Relative time] 1.3 {INR} Invalid Interpretation Code AO [facility] Comment on above: Interpretive Data: [employer] (CHEST1991, 102:312S-25S) recommended therapeutic range for oral anticoagulant therapy is: LOW RISK: Prophylaxis of venous thrombosis INR: 2.0-3.0 Treatment of pulmonary embolism 2.0-3.0 Prevention of systemic embolism 2.0-3.0 HIGH RISK: Mechanical prosthetic valves 2.5-3.5 PT Coag (PPP) [Time] 15.0 s High 9.0 - 1 4.4 seconds AO [facility] SS PROon 12-27-2023 PT Coag (PPP) [Time] 15.0 s High 9.0-14.4 [facility] Comment on above: Performed By: #### P RO #### [address] [address] PT International Ratio 1.3 [facility] Comment on above: Result Comment: [employer] (CHEST, 1991, 102:312S-25S) recommended therapeutic range for oral anticoagulant therapy is: LOW RISK: Prophylaxis of venous thrombosis INR: 2.0-3.0 Treatment of pulmonary embolism 2.0-3.0 Prevention of systemic embolism 2.0-3.0 HIGH RISK: Mechanical prosthetic valves 2.5-3.5 Performed By: #### P RO #### [address] [address] LABORATORYOrdered By: SYSTEM SYSTEM on 11-18-2023 INR Coag (PPP) [Relative time] 2.0 {INR} Invalid Interpretation Code AO [facility] Comment on above: Interpretive Data: T angel [employer] (CHEST1991, 102:312S-25S) recommended therapeutic range for oral anticoagulant therapy is: LOW RISK: Prophylaxis of venous thrombosis INR: 2.0-3.0 Treatment of pulmonary embolism 2.0-3.0 Prevention of systemic embolism 2.0-3.0 HIGH RISK: Mechanical prosthetic valves 2.5-3.5 PT Coag (PPP) [Time] 23.3 s High 9.0 - 1 4.4 seconds AO [facility] SS PROon 11-18-2023 PT Coag (PPP) [Time] 23.3 s High 9.0-14.4 [facility] Comment on above: Performed By: #### L IPID, CMP, ANEU, VIDH, CBC, GFR, ADIFF #### [address] [address] PT International Ratio 2.0 Normal [facility] Comment on above: Result Comment: [employer] (CHEST, 1991, 102:312S-25S) recommended therapeutic range for oral anticoagulant therapy is: LOW RISK: Prophylaxis of venous thrombosis INR: 2.0-3.0 Treatment of pulmonary embolism 2.0-3.0 Prevention of systemic embolism 2.0-3.0 HIGH RISK: Mechanical prosthetic valves 2.5-3.5 Performed By: #### L IPID, CMP, ANEU, VIDH, CBC, GFR, ADIFF #### [address] [place], [place] [address] BD BONE DENSITY DEXA AXIAL S Mariela [...] 10/13/2023 2:47:13 PM Ordering Provider: YULISSA Quispe [facility] ([place]) [place] MAMMOGRAM SCREENING BILAT ZHANGL W/TOMOon 10-13-2023 MA MAMMOGRAM SCREENING BILATERAL W/LOIS ORIGINAL FROM: [address] [place], [place] [address] PROCEDURE FOR: NADEGE PAPPAS [address] [place] [address] Home: PID#: [id number] Exam#: [id number] : 1950 Age: 73 TO: YULISSA ROACH ARTS EDUCATION TEACHER [facility] [address] [place], [place] [address] Fax: NO FAX EXAMINATION: SCREENING DIGITAL BILATERAL [...] addition to annual mammographic screening per the [employer]. BIRADS: BI-RADS: 2: Benign RECALL: 1 year screening RECALL TYPE: mammo LETTER SENT: Normal BI-RADS 1 and 2 Interpreted by: Tano Wright MD Preliminary Report By: Tano Wright MD Electronically signed By Tano Wright MD Dictated Date: 10/13/2023 7:15:49 PM Prelim Date: 10/13/2023 7:17:57 PM Sign Date: 10/13/2023 7:17:57 PM Ordering Provider: YULISSA ROACH Front End Technician: MELA TRAN RT(R)(M)(CT) letter sent: Normal BI-RADS 1 and 2 Mammogram BI-RADS: 2 Benign Normal [facility] ([place]) PROon 10-13-2023 PT Coag (PPP) [Time] 25.6 s High 9.0-14.4 [facility]) Comment on above: Performed By: #### C MP, GFR, LIPID, CBC, ADIFF, ANEU #### [address] [place], [place] [address] PT International Ratio 2.2 Normal [facility]) Comment on above: Result Comment: [employer] (CHEST, 1992, 102:312S-25S) recommended therapeutic range for oral anticoagulant therapy is: LOW RISK: Prophylaxis of venous thrombosis INR: 2.0-3.0 Treatment of pulmonary embolism 2.0-3.0 Prevention of systemic embolism 2.0-3.0 HIGH RISK: Mechanical prosthetic valves 2.5-3.5 Performed By: #### C MP, GFR, LIPID, CBC, ADIFF, ANEU #### [address] [place], [place] [address] 12 Lead [place] [facility]-23-2023 12 Lead EKG performed by [facility] [address] [place] [address] 12 Lead EKG [place] [facility] 09/23/23 0934 MR#: [id number] Acct: [id number] Name: NADEGE PAPPAS Rep #: [id number] : 1950 73 From: Akhil Pina MD Attending Dr: Dr. Akhil Pina MD Status: DEP A MB Ordering Dr: Akhil Pina MD Date: 09/23/23 [place] [facility] [place]: F C Admitted: BMS/12 Lead EKG [place] [facility] [place] Report Interpretation ---Sinus Bradycardia WITHIN NORMAL LIMITSElectronically signed on 09/27/2023 at 07:23 by Akhil Pina [employer] Version [id number] 09/27/2328 Date Akhil Pina MD CC: DARIO Roach Date Dictated: 09/23/23933 Date Transcribed: 09/23/23933 Emg Technician: CO Signed Normal [facility] Cardiology Visit Reporton Cardiology Visit Report [facility] [address] [place] [address]. [address] [place] [address] OFFICE VISIT Date of Service: 09/23/23 MR#: [id number] Acct: [id number] Name: NADEGE PAPPAS Rep #: [id number] : 1950 Provider: Dr. 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 Normal [facility] HFPon 09-20-2023 Bili Indirect 0.5 mg/dL Normal [facility] ([place]) Comment on above: Performed By: #### C MP, GFR, LIPID, CBC, ADIFF, ANEU #### [address] [address] Albumin Level 3.6 G/dL Normal 3.4-4.8 [facility] ([place]) Comment on above: Performed By: #### C MP, GFR, LIPID, CBC, ADIFF, ANEU #### [address] [address] Albumin/Globulin [Mass ratio] 0.9 {ratio} Low 1.1-2.5 [facility] ([place]) Comment on above: Performed By: #### C MP, GFR, LIPID, CBC, ADIFF, ANEU #### [address] [address] ALP [Catalytic activity/Vol] 84 U/L Normal 40-135 [facility] ([place] Comment on above: Performed By: #### C MP, GFR, LIPID, CBC, ADIFF, ANEU #### [place] [id number] ALT [Catalytic activity/Vol] 20 U/L Normal 14-59 [facility] ([place] Comment on above: Performed By: #### C MP, GFR, LIPID, CBC, ADIFF, ANEU #### [place] [id number] AST [Catalytic activity/Vol] 10 U/L Normal 10-40 [facility] ([place] Comment on above: Performed By: #### C MP, GFR, LIPID, CBC, ADIFF, ANEU #### [address] [address] Bili Direct 0.1 mg/dL Normal 0.0-0.2 [facility] ([place]) Comment on above: Result Comment: Use of this assay is not recommended for patients undergoing treatment with eltrombopag due to the potential for falsely elevated results. Performed By: #### C MP, GFR, LIPID, CBC, ADIFF, ANEU #### [address] [address] Bili Total 0.6 mg/dL Normal 0.2-1.0 [facility] ([place] Comment on above: Result Comment: Use of this assay is not recommended for patients undergoing treatment with eltrombopag due to the potential for falsely elevated results. Performed By: #### C MP, GFR, LIPID, CBC, ADIFF, ANEU #### [address] [address] Globulin 3.8 G/dL Normal [facility] ([place] Comment on above: Performed By: #### C MP, GFR, LIPID, CBC, ADIFF, ANEU #### [address] [address] Total Protein 7.4 G/dL Normal 6.4-8.2 [facility] ([place]) Comment on above: Performed By: #### C MP, GFR, LIPID, CBC, ADIFF, ANEU #### [address] [address] LIPIDon 09-20-2023 Cholesterol [Mass/Vol] 147 mg/dL Normal 0-200 [facility] ([place] Comment on above: Result Comment: Chol esterol Reference Interval: Less than 200 Desirable 200-239 Borderline high risk 240 and above High risk Performed By: #### C MP, GFR, LIPID, CBC, ADIFF, ANEU #### [address] [address] Cholesterol in HDL [Mass/Vol] 50 mg/dL Normal 40-60 [facility] ([place] Comment on above: Performed By: #### C MP, GFR, LIPID, CBC, ADIFF, ANEU #### [address] [address] Cholesterol in LDL [Mass/Vol] 68 mg/dL Normal 0-130 [facility] ([place] Comment on above: Performed By: #### C MP, GFR, LIPID, CBC, ADIFF, ANEU #### [address] [address] Triglyceride [Mass/Vol] 145 mg/dL Normal 0-150 [facility] ([place]) Comment on above: Result Comment: Trig lyceride Reference Interval: Less than 150 Normal 150-199 Borderline high risk 200-499 High risk 500 or higher Very high risk Performed By: #### C MP, GFR, LIPID, CBC, ADIFF, ANEU #### [address] [address] PROon 09-20-2023 PT Coag (PPP) [Time] 28.1 s High 9.0-14.4 [facility] ([place]) Comment on above: Performed By: #### P RO #### [address] [address] PT International Ratio 2.4 Normal [facility] ([place]) Comment on above: Result Comment: [employer] (CHEST, 1991, 102:312S-25S) recommended therapeutic range for oral anticoagulant therapy is: LOW RISK: Prophylaxis of venous thrombosis INR: 2.0-3.0 Treatment of pulmonary embolism 2.0-3.0 Prevention of systemic embolism 2.0-3.0 HIGH RISK: Mechanical prosthetic valves 2.5-3.5 Performed By: #### P RO #### [address] [address] .Auto Diffon 08-31-2023 Basophil, Absolute 0.1 10 3/mcL Normal 0.0-0.2 [facility] ([place]) Comment on above: Performed By: #### C MP, GFR, LIPID, CBC, ADIFF, ANEU #### [address] [address] Basophils/100 WBC (Bld) 0.9 % Normal 0.0-2.5 [facility] ([place] Comment on above: Performed By: #### C MP, GFR, LIPID, CBC, ADIFF, ANEU #### [address] [address] Eosinophil, Absolute 0.2 10 3/mcL Normal 0.0-0.4 [facility] ([place]) Comment on above: Performed By: #### C MP, GFR, LIPID, CBC, ADIFF, ANEU #### [address] [address] Eosinophils/100 WBC (Bld) 2.1 % Normal 0.0-7.0 [facility] ([place]) Comment on above: Performed By: #### C MP, GFR, LIPID, CBC, ADIFF, ANEU #### [address] [address] Lymphocyte, Absolute 1.8 10 3/mcL Normal 0.8-3.9 [facility] ([place]) Comment on above: Performed By: #### C MP, GFR, LIPID, CBC, ADIFF, ANEU #### [address] [address] Lymphocytes/100 WBC (Bld) 20.8 % Normal 10.0-50.0 [facility] ([place] Comment on above: Performed By: #### C MP, GFR, LIPID, CBC, ADIFF, ANEU #### [address] [address] Monocyte, Absolute 0.7 10 3/mcL Normal 0.2-1.0 [facility] ([place]) Comment on above: Performed By: #### C MP, GFR, LIPID, CBC, ADIFF, ANEU #### [address] [address] Monocytes/100 WBC (Bld) 8.0 % Normal 1.7-13.0 [facility] ([place]) Comment on above: Performed By: #### C MP, GFR, LIPID, CBC, ADIFF, ANEU #### [address] [address] Neutrophils/100 WBC (Bld) 68.2 % Normal 37.0-80.0 [facility] ([place]) Comment on above: Performed By: #### C MP, GFR, LIPID, CBC, ADIFF, ANEU #### [address] [address] .GFRon 08-31-2023 GFR Non- 44 ml/min/1.73sqm Normal [facility] ([place]) Comment on above: Result Comment: GFR Population [...] MP, GFR, LIPID, CBC, ADIFF, ANEU #### [address] [address] GFR 54 ml/min/1.73sqm Normal [facility] ([place]) Comment on above: Result Comment: GFR Population [...] MP, GFR, LIPID, CBC, ADIFF, ANEU #### [address] [address] .NEUABSon 08-31-2023 Neutrophil, Absolute 6.0 10 3/mcL Normal 2.9-6.2 [facility] ([place]) Comment on above: Performed By: #### C MP, GFR, LIPID, CBC, ADIFF, ANEU #### [address] [address] CBCon 08-31-2023 Erythrocyte distribution width (RBC) [Ratio] 15.3 % High 11.5-14.5 [facility] ([place]) Comment on above: Performed By: #### C MP, GFR, LIPID, CBC, ADIFF, ANEU #### [address] [address] Hematocrit (Bld) [Volume fraction] 37.5 % Normal 37.0-47.0 [facility] ([place] Comment on above: Performed By: #### C MP, GFR, LIPID, CBC, ADIFF, ANEU #### [address] [address] Hgb 12.4 G/dL Normal 12.0-16.0 [facility] ([place] Comment on above: Performed By: #### C MP, GFR, LIPID, CBC, ADIFF, ANEU #### [address] [address] MCH (RBC) [Entitic mass] 30.0 pg Normal 27.0-31.2 [facility] ([place]) Comment on above: Performed By: #### C MP, GFR, LIPID, CBC, ADIFF, ANEU #### [address] [address] MCHC 33.0 G/dL Normal 33.0-37.0 [facility] ([place] Comment on above: Performed By: #### C MP, GFR, LIPID, CBC, ADIFF, ANEU #### [address] [address] MCV (RBC) [Entitic vol] 91.0 fL Normal 80.0-94.0 [facility] ([place] Comment on above: Performed By: #### C MP, GFR, LIPID, CBC, ADIFF, ANEU #### [address] [address] Platelet 282 10 3/mcL Normal 130-400 [facility] ([place]) Comment on above: Performed By: #### C MP, GFR, LIPID, CBC, ADIFF, ANEU #### [address] [address] Platelet mean volume (Bld) [Entitic vol] 8.7 fL Normal 7.4-10.4 [facility] ([place]) Comment on above: Performed By: #### C MP, GFR, LIPID, CBC, ADIFF, ANEU #### [place] [id number] RBC 4.12 10 6/mcL Low 4.20-5.40 [facility] ([place]) Comment on above: Performed By: #### C MP, GFR, LIPID, CBC, ADIFF, ANEU #### [address] [address] WBC 8.8 10 3/mcL Normal 4.6-10.8 [facility] ([place]) Comment on above: Performed By: #### C MP, GFR, LIPID, CBC, ADIFF, ANEU #### [address] [address] CMPon 08-31-2023 Albumin Level 3.9 G/dL Normal 3.4-4.8 [facility] ([place]) Comment on above: Performed By: #### C MP, GFR, LIPID, CBC, ADIFF, ANEU #### [address] [address] Albumin/Globulin [Mass ratio] 1.1 {ratio} Normal 1.1-2.5 [facility] ([place]) Comment on above: Performed By: #### C MP, GFR, LIPID, CBC, ADIFF, ANEU #### [address] [address] ALP [Catalytic activity/Vol] 82 U/L Normal 40-135 [facility] ([place] Comment on above: Performed By: #### C MP, GFR, LIPID, CBC, ADIFF, ANEU #### [address] [address] ALT [Catalytic activity/Vol] 16 U/L Normal 14-59 [facility] ([place] Comment on above: Performed By: #### C MP, GFR, LIPID, CBC, ADIFF, ANEU #### [address] [address] AST [Catalytic activity/Vol] 13 U/L Normal 10-40 [facility] ([place] Comment on above: Performed By: #### C MP, GFR, LIPID, CBC, ADIFF, ANEU #### [address] [address] Bili Total 0.6 mg/dL Normal 0.2-1.0 [facility] ([place]) Comment on above: Result Comment: Use of this assay is not recommended for patients undergoing treatment with eltrombopag due to the potential for falsely elevated results. Performed By: #### C MP, GFR, LIPID, CBC, ADIFF, ANEU #### [address] [address] BUN/Creatinine Ratio 23 ratio Normal 7-27 [facility] ([place]) Comment on above: Performed By: #### C MP, GFR, LIPID, CBC, ADIFF, ANEU #### [address] [address] Calcium [Mass/Vol] 9.6 mg/dL Normal 8.4-10.2 [facility] Comment on above: Performed By: #### C MP, GFR, LIPID, CBC, ADIFF, ANEU #### [address] [address] Chloride [Moles/Vol] 98 mmol/L Normal 98-107 [facility] ([place]) Comment on above: Performed By: #### C MP, GFR, LIPID, CBC, ADIFF, ANEU #### [address] [address] CO2 [Moles/Vol] 31 mmol/L Normal 23-31 [facility] ([place]) Comment on above: Performed By: #### C MP, GFR, LIPID, CBC, ADIFF, ANEU #### [address] [address] Creatinine [Mass/Vol] 1.19 mg/dL High 0.55-1.02 [facility] ([place]) Comment on above: Performed By: #### C MP, GFR, LIPID, CBC, ADIFF, ANEU #### [address] [address] Electrolyte Balance 7.0 mEq/L Normal 4.0-15.0 [facility] ([place]) Comment on above: Performed By: #### C MP, GFR, LIPID, CBC, ADIFF, ANEU #### [address] [address] Globulin 3.7 G/dL Normal [facility] ([place]) Comment on above: Performed By: #### C MP, GFR, LIPID, CBC, ADIFF, ANEU #### [address] [address] Glucose [Mass/Vol] 104 mg/dL Normal 83-110 [facility] Comment on above: Performed By: #### C MP, GFR, LIPID, CBC, ADIFF, ANEU #### [address] [address] Potassium [Moles/Vol] 4.4 mmol/L Normal 3.5-5.1 [facility] ([place]) Comment on above: Performed By: #### C MP, GFR, LIPID, CBC, ADIFF, ANEU #### [address] [address] Sodium [Moles/Vol] 136 mmol/L Normal 136-145 [facility] Comment on above: Performed By: #### C MP, GFR, LIPID, CBC, ADIFF, ANEU #### [address] [address] Total Protein 7.6 G/dL Normal 6.4-8.2 [facility] ([place]) Comment on above: Performed By: #### C MP, GFR, LIPID, CBC, ADIFF, ANEU #### [address] [address] Urea nitrogen [Mass/Vol] 27 mg/dL High 7-18 [facility] ([place] Comment on above: Performed By: #### C MP, GFR, LIPID, CBC, ADIFF, ANEU #### [address] [address] LIPIDon 08-31-2023 Cholesterol [Mass/Vol] 132 mg/dL Normal 0-200 [facility] ([place]) Comment on above: Result Comment: Chol esterol Reference Interval: Less than 200 Desirable 200-239 Borderline high risk 240 and above High risk Performed By: #### C MP, GFR, LIPID, CBC, ADIFF, ANEU #### [address] [address] Cholesterol in HDL [Mass/Vol] 47 mg/dL Normal 40-60 [facility] ([place] Comment on above: Performed By: #### C MP, GFR, LIPID, CBC, ADIFF, ANEU #### [address] [address] Cholesterol in LDL [Mass/Vol] 49 mg/dL Normal 0-130 [facility] ([place] Comment on above: Performed By: #### C MP, GFR, LIPID, CBC, ADIFF, ANEU #### [address] [address] Triglyceride [Mass/Vol] 181 mg/dL High 0-150 [facility] ([place]) Comment on above: Result Comment: Trig lyceride Reference Interval: Less than 150 Normal 150-199 Borderline high risk 200-499 High risk 500 or higher Very high risk Performed By: #### C MP, GFR, LIPID, CBC, ADIFF, ANEU #### [address] [address] PROon 08-31-2023 PT Coag (PPP) [Time] 31.9 s High 9.0-14.4 [facility] ([place]) Comment on above: Performed By: #### C MP, GFR, LIPID, CBC, ADIFF, ANEU #### [address] [address] PT International Ratio 2.8 Normal [facility] ([place]) Comment on above: Result Comment: [employer] (CHEST, 1992, 102:312S-25S) recommended therapeutic range for oral anticoagulant therapy is: LOW RISK: Prophylaxis of venous thrombosis INR: 2.0-3.0 Treatment of pulmonary embolism 2.0-3.0 Prevention of systemic embolism 2.0-3.0 HIGH RISK: Mechanical prosthetic valves 2.5-3.5 Performed By: #### C MP, GFR, LIPID, CBC, ADIFF, ANEU #### [address] [address] PROon 08-27-2023 PT Coag (PPP) [Time] 73.0 s High 9.0-14.4 [facility] ([place]) Comment on above: Performed By: #### P RO #### [address] [address] PT International Ratio 6.2 Critically abnormal [facility] ([place]) Comment on above: Result Comment: [employer] (CHEST, 1991, 102:312S-25S) recommended therapeutic range for oral anticoagulant therapy is: LOW RISK: Prophylaxis of venous thrombosis INR: 2.0-3.0 Treatment of pulmonary embolism 2.0-3.0 Prevention of systemic embolism 2.0-3.0 HIGH RISK: Mechanical prosthetic valves 2.5-3.5 Performed By: #### P RO #### [place] [id number] PROon 08-18-2023 PT Coag (PPP) [Time] 46.9 s High 9.0-14.4 [facility] ([place]) Comment on above: Performed By: #### C MP, GFR, LIPID, CBC, ADIFF, ANEU #### [place] [id number] PT International Ratio 4.0 Normal [facility] ([place] Comment on above: Result Comment: [employer] (CHEST1991, 102:312S-25S) recommended therapeutic range for oral anticoagulant therapy is: LOW RISK: Prophylaxis of venous thrombosis INR: 2.0-3.0 Treatment of pulmonary embolism 2.0-3.0 Prevention of systemic embolism 2.0-3.0 HIGH RISK: Mechanical prosthetic valves 2.5-3.5 Performed By: #### C MP, GFR, LIPID, CBC, ADIFF, ANEU #### [place] [address] PROon 08-09-2023 PT Coag (PPP) [Time] 18.9 s High 9.0-14.4 [facility] ([place]) Comment on above: Performed By: #### C MP, GFR, LIPID, CBC, ADIFF, ANEU #### [place] [address] PT International Ratio 1.6 Normal [facility] ([place] Comment on above: Result Comment: [employer] (CHEST, 1991, 102:312S-25S) recommended therapeutic range for oral anticoagulant therapy is: LOW RISK: Prophylaxis of venous thrombosis INR: 2.0-3.0 Treatment of pulmonary embolism 2.0-3.0 Prevention of systemic embolism 2.0-3.0 HIGH RISK: Mechanical prosthetic valves 2.5-3.5 Performed By: #### C MP, GFR, LIPID, CBC, ADIFF, ANEU #### [address] [place], [place] [address] Basophil percentageOrdered B y: Annalisa Mabry on 01-27-2023 Chloride [Moles/Vol] 100 mmol/L 98-107 [facility] Glucose [Mass/Vol] 165 mg/dL 74-106 [facility] Comment on above: Fasting Glucose resu lt greater than or equal to 126 mg/dL suggests DIABETES MELLITUS per A.D.A. criteria. Potassium [Moles/Vol] 3.8 mmol/L 3.5-5.1 [facility] Sodium [Moles/Vol] 135 mmol/L 136-145 [facility] Laboratory - Chemistry and C hemistry - challengeOrdered By: Annalisa Mabry on 01-27-2023 CO2 [Moles/Vol] 29.0 mmol/L 21.0-32.0 [facility] Urea nitrogen/Creatinine [Mass ratio] 17.1 mg/mg 10-20 [facility] No Panel InformationOrdered By: Annalisa Mabry on 01-27-2023 Estimated GFR (MDRD) Amer 62 mL/min >60 [facility] Comment on above: GFR Calc Estimated GFR (MDRD) Non-Af Amer 51 mL/min >60 [facility] Comment on above: Non- GFR Calc Serum or plasma calcium carter urement (mass/volume)Ordered By: Annalisa Mabry on 01-27-2023 Calcium [Mass/Vol] 9.6 mg/dL 8.5-10.1 [facility] Serum or plasma creatinine m easurement (mass/volume)Ordered By: Annalisa Mabry on 01-27-2023 Creatinine [Mass/Vol] 1.11 mg/dL 0.55-1.02 [facility] Comment on above: The validity of the calculated GFR & GFRAA in patients over 70 years has not been determined. Clinical correlation is essential. Serum or plasma urea nitroge n measurement (mass/volume)Ordered By: Annalisa Mabry on 01-27-2023 Urea nitrogen [Mass/Vol] 19 mg/dL - [facility] Thin prep Papanicolaou smear with manual screeningOrdered By: Annalisa Mabry on 01-27-2023 Thin prep Papanicolaou smear with manual screening 6 5-15 [facility] Basophil percentageOrdered B y: Annalisa Mabry on 01-05-2023 Chloride [Moles/Vol] 102 mmol/L 98-107 [facility] Glucose [Mass/Vol] 119 mg/dL 74-106 [facility] Comment on above: Fasting Glucose resu lt from 100 to 125 mg/dL suggests IMPAIRED HOMEOSTASIS per A.D.A. criteria. Potassium [Moles/Vol] 4.1 mmol/L 3.5-5.1 [facility] Sodium [Moles/Vol] 136 mmol/L 136-145 [facility] Laboratory - Chemistry and C hemistry - challengeOrdered By: Annalisa Mabry on 01-05-2023 CO2 [Moles/Vol] 32.0 mmol/L 21.0-32.0 [facility] Urea nitrogen/Creatinine [Mass ratio] 19.6 mg/mg 10- [facility] No Panel InformationOrdered By: Annalisa Mabry on 01-05-2023 Estimated GFR (MDRD) Amer 64 mL/min >60 [facility] Comment on above: GFR Calc Estimated GFR (MDRD) Non-Af Amer 53 mL/min >60 [facility] Comment on above: Non- GFR Calc Serum or plasma calcium carter urement (mass/volume)Ordered By: Annalisa Mabry on 01-05-2023 Calcium [Mass/Vol] 9.7 mg/dL 8.5-10.1 [facility] Serum or plasma creatinine m easurement (mass/volume)Ordered By: Annalisa Mabry on 01-05-2023 Creatinine [Mass/Vol] 1.07 mg/dL 0.55-1.02 [facility] Comment on above: The validity of the calculated GFR & GFRAA in patients over 70 years has not been determined. Clinical correlation is essential. Serum or plasma urea nitroge n measurement (mass/volume)Ordered By: Annalisa Mabry on 01-05-2023 Urea nitrogen [Mass/Vol] 21 mg/dL - [facility] Thin prep Papanicolaou smear with manual screeningOrdered By: Annalisa Mabry on 01-05-2023 Thin prep Papanicolaou smear with manual screening 2 5-15 [facility] Basophil percentageOrdered B y: Akhil Pina on 09-16-2022 Bilirubin [Mass/Vol] 0.80 mg/dL 0.20-1.00 [facility] Comment on above: For patients on eltr ombopag therapy, use of Dimension [place] TBIL is not recommended. Cholesterol [Mass/Vol] 146 mg/dL <200 [facility] Comment on above: <200 mg/dL Desirable 200-240 mg/dL Borderline >240 mg/dL High Risk Protein [Mass/Vol] 8.0 g/dL 6.4-8.2 [facility] Triglyceride [Mass/Vol] 165 mg/dL <199 [facility] Comment on above: The drugs N-Acetylcy steine and Metamizole may falsely depress this assay.Serum Triglycerides Reference Interval Normal <150 mg/dL Borderline high 150 - 199 mg/dL High 200 - 499 mg/dL Very High > or = 500 mg/dL Direct bilirubinOrdered By: Akhil Pina on 09-16-2022 Bilirubin.direct [Mass/Vol] 0.13 mg/dL 0.00-0.30 [facility] Laboratory - Chemistry and C hemistry - challengeOrdered By: Akhil Pina on 09-16-2022 ALP [Catalytic activity/Vol] 84 U/L 45-117 [facility] ALT [Catalytic activity/Vol] 18 U/L 13-56 [facility] Globulin (S) [Mass/Vol] 4.4 g/dL 2.2-4.2 [facility] Serum or plasma albumin carter urement (mass/volume)Ordered By: Akhil Pina on 09-16-2022 Albumin [Mass/Vol] 3.6 g/dL 3.2-5.0 [facility] Serum or plasma cholesterol in HDL measurement (mass/volume)Ordered By: Akhil Pina on 09-16-2022 Cholesterol in HDL [Mass/Vol] 47 mg/dL >40 [facility] Comment on above: The drugs N-Acetylcy steine and Metamizole may falsely depress this assay. Reference Range HDL <40 mg/dL Low HDL Cholesterol HDL >or= 60 mg/dL High HDL Cholesterol Serum or plasma cholesterol in VLDL measurement (mass/volume)Ordered By: Akhil Pina on 09-16-2022 Cholesterol in VLDL [Mass/Vol] 33 mg/dL 5-40 [facility] Serum or plasma low density lipoprotein (LDL) cholesterol measurement (mass/volume)Ordered By: Akhil Pina on 09-16-2022 Cholesterol in LDL [Mass/Vol] 66 mg/dL 0-130 [facility] Thin prep Papanicolaou smear with manual screeningOrdered By: Akhil Pina on 09-16-2022 Thin prep Papanicolaou smear with manual screening 26 U/L 15-37 [facility] Comment on above: Slight Hemolysis, Re sult [...] ratio AO ADM SS LABORATORYOrdered By: Estevan Izaugirre on 09-30-2021 Albumin BCP dye [Mass/Vol] 3.0 [...] percentageon 2021 Bilirubin [Mass/Vol] 0.80 mg/dL 0.20-1.00 [facility] Work Phone: Comment on above: For patients on eltr ombopag therapy, use of Dimension [place] TBIL is not recommended. Cholesterol [Mass/Vol] 153 mg/dL <200 [facility] Work Phone: Comment on above: <200 mg/dL Desirable 200-240 mg/dL Borderline >240 mg/dL High Risk Protein [Mass/Vol] 8.0 g/dL 6.4-8.2 [facility] Work Phone: Triglyceride [Mass/Vol] 192 mg/dL <199 [facility] Work Phone: Comment on above: The drugs N-Acetylcy steine and Metamizole may falsely depress this assay.Serum Triglycerides Reference Interval Normal <150 mg/dL Borderline high 150 - 199 mg/dL High 200 - 499 mg/dL Very High > or = 500 mg/dL Direct bilirubinon Bilirubin.direct [Mass/Vol] 0.24 mg/dL 0.00-0.30 [facility] Work Phone: Laboratory - Chemistry and C hemistry - challengeon 09-23-2021 ALP [Catalytic activity/Vol] 79 U/L 45-117 [facility] Work Phone: ALT [Catalytic activity/Vol] 16 U/L 13-56 [facility] Work Phone: Globulin (S) [Mass/Vol] 4.0 g/dL 2.2-4.2 [facility] Work Phone: Serum or plasma albumin carter urement (mass/volume)on 09-23-2021 Albumin [Mass/Vol] 4.0 g/dL 3.2-5.0 [facility] Work Phone: Serum or plasma cholesterol in HDL measurement (mass/volume)on 09-23-2021 Cholesterol in HDL [Mass/Vol] 48 mg/dL >40 [facility] Work Phone: Comment on above: The drugs N-Acetylcy steine and Metamizole may falsely depress this assay. Reference Range HDL <40 mg/dL Low HDL Cholesterol HDL >or= 60 mg/dL High HDL Cholesterol Serum or plasma cholesterol in VLDL measurement (mass/volume)on 09-23-2021 Cholesterol in VLDL [Mass/Vol] 38 mg/dL 5-40 [facility] Work Phone: Serum or plasma low density lipoprotein (LDL) cholesterol measurement (mass/volume)on 09-23-2021 Cholesterol in LDL [Mass/Vol] 67 mg/dL 0-130 [facility] Work Phone: Thin prep Papanicolaou smear with manual screeningon 09-23-2021 Thin prep Papanicolaou smear with manual screening 13 U/L 15-37 [facility] Work Phone: LABORATORYOrdered By: Tena Morley on [...] definite cause of disease. Laboratories within the [facility] and its territories are required to report [...] Completion Last Updated: 04-Jan-2020 07:06 by Mitch Dominguez) [facility] Preop Checkliston 01-04-2020 Preop Checklist Preop Checklist: Preop Checklist: Arrival [id number] Arrival Time06:35 Procedure Typeleft eye cataract Temperature C37.4 degrees C Temperature F99.3 degrees F Heart Rate55 beats per minute Respiratory Rate16 breath per minute Blood Pressure [id number] mm/Hg Blood Pressure Morbquqji21 mm/Hg NPO [id number] 17:30 ID Band Onyes Allergy Bandno known [...] Updated: 04-Jan-2020 07:14 by Mami Tomlin (RN) [facility] CORONAVIRUS 2019, SCREEN ASY NELAOMATICon 01-01-2020 CORONAVIRUS 2019,PCR NOT DETECTED Normal Not Detected [facility] Comment on above: Result Comment: . This [...] patient management decisions. Fact sheet for providers: https://www.fda.gov/media/220783/download Fact sheet for patients: https://www.fda.gov/media/376964/download This test has received FDA Emergency Use Authorization (EUA) and has been verified by [facility] ([facility]). This test is only authorized for the duration of time that circumstances exist to justify the authorization of the emergency use of in vitro diagnostic tests for the detection of SARS-CoV-2 virus and/or diagnosis of COVID-19 infection under section 564(b)(1) of the Act, 21 U.S.C. 360bbb-3(b)(1), unless the authorization is terminated or revoked sooner. [facility] is certified under CLIA-88 as qualified to perform high complexity testing. Testing is performed in the [facility] laboratories located at [address] [place] [address]. Performed By: #### C OVSC #### [address] [place] [address] Lab Specimen Source Nasal, Nasopharyngeal Normal [facility] Comment on above: Performed By: #### C OVSC #### [facility] [id number] [place] [address] CORONAVIRUS 2019, SCREEN ASY MPTOMATICon 12-27-2019 EMPLOYED IN HEALTHCARE? Unknown Normal [facility] Comment on above: Performed By: #### C OVSC #### [facility] [address] [place] [id number] FIRST COVID NASAL SWAB TEST? Unknown Normal [facility] Comment on above: Performed By: #### C OVSC #### [facility] [id number] [place] [address] HOSPITALIZED (OR PLANNED TO BE ADMITTED)? Unknown Normal [facility] Comment on above: Performed By: #### C OVSC #### [facility] [address] [place] [address] ICU? Unknown Normal [facility] Comment on above: Performed By: #### C OVSC #### [facility] [id number] [place] [address] ? Unknown Normal [facility] Comment on above: Performed By: #### C OVSC #### [facility] [id number] [place] [address] REQUIRED FOR PROCEDURE/SURGERY? Unknown Normal [facility] Comment on above: Performed By: #### C OVSC #### [facility] [address] [place] [address] RESIDENT IN CONGREGATE CARE SETTING? Unknown Normal [facility] Comment on above: Performed By: #### C OVSC #### [facility] [address] [place] [address] SYMPTOMATIC DEFINED BY CDC? Unknown Normal [facility] Comment on above: Performed By: #### C OVSC #### [facility] [address] EMPLOYEE? Unknown Normal [facility] Comment on above: Performed By: #### C OVSC #### [facility] [address] [place] [id number] Patient Profile - Preop v2on 12-27-2019 Patient Profile - Preop v2 Profile: Initial Info: How to be Addressedsharon(1) Spoken Language PreferredEnglish (1) Source of Informationpatient Are you currently using the Ex[employer] Record or [employer]yes (1) Instructions Givenappropriate clothing, bring responsible adult as the utility driver (procedure may be cancelled if no utility driver), center location, insurance information Prep Instructions Reviewedyes Instructed to Have No Fluids Aftermidnight Stated Reason for Admissionleft eye cataract Primary Contact Name and [phone] Limitations on Visitors/Phone Callsnone Patient Belongingsremains with patient Patient Belongings Remaining with Patientclothing Medications Brought to Hospitalno General Health: Weight in kg81.5 kilogram(s) Weight in zns134.6 pound(s) Weight Methodactual (measured) Scale Typestanding Height in feet5 feet Height in inches4 inch(es) Height in cm162.5 centimeter(s) Height Methodstated BMI (kg/m2)30.863 square meter Patient or Family Member Reaction to Anesthesiano previous reaction; no previous family member reaction Blood Avoidance/Restrictionsn one Previous Transfusion Reactionno Health Mgmt: Symptoms/Conditions Managed at [facility] Barriers to Managing Healthnone Relationship/Environ: Living Arrangementshouse Lives Withspouse Resource/Environmental Concernsnone Anticipated Transition [facility] Anticipated at Transitionnone Substance: Current or [...] instruction; written material Cultural Considerationsnone Developmental Considerationsnone Oriental Orthodox Considerationsnone Other learner availableyes... Learnerfamily Factors Influencing Readiness to Learnrequests information, motivation to learn Factors that Impact Ability to Learnvisual problems Devices/Methods Used to Communicatenone Learning Preferencesverbal instruction, written material Cultural Considerationsnone Developmental Considerationsnone Oriental Orthodox Considerationsnone Falls RiskPatient location auto qualifies him/her for HIGH RISK. Are there any cultural, spiritual, restoration practices/values/needs that are important for us to knowno Do you want a visit/item from [facility] Would you like your Credit Collections Manager/Pet Care Worker notifiedno Pain Scalenumerical 0-10 Pain Scale Educationteaching [...] Profile - Preop v2 04-Dec-2019 11:53 [facility] History and Physical - Surgi denice [...] Last Updated: 07-Dec-2019 07:01 by Mitch Dominguez) [facility] Preop Checkliston 12-07-2019 Preop Checklist Preop Checklist: Preop Checklist: Arrival [id number] Arrival Time06:20 Procedure Typeright cataract NPO [id number] 20:30 NPO Commentsips of water with am [...] Updated: 07-Dec-2019 06:57 by Irene Snowden (IVAN) [facility] CORONAVIRUS 2019, SCREEN ASY MPTOMATICon 12-06-2019 CORONAVIRUS 2019,PCR NOT DETECTED Normal Not Detected [facility] Comment on above: Result Comment: This assay [...] patient management decisions. Fact sheet for providers: https://www.fda.gov/media/672544/download Fact sheet for patients: https://www.fda.gov/media/314378/download This test has received FDA Emergency Use Authorization (EUA) and has been verified by [facility] ([facility]). This test is only authorized for the duration of time that circumstances exist to justify the authorization of the emergency use of in vitro diagnostic tests for the detection of SARS-CoV-2 virus and/or diagnosis of COVID-19 infection under section 564(b)(1) of the Act, 21 U.S.C. 360bbb-3(b)(1), unless the authorization is terminated or revoked sooner. [facility] is certified under CLIA-88 as qualified to perform high complexity testing. Testing is performed in the [facility] laboratories located at [address] [place] [address]. Performed By: #### C OVSC #### [address] [place] [address] CORONAVIRUS 2019, SCREEN ASY MPTOMATICon 12-05-2019 Lab Specimen Source Nasal, Nasopharyngeal Normal [facility] Comment on above: Performed By: #### C OVSC #### [address] [place] [address] Patient Profile - Preop v2on 12-04-2019 Patient Profile - Preop v2 Profile: Initial Info: How to be Addressedsharon Spoken Language PreferredEnglish Source of Informationpatient Are you currently using the Personal Electronic Health Record or [employer]yes Instructions Givenappropriate clothing, center location, bring responsible adult as the utility driver (procedure may be cancelled if no utility driver) Prep Instructions Reviewedyes Instructed to Have No Fluids Aftermidnight Stated Reason for Admissionright eye cataract Primary Contact Name and [phone] Patient Belongingsremains with patient Patient Belongings Remaining with Patientclothing Medications Brought to Hospitalno General Health: Weight in kg81.1 kilogram(s) Weight in puh181.7 pound(s) Weight Methodactual (measured) Scale Typestanding Height [...] instruction; written material Cultural Considerationsnone Developmental Considerationsnone Oriental Orthodox Considerationsnone Other learner availableyes... Learnerfamily Factors Influencing Readiness to Learnrequests information, motivation to learn Factors that Impact Ability to Learnvisual problems Devices/Methods Used to Communicatenone Learning Preferencesverbal instruction, written material Cultural Considerationsnone Developmental Considerationsnone Oriental Orthodox Considerationsnone Falls RiskPatient location auto qualifies him/her for HIGH RISK. Are there any cultural, spiritual, restoration practices/values/needs that are important for us to knowno Do you want a visit/item from [facility] Would you like your Credit Collections Manager/Pet Care Worker notifiedno Pain Scalenumerical 0-10 Pain Scale Educationteaching [...] Updated: 07-Dec-2019 06:48 by Irene Snowden (RN) [facility] Vital Signs Date Time Vital Sign Value Performing Clinician Facility 04-18-2022 09:32-0500 Body temperature 98.24 [degF] MONTRELL VERDIN DO [facility] 04-18-2022 09:32-0500 Diastolic Blood Pressure Non-Invasive 70 1 MONTRELL VERDIN DO [facility] 04-18-2022 09:32-0500 Heart rate 77 /min MONTRELL VERDIN DO [facility] 04-18-2022 09:32-0500 Respiratory rate 18 /min MONTRELL VERDIN DO [facility] 04-18-2022 09:32-0500 Systolic Blood Pressure Non-Invasive 132 1 MONTRELL VERDIN DO [facility] 04-07-2022 14:26-0500 Diastolic Blood Pressure Non-Invasive [address] ELIZABET MYERS MD [facility] 04-07-2022 14:26-0500 Heart rate 65 /min DR ELIZABET MYERS MD [facility] 04-07-2022 14:26-0500 Respiratory rate 14 /min DR ELIZABET MYERS MD [facility] 04-07-2022 14:26-0500 Systolic Blood Pressure Non-Invasive [address] ELIZABET MYERS MD [facility] 04-07-2022 12:40-0500 Diastolic Blood Pressure Non-Invasive [address] ELIZABET MYERS MD [facility] 04-07-2022 12:40-0500 Heart rate 67 /min DR ELIZABET MYERS MD [facility] 04-07-2022 12:40-0500 Respiratory rate 13 /min DR ELIZABET MYERS MD [facility] 04-07-2022 12:40-0500 Systolic Blood Pressure Non-Invasive [address] ELIZABET MYERS MD [facility] 04-07-2022 12:02-0500 Diastolic Blood Pressure Non-Invasive [address] ELIZABET MYERS MD [facility] 04-07-2022 12:02-0500 Heart rate 65 /min DR ELIZABET MYERS MD [facility] 04-07-2022 12:02-0500 Respiratory rate 15 /min DR ELIZABET MYERS MD [facility] 04-07-2022 12:02-0500 Systolic Blood Pressure Non-Invasive [address] ELIZABET MYERS MD [facility] 04-07-2022 08:48-0500 Body temperature 97.16 [degF] DR ELIZABET MYERS MD [facility] 04-07-2022 08:48-0500 Reason For Taking VItal Signs DR ELIZABET MYERS MD [facility] 04-07-2022 08:40-0500 Heart rate 65 /min DR ELIZABET MYERS MD [facility] 04-07-2022 08:40-0500 Respiratory Rate - Anes 12 br/min DR ELIZABET MYERS MD [facility] 04-07-2022 08:35-0500 Heart rate 60 /min DR ELIZABET MYERS MD [facility] 04-07-2022 08:35-0500 Respiratory Rate - Anes 11 br/min DR ELIZABET MYERS MD [facility] 04-07-2022 08:30-0500 Heart rate 61 /min DR ELIZABET MYERS MD [facility] 04-07-2022 08:30-0500 Respiratory Rate - Anes 0 br/min DR ELIZABET MYERS MD [facility] 04-07-2022 05:47-05[address] Pressure Cuff Size DR ELIZABET MYERS MD [facility] 04-07-2022 05:47-[address] ELIZABET MYERS MD [facility] 04-07-2022 05:47-[address] ELIZABET Menjivar [facility] 04-07-2022 05:47-0500 Body height [address] ELIZABET MYERS MD [facility] 04-07-2022 05:47-0500 Body temperature 98.06 [degF] DR ELIZABET MYERS MD [facility] 04-07-2022 05:47-0500 Body weight 77.[address] ELIZABET MYERS MD [facility] 04-07-2022 05:47-0500 Body weight 30.2 kg/m2 DR ELIZABET MYERS MD [facility] 03-23-2022 09:20-[address] ELIZABET MYERS MD [facility] 03-23-2022 09:20-[address] ELIZABET Menjivar [facility] 03-23-2022 09:20-0500 Body height [address] ELIZABET MYERS MD [facility] 03-23-2022 09:20-0500 Body weight 79.[address] ELIZABET MYERS MD [facility] 03-23-2022 09:20-0500 Body weight 31.05 kg/m2 DR ELIZABET MYERS MD [facility] 03-23-2022 09:20-0500 Diastolic Blood Pressure Non-Invasive [address] ELIZABET MYERS MD [facility] 03-23-2022 09:20-0500 Heart rate 48 /min DR ELIZABET MYERS MD [facility] 03-23-2022 09:20-0500 Respiratory rate 18 /min DR ELIZABET MYERS MD [facility] 03-23-2022 09:20-0500 Systolic Blood Pressure Non-Invasive [address] ELIZABET MYERS MD [facility] 09-23-2021 10:16-0400 Body height 160.02 cm HIGH SCHOOL ADMISSIONS REPRESENTATIVEWaqar Roach HIGH SCHOOL ADMISSIONS REPRESENTATIVE Work Phone: [facility] Work Phone: 09-23-2021 10:16-0400 Body mass index (BMI) [Ratio] 32.4 kg/m2 HIGH SCHOOL ADMISSIONS REPRESENTATIVEWaqar Roach HIGH SCHOOL ADMISSIONS REPRESENTATIVE Work Phone: [facility] Work Phone: 09-23-2021 10:16-0400 Body weight 83 kg HIGH SCHOOL ADMISSIONS REPRESENTATIVEWaqar Roach HIGH SCHOOL ADMISSIONS REPRESENTATIVE Work Phone: [facility] Work Phone: 09-23-2021 10:16-0400 Diastolic blood pressure 66 mm[Hg] HIGH SCHOOL ADMISSIONS REPRESENTATIVE-C Yulissa Roach HIGH SCHOOL ADMISSIONS REPRESENTATIVE Work Phone: [facility] Work Phone: 09-23-2021 10:16-0400 Heart rate 56 /min HIGH SCHOOL ADMISSIONS REPRESENTATIVE-C Yulissa Roach HIGH SCHOOL ADMISSIONS REPRESENTATIVE Work Phone: [facility] Work Phone: 09-23-2021 10:16-0400 Respiratory rate 16 /min HIGH SCHOOL ADMISSIONS REPRESENTATIVE-C Yulissa Roach HIGH SCHOOL ADMISSIONS REPRESENTATIVE Work Phone: [facility] Work Phone: 09-23-2021 10:16-0400 SaO2% (BldA) [Mass fraction] 96 % HIGH SCHOOL ADMISSIONS REPRESENTATIVE-C Yulissa Roach HIGH SCHOOL ADMISSIONS REPRESENTATIVE Work Phone: [facility] Work Phone: 09-23-2021 10:16-0400 Systolic blood pressure 127 mm[Hg] HIGH SCHOOL ADMISSIONS REPRESENTATIVE-C Yulissa Roach HIGH SCHOOL ADMISSIONS REPRESENTATIVE Work Phone: [facility] Work Phone: Encounters Encounter Date Encounter Type Care Provider Facility Start: 09-03-2024 Emergency department patient visit JOSE ISAACS DO Facility:[facility] Start: 09-03-2024 End: 09-06-2024 Evaluation and management of inpatient ADY ROJO DO [facility] Start: 07-28-2024 Encounter for genera l adult medical examination without abnormal findings Venkatesh Myles NP [facility] Start: 05-17-2024 End: 05-17-2024 ambulatory YULISSA ROACH ARTS EDUCATION TEACHER-CAR CLEANING SUPERVISOR Facility:[facility] Start: 04-18-2024 End: 04-18-2024 ambulatory Venkatesh Myles NP Facility:[facility] Start: 03-02-2024 End: 03-02-2024 ambulatory Yulissa Roach HIGH SCHOOL ADMISSIONS REPRESENTATIVE Facility:[facility] Start: 01-19-2024 ambulatory Yulissa Roach HIGH SCHOOL ADMISSIONS REPRESENTATIVE Facil ity:[facility] Start: 12-27-2023 ambulatory Yulissa Roach HIGH SCHOOL ADMISSIONS REPRESENTATIVE Facil ity:[facility] Start: 11-18-2023 ambulatory Yulissa Roach HIGH SCHOOL ADMISSIONS REPRESENTATIVE Facil ity:[facility] Start: 10-13-2023 End: 10-13-2023 ambulatory YULISSA ROACH ARTS EDUCATION TEACHER-CAR CLEANING SUPERVISOR Facility:[facility] Start: 10-13-2023 End: 10-13-2023 Patient encounter procedure YULISSA ROACH ARTS EDUCATION TEACHER-CAR CLEANING SUPERVISOR [facility] Start: 10-13-2023 ambulatory Yulissa Flormer HIGH SCHOOL ADMISSIONS REPRESENTATIVE Facil ity:[facility] Start: 09-23-2023 End: 09-23-2023 ambulatory Yulissa Flormer HIGH SCHOOL ADMISSIONS REPRESENTATIVE Facility:[facility] Start: 09-20-2023 ambulatory Yulissa Roach HIGH SCHOOL ADMISSIONS REPRESENTATIVE Facil ity:[facility] Start: 09-20-2023 End: 09-20-2023 ambulatory MR AKHIL PINA MD Facility:[facility] Start: 08-31-2023 ambulatory Yulissa Flormer HIGH SCHOOL ADMISSIONS REPRESENTATIVE Facil ity:BMS Start: 08-31-2023 End: 08-31-2023 ambulatory YULISSA ROACH ARTS EDUCATION TEACHER-CAR CLEANING SUPERVISOR Facility:B Start: 08-27-2023 ambulatory Yulissa Roach HIGH SCHOOL ADMISSIONS REPRESENTATIVE Facil ity:BMS Start: 08-18-2023 ambulatory Yulissa Roach HIGH SCHOOL ADMISSIONS REPRESENTATIVE Facil ity:BMS Start: 08-09-2023 ambulatory MR AKHIL PINA MD Fac ility:B Start: 08-09-2023 End: 09-02-2024 Lab-Standing Order MR AKHIL PINA MD [facility] Start: 08-09-2023 ambulatory Yulissa Roach HIGH SCHOOL ADMISSIONS REPRESENTATIVE Facil ity:BMS Start: 01-27-2023 End: 01-27-2023 ambulatory [facility] Work Phone: Start: 01-27-2023 End: 01-27-2023 Patient encounter procedure [facility] Work Phone: Start: 01-05-2023 End: 01-05-2023 Patient encounter procedure [facility] Work Phone: Start: 09-16-2022 End: 09-16-2022 ambulatory [facility] Work Phone: Start: 09-16-2022 End: 09-16-2022 Patient encounter procedure [facility] Work Phone: Start: 08-31-2022 End: 08-31-2022 Patient encounter procedure YULISSA ROACH ARTS EDUCATION TEACHER-CAR CLEANING SUPERVISOR [facility] Start: 04-18-2022 End: 04-18-2022 Emergency department patient visit MONTRELL Hsieh LAMBERT BUCHANAN [facility] Start: 04-07-2022 End: 04-07-[address] ELIZABET MYERS MD [facility] Start: 03-23-2022 End: 03-23-[address] ELIZABET MYERS MD [facility] Start: 03-23-2022 End: 03-23-[address] ELIZABET MYERS MD [facility] Start: 10-03-2021 Non-patient / Non-visit HIGH SCHOOL ADMISSIONS REPRESENTATIVE-C Aimee Roach HIGH SCHOOL ADMISSIONS REPRESENTATIVE Work Phone: [facility] Start: 10-03-2021 End: 10-03-2021 Patient encounter procedure HIGH SCHOOL ADMISSIONS REPRESENTATIVE-C Yulissa Roach HIGH SCHOOL ADMISSIONS REPRESENTATIVE Work Phone: [facility] Start: 09-30-2021 End: 09-30-2021 Patient encounter procedure YULISSA ROACH ARTS EDUCATION TEACHER-CAR CLEANING SUPERVISOR [facility] Start: 09-23-2021 End: 09-23-2021 Patient encounter procedure HIGH SCHOOL ADMISSIONS REPRESENTATIVE-C Yulissa Roach HIGH SCHOOL ADMISSIONS REPRESENTATIVE Work Phone: [facility] Start: 09-23-2021 End: 09-23-2021 Patient encounter procedure HIGH SCHOOL ADMISSIONS REPRESENTATIVE-C Yulissa Roach HIGH SCHOOL ADMISSIONS REPRESENTATIVE Work Phone: [facility] Start: 04-02-2021 End: 04-02-2021 Patient encounter procedure ZAHRAA JACOBS ARTS EDUCATION TEACHER-CAR CLEANING SUPERVISOR [facility] Start: 03-03-2021 End: 03-03-2021 Patient encounter procedure JOSE ISAACS DO [facility] Procedures Date Procedure Procedure Detail Performing Clinician Start: 04-07-2022 Total replacement of left knee joint DR ELIZABET MYERS MD Start: 02-08-2017 Cardiac catheter (ph ysical object) JOSE ISAACS DO Laparoscopy JOSE ISAACS D O Comment on above: opened tubes before [address] RICKIE ROBISON Comment on above: right Plan of Treatment Date Care Activity Detail Author Cardiovascular stress testing [facility] Work Phone: Immunizations Immunization Date Immunization Notes Care Provider [facility] 11-22-2023 influenza, high dose seasonal, preservative-free; Translations: [Fluad PF Prefilled Syringe ] MR AKHIL PINA MD [facility] 08-31-2023 Pneumococcal conjuga te PCV20, polysaccharide [id number] conjugate, adjuvant, PF; Translations: [Prevnar 20] YULISSA ROACH ARTS EDUCATION TEACHER-CAR CLEANING SUPERVISOR [facility] 12-14-2022 influenza virus vacc ine, unspecified formulation YULISSA ROACH ARTS EDUCATION TEACHER-CAR CLEANING SUPERVISOR [facility] 01-01-2022 influenza virus vacc ine, unspecified formulation DR ELIZABET MYERS MD [facility] 12-01-2019 influenza, injectabl e, quadrivalent, preservative free; Translations: [Fluarix PF Quadrivalent ] JOSE ISAACS DO [facility] 12-06-2018 influenza, injectabl e, quadrivalent, preservative free; Translations: [Fluarix PF Quadrivalent ] JOSE ISAACS DO [facility] 12-27-2017 influenza virus vacc ine, unspecified formulation JOSE ISAACS DO [facility] 08-07-2013 pneumococcal polysaccharide vaccine, [address] ELIZABET YMERS MD [facility] 08-07-2013 zoster vaccine, live DR GRETTA MYERS MD [facility] 07-29-2012 tetanus toxoid, redu hunter diphtheria toxoid, and acellular pertussis vaccine, adsorbed JOSE ISAACS DO [facility] Payers Date Payer Category Payer Medicare [id number] 2024 Private Health Insurance [id number] 2024 Medicare [id number] 2023 Unknown [id number] 2023 Medicare [id number] [address] [facility] [id number] 2012 Unknown [id number] 2010 Unknown [id number] 1948 Unknown [id number] 2.16.8 40.1.562396.3.579.2.627 1948 Unknown [id number] 2.16.8 40.1.427107.3.579.2.627 1948 Unknown [id number] 2.16.8 40.1.406092.3.579.2.627 1948 Unknown [id number] 2.16.8 40.1.370388.3.579.2.627 1948 Unknown [id number] 2.16.8 40.1.252425.3.579.2.627 1948 Unknown [id number] 2.16. 840.1.011122.3.579.2.627 1948 Unknown [id number] 2.16. 840.1.699668.3.579.2.627 Unknown [id number] 2.16.8 40.1.767067.3.579.2.462 Unknown [id number] 2.16.8 40.1.523686.3.579.2.462 Unknown [id number] 2.16.8 40.1.201436.3.579.2.462 Unknown [id number] 2.16.8 40.1.303781.3.579.2.462 Unknown [id number] 2.16.8 40.1.732018.3.579.2.462 Unknown [id number] 2.16.8 40.1.715956.3.579.2.462 Unknown [id number] 2.16.8 40.1.111159.3.579.2.462 Unknown [id number] 2.16.8 40.1.217407.3.579.2.462 Unknown [id number] 2.16.8 40.1.139515.3.579.2.462 Unknown [id number] 2.16.8 40.1.462284.3.579.2.462 Unknown [id number] 2.16.8 40.1.293984.3.579.2.462 Unknown [id number] 2.16.8 40.1.152152.3.579.2.462 Social History Date Type Detail Facility Start: 04-04-2019 End: 05-18-2024 Never smoked tobacco (finding) [facility] Start: 1950 Sex Assigned At Female A [facility] Start: 09-23-2021 End: 09-23-2022 Tobacco smoking status CAIS Unknown if ever smoked [facility] Sexual Orientation [facility] Start: 01-24-2019 Sex Female (finding) [facility] Functional Status Date Assessment Result Facility 04-18-2022 Functional Status ID band on, Call device within reach, Bed in low position, Wheels locked, Upper/Half-Length side-rails up, Phone within reach, personal items within reach, Assistive devices within reach, Toileting device within reach, Bedside Cart Locked, Visitor at bedside, Safety level maintained [facility] 04-07-2022 Functional Status Mod I [facility] 04-07-2022 Functional Status ice on [facility] 04-07-2022 Functional Status Maintained [facility] 03-23-2022 Functional Status Sensory Deficits None [facility] Mental Status Date Assessment Result Facility 04-18-2022 Mental Status Oriented x 4 [facility] 04-07-2022 Mental Status Oriented x 4 [facility] 04-07-2022 Mental Status [facility] Clinical Notes 08-01-2020 to 09-06-2024 Note Date [...] hypertension, chronic kidney disease who was at [place] 2 weeks ago noted that she had trauma to her left lower extremity Wednesday 08/30 followed by progressively worsening pain and swelling of the left lower extremity presented to the ER in [place] today due to significant left lower extremity [...] IV Kcentra stat and was transferred to [facility] for further management. Patient was gently hydrated for rhabdomyolysis which continued to trend down. Coumadin has been held. INR at the time of discharge is 2. Patient follows with a picture engraver at [facility] who also manages her Coumadin levels. Discussed with patient and her to follow-up with picture engraver in 1 to 2 weeks regarding restarting Coumadin versus Xarelto versus Eliquis. She may also discuss about what possible watchman's procedure with her picture engraver. Her pain has been controlled with oxycodone in the beginning, now only on Tylenol 1 g scheduled 4 times a day. Continue to monitor liver enzymes. Patient has also been found to be anemic likely secondary to blood loss. This can also be monitored as outpatient. She can also benefit from iron supplements as outpatient. Patient was advised to follow-up with both her picture engraver and PCP regarding resumption of anticoagulation. Allergies [...] JOSE ISAACS DO When:Within 1-2 days Where:[address] [place] [address]- [phone] Additional Information: Please call the office to [...] FRED ROSALES MD on 09/06/2024 09:[address] [facility] 09-06-2024 Hospital Discharg e instructions Patient [...] Follow these instructions at home: Medicines Take znge-otd-xblmfbg and prescription medicines only as told by [...] pain is severe. ?Do not take other zbuw-plb-urjgxfm pain medicines in addition to prescription pain [...] grains, and fresh fruits and vegetables. ?Take qcdh-riq-skuflxn or prescription medicines. ?Limit foods that are [...] or you are no longer ill. Take rtwt-xud-cjpffre and prescription medicines only as told by [...] Document Reviewed: 07/03/2019 Elsevier Patient Education 2020 [employer] Follow Up Care 09/03/2024 00:01:16 With:Dr. Muñoz, Cardiology. Follow-up for recommendations about future anticoagulation warfarin versus Xarelto versus Eliquis versus watchman's procedure. Address:Unknown When:1-2 days With:JOSE ISAACS DO Address: [address] [place] [address]- [phone] When:1-2 days Comments:Please call the office to schedule a hospital follow up appointment. [facility] 09-06-2024 Note Discharge Instructions Thank you for allowing [facility] to assist you with your healthcare needs. The following is important discharge information regarding your hospital visit. Your Care Team JOSE ISAACS DO Your Diagnosis Hypocoagulable state Nontraumatic hematoma of muscle Retroperitoneal bleed Warfarin toxicity What to do next Scheduled Follow-Up Appointments Appointment Type When With Where Contact Information StatusPC OV 10/19/2024 10:00 AM EDT JOSE ISAACS DO [facility] Confirmed Follow Up Appointments Follow Up with Dr. Muñoz, Cardiology. Follow-up for recommendations about future anticoagulation warfarin versus Xarelto versus Eliquis versus watchman's procedure. When:Within 1-2 days Follow Up with JOSE ISAACS DO When:Within 1-2 days Where:[address] [place] [address]- [phone] Additional Information: Please call the office to [...] Follow these instructions at home: Medicines Take shas-gnb-ajpfnwc and prescription medicines only as told by [...] is severe. ? Do not take other yjds-qoi-grjgzwe pain medicines in addition to prescription pain [...] and fresh fruits and vegetables. ? Take dplc-alb-mqnuxgy or prescription medicines. ? Limit foods that [...] or you are no longer ill. Take qvuw-qdk-yojkpzg and prescription medicines only as told by [...] 03/01/2016 Document Revised: 07/03/2019 Document Reviewed: 07/03/2019 ElseDancingAnchovy Patient Education 2020 [employer] Additional Information VACCINATE! IT SAVES LIVES! Members of the community who have not yet received the COVID-19 vaccine and would like to receive it can visit one of [facility] vaccine clinics. There are many vaccine clinic locations within the [facility]. For locations and available times, please visit [email or web address].[email or web address]/. It is important to note that some COVID mobile vaccine clinics are held outdoors and may be canceled in rainy or stormy conditions. To learn more about pediatric vaccinations (ages 5-11), we invite you to visit the [facility] webpage. https://www.[facility].org/p ages/2842-Zefyy-Fmckbvsfuff-Freq gmgqcr-Ydnlo-Jybbhrxij.html To learn more about the COVID-19 vaccine, we invite you to visit the CDC website for a list of frequently asked questions.https://www.cdc.gov/co ronavirus/2019-ncov/vaccines/faq .html [facility] Patient Portal Access Instructions: Stay connected with your healthcare team and access your personal medical information anytime with the [facility] Patient Portal. Please follow the directions below to create your [facility] account: 1.Access the email account you provided upon registration to the hospital/physician office.2.Look for an invitation email from [facility].3.Open the email and access the invitation link: Accept Invitation to [facility].4.Fill in the required luong to create your account. To access your account, visit [email or web address]. Click the blue button labeled Access Patient [...] you will allow to register on the [facility] Patient Portal for access to your information. You can also access the [facility] Patient Portal on the [facility] sophia. Simply click on Patient Portal and then log into your account. If you would like to receive a full copy of your medical records, please contact the [facility] Medical Records Department by calling [phone], Wednesday through Wednesday between 8 a.m. and [...] Call your local pharmacy or go to http://[employer] Networks/2H4Re5i to find one close to you.3.Make use of household items: Use cat litter or old coffee grounds to dispose medications if other options are not available. Mix your drugs with these household products, seal them in an airtight container and throw it into the garbage. Call [facility]: [phone] to be sure your drugs can be [...] aware that I should contact my doctor. Patient/Soap Worker Signature: Date/Time: Relationship to Patient: Witness Name/Signature: Date/Time: [facility] 09-06-2024 Note Date of Service 09/06/2024 Subjective 74-year-old female with history of atrial fibrillation on Coumadin, prediabetes, essential hypertension, chronic kidney disease who was at [place] 2 weeks ago noted that she had trauma to her left lower extremity Wednesday 08/30 followed by progressively worsening pain and swelling of the left lower extremity presented to the ER in [place] today due to significant left lower extremity [...] IV Kcentra stat and was transferred to [facility] for further management. Patient has been getting [...] FRED ROSALES MD on 09/06/2024 09:[address] [facility] 09-05-2024 Note Date of Service 09/05/2024 [...] hypertension, chronic kidney disease who was at [place] 2 weeks ago noted that she had trauma to her left lower extremity Wednesday 08/30 followed by progressively worsening pain and swelling of the left lower extremity presented to the ER in [place] today due to significant left lower extremity [...] IV Kcentra stat and was transferred to [facility] for further management. Patient has left knee [...] (one day only), Blood, Once, Preferred Lab: [facility], Stop date 09/06/24 5:00:00 EDT CPK, 09/06/24 5:00:00 EDT, Next AM Draw (one day only), Blood, Once, Preferred Lab: [facility], Stop date 09/06/24 5:00:00 EDT Prothrombin Time - Panel(INR/PT), 09/06/24 5:01:00 EDT, Next AM Draw (one day only), Blood, Once, Preferred Lab: [facility], Stop date 09/06/24 5:01:00 EDT ROUTINE EMERGENCY [...] 48 hours Anticipated DC Disposition Home c [facility] Time Spent 50 min Digitally Signed by CHAYO BELLO MD on 09/05/2024 06:17 PM Digitally Signed by CHAYO BELLO MD on 09/05/2024 08:[address] [facility] 09-04-2024 Note Date of Service 09/04/24 Subjective 74-year-old female with history of atrial fibrillation on Coumadin, prediabetes, essential hypertension, chronic kidney disease who was at [place] 2 weeks ago noted that she had trauma to her left lower extremity Wednesday 08/30 followed by progressively worsening pain and swelling of the left lower extremity presented to the ER in [place] today due to significant left lower extremity [...] IV Kcentra stat and was transferred to [facility] for further management. At [facility] patient was monitored for signs of ongoing [...] oral vitamin K and Kcentra 09/03 at [place] ER - Atrial fibrillation on chronic Coumadin [...] PEYTON GOMES MD on 09/04/2024 01:[address] [facility] 09-04-2024 Interventional radiology Consult note CTA [...] CAYLA VILLA MD on 09/04/2024 11:[address] [facility] 09-03-2024 History and physical note Date of Service 09/03/24 Chief Complaint pt c/o left knee pain after twisting it on vacation at [facility]. pt states she twisted knee on wed. History of Present Illness 74-year-old female with history of atrial fibrillation on Coumadin, prediabetes, essential hypertension, chronic kidney disease who was at [place] 2 weeks ago noted that she had trauma to her left lower extremity Wednesday 08/30 followed by progressively worsening pain and swelling of the left lower extremity presented to the ER in [place] today due to significant left lower extremity [...] IV Kcentra stat and was transferred to [facility] for further management. This time patient reports [...] oral vitamin K and Kcentra 09/03 at [place] ER - Atrial fibrillation on chronic Coumadin - Traumatic Rhabdomyolysis - Essential hypertension Patient is admitted to the hospital due to presenting with intractable pain requiring multiple IV narcotic doses for control of her pain over at [place] ER. Will continue controlling pain with IV [...] Domestic Concerns: None. Living situation: Home/Independent. 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 Spouse Name: brian. Marital [...] 23-valent vaccine(Pneumovax: 0 unknown unit (08/07/13) tetanus/diphtheria/pertussMUL.OR D![id number]: 0 unknown unit (07/29/12) zoster vaccine live: 0 unknown unit (08/07/13) Code Status dnr dni Digitally Signed by PEYTON GOMES MD on 09/03/2024 03:13 PM Digitally Signed by PEYTON GOMES MD on 09/03/2024 03:[address] [facility] 09-03-2024 Evaluation + Plan note Extrac love from: Title:History and Physical Author:PEYTON GOMES MD Date:09/03/24 - Intractable pain due to lo wer extremity hematomas related to supratherapeutic INR while on coumadin for her atrial fibrillation - Supratherapeutic INR status post oral vitamin K and Kcentra 09/03 at [facility] - Atrial fibrillation on chronic Coumadin - Traumatic Rhabdomyolysis - Essential hypertension Patient is admitted to the hospital due to presenting with intractable pain requiring multiple IV narcotic doses for control of her pain over at [facility]. Will continue controlling pain with IV medication [...] Date:10/19/2024 10:00:00 AM Scheduled Provider:JOSE ISAACS DO Location[facility] Appointment Type:[facility] 07-06-2025 Note* Exam Date Time Procedure Performing Provider Status 09/03/24 2:[address] Angiography Abd/P dilma/Bilat Lower Ex MAYCOL ABAD MD; Auth (Verified) [id number] ORIGINAL EXAMINATION: CTA OF THE AORTA WITH [...] 09/03/2024 3:13:12 AM Ordering Provider: [facility]W [id number] Note* Exam Date Time Procedure Performing Provider Status 09/03/24 1:56 AM XR Knee 3 Views Left MAYCOL ABAD MD; Auth (Verified) [id number] ORIGINAL EXAMINATION: TWO XRAY VIEWS OF THE [...] 09/03/2024 2:02:10 AM Ordering Provider: SAW CHAM[id number] Note* Exam Date Time Procedure Performing Provider Status 09/03/24 1:54 AM XR Femur Minimum 2 Views Left MAYCOL ABAD MD; Auth (Verified) [id number] ORIGINAL EXAMINATION: TWO XRAY VIEWS OF THE [...] 09/03/2024 2:02:10 AM Ordering Provider: SAW CHAMB[id number] Note ORIGINAL EXAMINATION: BONE DENSITOMETRY 10/13/2023 2:08 [...] Date: 10/13/2023 2:47:13 PM [facility] Evaluation + Plan note Future Scheduled Tests Laboratory* Basic Metabolic Panel 09/01/23 [facility] 02-18-2023 Hospital Discharge instructions Patient Education 04/18/2022 [...] from the wound Vomiting, constipation, or diarrhea [id number] [employer]. [address] [place] [address]. All rights reserved. This information is not intended as a substitute for professional medical care. Always follow yourhealthcare professional's instructions. Follow Up Care 04/18/2022 09:26:34 With:ELIZABET MYERS MD Address: [address] [place] [address] [address] [employer] [facility] [address]- [phone] When:2-4 days [facility] 02-18-2023 Note Discharge Instructions Thank you for allowing [facility] to assist you with your healthcare needs. The following is importantdischarge information regarding your hospital visit. Diagnosis from Today's Visit Knee pain-swelling What to Do Next Instructions from Your Care Team No qualifying data available. Post Acute Orders No qualifying data available. You Need to Schedule the Following Appointments Follow Up with ELIZABET MYERS MD When Within 2-4 days Where: [address] [place] [address] [email or web address] [facility] [address] [employer] [place] [address]- [phone] Allergies NKA Medications Please ask your primary [...] from the wound Vomiting, constipation, or diarrhea [phone] [employer]. [address] [place] [address], [place] [address]. All rights reserved. This information is not intended as a substitute for professional medical care. Always follow yourhealthcare professional's instructions. Additional Information VACCINATE! IT SAVES LIVES! Members of the community who have not yet received the COVID-19 vaccine and would like to receive it can visit one of [facility] vaccine clinics. There are many vaccine clinic locations within the [facility]. For locations and available times, please visit www.[email or web address].[place].gov/. It is important to note that some COVID mobile vaccine clinics are held outdoors and may be canceled in rainy or stormy conditions. To learn more about pediatric vaccinations (ages 5-11), we invite you to visit the [facility] webpage. https://www.akronNotch [employer] Captures.org/pages/6824-Uppki-Twlpwtwwzpc-Wwakzkrdzs-Wigfa-Ujf stions.htmlTo learn more about the COVID-19 vaccine, we invite you to visit the CDC website for a list of frequently asked questions. https://www.cdc.gov/coronavirus/2019-ncov/vaccines/faq.html [facility] Patient Portal Access Instructions: Stay connected with your healthcare team and access your personal medical information anytime with the [facility] Patient Portal. If you would like a full copy of your medical records please contact the [facility] Medical Records Department Wednesday through Wednesday between 8a.m. and 4:30p.m. Please follow the directions below to access the portal: 1.Access the email account you provided upon registration to the hospital.2.Look for an invitation email from [facility].3.Open the email and access the invitation link: Accept Invitation to [facility]4.Fill in the required luong to create your account. Sign into [email or web address] [email or web address] with your username and password that you [...] you will allow to register on the [facility] Patient Portal for access to your information. You can also access the [facility] Patient Portal on the [employer] sophia. Simply click on Health Records under [employer] and then click on the [employer] logo. [...] Call your local pharmacy or go to http://[employer]/0K1Wt4l to find one close to you.3.Make use of household items: Use cat litter or old coffee grounds to dispose medications if other options arenot available. Mix your drugs with these household products, seal them in an airtight container andthrow it into the garbage. Call [facility]: [phone] to be sure your drugs can be [...] aware that I should contact my doctor. Patient/Soap Worker Signature: Date/Time: Relationship to Patient: Witness Name/Signature: Date/Time: [facility]02-07-2023 Hospital Discharge instructions Patient Education 04/07/2022 09:02:54 [...] before eating solid foods. General instructions Take teqw-rxt-srajfwf and prescription medicines only as told by [...] 06/07/2016 Document Revised: 05/16/2018 Document Reviewed: 06/07/2016 [employer] Patient Education 2020 [employer]. 04/07/2022 09:02:47 Spinal Anesthesia and Epidural Anesthesia, [...] what activities are safe for you. Take pvbi-nir-etpinxh and prescription medicines only as told by [...] 05/07/2004 Document Revised: 08/07/2019 Document Reviewed: 06/08/2016 [employer] Patient Education 2020 [employer]. 04/07/2022 09:02:33 Nausea and Vomiting, Adult Nausea [...] water added (diluted fruit juice). Eat bland, vhps-hc-xsqeqp foods in small amounts as you are able. These foods include bananas, applesauce, rice, lean meats, toast, and crackers. Avoid fluids that contain a lot of sugar or caffeine, such as energy drinks, sports drinks, and soda. Avoid alcohol. Avoid spicy or fatty foods. General instructions Take jnsf-fbg-xqhsris and prescription medicines only as told by your health care provider. Drink enough fluid to keep your urine pale yellow. Wash your hands often using soap and water. If soap and water are not available, use hand employee relations administrator. Make sure that all people in your [...] eating and drinking to prevent dehydration. Take wpyg-wxa-uouboap and prescription medicines only as told by [...] 02/15/2006 Document Revised: 06/09/2019 Document Reviewed: 07/26/2018 [employer] Patient Education 2020 [employer]. 04/07/2022 09:02:27 Total Knee Replacement, Care After [...] Follow these instructions at home: Medicines Take ypkk-ybu-xwmrxvp and prescription medicines only as told by [...] to keep your urine pale yellow. ?Take ezjh-llf-wcrdwyw or prescription medicines. ?Eat foods that are [...] and water are not available, use hand employee relations administrator. ?Change your dressing as told by your [...] 09/04/2005 Document Revised: 06/26/2019 Document Reviewed: 09/29/2018 [employer] Patient Education 2020 [employer]. Follow Up Care 01/20/2022 11:31:21 With:LAURA RAMIREZ Address: [facility] [address] [place] [phone] Business (1) When:04/20/2022 10:15:00 [facility] 02-07-2023 Note ORIGINAL EXAMINATION: TWO XRAY VIEWS [...] 04/07/2022 9:27:28 AM Ordering Provider: [facility] [id number] Summary of episode note Discharge Instructions Thank you for allowing [facility] to assist you with your healthcare needs. The following is importantdischarge information regarding your hospital visit. Your Care Team YULISSA ROACH What to do next Scheduled Follow-Up Appointments Appointment Type When With Where Contact InformationPT Outpatient Evaluation 04/09/2022 09:30 AM EST [facility] OV 09/22/2022 09:30 AM EDT YULISSA ROACH [facility] [address] [phone] Follow Up Appointments Follow Up with LAURA RAMIREZ When 04/20/2022 10:15 AM EST Where: [facility] [address] [place] [address]- [employer] (1) The Following Activity and Diet Have [...] before eating solid foods. General instructions Take dqlz-rky-mvunwpe and prescription medicines only as told by [...] 06/07/2016 Document Revised: 05/16/2018 Document Reviewed: 06/07/2016 [employer] Patient Education 2020 [employer] Spinal Anesthesia and Epidural Anesthesia, Care [...] what activities are safe for you. Take wfhl-zlf-rcksesz and prescription medicines only as told by [...] 05/07/2004 Document Revised: 08/07/2019 Document Reviewed: 06/08/2016 [employer] Patient Education 2020 [employer]. Nausea and Vomiting, Adult Nausea is the [...] water added (diluted fruit juice). Eat bland, ptse-rz-hnewev foods in small amounts as you are able. These foods include bananas, applesauce, rice, lean meats, toast, and crackers. Avoid fluids that contain a lot of sugar or caffeine, such as energy drinks, sports drinks, and soda. Avoid alcohol. Avoid spicy or fatty foods. General instructions Take qsun-ovg-retkumw and prescription medicines only as told by your health care provider. Drink enough fluid to keep your urine pale yellow. Wash your hands often using soap and water. If soap and water are not available, use hand employee relations administrator. Make sure that all people in your [...] eating and drinking to prevent dehydration. Take hkas-ghs-drvwhdl and prescription medicines only as told by [...] 02/15/2006 Document Revised: 06/09/2019 Document Reviewed: 07/26/2018 [employer] Patient Education 2020 [employer] Total Knee Replacement, Care After This [...] Follow these instructions at home: Medicines Take lpgx-gei-ofeptxt and prescription medicines only as told by [...] keep your urine pale yellow. ? Take feby-hpj-bovenom or prescription medicines. ? Eat foods that [...] and water are not available, use hand employee relations administrator. ? Change your dressing as told by [...] 09/04/2005 Document Revised: 06/26/2019 Document Reviewed: 09/29/2018 [employer] Patient Education 2020 [employer] Additional Information VACCINATE! IT SAVES LIVES! Members of the community who have not yet received the COVID-19 vaccine and would like to receive it can visit one of [facility] vaccine clinics. There are many vaccine clinic locations within the [facility]. For locations and available times, please visit [email or web address]/. It is important to note that some COVID mobile vaccine clinics are held outdoors and may be canceled in rainy or stormy conditions. To learn more about pediatric vaccinations (ages 5-11), we invite you to visit the [facility] webpage. https://www.[email or web address].org/pages/3352-Srljj-Fjjrnyvejim-Qrcnwolfoy-Bgljj-Iir stions.htmlTo learn more about the COVID-19 vaccine, we invite you to visit the [employer] website for a list of frequently asked questions. https://[employer]/assets/Hvsbqxul-zcn-Yenhzdsw/hbncf-Dhkzqvn-Ukqnpkrtrs _Asked-Questions.pdf [facility] OneChart Patient Portal Access Instructions: Stay connected with your healthcare team and access your personal medical information anytime with the [facility] [employer] Patient Portal.If you would like a full copy of your medical records, please contact the [facility] Medical Records Department, Wednesday through Wednesday between 8a.m. and 4:30p.m. Please follow the directions below to access the portal: 1.Access the email account you provided upon registration to the [facility].2.Look for an invitation email from [facility].3.Open the email and access the invitation link: Accept Invitation to [facility] [employer]4.Fill in the required loung to create your account. Sign into [email or web address] with your username and password that you [...] you will allow to register on the [facility] [employer] Patient Portal for access to your information. You can also access the [facility] [employer] Patient Portal on the [facility]. Simply click on Health Records under [employer] and then click on the [employer] logo. HOW TO SAFELY DISPOSE OF PRESCRIPTION [...] Call your local pharmacy or go to http://[employer]/2Z4La9n to find one close to you.3.Make use of household items: Use cat litter or old coffee grounds to dispose medications if other options arenot available. Mix your drugs with these household products, seal them in an airtight container andthrow it into the garbage. Call [facility]: [phone] to be sure your drugs can be [...] aware that I should contact my doctor. Patient/Soap Worker Signature: Date/Time: Relationship to Patient: Witness Name/Signature: Date/Time: [facility]02-07-2023 Note ORIGINAL EXAMINATION: TWO XRAY VIEWS OF [...] Sign Date: 04/07/2022 9:27:28 AM Ordering Provider: [facility]02-07-2023 Anesthesiology Consult note Patient: NADEGE PAPPAS Age: [...] list: Medical Atrial fibrillation / SNOMED CT 00731175 / Confirmed Benign essential hypertension / SNOMED CT 6599274 / Confirmed Carpal tunnel syndrome / SNOMED CT 58013070 / Confirmed Chronic kidney disease / SNOMED CT 1593204934 / Confirmed Eczema / SNOMED CT 95648209 / Confirmed Gout / SNOMED CT 937018377 / Confirmed Hypertriglyceridemia / SNOMED CT 371308170 / Confirmed Intermittent palpitations / SNOMED CT 771295062 / Confirmed Knee osteoarthritis / SNOMED CT 805703014 / Confirmed Osteopenia / SNOMED CT 666425603 / Confirmed, Active Problems (10) Atrial fibrillation Benign essential hypertension Carpal tunnel syndrome Chronic kidney disease Eczema Gout Hypertriglyceridemia Intermittent palpitations Knee osteoarthritis Osteopenia Histories Past Medical History: No active or resolved past medical history items have been selected or recorded. Family History: Cancer Mother () Myocardial infarction Father () Procedure history: Cardiac catheter ([id number]) on 02/08/2017 at 66 Years. Laparoscopy ([id number]). 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 Spouse Name brian Marital [...] Resp Rate L 12br/min (APR 07 05:47) QPJ654 mmHg (APR 07:47) DBP65 mmHg (APR 07 05:47) BMI30.2 (APR 07:47) Measurements from flowsheet : Measurements 04/07/2022 5:47 EST Height 160 cm Admission Weight 77.3 kg Weight Method Stated [place] Body Weight 52.38 kg Body Mass Index [...] Person #1 We May Share MELBA SCHMITT [phone] Designated Person #1 Relationship Daughter Privacy Restrictions Requested None Height 160 cm Admission Weight 77.3 kg Weight Method Stated [place] [facility] Body Weight 52.38 kg Body Mass Index [...] Status N/A Skin Temperature Warm Skin Description [place], Dry Skin Integrity Intact Neurological Symptoms Patient [...] Weeks No Weight Loss No Allergies No Gallery Or Museum Attendant On Yes Consent Form Signed Yes Patient [...] Evaluation Verbalizes/Nonverbally indicates understanding Preferred Written Language Italian Preferred Spoken Language Italian Information Given by Patient Patient's Current Physicians [...] Patient Cleared for Surgery By YULISSA ROACH APRN-CAR CLEANING SUPERVISOR Cardiac Clearance For Surgery By AKHIL PINA MD Lost Weight Unintentionally Recently No Eat Poorly Due to Decreased Appetite No Total MST Score 0 N/A Personal Devices, Patient Valuables None Anesthesia/Transfusions Prior anesthesia Admission Note-Nursing Same Day Patient History . Assessment and Plan [place] Society of Anesthesiologists (ASA) physical status classification: Class III. Anesthetic Preoperative Plan Anesthetic technique: Spinal. Regional: Spinal. Postoperative pain management: adductor canal. Risks discussed: nausea, vomiting, headache, hypotension, allergic reaction, serious complications. Informed consent: signed by patient. Digitally Signed by VETO PERDOMO on 04/07/2022 06:47 AM [facility]01-23-2023 Note ORIGINAL EXAMINATION: CT OF THE LEFT [...] No erosions. Right knee arthroplasty noted on fire coordinator radiographs. Scattered colonic diverticulosis without diverticulitis. Phleboliths. [...] 03/23/2022 9:53:09 PM Ordering Provider: ELIZABET LUCIA [facility]01-23-2023 Note ORIGINAL EXAMINATION: CT OF THE LEFT [...] No erosions. Right knee arthroplasty noted on fire coordinator radiographs. Scattered colonic diverticulosis without diverticulitis. Phleboliths. [...] Sign Date: 03/23/2022 9:53:09 PM Ordering Provider: [facility]01-21-2022 Note HNO ID: [id number] Author: Mitch Dominguez MD Service: ? Author [...] questions about the findings, diagnosis, and treatment options.[facility]12-17-2021 NoteHNO ID: [id number] Author: Catalina Barrios OD Service: ? Author Type: HYDROTEL OPERATOR Type: Progress Notes Filed: 02/14/2021 8:43 AM [...] check dry eye and acuities Catalina Barrios [facility] Evaluation + Plan note Future Scheduled Tests Laboratory* Basic Metabolic Panel 08/01/20 Radiology* XR Knee 3 Views Left 04/02/21 [facility] Evaluation + Plan note Future Appointments Appointment Date:03/04/2021 08:20:00 AM Scheduled Provider:VENU WAKEFIELD Location:[facility] Appointment Type:Telehealth Future Scheduled Tests Laboratory* Basic Metabolic Panel 08/01/20 * A1C Hemoglobin 03/08/20 [facility] Evaluation + Plan note Future Appointments Appointment Date:04/07/2022 09:30:00 AM Scheduled Provider:YULISSA ROACH Location:[facility] Appointment Type:PC OV Follow Up Future Scheduled Tests Radiology* XR Knee 3 Views Left 04/02/21 [facility] evaluation + Plan note Future Appointments Appointment Date:03/24/2022 10:00:00 AM Scheduled Provider:YULISSA ROACH Location:[facility] Appointment Type:PC OV Follow Up Appointment Date:04/09/2022 09:30:00 AM Scheduled [facility] Type:PT Outpatient Evaluation Future Scheduled Tests Radiology* XR Knee 3 Views Left 04/02/21 [facility] Evaluation + Plan note Future Appointments Appointment Date:04/09/2022 09:30:00 AM Scheduled Provider: Location:[facility] Appointment Type:PT Outpatient Evaluation Appointment Date:09/22/2022 09:30:00 AM Scheduled Provider:YULISSA ROACH Location:[facility] Appointment Type:PC OV [facility] Evaluation + Plan note Future Appointments Appointment Date:04/21/2022 09:30:00 AM Scheduled Provider:Brian Young PTA [id number] Location:[facility] Appointment Type:PT Treatment - [place] Appointment Date:04/22/2022 10:00:00 AM Scheduled Provider: Location:[facility] Appointment Type:PT Treatment - [place] Appointment Date:04/24/2022 09:45:00 AM Scheduled Provider: Location:[facility] Appointment Type:PT [place] - [place] Appointment Date:04/27/2022 10:00:00 AM Scheduled Provider: Location:[facility] Appointment Type:PT [place] - [place] Appointment Date:04/29/2022 10:00:00 AM Scheduled Provider: Location:[facility] Appointment Type:PT Treatment - [place] Appointment Date:05/01/2022 09:45:00 AM Scheduled Provider: Location:[facility] Appointment Type:PT Treatment - [place] Appointment Date:05/04/2022 09:15:00 AM Scheduled Provider:Brian Young PTA [id number] Location:[facility] Appointment Type:PT Treatment - [place] Appointment Date:05/08/2022 10:15:00 AM Scheduled Provider: Location:[facility] Appointment Type:PT Treatment - [place] Appointment Date:09/22/2022 09:30:00 AM Scheduled Provider:YULISSA ROACH Location:[facility] Appointment Type:[facility] Evaluation + Plan note Future Appointments Appointment Date:09/02/2022 10:00:00 AM Scheduled Provider:YULISSA ROACH Location:[facility] Appointment Type: OV [facility] Evaluation + Plan note Future Appointments Appointment Date:10/19/2024 10:00:00 AM Scheduled Provider:JOSE ISAACS DO Location[facility] Appointment Type:[facility] Evaluation note* Diagnosis Onset Date Resolution Status Essential hypertension chron ic Hyperlipidemia chronic Paroxysmal atrial flutter ch ronic [facility] Work Phone: Evaluation noteNo assessment information available [facility] Work Phone: Hospital course Narrative No data available for this section [facility] Discharge instructions No data available for this section [facility] Progress note No data available for this section [facility] Summary Purpose Family History No Family History Records Found Relationship Condition Age at Onset Recorded Date/T chase father Coronary artery disease Unknown Advance Directives No Advanced Directives Records Found Advance Directive Response Recorded Date/ Time Advance Directives No January 11:04am Living Will No February 08 11:04am Power of Loan Review Analyst No February 08, 2017 11:04am Advance Directive Response Recorded Date/ Time Advance Directives No January 10:04am Living Will No February 08 10:04am Power of Loan Review Analyst No February 08, 2017 10:04am Procedure Findings Note Post Operative Note: Post-Pr ocedure Diagnosis: 1. 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 Regular Astigmatism Right Eye Procedure: 1. Cataract Extraction with Toric Intraocular Lens Implant Right Eye Surgeon: Mitch Dominguez MD Resident/Fellow/Other Instructor Physical Education: None Estimated Blood Loss (mL): none Specimen: [...] Left Eye Surgeon: Mitch Dominguez MD Resident/Fellow/Other Instructor Physical Education: None Estimated Blood Loss (mL): none Specimen: [...] section and content) DATE CREATED AUTHOR 01/02/2020 [facility] DATE CREATED AUTHOR AUTHOR'S ORGANIZ ATION 01/09/2020 [facility] DATE CREATED AUTHOR AUTHOR'S ORGANIZ ATION 03/24/2021 [facility] DATE CREATED AUTHOR AUTHOR'S ORGANIZ ATION 10/16/2023 [facility] ([place]) DATE CREATED AUTHOR AUTHOR'S ORGANIZ ATION 07/30/2024 [facility] DATE CREATED AUTHOR AUTHOR'S ORGANIZ ATION 09/04/2024 [facility] DATE CREATED AUTHOR AUTHOR'S ORGANIZ ATION 09/04/2024 [facility] DATE CREATED AUTHOR AUTHOR'S ORGANIZ ATION 09/11/2024 [facility] Goals (unrecognized section and content) Goals may be documented in a n alternate section Care Team (unrecognized sect ion and content) Care Team Personnel Name: Miguel Last Position: P3 Scheduling - Underwriting Internship Advanced Member Role: Other Name: Staci Hernandez Position: P3 Scheduling - Underwriting Internship Advanced Member Role: Other Name: Miguel Cedeño Underwriting Internshipyash Sánchez Position: P3 Scheduling - Underwriting Internship Advanced Member Role: Other Name: YULISSA ROACH ARTS EDUCATION TEACHER-CAR CLEANING SUPERVISOR Position: P4 Advanced Practice Nurse Med Service: Employed Provider Member Role: Primary Care Physician Address: Address: [address] [place] [address] Care Team Related Persons Name: DECLINED, DECLINED Name: KESHIA SANTACRUZ Care Team Personnel Name: Staci Hernandez Position: P3 Scheduling - Underwriting Internship Advanced Member Role: Other Name: Miguel Cedeño Underwriting Internship Julia Sánchez Position: P3 Scheduling - Underwriting Internship Advanced Member Role: Other Name: YULISSA ROACH ARTS EDUCATION TEACHER-CAR CLEANING SUPERVISOR Position: P4 Advanced Practice Nurse Member Role: Primary Care Physician Address: Address: [address] Care Team Related Persons Name: DECLINED, DECLINED Name: KESHIA SANTACRUZ Care Team Personnel Name: Staci Hernandez Position: P3 Scheduling - Underwriting Internship Advanced Member Role: Other Name: Miguel Cedeño Underwriting Internshipyash Sánchez Position: P3 Scheduling - Underwriting Internship Advanced Member Role: Other Name: SOPHIA YULISSA Garcia ARTS EDUCATION TEACHER-CAR CLEANING SUPERVISOR Position: P4 Advanced Practice Nurse Member Role: Primary Care Physician Address: Address: [address] Care Team Related Persons Name: DECLINED, DECLINED Name: KESHIA SANTACRUZ Care Team Personnel Name: Staci Hernandez Position: P3 Scheduling - Underwriting Internship Advanced Member Role: Other Name: Miguel Cedeño Underwriting Internship Julia L Position: P3 Scheduling - Underwriting Internship Advanced Member Role: Other Name: SOPHIA YULISSA Garcia ARTS EDUCATION TEACHER-CAR CLEANING SUPERVISOR Position: P4 Advanced Practice Nurse Member Role: Primary Care Physician Address: Address: [address] Care Team Related Persons Name: KESHIA SANTACRUZ Name: KESHIA SANTACRUZ Care Team Personnel Name: Staci Hernandez Position: P3 Scheduling - Underwriting Internship Advanced Member Role: Other Name: Miguel Cedeño Underwriting Internship Julia L Position: P3 Scheduling - Underwriting Internship Advanced Member Role: Other Name: YULISSA RAOCH ARTS EDUCATION TEACHER-CAR CLEANING SUPERVISOR Position: P4 Advanced Practice Nurse Member Role: Primary Care Physician Address: Address: [address] Care Team Related Persons Name: DECLINED, DECLINED Name: NEETA KESHIA Patient Care team informatio n (unrecognized section and content) Team Status: Active Member Role Status Dates Yulissa Roach HIGH SCHOOL ADMISSIONS REPRESENTATIVE, HIGH SCHOOL ADMISSIONS REPRESENTATIVE-C Family Provider Active Yulissa Roach HIGH SCHOOL ADMISSIONS REPRESENTATIVE, HIGH SCHOOL ADMISSIONS REPRESENTATIVE-C Primary Care Provider Active Team Status: Inactive Member Role Status Dates Yulissa Roach HIGH SCHOOL ADMISSIONS REPRESENTATIVE, HIGH SCHOOL ADMISSIONS REPRESENTATIVE-C Primary Care Provider Active Akhil ROBBINS MD Attending Provider Active Dr. Akhil Pina MD Referring Provider Active Team Status: Inactive Member Role Status Dates Yulissa Roach HIGH SCHOOL ADMISSIONS REPRESENTATIVE, HIGH SCHOOL ADMISSIONS REPRESENTATIVE-C Primary Care Provider Active Annalisa Mabry HIGH SCHOOL ADMISSIONS REPRESENTATIVE, HIGH SCHOOL ADMISSIONS REPRESENTATIVE-C Attending Provider, Referring P louise Active FOR [...] BE BASED ON THE PRIMARY CLINICAL RECORDS. [facility]. provides no warranty or guarantee of the accuracy or completeness of information in this document.
[2024-09-12 09:48] LABS: AST(SGOT) 28 U/L (<=31); Alanine Aminotransfer ALT/SGPT 20 U/L (<=34); Albumin, Serum 4.0 g/dL (3.4-4.8); Alkaline Phosphatase 109 U/L (35-104); Bilirubin, Direct 0.64 mg/dL (0.00-0.30); Cholesterol 141 mg/dL (<=200); Globulin 3.8 g/dL (2.2-4.2); Low Density Lipoprotein Calc. 75 mg/dL; Triglycerides 138 mg/dL; Very Low Density Lipoprotein 28 mg/dL (5-40); cholesterol:hdl ratio screen 3.66
== END | disposition home or self-care (01) ==
LOC: LAB 08:31
PROVIDERS: PCP Nurse Practitioner Primary Care; Referring Provider Nurse Practitioner Family; Visit Provider Nurse Practitioner Family
DX: E78.00 Pure hypercholesterolemia, unspecified (principal)
CPT/HCPCS: 36415; 80061; 80076

== ENCOUNTER → 2024-09-28 | Outpatient (CLI) | payer MEDICARE, SELFPAY ==
--- OUTSIDE RECORDS SUMMARY | 2024-09-28 06:07 | XMS RPT_ITS | CCD ---
Author Organization [facility] Team Providers Care Interior Horticulturist Name Role Phone SOPHIA BOTTLE CARRIER-WELT BEATER, YULISSA S Primary Care Physicia n Staci Hernandez Unavailable Unavailable Shauna Last Unavailable Unavailable Julia Cedeño Unavailable Unavailable Sophia SERVICE LOSS CONTROL CONSULTANT, SERVICE LOSS CONTROL CONSULTANT-C Yulissa Primary Care Provider [phone] Sophia SERVICE LOSS CONTROL CONSULTANT, SERVICE LOSS CONTROL CONSULTANT-C Yulissa Referring Provider [phone] Dr. Akhil Pina Attending Provider [phone] Dr. Akhil Pina Referring Provider [phone] Dr. Akhil Pina Other Provider SOPHIA BURNSN-WELT BEATER, YULISSA S Attending Unava ilable SOPHIA BURNSN-WELT BEATER, YULISSA S Primary Care Unava ilable SOPHIA UBRNSN-WELT BEATER, YULISSA S Attending Unava ilable SOPHIA BURNSN-WELT BEATER, YULISSA S Primary Care Unava ilable YOVANI ROBISON, MR AKHIL S Attending Unavailable SOPHIA BOTTLE CARRIER-WELT BEATER, YULISSA S Primary Care Unava ilable YOVANI ROBISON, MR AKHIL S Attending Unavailable SOPHIA BURNSN-WELT BEATER, YULISSA S Primary Care Unava ilable JOSE ISAACS DO Primary Care Physician [phone] JOSE ISAACS DO Primary Care Unavailable ADY ROJO DO Consulting Unavailable SAW CHAMBERS MD Attending Unavailable Teagan Patino Unavailable Unavailable CHAYO BELLO MD Attending Unavailabl e JOSE ISAACS DO Consulting Unavailable JOSE ISAACS DO Primary Care Unavailable ADY ROJO DO Admitting Unavailable DARREL DO, ADY Consulting Unavailable Sophia SERVICE LOSS CONTROL CONSULTANT-C, Yulissa Primary Care Provider [phone] Roof SERVICE LOSS CONTROL CONSULTANT-C, Venkatesh Sorensen Attending Provider Roof SERVICE LOSS CONTROL CONSULTANT-C, Venkatesh Sorensen Referring Provider Sophia SERVICE LOSS CONTROL CONSULTANT-C, Yulissa Referring Provider [phone] Dr. Jose Isaacs DO Primary Care Provider [phone] SOPHIA BOTTLE CARRIER-WELT BEATER, YULISSA S Attending Giancarlo ledbetter SOPHIA BOTTLE CARRIER-WELT BEATER, YULISSA S Primary Care Unava anatoly DARLING BOTTLE CARRIER-WELT BEATER, ALETHA Sánchez Attending Jt ISAACS DO, JOSE Primary Care Unavailable [place] SERVICE LOSS CONTROL CONSULTANT, Yulissa Primary Care Unavailable [place] SERVICE LOSS CONTROL CONSULTANT, Yulissa Attending Unavailable [place] SERVICE LOSS CONTROL CONSULTANT, Yulissa Primary Care Unavailable Sophia SERVICE LOSS CONTROL CONSULTANT, Yulissa Attending Unavailable [place] SERVICE LOSS CONTROL CONSULTANT, Yulissa Primary Care Unavailable [place] SERVICE LOSS CONTROL CONSULTANT, Yulissa Attending Unavailable Sophia SERVICE LOSS CONTROL CONSULTANT, Yulissa Primary Care Unavailable [place] SERVICE LOSS CONTROL CONSULTANT, Yulissa Attending Unavailable Jose Isaacs Primary Care Unavailable Sophia SERVICE LOSS CONTROL CONSULTANT, Yulissa Referring Unavailable [place] SERVICE LOSS CONTROL CONSULTANT, Venkatesh H Attending Unavailable [place] SERVICE LOSS CONTROL CONSULTANT, Yulissa Primary Care Unavailable Yovani, Akhil Attending Unavailable Yovani, [place] Referring Unavailable [place] SERVICE LOSS CONTROL CONSULTANT, Venkatesh H Referring Unavailable Sophia SERVICE LOSS CONTROL CONSULTANT, Yulissa Primary Care Unavailable [place] SERVICE LOSS CONTROL CONSULTANT, Venkatesh H Attending Unavailable [place] SERVICE LOSS CONTROL CONSULTANT, Venkatesh H Attending Unavailable Jose Isaacs Primary Care Unavailable [place] SERVICE LOSS CONTROL CONSULTANT, Venkatesh H Referring Unavailable Jose Isaacs Primary Care Unavailable [place] SERVICE LOSS CONTROL CONSULTANT, Venkatesh H Attending Unavailable [place] SERVICE LOSS CONTROL CONSULTANT, Venkatesh H Referring Unavailable Sophia SERVICE LOSS CONTROL CONSULTANT, Yulissa Primary Care Unavailable [place] SERVICE LOSS CONTROL CONSULTANT, Venkatesh H Attending Unavailable Allergies Allergy Classification Reported Allergen(s) Allergy Type Date of Onset Reaction(s) Facility (2 sources) oxyCODONE Drug Allergy 5 mental status change [facility] (1 source) oxyCODONE Drug Allergy 5 [facility] Repository Medications Current Medications Medication Drug Class(es) Dates Sig (Normalized) Sig (Original) acetaminophen 1000 mg oral tablet (2 sources) Start: 09-06-2024 Tylenol Dose : 1,000 mg = 2 tab(s), Oral, TID, PRN as needed for pain, 0 Refill(s) Start Date: 09/06/24 Status: Ordered Repeat number: 1 calcium citrate 1500 mg / cholecalciferol 250 unt oral tablet (6 sources) Vitamin D Start: 02-02-2017 Calcium Citrate-Vitamin D3 (Citracal + D Maximum) 315-250 mg-unit tablet Active 1 {tbl} PO EVERY MORNING February 02, 2017 1:00am cholecalciferol 0.25 mg oral tablet (4 sources) Vitamin D Start: 09-12-2024 take 1 tablet by mouth once daily Cholecalciferol (Vitamin D3) 250 mcg (10,000 unit) tablet Active 250 ug PO daily September 12, 2024 12:00am Start: 09-23-2023 End: 09-12-2024 take 1 capsule by mouth once daily Cholecalciferol (Vitamin D3) 10 mcg (400 unit) capsule Discontinued 10 ug PO DAILY September 23, 2023 12:00am September 12, 2024 10:39am Citracal Calcium + D Slow Release 1200 (12 sources) Start: 04-05-2019 Citracal Calci um + [...] Refill(s), 81.7 Start Date: 04/05/19 Status: Ordered hydroCHLOROthiazide 12.5 mg oral tablet (20 sources) Thiazide Diuretic Start: 05-18-2024 hydroCHLOROthiazide 12.5 mg oral tablet Dose : 12.5 mg = 1 tab(s), Oral, qDay, 0 Refill(s) Start Date: 05/18/24 Status: Ordered Repeat number: 1 Start: 12-24-2022 End: 09-23-2023 take 1 tablet by mouth once daily Hydrochlorothiazide 12.5 mg tablet Discontinued 12.5 mg PO DAILY December 24, 2022 12:00am September 23, 2023 9:38am Start: 03-23-2022 hydroCHLOROthi azide 12.5 mg oral tablet Dose : 12.5 mg = 1 tab(s), Oral, Daily, 0 Refill(s) Start Date: 03/23/22 Status: Ordered Start: 03-05-2020 End: 09-23-2021 take 1 tablet by mouth once daily Hydrochlorothiazide 12.5 mg tablet Discontinued 12.5 mg PO DAILY 90 June 12, 2021 8:57pm September 23, 2021 10:23am lisinopril 40 mg oral tablet (20 sources) Angiotensin Converting Enzyme Inhibitor Start: 09-14-2024 lisinopril 40 mg ora l tablet Dose : 20 mg = 0.5 tab(s), Oral, qDay, 0 Refill(s) Start Date: 09/14/24 Status: Ordered Repeat number: 1 Start: 01-12-2019 End: 09-12-2024 take 1 tablet by mouth once daily Lisinopril 40 mg tablet Discontinued 40 mg PO DAILY 90 May 10, 2023 2:56pm September 12, 2024 10:40am Start: 11-11-2018 End: 01-12-2019 Lisinopril 40 mg tablet Disc ontinued 20 mg PO DAILY 90 November 11, 2018 1:54pm January 12, 2019 11:14am Start: 11-11-2018 End: 01-12-2019 take 20 mg by mouth once daily Lisinopril Discontinued 20 MG PO DAILY 90 November 11, 2018 12:54pm January 12, 2019 10:14am Start: 07-15-2018 End: 11-11-2018 take 1 tablet by mouth once daily Lisinopril 20 mg tablet Discontinued 20 mg PO DAILY 90 July 15, 2018 12:00am November 11, 2018 1:54pm Start: 02-02-2017 End: 02-10-2017 take 1 tablet by mouth once daily Lisinopril 5 mg tablet Discontinued 5 mg PO daily February 02, 2017 1:00am February 10, 2017 3:07pm traZODone hydrochloride 50 mg oral tablet (12 sources) Serotonin Reuptake Inhibitor Start: 08-31-2023 take 1 tablet by mouth at bedtime Trazodone 50 mg tablet Active 50 mg PO AT BEDTIME September 23, 2023 12:00am Start: 09-30-2021 End: 05-16-2023 traZODone 50 mg oral tablet Dose : 50 mg = 1 tab(s), Oral, qHS, # 90 tab(s), 3 Refill(s), Pharmacy: [facility] #[id number], 160, cm, 04/07/22 5:47:00 EST, Height, kg, 04/07/22 5:47:00 EST, Dosing Weight Start Date: 05/21/22 Stop Date: 05/16/23 Status: Ordered warfarin sodium 2 mg oral tablet (8 sources) Vitamin K Antagonist Start: 09-01-2023 End: 07-19-2024 take 1 tablet by mouth once daily Warfarin 2 mg tablet Active 2 mg PO DAILY 90 July 19, 2024 12:55pm Please contact the information source for Protocol details. Start: 08-03-2023 End: 09-01-2023 take 1 tablet by mouth once daily Warfarin 4 mg tablet Discontinued 4 mg PO DAILY 30 August 03, 2023 12:00am September 01, 2023 2:19pm Start on August 09 after stopping Xarelto Please contact the information source for Protocol details. Completed/Discontinued Medications Medication Drug Class(es) Dates Sig (Normalized) Sig (Original) allopurinol 100 mg oral tablet (20 sources) Xanthine Oxidase Inhibitor Start: 11-09-2022 End: 01-18-2024 take 1 tablet by mouth once daily Allopurinol 100 mg tablet Discontinued 100 mg PO DAILY September 23, 2023 9:37am January 18, 2024 3:46pm Start: 11-06-2021 End: 11-03-2022 allopurinol 100 mg oral tabl et Dose : 300 mg = 3 tab(s), Oral, qDay, # 270 tab(s), 1 Refill(s), Pharmacy: [facility] #[id number], 160, cm, 04/07/22 5:47:00 EST, Height, kg, 04/07/22 5:47:00 EST, Dosing Weight Start Date: 05/07/22 Stop Date: 11/03/22 Status: Ordered Start: 09-23-2021 End: 09-23-2023 take 3 tablets by mouth once daily Allopurinol 100 mg tablet Discontinued 300 mg PO DAILY September 23, 2021 10:21am September 23, 2023 9:38am Start: 09-23-2021 take 300 mg by mouth once bhupendra y Allopurinol Active 300 MG PO DAILY September 23, 2021 9:21am Start: 02-02-2017 End: 09-23-2021 take 1 tablet by mouth twice daily as needed Allopurinol 100 mg tablet Discontinued 100 mg PO TWICE A DAY as needed November 11, 2018 1:38pm September 23, 2021 10:23am amLODIPine 5 mg oral tablet (20 sources) Dihydropyridine Calcium Channel Marycarmen Start: 09-23-2023 End: 09-23-2023 take 5 mg by mouth once daily Amlodipine 10 mg tablet Discontinued 5 mg PO daily September 23, 2023 9:37am September 23, 2023 9:48am Start: 08-31-2023 End: 09-12-2024 take 1 tablet by mouth once daily Amlodipine 5 mg tablet Discontinued 5 mg PO DAILY January 17, 2024 1:56pm September 12, 2024 10:40am Start: 12-23-2022 End: 09-23-2023 take 5 mg by mouth twice daily Amlodipine 10 mg tablet Discontinued 5 mg PO TWICE A DAY December 23, 2022 11:16am September 23, 2023 9:38am Start: 12-23-2022 take 5 mg by mouth twice daily Amlodipine Active 5 MG PO TWICE A DAY December 23, 2022 10:16am Start: 10-28-2022 End: 10-30-2022 take 1 tablet by mouth twice daily Amlodipine 5 mg tablet Discontinued 5 mg PO TWICE A DAY 180 October 28, 2022 1:40pm October 30, 2022 1:29pm dose increased to twice a day Start: 09-23-2022 End: 10-28-2022 take 1 tablet by mouth once daily Amlodipine 5 mg tablet Discontinued 5 mg PO DAILY September 23, 2022 9:22am October 28, 2022 1:41pm Start: 09-23-2022 End: 09-23-2022 take 5 mg by mouth once daily Amlodipine 10 mg tablet Discontinued 5 mg PO DAILY September 23, 2022 9:16am September 23, 2022 9:23am Start: 09-23-2022 End: 09-23-2022 take 5 mg by mouth once daily Amlodipine Discontinued 5 MG PO DAILY September 23, 2022 8:16am September 23, 2022 8:23am Start: 09-23-2021 End: 09-23-2021 take 2 tablets by mouth once daily Amlodipine 5 mg tablet Discontinued 10 mg PO DAILY September 23, 2021 10:22am September 23, 2021 10:38am Start: 09-23-2021 End: 09-23-2021 take 10 mg by mouth once daily Amlodipine Discontinued 10 MG PO DAILY September 23, 2021 9:22am September 23, 2021 9:38am Start: 09-23-2021 End: 03-19-2023 take 1 tablet by mouth once daily Amlodipine 10 mg tablet Discontinued 10 mg PO DAILY 90 October 30, 2022 1:28pm December 23, 2022 11:16am Start: 05-02-2020 End: 04-27-2021 amLODIPine 10 mg oral tablet Dose : 10 mg = 1 tab(s), Oral, qDay, # 90 tab(s), 3 Refill(s), Pharmacy: [facility], 163, cm, 05/02/20 7:46:00 EST, Height, kg, 05/02/20 7:46:00 EST, Dosing Weight Start Date: 05/02/20 Stop Date: 04/27/21 Status: Ordered Start: 03-21-2019 End: 09-23-2021 take 1 tablet by mouth once daily Amlodipine 5 mg tablet Discontinued 5 mg PO DAILY 90 May 15, 2019 3:32pm March 05, 2020 10:06am aspirin 81 mg delayed release oral tablet (6 sources) Platelet Aggregation Inhibitor, Nonsteroidal Anti-inflammatory Drug Start: 02-02-2017 End: 02-10-2017 Aspirin (Adult Low Dose Aspirin) 81 mg tablet,delayed release (DR/EC) Discontinued 81 mg PO daily February 02, 2017 1:00am February 10, 2017 3:07pm clopidogrel 75 mg oral tablet (6 sources) [id number] Platelet Inhibitor Start: 02-03-2017 End: 02-10-2017 take 1 tablet by mouth once Clopidogrel (Plavix) 75 mg tablet Discontinued 75 mg PO ONCE 30 2 February 03, 2017 1:00am February 10, 2017 3:07pm flecainide acetate 100 mg oral tablet (20 sources) Antiarrhythmic Start: 04-05-2019 flecainide 50 mg oral tablet Dose : 50 mg = 1 tab(s), Oral, q12h, 0 Refill(s) Start Date: 04/05/19 Status: Ordered Start: 11-11-2018 End: 08-14-2024 take 1 tablet by mouth every twelve hours Flecainide 100 mg tablet Discontinued 100 mg PO Q12H 180 3 August 14, 2024 12:24pm August 14, 2024 12:50pm Start: 03-30-2017 End: 11-11-2018 take 1 tablet by mouth every twelve hours Flecainide 50 mg tablet Discontinued 50 mg PO Q12H 180 3 June 01, 2018 9:42am November 11, 2018 1:48pm hydroCHLOROthiazide 25 mg / metoprolol tartrate 50 mg oral tablet (6 sources) Thiazide Diuretic, beta-Adrenergic Marycarmen Start: 02-02-2017 End: 02-10-2017 Metoprolol Ta-Hydrochlorothiaz 50-25 mg tablet Discontinued 1 {tbl} PO TWICE A DAY February 02, 2017 1:00am February 10, 2017 3:06pm Start: 02-02-2017 End: 02-10-2017 take 1 tablet by mouth twice daily Metoprolol Ta-Hydrochlorothiaz Discontinued 1 TABLET PO TWICE A DAY February 02, 2017 12:00am February 10, 2017 2:06pm 24 hr metoprolol succinate 25 mg extended [...] 09/04/24 Status: Completed Repeat number: 1 Start: 08-09-2023 take 1 tablet by sharon th every twenty-four hours at bedtime Metoprolol Succinate 25 mg tablet extended release 24 hr Active 25 mg PO AT BEDTIME 90 August 09, 2023 9:51am Start: 09-23-2022 End: 08-09-2023 take 1 tablet by mouth once daily at bedtime Metoprolol Succinate 25 mg tablet extended release 24 hr Discontinued 12.5 mg PO .COMPLEX 90 3 September 23, 2022 9:35am August 09, 2023 9:51am 12.5 mg orally qhs; Start: 09-02-2022 Metoprolol Suc cinate ER 25 mg oral TABLET extended release Dose : 25 mg = 1 tab(s), Oral, qDay, take 1 tablet by mouth at bedtime Start Date: 09/02/22 Status: Ordered Repeat number: 1 Start: 07-31-2022 End: 08-14-2022 take 1 tablet by mouth once daily at bedtime Metoprolol Succinate 25 mg tablet extended release 24 hr Discontinued 12.5 mg PO .COMPLEX 90 3 July 31, 2022 12:00am August 14, 2022 9:58am 12.5 mg orally qhs; Start: 12-04-2019 End: 09-23-2022 take 1 tablet by mouth once daily at bedtime Metoprolol Succinate 25 mg tablet extended release 24 hr Discontinued 25 mg PO .COMPLEX 90 August 14, 2022 9:58am September 23, 2022 10:21am 25 mg orally qhs; Start: 11-11-2018 End: 07-31-2022 take 1 tablet by mouth twice daily Metoprolol Tartrate 25 mg tablet Discontinued 25 mg PO TWICE A DAY 180 July 15, 2021 8:53am September 23, 2021 10:38am Start: 03-08-2017 End: 11-11-2018 take 1 tablet by mouth twice daily Metoprolol Tartrate 50 mg tablet Discontinued 50 mg PO TWICE A DAY 180 3 April 29, 2018 2:11pm July 15, 2018 10:57am microencapsulated potassium chloride 20 meq extended release oral tablet (6 sources) Start: 02-05-2017 End: 02-10-2017 take 1 tablet by mouth twice daily at mealtime Potassium Chloride 20 mEq tablet,ER particles/crystals Discontinued 20 meq PO TWICE A DAY 6 3 1 February 05, 2017 1:00am February 10, 2017 1:00am February 10, 2017 3:07pm administer with food (meal or snack) rivaroxaban 20 mg oral tablet (20 sources) Factor Xa Inhibitor Start: 03-08-2017 End: 08-03-2023 Rivaroxaban (Xarelto) 20 mg tablet Discontinued 0 .ROUTE .COMPLEX 90 3 June 16, 2023 11:45am August 03, 2023 2:09pm TAKE 1 TABLET DAILY WITH THE EVENING MEAL simvastatin 20 mg oral tablet (20 sources) HMG-CoA Reductase Inhibitor Start: 02-02-2017 End: 08-14-2024 take 1 tablet by mouth once daily in the evening Simvastatin 20 mg tablet Discontinued 20 mg PO EVERY EVENING 90 3 December 01, 2021 2:49pm September 23, 2023 9:48am sour staples allergenic extract (6 sources) Non-Standardize d Food Allergenic Extract, Non-Standardize d Plant Allergenic Extract Start: 12-01-2017 End: 11-11-2018 Sour Staples Extract 1,000 mg capsule Discontinued mg PO as needed 0 December 01, 2017 12:00am November 11, 2018 1:37pm Start: 12-01-2017 End: 11-11-2018 Sour Staples Extract Disconti nued MG PO November 30, 2017 11:00pm November 11, 2018 12:37pm Start: 12-01-2017 End: 11-11-2018 Sour Staples Extract Disconti nued MG PO December 01, 2017 12:00am November 11, 2018 1:37pm Problems Problem Classification Problem Date Documented Da te Episodic/Chronic Allergic reactions (7 sources) Eczema 03-24-2022 Episodic Cardiac dysrhythmias (20 sources) Paroxysmal atrial flutter; Translations: [Unspecified atrial flutter] Onset: Chronic Cardiac dysrhythmias (18 sources) Intermittent palpitations; Translations: [Palpitations] 04-04-2019 Episodic Chronic kidney disease (14 sources) Chronic kidney disease; Translations: [Chronic kidney disease, unspecified] Onset: 5 05-02-2020 Chronic Coagulation and hemorrhagic disorders (3 sources) Other primary thrombophilia; 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 Diabetes mellitus without complication (11 sources) Type 2 diabetes mellitus well controlled; Translations: [Type 2 diabetes mellitus without complication] 04-04-2019 Chronic Disorders of lipid metabolism (20 sources) Hypertriglyceridemia; Translations: [Hyperlipidemia] Onset: 5 04-04-2019 Chronic Diverticulosis and diverticulitis (2 sources) Diverticula of intestine; Translations: [Diverticulosis of large intestine without perforation or abscess without bleeding] Onset: Chronic Essential hypertension (20 sources) Benign essential hypertension; Translations: [Essential hypertension] Onset: 5 04-04-2019 Chronic Fluid and electrolyte disorders (3 sources) Hypokalemia; Translations: [Hypokalemia] 12-24-2022 Episodic Gout and other crystal arthropathies (12 sources) Gout 04-04-2019 Chronic Headache; including migraine (3 sources) Chronic headache disorder 05-18-2024 Episodic Hypertension with complications and secondary hypertension (2 sources) Chronic kidney disease due to hypertension; Translations: [Hypertensive chronic kidney disease with stage 1 through stage 4 chronic kidney disease, or unspecified chronic kidney disease] Onset: Chronic Osteoarthritis (7 sources) Osteoarthritis of knee 03-24-2022 Chronic Other aftercare (4 sources) Patient encounter status; Translations: [Encounter for therapeutic drug level monitoring] 09-23-2021 Episodic Other aftercare (3 sources) Long-term current use of anticoagulant; Translations: [termite control service representative (current) use of anticoagulants] Episodic Other aftercare (2 sources) Long-term current use of drug therapy; Translations: [Encounter for therapeutic drug level monitoring] 09-23-2021 Episodic Other aftercare (1 source) termite control service representative (current) use of anticoagulants; Translations: [termite control service representative (current) use of anticoagulants] Onset: Episodic Other bone disease and musculoskeletal deformities (12 sources) Osteopenia 04-04-2019 Episodic Other circulatory disease (2 sources) Retroperitoneal hemorrhage 09-03-2024 Episodic Other connective tissue disease (5 sources) Nontraumatic hematoma of soft tissue; Translations: [Nontraumatic hematoma of soft tissue] Onset: 5 Episodic Other connective tissue disease (2 sources) Subcutaneous hematoma; Translations: [Nontraumatic hematoma of soft tissue] Onset: 5 Episodic Other connective tissue disease (2 sources) Hematoma 09-03-2024 Episodic Other gastrointestinal disorders (5 [...] Onset: 5 Episodic Other lower respiratory disease (6 sources) Dyspnea on exertion; Translations: [Other forms of dyspnea] 09-22-2021 Episodic Other nervous system disorders (12 sources) Carpal tunnel syndrome 05-02-2020 Chronic Other non-traumatic joint disorders (5 sources) Pain in wrist 04-05-2019 Episodic Other non-traumatic joint disorders (5 sources) Shoulder pain 04-05-2019 Episodic Other nutritional; endocrine; and metabolic disorders (6 sources) Obesity; Translations: [Obesity, unspecified] 09-22-2021 Chronic Other screening for suspected conditions (not mental disorders or infectious disease) (8 sources) Thallium stress test abnormal; Translations: [Abnormal result of other cardiovascular function study] Onset: 5 07-31-2017 Episodic Other skin disorders (4 sources) Skin lesion 09-02-2022 Episodic Peripheral and visceral atherosclerosis (3 sources) Renal artery stenosis 04-04-2019 Chronic Phlebitis; thrombophlebitis and thromboembolism (2 sources) Thromboembolism of vein; Translations: [Acute embolism and thrombosis of unspecified vein] Onset: 5 Episodic Poisoning by other medications and drugs (5 sources) Poisoning by anticoagulants, accidental (unintentional), initial encounter; Translations: [Poisoning by anticoagulant] Onset: 5 Episodic Superficial injury; contusion (2 sources) Contusion of left thigh; Translations: [Contusion of left thigh, initial encounter] Onset: Episodic Unclassified (12 sources) Patient encounter status 09-02-2022 Unclassified (2 sources) Hypocoagulability state 09-03-2024 Results Test Name Value Interpretation Reference Range Facility .Auto Diffon 09-15-2024 Basophil, Absolute 0.1 10 3/mcL Normal 0.0-0.3 [facility] Comment on above: Performed By: #### A DIFF, LIPID, CMP, ANEU, VIDH, CBC, GFR #### [address] [address] Basophils/100 WBC (Bld) 1.1 % Normal 0.0-2.5 [facility] Comment on above: Performed By: #### A DIFF, LIPID, CMP, ANEU, VIDH, CBC, GFR #### [address] [address] Eosinophil, Absolute 0.2 10 3/mcL Normal 0.0-0.7 [facility] Comment on above: Performed By: #### A DIFF, LIPID, CMP, ANEU, VIDH, CBC, GFR #### [address] [address] Eosinophils/100 WBC (Bld) 2.7 % Normal 0.0-6.0 [facility] Comment on above: Performed By: #### A DIFF, LIPID, CMP, ANEU, VIDH, CBC, GFR #### [address] [address] Lymphocyte, Absolute 1.2 10 3/mcL Normal 0.9-4.3 [facility] Comment on above: Performed By: #### A DIFF, LIPID, CMP, ANEU, VIDH, CBC, GFR #### [address] [address] Lymphocytes/100 WBC (Bld) 17.0 % Low 20.0-40.0 [facility] Comment on above: Performed By: #### A DIFF, LIPID, CMP, ANEU, VIDH, CBC, GFR #### [address] [address] Monocyte, Absolute 0.6 10 3/mcL Normal 0.1-1.4 [facility] Comment on above: Performed By: #### A DIFF, LIPID, CMP, ANEU, VIDH, CBC, GFR #### [address] [address] Monocytes/100 WBC (Bld) 8.6 % Normal 2.0-13.0 [facility] Comment on above: Performed By: #### A DIFF, LIPID, CMP, ANEU, VIDH, CBC, GFR #### [address] [address] Neutrophils/100 WBC (Bld) 70.6 % Normal 50.0-75.0 [facility] Comment on above: Performed By: #### A DIFF, LIPID, CMP, ANEU, VIDH, CBC, GFR #### [address] [address] .NEUABSon 09-15-2024 Neutrophil, Absolute 4.9 10 3/mcL Normal 2.3-8.1 [facility] Comment on above: Performed By: #### A DIFF, LIPID, CMP, ANEU, VIDH, CBC, GFR #### [address] [address] CBCon 09-15-2024 Erythrocyte distribution width (RBC) [Ratio] 18.0 % High 11.5-15.5 [facility] Comment on above: Performed By: #### A DIFF, LIPID, CMP, ANEU, VIDH, CBC, GFR #### [address] [address] Hematocrit (Bld) [Volume fraction] 33.5 % Low 34.0-46.0 [facility] Comment on above: Performed By: #### A DIFF, LIPID, CMP, ANEU, VIDH, CBC, GFR #### [address] [address] Hgb 11.1 G/dL Low 12.0-16.0 [facility] Comment on above: Performed By: #### A DIFF, LIPID, CMP, ANEU, VIDH, CBC, GFR #### [address] [address] MCH (RBC) [Entitic mass] 29.6 pg Normal 27.0-33.0 [facility] Comment on above: Performed By: #### A DIFF, LIPID, CMP, ANEU, VIDH, CBC, GFR #### [address] [address] MCHC 33.1 G/dL Normal 32.0-36.0 [facility] Comment on above: Performed By: #### A DIFF, LIPID, CMP, ANEU, VIDH, CBC, GFR #### [address] [address] MCV (RBC) [Entitic vol] 89.5 fL Normal 80.0-99.0 [facility] Comment on above: Performed By: #### A DIFF, LIPID, CMP, ANEU, VIDH, CBC, GFR #### [address] [address] Platelet 456 10 3/mcL High 150-450 [facility] Comment on above: Performed By: #### A DIFF, LIPID, CMP, ANEU, VIDH, CBC, GFR #### [address] [address] Platelet mean volume (Bld) [Entitic vol] 7.9 fL Normal 6.6-10.5 [facility] Comment on above: Performed By: #### A DIFF, LIPID, CMP, ANEU, VIDH, CBC, GFR #### [address] [address] RBC 3.74 10 6/mcL Low 4.10-5.30 [facility] Comment on above: Performed By: #### A DIFF, LIPID, CMP, ANEU, VIDH, CBC, GFR #### [address] [address] WBC 6.9 10 3/mcL Normal 4.5-10.8 [facility] Comment on above: Performed By: #### A DIFF, LIPID, CMP, ANEU, VIDH, CBC, GFR #### [address] [address] CKon 09-15-2024 CK [Catalytic activity/Vol] 67 U/L Normal 26-192 [facility] Comment on above: Performed By: #### A DIFF, LIPID, CMP, ANEU, VIDH, CBC, GFR #### [place] [address] FEon 09-15-2024 Iron [Mass/Vol] 55 ug/dL Normal 50-170 [facility] Comment on above: Performed By: #### A DIFF, LIPID, CMP, ANEU, VIDH, CBC, GFR #### [place] [address] Antonella 09-15-2024 Ferritin [Mass/Vol] 251.0 ng/mL Normal 8.0-252.0 [facility] Comment on above: Performed By: #### A DIFF, LIPID, CMP, ANEU, VIDH, CBC, GFR #### [place] [address] IBCon 09-15-2024 TIBC 261 mcg/dL Normal 250-450 [facility] Comment on above: Performed By: #### A DIFF, LIPID, CMP, ANEU, VIDH, CBC, GFR #### [address] [address] LABORATORYOrdered By: SYSTEM SYSTEM on 09-15-2024 Basophils (Bld) [#/Vol] 0.1 103/mcL Normal 0.0 - 0.3 10^3/mcL AO Workflow SS Basophils/100 WBC (Bld) 1.1 % Normal 0.0 - 2.5 % AO Workflow SS CK [Catalytic activity/Vol] 67 U/L Normal 26 - 192 U/L AO ADM SS Eosinophil, Absolute 0.2 103/mcL Normal 0.0 - 0 .7 10^3/mcL AO Workflow SS Eosinophils/100 WBC (Bld) 2.7 % Normal 0.0 - 6.0 % AO Workflow SS Erythrocyte distribution width (RBC) [Ratio] 18.0 % High 11.5 - 15.5 % AO Workflow SS Ferritin [Mass/Vol] 251.0 ng/mL Normal 8.0 - 25 2.0 ng/mL AO ADM SS Hematocrit (Bld) [Volume fraction] 33.5 % Low 34.0 - 46.0 % AO Workflow SS Hemoglobin (Bld) [Mass/Vol] 11.1 G/dL Low 12.0 - 16.0 G/dL AO Workflow SS INR Coag (PPP) [Relative time] 1.0 {INR} Invalid Interpretation Code AO [facility] SS Comment on above: Interpretive Data: Ruchi ortiz [place] [employer] (CHEST, 1991, 102:312S-25S) recommended therapeutic range for oral anticoagulant therapy is: LOW RISK: Prophylaxis of venous thrombosis INR: 2.0-3.0 Treatment of pulmonary embolism 2.0-3.0 Prevention of systemic embolism 2.0-3.0 HIGH RISK: Mechanical prosthetic valves 2.5-3.5 Iron [Mass/Vol] 55 ug/dL Normal 50 - 170 mcg/dL AO ADM SS Iron binding capacity [Mass/Vol] 261 mcg/dL Normal 250 - 450 mcg/dL AO ADM SS Lymphocytes (Bld) [#/Vol] 1.2 103/mcL Normal 0.9 - 4.3 10^3/mcL AO Workflow SS Lymphocytes/100 WBC (Bld) 17.0 % Low 20.0 - 40.0 % AO Workflow SS MCH (RBC) [Entitic mass] 29.6 pg Normal 27.0 - 33.0 pg AO Workflow SS MCHC 33.1 G/dL Normal 32.0 - 36.0 G/dL AO Workflow SS MCV (RBC) [Entitic vol] 89.5 fL Normal 80.0 - 99.0 fL AO Workflow SS Monocytes (Bld) [#/Vol] 0.6 103/mcL Normal 0.1 - 1.4 10^3/mcL AO Workflow SS Monocytes/100 WBC (Bld) 8.6 % Normal 2.0 - 13.0 % AO Workflow SS Neutrophils (Bld) [#/Vol] 4.9 103/mcL Normal 2.3 - 8.1 10^3/mcL AO Workflow SS Neutrophils/100 WBC (Bld) 70.6 % Normal 50.0 - 75.0 % AO Workflow SS Platelet mean volume (Bld) [Entitic vol] 7.9 fL Normal 6.6 - 10.5 fL AO Workflow SS Platelets (Bld) [#/Vol] 456 103/mcL High 150 - 450 10^3/mcL AO Workflow SS PT Coag (PPP) [Time] 11.3 s Normal 9.0 - 1 4.4 seconds AO [facility] SS RBC (Bld) [#/Vol] 3.74 106/mcL Low 4.10 - 5.3 0 10^6/mcL AO Workflow SS WBC (Bld) [#/Vol] 6.9 103/mcL Normal 4.5 - 10.8 10^3/mcL AO Workflow SS PROon 09-15-2024 PT Coag (PPP) [Time] 11.3 s Normal 9.0-14.4 [facility] Comment on above: Performed By: #### A DIFF, LIPID, CMP, ANEU, VIDH, CBC, GFR #### [place] [id number] [place], [place] [address] PT International Ratio 1.0 Normal [facility] Comment on above: Result Comment: [employer] [place] [employer] (CHEST, 1992, 102:312S-25S) recommended therapeutic range for oral anticoagulant therapy is: LOW RISK: Prophylaxis of venous thrombosis INR: 2.0-3.0 Treatment of pulmonary embolism 2.0-3.0 Prevention of systemic embolism 2.0-3.0 HIGH RISK: Mechanical prosthetic valves 2.5-3.5 Performed By: #### A DIFF, LIPID, CMP, ANEU, VIDH, CBC, GFR #### [place] [address] [place], [place] [address] Bilirubin directOrdered By: Venkatesh Myles on 09-12-2024 Bilirubin.direct [Mass/Vol] 0.64 mg/dL High 0.00-0.30 [facility] Bilirubin, totalOrdered By: Venkatesh Myles on 09-12-2024 Bilirubin [Mass/Vol] 1.51 mg/dL High 0.00-1.30 [facility] Calculated very low density lipoprotein (VLDL) cholesterol measurementOrdered By: Venkatesh Myles on 09-12-2024 Calculated very low density lipoprotein (VLDL) cholesterol measurement 28 mg/dL 5-40 [facility] Cardiology Visit Reporton Cardiology Visit Report [facility] [address] [place] [address] OFFICE VISIT Date of Service: 09/12/24 MR#: [id number] Acct: [id number] Name: NADEGE HU Rep #: [id number] : 1950 Provider: DARIO glover Age/Sex: 74/F Location: [facility] Status: Signed HPI HPI History of Present Illness Details: NADEGE HU, is a 74 F who presents to the office today for a follow-up visit. She is a lady who had presented with shortness of breath as well as palpitations. She had been evaluated with a stress test which demonstrated mild ischemia involving the basal to mid inferior lateral wall she went on to undergo a cardiac catheterization which demonstrated essentially normal coronary arteries. She denies chest, arm, jaw, or neck discomfort. She denies palpitations. She denies bilateral lower extremity edema. She denies claudication. She denies shortness of breath with activity, shortness of breath at rest, orthopnea, or PND. She denies chronic cough. She denies significant, sudden weight gain. She denies lightheadedness, dizziness, near-syncope, or syncope. She denies blood in urine, blood in stool, or epistaxis. He denies fever with chills. She denies myalgia. She denies fatigue. Her exercise level has remained stable. 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 Is patient in pain?: No Allergies oxycodone Adverse Reaction (Verified 09/12/24 10:36) mental status change Medications ???Medication ???Instructions ???Recorded ???Confirmed ???Type calcium 315 mg (as 1 tab PO QAM 02/02/17 09/12/24 His tory citrate)-vitamin D3 6.25 mcg (250 unit) tablet (Citracal + Vitamin D Maximum) metoprolol succinate 25 mg 25 mg PO QHS #90 TABLETS 08/09/23 09/12/24 Rx tablet,extended release 24 hr trazodone 50 mg tablet 50 mg PO QHS 09/23/23 09/12/24 His tory allopurinol 100 mg tablet 100 mg PO .COMPLEX #90 tabs 09/12/24 Rx warfarin 2 mg tablet 2 mg PO DAILY #90 tabs 07/19/24 R x flecainide 100 mg tablet 100 mg PO Q12H #180 tabs 08/14/24 09/12/24 Rx simvastatin 20 mg tablet 20 mg PO QPM #90 tabs 08/14/24 Rx amlodipine 5 mg tablet 5 mg PO DAILY #90 tabs 09/12/24 Rx cholecalciferol (vitamin D3) 250 250 mcg PO QDAY 09/12/24 09/12/24 History mcg (10,000 unit) tablet Have you fallen in the past year?: [...] type: does not use ROS Const Const: Negative for fatigue or weakness Eyes Eyes: Negative for change in vision ENT ENT: Negative for dizziness or balance problems Cardio Chest Pain: No Palpitations: No Edema: None Muscle aches with walking: None Resp Respiratory: Negative for SOB with activity, SOB at rest or SOB orthopnea SOB lying down GI GI: Negative nausea or heartburn : Negative for hematuria or frequent nighttime urination/ nocturia Musc Musc: Negative for balance problems Skin Skin: Positive for unusual bruising; Negative rash Neuro Neuro: Negative for dizziness, lightheadedness, near syncope, syncope or weakness Endo Endo: Negative for fatigue Allergy Allergy/Immunology: Negative for rash Cardiology Exam Const Appearance: cooperative, healthy appearing, comfortable and no acute distress Nutritional Appearance: well nourished and obese Orientation: alert, awake and oriented x3 Head Head: normal to inspection Ears: hearing grossly normal bilaterally Nose: external nose normal Face and Sinus: face symmetric Mouth: moist mucous membranes Eyes General: appearance normal, both eyes and all related structures Eyelids: eyelids normal EOM: EOM intact bilaterally Neck Neck: normal visual inspection and no JVD Carotids: normal carotid upstroke Chest Chest inspection: normal inspection of the chest, symmetric chest movement and normal respiratory effort; N (more content not included)... Normal [facility] LDL calc ser/plasOrdered By: Venkatesh Myles on 09-12-2024 Cholesterol in LDL [Mass/Vol] 75 mg/dL [facility] Comment on above: Esjrldlygx=322-628 m g/dL & Higher [place]=729 mg/dL or greater Laboratory - Chemistry and C hemistry - challengeOrdered By: Venkatesh Myles on 09-12-2024 AST [Catalytic activity/Vol] 28 U/L <32 [facility] Lipid Profileon 09-12-2024 CHOL:HDL 3.66 Normal [facility] Comment on above: Performed By: #### L 500.3400, L500.4100 #### [facility] [address] [facility] [id number] (150) Cholesterol [Mass/Vol] 141 mg/dL Normal <=200 [facility] Comment on above: Result Comment: Chol esterol level, Desirable <200 mg/dL Borderline high cholesterol 200-239 mg/dL High cholesterol >=240 mg/dL Recommendations of the NCEP Adult Treatment Panel for the following risk-cutoff thresholds for the [place] Citizen [place] population. Performed By: #### L 500.3400, L500.4100 #### [facility] [address] [place], [address] Cholesterol in HDL [Mass/Vol] 39 mg/dL Low [facility] Comment on above: Result Comment: Aaliyah onal Cholesterol Education Program (NCEP) guidelines: <40 mg/dL: Low HDL-cholesterol (major risk factor for CHD) >= 60 mg/dL: High HDL-cholesterol (negative risk factor for CHD) HDL-cholesterol is affected by a number of factors, e.g. smoking, exercise, hormones, sex and age. Performed By: #### L 500.3400, L500.4100 #### [facility] [address] [place], [address] Cholesterol in LDL [Mass/Vol] 75 mg/dL Normal [facility] Comment on above: Result Comment: Bord fgwfxo=001-001 mg/dL Higher Ivap=363 mg/dL or greater Performed By: #### L 500.3400, L500.4100 #### [facility] [address] [place], [address] Cholesterol in VLDL [Mass/Vol] 28 mg/dL Normal 5-40 [facility] Comment on above: Performed By: #### L 500.3400, L500.4100 #### [facility] [address] [place], [address] Triglyceride [Mass/Vol] 138 mg/dL Normal [facility] Comment on above: Result Comment: The drugs N-Acetylcysteine and Metamizole may falsely depress this assay. Normal range: <150 mg/dL Borderline High: 150-199 mg/dL High: 200-499 mg/dL Very High: >500 mg/dL Performed By: #### L 500.3400, L500.4100 #### [facility] [address] [place], [address] Liver Profileon 09-12-2024 Albumin [Mass/Vol] 4.0 g/dL Normal 3.4-4.8 [facility] Comment on above: Performed By: #### L 500.3400, L500.4100 #### [facility] [address] [place], [address] ALK PHOS 109 U/L High 35-104 [facility] Comment on above: Performed By: #### L 500.3400, L500.4100 #### [facility] [address] [place], [address] ALT [Catalytic activity/Vol] 20 U/L Normal <=34 [facility] Comment on above: Performed By: #### L 500.3400, L500.4100 #### [facility] [address] [place], [address] AST [Catalytic activity/Vol] 28 U/L Normal <=31 [facility] Comment on above: Performed By: #### L 500.3400, L500.4100 #### [facility] [address] [place], [address] Bilirubin [Mass/Vol] 1.51 mg/dL High 0.00-1.30 [facility] Comment on above: Performed By: #### L 500.3400, L500.4100 #### [facility] [address] [place], [address] Bilirubin.direct [Mass/Vol] 0.64 mg/dL High 0.00-0.30 [facility] Comment on above: Performed By: #### L 500.3400, L500.4100 #### [facility] [address] [place], [address] Globulin (S) [Mass/Vol] 3.8 g/dL Normal 2.2-4.2 [facility] Comment on above: Performed By: #### L 500.3400, L500.4100 #### [facility] [address] [place], [address] T PROT 7.9 g/dL Normal 5.9-8.4 [facility] Comment on above: Performed By: #### L 500.3400, L500.4100 #### [facility] [address] [place], [address] Screening total cholesterol/ high density lipoprotein (HDL) cholesterol ratioOrdered By: Venkatesh Myles on 09-12-2024 Cholesterol.total/Cho lesterol in HDL [Mass ratio] 3.66 {ratio} [facility] Serum globulin measurementOr dered By: Venkatesh Myles on 09-12-2024 Globulin (S) [Mass/Vol] 3.8 g/dL 2.2-4.2 [facility] Serum or plasma alanine james otransferase (ALT) measurementOrdered By: Venkatesh Myles on 09-12-2024 ALT [Catalytic activity/Vol] 20 U/L <35 [facility] Serum or plasma albumin carter urement (mass/volume)Ordered By: Venkatesh Myles on 09-12-2024 Albumin [Mass/Vol] 4.0 g/dL 3.4-4.8 [facility] Serum or plasma alkaline aden sphatase measurementOrdered By: Venkatesh Myles on 09-12-2024 ALP [Catalytic activity/Vol] 109 U/L High 35-104 [facility] Serum or plasma cholesterol in HDL measurement (mass/volume)Ordered By: Venkatesh Myles on 09-12-2024 Cholesterol in HDL [Mass/Vol] 39 mg/dL Low >40 [facility] Comment on above: National Cholesterol Education Program (NCEP) guidelines:<40 mg/dL: Low HDL-cholesterol (major risk factor for CHD)>= 60 mg/dL: High HDL-cholesterol (negative risk factor for CHD)HDL-cholesterol is affected by a number of factors, e.g. smoking, exercise, hormones, sex and age. Serum or plasma cholesterol measurement (mass/volume)Ordered By: Venkatesh Myles on 09-12-2024 Cholesterol [Mass/Vol] 141 mg/dL <201 [facility] Comment on above: Cholesterol level, D esirable <200 mg/dLBorderline high cholesterol 200-239 mg/dLHigh cholesterol >=240 mg/dLRecommendations of the NCEP Adult Treatment Panel for the following risk-cutoff thresholds for the [place] population. Total proteinOrdered By: Steve Myles on 09-12-2024 Protein [Mass/Vol] 7.9 g/dL 5.9-8.4 [facility] Triglycerides measurementOrd ered By: Venkatesh Myles on 09-12-2024 Triglyceride [Mass/Vol] 138 mg/dL <199 [facility] Comment on above: The drugs N-Acetylcy steine and Metamizole may falsely depress this assay. Normal range: <150 mg/dLBorderline High: 150-199 mg/dLHigh: 200-499 mg/dLVery High: >500 mg/dL .Auto Diffon 09-06-2024 Basophil, Absolute 0.1 10 3/mcL Normal 0.0-0.3 [facility] Comment on above: Performed By: #### H H, CK #### [address] [address] Basophils/100 WBC (Bld) 0.7 % Normal 0.0-2.5 [facility] Comment on above: Performed By: #### H H, CK #### [address] [address] Eosinophil, Absolute 0.1 10 3/mcL Normal 0.0-0.7 [facility] Comment on above: Performed By: #### H H, CK #### [address] [address] Eosinophils/100 WBC (Bld) 1.0 % Normal 0.0-6.0 [facility] Comment on above: Performed By: #### H H, CK #### [address] [address] Lymphocyte, Absolute 1.0 10 3/mcL Normal 0.9-4.3 [facility] Comment on above: Performed By: #### H H, CK #### [address] [address] Lymphocytes/100 WBC (Bld) 9.6 % Low 20.0-40.0 [facility] Comment on above: Performed By: #### H H, CK #### [address] [address] Monocyte, Absolute 0.7 10 3/mcL Normal 0.1-1.4 [facility] Comment on above: Performed By: #### H H, CK #### [address] [address] Monocytes/100 WBC (Bld) 7.3 % Normal 2.0-13.0 [facility] Comment on above: Performed By: #### H H, CK #### [place] [address] Neutrophils/100 WBC (Bld) 81.4 % High 50.0-75.0 [facility] Comment on above: Performed By: #### H H, CK #### [place] [address] .NEUABSon 09-06-2024 Neutrophil, Absolute 8.4 10 3/mcL High 2.3-8.1 [facility] Comment on above: Performed By: #### H H, CK #### [place] [address] CBCon 09-06-2024 Erythrocyte distribution width (RBC) [Ratio] 15.2 % Normal 11.5-15.5 [facility] Comment on above: Performed By: #### H H, CK #### [place] [address] Hematocrit (Bld) [Volume fraction] 27.2 % Low 34.0-46.0 [facility] Comment on above: Performed By: #### H H, CK #### [place] [address] Hgb 9.2 G/dL Low 12.0-16.0 [facility] Comment on above: Performed By: #### H H, CK #### [place] [address] MCH (RBC) [Entitic mass] 29.3 pg Normal 27.0-33.0 [facility] Comment on above: Performed By: #### H H, CK #### [place] [address] MCHC 33.7 G/dL Normal 32.0-36.0 [facility] Comment on above: Performed By: #### H H, CK #### [place] [address] MCV (RBC) [Entitic vol] 87.0 fL Normal 80.0-99.0 [facility] Comment on above: Performed By: #### H H, CK #### [address] [place] [address] Platelet 411 10 3/mcL Normal 150-450 [facility] Comment on above: Performed By: #### H H, CK #### [place] [address] Platelet mean volume (Bld) [Entitic vol] 8.1 fL Normal 6.6-10.5 [facility] Comment on above: Performed By: #### H H, CK #### [place] [address] RBC 3.13 10 6/mcL Low 4.10-5.30 [facility] Comment on above: Performed By: #### H H, CK #### [place] [address] WBC 10.3 10 3/mcL Normal 4.5-10.8 [facility] Comment on above: Performed By: #### H H, CK #### [place] [address] CKon 09-06-2024 CK [Catalytic activity/Vol] 286 U/L High 7-185 [facility] Comment on above: Performed By: #### H H, CK #### [place] [address] LABORATORYOrdered By: SYSTEM SYSTEM on 09-06-2024 Basophils [...] 27.2 % Low 34.0 - 46.0 % AH Workflow SS Hemoglobin (Bld) [Mass/Vol] 9.2 G/dL [...] s High 9.0 - 1 4.4 seconds [facility] Comment on above: Interpretive Data: E ffective 09/13/07, Protime results may be affected by some antibiotics (i.e. Ciprofloxacin, Azithromycin, Bactrim) which may potentiate the action of oral anticoagulants, with further increases in Protime/INR. PT International Ratio 2.0 ratio Invalid Interpretation Code [facility] Comment on above: Interpretive Data: Ruchi ortiz [place] [employer] (CHEST, 1992, 102:312S-25S) [...] Coag (PPP) [Relative time] 2.0 {INR} Normal [facility] Comment on above: Result Comment: [employer] [place] [employer] (CHEST, 1992, 102:312S-25S) recommended therapeutic range for oral anticoagulant therapy is: LOW RISK: Prophylaxis of venous thrombosis INR: 2.0-3.0 Treatment of pulmonary embolism 2.0-3.0 Prevention of systemic embolism 2.0-3.0 HIGH RISK: Mechanical prosthetic valves 2.5-3.5 Performed By: #### H H, CK #### [address] [address] PT Coag (PPP) [Time] 22.6 s High 9.0-14.4 [facility] Comment on above: Result Comment: Effe ctive 09/13/07, Protime results may be affected by some antibiotics (i.e. Ciprofloxacin, Azithromycin, Bactrim) which may potentiate the action of oral anticoagulants, with further increases in Protime/INR. Performed By: #### H H, CK #### [address] [address] CKon 09-05-2024 CK [Catalytic activity/Vol] 293 U/L High 7-185 [facility] Comment on above: Performed By: #### H H, CK #### [address] [address] [facility] 09-05-2024 Hematocrit (Bld) [Volume fraction] 26.5 % Low 34.0-46.0 [facility] Comment on above: Performed By: #### H H, CK #### [address] [address] Hgb 9.0 G/dL Low 12.0-16.0 [facility] Comment on above: Performed By: #### H H, CK #### [address] [address] LABORATORYOrdered By: SYSTEM SYSTEM on 09-05-2024 CK [Catalytic activity/Vol] 293 U/L High 7 - 185 U/L ADM SS Hematocrit (Bld) [Volume fraction] 26.5 [...] Comment on above: Interpretive Data: Ruchi ortiz [place] [employer] (CHEST, 1991, 102:312S-25S) recommended therapeutic range for oral anticoagulant therapy is: LOW RISK: Prophylaxis of venous thrombosis INR: 2.0-3.0 Treatment of pulmonary embolism 2.0-3.0 Prevention of systemic embolism 2.0-3.0 HIGH RISK: Mechanical prosthetic valves 2.5-3.5 PROon 09-05-2024 INR Coag (PPP) [Relative time] 2.2 {INR} Normal [facility] Comment on above: Result Comment: [employer] [place] [employer] (CHEST, 1991, 102:312S-25S) recommended therapeutic range for oral anticoagulant therapy is: LOW RISK: Prophylaxis of venous thrombosis INR: 2.0-3.0 Treatment of pulmonary embolism 2.0-3.0 Prevention of systemic embolism 2.0-3.0 HIGH RISK: Mechanical prosthetic valves 2.5-3.5 Performed By: #### P RO #### [address] [address] PT Coag (PPP) [Time] 25.5 s High 9.0-14.4 [facility] Comment on above: Result Comment: Effe ctive 09/13/07, Protime results may be affected by some antibiotics (i.e. Ciprofloxacin, Azithromycin, Bactrim) which may potentiate the action of oral anticoagulants, with further increases in Protime/INR. Performed By: #### P RO #### [address] [address] .Auto Diffon 09-04-2024 Basophil, Absolute 0.1 10 3/mcL Normal 0.0-0.3 [facility] Comment on above: Performed By: #### A DIFF, CBC, MG, GFR, ANEU, CMP #### [address] [address] Basophils/100 WBC (Bld) 0.9 % Normal 0.0-2.5 [facility] Comment on above: Performed By: #### A DIFF, CBC, MG, GFR, ANEU, CMP #### [address] [address] Eosinophil, Absolute 0.3 10 3/mcL Normal 0.0-0.7 [facility] Comment on above: Performed By: #### A DIFF, CBC, MG, GFR, ANEU, CMP #### [address] [address] Eosinophils/100 WBC (Bld) 3.4 % Normal 0.0-6.0 [facility] Comment on above: Performed By: #### A DIFF, CBC, MG, GFR, ANEU, CMP #### [address] [address] Lymphocyte, Absolute 1.3 10 3/mcL Normal 0.9-4.3 [facility] Comment on above: Performed By: #### A DIFF, CBC, MG, GFR, ANEU, CMP #### [address] [address] Lymphocytes/100 WBC (Bld) 14.5 % Low 20.0-40.0 [facility] Comment on above: Performed By: #### A DIFF, CBC, MG, GFR, ANEU, CMP #### [address] [address] Monocyte, Absolute 0.9 10 3/mcL Normal 0.1-1.4 [facility] Comment on above: Performed By: #### A DIFF, CBC, MG, GFR, ANEU, CMP #### [address] [address] Monocytes/100 WBC (Bld) 9.8 % Normal 2.0-13.0 [facility] Comment on above: Performed By: #### A DIFF, CBC, MG, GFR, ANEU, CMP #### [address] [address] Neutrophils/100 WBC (Bld) 71.4 % Normal 50.0-75.0 [facility] Comment on above: Performed By: #### A DIFF, CBC, MG, GFR, ANEU, CMP #### [place] [id number] .GFRon 09-04-2024 Estimated Glomerular Filtration Rate 66 ml/min/1.73sqm Normal [facility] Comment on above: Result Comment: Stages [...] Performed By: #### H H, CK #### [place] [address] .NEUABSon 09-04-2024 Neutrophil, Absolute 6.3 10 3/mcL Normal 2.3-8.1 [facility] Comment on above: Performed By: #### A DIFF, CBC, MG, GFR, ANEU, CMP #### [place] [address] CBCon 09-04-2024 Erythrocyte distribution width (RBC) [Ratio] 15.4 % Normal 11.5-15.5 [facility] Comment on above: Performed By: #### A DIFF, CBC, MG, GFR, ANEU, CMP #### [place] [address] Hematocrit (Bld) [Volume fraction] 25.4 % Low 34.0-46.0 [facility] Comment on above: Performed By: #### A DIFF, CBC, MG, GFR, ANEU, CMP #### [place] [address] Hgb 8.6 G/dL Low 12.0-16.0 [facility] Comment on above: Performed By: #### A DIFF, CBC, MG, GFR, ANEU, CMP #### [place] [address] MCH (RBC) [Entitic mass] 29.5 pg Normal 27.0-33.0 [facility] Comment on above: Performed By: #### A DIFF, CBC, MG, GFR, ANEU, CMP #### [place] [address] MCHC 33.7 G/dL Normal 32.0-36.0 [facility] Comment on above: Performed By: #### A DIFF, CBC, MG, GFR, ANEU, CMP #### [place] [address] MCV (RBC) [Entitic vol] 87.4 fL Normal 80.0-99.0 [facility] Comment on above: Performed By: #### A DIFF, CBC, MG, GFR, ANEU, CMP #### [place] [address] Platelet 281 10 3/mcL Normal 150-450 [facility] Comment on above: Performed By: #### A DIFF, CBC, MG, GFR, ANEU, CMP #### [place] [address] Platelet mean volume (Bld) [Entitic vol] 8.4 fL Normal 6.6-10.5 [facility] Comment on above: Performed By: #### A DIFF, CBC, MG, GFR, ANEU, CMP #### [place] [address] RBC 2.91 10 6/mcL Low 4.10-5.30 [facility] Comment on above: Performed By: #### A DIFF, CBC, MG, GFR, ANEU, CMP #### [address] [address] WBC 8.9 10 3/mcL Normal 4.5-10.8 [facility] Comment on above: Performed By: #### A DIFF, CBC, MG, GFR, ANEU, CMP #### [address] [address] CKon 09-04-2024 CK [Catalytic activity/Vol] 467 U/L High 7-185 [facility] Comment on above: Performed By: #### C K, PRO #### [place] [address] CMPon 09-04-2024 Albumin Level 3.2 G/dL Normal 3.2-4.8 [facility] Comment on above: Performed By: #### H H, CK #### [place] [address] Albumin/Globulin [Mass ratio] 1.0 {ratio} Normal 0.9-1.6 [facility] Comment on above: Performed By: #### H H, CK #### [place] [address] ALP [Catalytic activity/Vol] 77 U/L Normal 38-126 [facility] Comment on above: Performed By: #### H H, CK #### [place] [address] ALT [Catalytic activity/Vol] 18 U/L Normal 10-49 [facility] Comment on above: Performed By: #### H H, CK #### [place] [address] AST [Catalytic activity/Vol] 32 U/L Normal 8-34 [facility] Comment on above: Performed By: #### H H, CK #### [place] [id number] Bili Total 1.20 mg/dL Normal 0.20-1.20 [facility] Comment on above: Result Comment: Use of this assay is not recommended for patients undergoing treatment with eltrombopag due to the potential for falsely elevated results. Performed By: #### H H, CK #### [place] [id number] BUN/Creatinine Ratio 22.2 ratio High 10.0-22.0 [facility] Comment on above: Performed By: #### H H, CK #### [place] [id number] Calcium [Mass/Vol] 9.3 mg/dL Normal 8.7-10.4 [facility] Comment on above: Performed By: #### H H, CK #### [place] [id number] Chloride [Moles/Vol] 99 mmol/L Normal 98-110 [facility] Comment on above: Performed By: #### H H, CK #### [place] [id number] CO2 [Moles/Vol] 27 mmol/L Normal 22-32 [facility] Comment on above: Performed By: #### H H, CK #### [place] [id number] Creatinine [Mass/Vol] 0.90 mg/dL Normal 0.50-1.20 [facility] Comment on above: Result Comment: Test ing performed on [employer] analyzer using enzymatic creatinine methodology. Performed By: #### H H, CK #### [place] [id number] Electrolyte Balance 10.0 mEq/L Normal 4.0-15.0 [facility] Comment on above: Performed By: #### H H, CK #### [address] [address] Globulin 3.3 G/dL Normal 2.5-4.2 [facility] Comment on above: Performed By: #### H H, CK #### [place] [id number] Glucose [Mass/Vol] 113 mg/dL Normal 82-115 [facility] Comment on above: Performed By: #### H H, CK #### [place] [id number] Potassium [Moles/Vol] 4.7 mmol/L Normal 3.5-5.0 [facility] Comment on above: Performed By: #### H H, CK #### [facility] [address] [place] [address] Sodium [Moles/Vol] 136 mmol/L Normal 136-145 [facility] Comment on above: Performed By: #### H H, CK #### [facility] [address] [place] [address] Total Protein 6.5 G/dL Normal 5.7-8.2 [facility] Comment on above: Performed By: #### H H, CK #### [facility] [address] [place] [address] Urea nitrogen [Mass/Vol] 20.0 mg/dL Normal 8.0-22.0 [facility] Comment on above: Performed By: #### H H, CK #### [facility] [address] [place] [address] LABORATORYOrdered By: Sixto Jones on 09-04-2024 Glucose [Mass/Vol] 123 mg/dL High 82 - 115 mg/dL [facility] LABORATORYOrdered By: SYSTEM SYSTEM on 09-04-2024 [...] 1.20 mg/dL Normal 0.20 - 1.20 mg/dL ADM SS Comment on [...] 27 mmol/L Normal 22 - 32 mEq/L AH ADM SS Creatinine [Mass/Vol] 0.90 mg/dL Normal 0.50 - 1.20 mg/dL ADM SS Comment on above: Interpretive Data: T esting performed on [employer] analyzer using enzymatic creatinine methodology. Electrolyte Balance [...] International Ratio 2.3 ratio Invalid Interpretation Code [employer] SS Comment on above: Interpretive Data: Ruchi ortiz [employer] [place] [employer] (CHEST, 1991, 102:312S-25S) recommended therapeutic range for oral anticoagulant therapy is: LOW RISK: Prophylaxis of venous thrombosis INR: 2.0-3.0 Treatment of pulmonary embolism 2.0-3.0 Prevention of systemic embolism 2.0-3.0 HIGH RISK: Mechanical prosthetic valves 2.5-3.5 RBC (Bld) [#/Vol] 2.91 106/mcL Low 4.10 - 5.3 0 10^6/mcL AH Workflow SS Sodium [Moles/Vol] 136 mmol/L Normal 136 - 145 mEq/L AH ADM SS Urea nitrogen [Mass/Vol] 20.0 mg/dL Normal 8.0 - 22.0 mg/dL AH ADM SS Urea nitrogen/Creatinine [Mass ratio] 22.2 ratio High 10.0 - 22.0 ratio AH ADM SS WBC (Bld) [#/Vol] 8.9 103/mcL Normal 4.5 - 10.8 10^3/mcL AH Workflow SS MGon 09-04-2024 Magnesium [Mass/Vol] 1.8 mg/dL Normal 1.6-2.4 [facility] Comment on above: Performed By: #### A DIFF, CBC, MG, GFR, ANEU, CMP #### [address] [address] PROon 09-04-2024 INR Coag (PPP) [Relative time] 2.3 {INR} Normal [facility] Comment on above: Result Comment: [employer] [place] [employer] (CHEST, 1991, 102:312S-25S) recommended therapeutic range for oral anticoagulant therapy is: LOW RISK: Prophylaxis of venous thrombosis INR: 2.0-3.0 Treatment of pulmonary embolism 2.0-3.0 Prevention of systemic embolism 2.0-3.0 HIGH RISK: Mechanical prosthetic valves 2.5-3.5 Performed By: #### C K, PRO #### [facility] [address] [place] [address] PT Coag (PPP) [Time] 26.9 s High 9.0-14.4 [facility] Comment on above: Result Comment: Effe ctive 09/13/07, Protime results may be affected by some antibiotics (i.e. Ciprofloxacin, Azithromycin, Bactrim) which may potentiate the action of oral anticoagulants, with further increases in Protime/INR. Performed By: #### C K PRO #### [address] [address] .Auto Diffon 09-03-2024 Basophil, Absolute 0.1 10 3/mcL Normal 0.0-0.3 [facility] Comment on above: Performed By: #### C BC, ANEU, PRO, MDW, ADIFF #### [facility] [address] [place], [place] [address] Basophils/100 WBC (Bld) 1.0 % Normal 0.0-2.5 [facility] Comment on above: Performed By: #### C BC, ANEU, PRO, MDW, ADIFF #### [facility] [address] [place], [place] [address] Eosinophil, Absolute 0.2 10 3/mcL Normal 0.0-0.7 [facility] LTMAN [facility] Comment on above: Performed By: #### C BC, ANEU, PRO, MDW, ADIFF #### [facility] [address] [place], [place] [address] Eosinophils/100 WBC (Bld) 1.8 % Normal 0.0-6.0 [facility] Comment on above: Performed By: #### C BC, ANEU, PRO, MDW, ADIFF #### [facility] [address] [place], [place] [address] Lymphocyte, Absolute 1.9 10 3/mcL Normal 0.9-4.3 [facility] Comment on above: Performed By: #### C BC, ANEU, PRO, MDW, ADIFF #### [facility] [address] [place], [place] [address] Lymphocytes/100 WBC (Bld) 15.6 % Low 20.0-40.0 [facility] Comment on above: Performed By: #### C BC, ANEU, PRO, MDW, ADIFF #### [facility] [address] [place], [place] [address] Monocyte, Absolute 1.1 10 3/mcL Normal 0.1-1.4 [facility] Comment on above: Performed By: #### C BC, ANEU, PRO, MDW, ADIFF #### [facility] [address] [place], [place] [address] Monocytes/100 WBC (Bld) 9.0 % Normal 2.0-13.0 [facility] Comment on above: Performed By: #### C BC, ANEU, PRO, MDW, ADIFF #### [facility] [address] [place], [place] [address] Neutrophils/100 WBC (Bld) 72.6 % Normal 50.0-75.0 [facility] Comment on above: Performed By: #### C BC, ANEU, PRO, MDW, ADIFF #### [facility] [address] [place], [place] [address] Basophil, Absolute 0.1 10 3/mcL Normal 0.0-0.3 [facility] Comment on above: Performed By: #### A DIFF, CK, ANEU, MORPH, GFR, CBC, PRO, MDW, BMP #### [facility] [address] [place], [place] [address] Basophils/100 WBC (Bld) 0.9 % Normal 0.0-2.5 [facility] Comment on above: Performed By: #### A DIFF, CK, ANEU, MORPH, GFR, CBC, PRO, MDW, BMP #### [facility] [address] [place], [place] [address] Eosinophil, Absolute 0.2 10 3/mcL Normal 0.0-0.7 [facility] Comment on above: Performed By: #### A DIFF, CK, ANEU, MORPH, GFR, CBC, PRO, MDW, BMP #### [facility] [address] [place], [place] [address] Eosinophils/100 WBC (Bld) 1.5 % Normal 0.0-6.0 [facility] Comment on above: Performed By: #### A DIFF, CK, ANEU, MORPH, GFR, CBC, PRO, MDW, BMP #### [facility] [address] [place], [place] [address] Lymphocyte, Absolute 2.0 10 3/mcL Normal 0.9-4.3 [facility] Comment on above: Performed By: #### A DIFF, CK, ANEU, MORPH, GFR, CBC, PRO, MDW, BMP #### [facility] [address] [place], [place] [address] Lymphocytes/100 WBC (Bld) 15.5 % Low 20.0-40.0 [facility] Comment on above: Performed By: #### A DIFF, CK, ANEU, MORPH, GFR, CBC, PRO, MDW, BMP #### [facility] [address] [place], [place] [address] Monocyte, Absolute 1.4 10 3/mcL Normal 0.1-1.4 [facility] Comment on above: Performed By: #### A DIFF, CK, ANEU, MORPH, GFR, CBC, PRO, MDW, BMP #### [facility] [address] [place], [place] [address] Monocytes/100 WBC (Bld) 10.6 % Normal 2.0-13.0 [facility] Comment on above: Performed By: #### A DIFF, CK, ANEU, MORPH, GFR, CBC, PRO, MDW, BMP #### [facility] [address] [place], [place] [address] Neutrophils/100 WBC (Bld) 71.5 % Normal 50.0-75.0 [facility] Comment on above: Performed By: #### A DIFF, CK, ANEU, MORPH, GFR, CBC, PRO, MDW, BMP #### [facility] [address] [place], [place] [address] .GFRon 09-03-2024 Estimated Glomerular Filtration Rate 53 ml/min/1.73sqm Normal [facility] Comment on above: Result Comment: Stages of [...] BC, ANEU, PRO, MDW, ADIFF #### [facility] [address] [place] [id number] .MDWon 09-03-2024 Monocyte Distribution Width 20.48 High 0.00-20.00 [facility] Comment on above: Result Comment: For adults in ED, MDW>20.0 may be associated with a higher risk of sepsis during the first 12hrs of hospital admission Performed By: #### C BC, ANEU, PRO, MDW, ADIFF #### [facility] [address] [place] [address] Monocyte Distribution Width 16.95 Normal 0.00-20.00 [facility] Comment on above: Result Comment: For ED adult patients suspected of sepsis, MDW<=20.0 does not rule out sepsis or risk of sepsis Performed By: #### A DIFF, CK, ANEU, MORPH, GFR, CBC, PRO, MDW, BMP #### [facility] [address] [place] [id number] .Morphon 09-03-2024 Platelet Estimate Normal Normal [facility] Comment on above: Performed By: #### A DIFF, CK, ANEU, MORPH, GFR, CBC, PRO, MDW, BMP #### [facility] [address] [place], [place] [address] .NEUABSon 09-03-2024 Neutrophil, Absolute 8.7 10 3/mcL High 2.3-8.1 [facility] Comment on above: Performed By: #### C BC, ANEU, PRO, MDW, ADIFF #### [facility] [address] [place] [id number] Neutrophil, Absolute 9.1 10 3/mcL High 2.3-8.1 [facility] Comment on above: Performed By: #### A DIFF, CK, ANEU, MORPH, GFR, CBC, PRO, MDW, BMP #### [facility] [address] [place], [place] [address] BMPon 09-03-2024 BUN/Creatinine Ratio 32 ratio High 7-27 [facility] Comment on above: Performed By: #### C BC, ANEU, PRO, MDW, ADIFF #### [facility] [address] [place], [place] [address] Calcium [Mass/Vol] 9.3 mg/dL Normal 8.4-10.2 [facility]ULTMA N [facility] Comment on above: Performed By: #### C BC, ANEU, PRO, MDW, ADIFF #### [facility] [address] [place], [place] [address] Chloride [Moles/Vol] 98 mmol/L Normal 98-107 [facility] Comment on above: Performed By: #### C BC, ANEU, PRO, MDW, ADIFF #### [facility] [address] [place], [place] [address] CO2 [Moles/Vol] 30 mmol/L Normal 23-31 [facility] Comment on above: Performed By: #### C BC, ANEU, PRO, MDW, ADIFF #### [facility] [address] [place], [place] [address] Creatinine [Mass/Vol] 1.09 mg/dL High 0.51-0.95 AUL TMAN [facility] Comment on above: Performed By: #### C BC, ANEU, PRO, MDW, ADIFF #### [facility] [address] [place], [place] [address] Electrolyte Balance 6.0 mEq/L Normal 4.0-15.0 [facility]M AN [facility] Comment on above: Performed By: #### C BC, ANEU, PRO, MDW, ADIFF #### [facility] [address] [place], [place] [address] Glucose [Mass/Vol] 138 mg/dL High 83-110 [facility] Comment on above: Performed By: #### C BC, ANEU, PRO, MDW, ADIFF #### [facility] [address] [place], [place] [address] Potassium [Moles/Vol] 4.1 mmol/L Normal 3.5-5.1 AUL TMAN [facility] Comment on above: Performed By: #### C BC, ANEU, PRO, MDW, ADIFF #### [facility] [address] [place], [place] [address] Sodium [Moles/Vol] 134 mmol/L Low 136-145 [facility] N [facility] Comment on above: Performed By: #### C BC, ANEU, PRO, MDW, ADIFF #### [facility] [address] [place], [place] [address] Urea nitrogen [Mass/Vol] 35 mg/dL High 7-18 [facility] Comment on above: Performed By: #### C BC, ANEU, PRO, MDW, ADIFF #### [facility] [address] [place], [place] [address] CBCon 09-03-2024 Erythrocyte distribution width (RBC) [Ratio] 15.5 % Normal 11.5-15.5 [facility] Comment on above: Performed By: #### C BC, ANEU, PRO, MDW, ADIFF #### [facility] [address] [place], [place] [address] Hematocrit (Bld) [Volume fraction] 29.7 % Low 34.0-46.0 [facility] Comment on above: Performed By: #### C BC, ANEU, PRO, MDW, ADIFF #### [facility] [address] [place], [place] [address] Hgb 9.7 G/dL Low 12.0-16.0 [facility] Comment on above: Performed By: #### C BC, ANEU, PRO, MDW, ADIFF #### [facility] [address] [place], [place] [address] MCH (RBC) [Entitic mass] 28.5 pg Normal 27.0-33.0 [facility] Comment on above: Performed By: #### C BC, ANEU, PRO, MDW, ADIFF #### [facility] [address] [place], [place] [address] MCHC 32.8 G/dL Normal 32.0-36.0 [facility] Comment on above: Performed By: #### C BC, ANEU, PRO, MDW, ADIFF #### [facility] [address] [place], [place] [address] MCV (RBC) [Entitic vol] 87.0 fL Normal 80.0-99.0 [facility] Comment on above: Performed By: #### C BC, ANEU, PRO, MDW, ADIFF #### [facility] [address] [place], [place] [address] Platelet 313 10 3/mcL Normal 150-450 [facility] Comment on above: Performed By: #### C BC, ANEU, PRO, MDW, ADIFF #### [facility] [address] [place], [place] [address] Platelet mean volume (Bld) [Entitic vol] 8.3 fL Normal 6.6-10.5 [facility]SI[facility]O Comment on above: Performed By: #### C BC, ANEU, PRO, MDW, ADIFF #### [facility] [address] [place], [place] [address] RBC 3.41 10 6/mcL Low 4.10-5.30 [facility]LL[facility] Comment on above: Performed By: #### C BC, ANEU, PRO, MDW, ADIFF #### [facility] [address] [place], [place] [address] WBC 11.9 10 3/mcL High 4.5-10.8 [facility] Comment on above: Performed By: #### C BC, ANEU, PRO, MDW, ADIFF #### [facility] [address] [place], [place] [address] Erythrocyte distribution width (RBC) [Ratio] 15.8 % High 11.5-15.5 [facility]SILLO Comment on above: Performed By: #### A DIFF, CK, ANEU, MORPH, GFR, CBC, PRO, MDW, BMP #### [facility] [address] [place], [place] [address] Hematocrit (Bld) [Volume fraction] 30.9 % Low 34.0-46.0 [facility] Comment on above: Performed By: #### A DIFF, CK, ANEU, MORPH, GFR, CBC, PRO, MDW, BMP #### [facility] [address] [place], [place] [address] Hgb 10.1 G/dL Low 12.0-16.0 [facility] Comment on above: Performed By: #### A DIFF, CK, ANEU, MORPH, GFR, CBC, PRO, MDW, BMP #### [facility] [address] [place], [place] [address] MCH (RBC) [Entitic mass] 28.6 pg Normal 27.0-33.0 [facility] Comment on above: Performed By: #### A DIFF, CK, ANEU, MORPH, GFR, CBC, PRO, MDW, BMP #### [facility] [address] [place], [place] [address] MCHC 32.8 G/dL Normal 32.0-36.0 [facility] Comment on above: Performed By: #### A DIFF, CK, ANEU, MORPH, GFR, CBC, PRO, MDW, BMP #### [facility] [address] [place], [place] [address] MCV (RBC) [Entitic vol] 87.3 fL Normal 80.0-99.0 [facility] Comment on above: Performed By: #### A DIFF, CK, ANEU, MORPH, GFR, CBC, PRO, MDW, BMP #### [facility] [address] [place], [place] [address] Platelet 327 10 3/mcL Normal 150-450 [facility] Comment on above: Performed By: #### A DIFF, CK, ANEU, MORPH, GFR, CBC, PRO, MDW, BMP #### [facility] [address] [place], [place] [address] Platelet mean volume (Bld) [Entitic vol] 8.4 fL Normal 6.6-10.5 [facility] Comment on above: Performed By: #### A DIFF, CK, ANEU, MORPH, GFR, CBC, PRO, MDW, BMP #### [facility] [address] [place], [place] [address] RBC 3.54 10 6/mcL Low 4.10-5.30 [facility] Comment on above: Performed By: #### A DIFF, CK, ANEU, MORPH, GFR, CBC, PRO, MDW, BMP #### [facility] [address] [place], [place] [address] WBC 12.7 10 3/mcL High 4.5-10.8 [facility]BL[facility]O [facility]SILL[facility] Comment on above: Performed By: #### A DIFF, CK, ANEU, MORPH, GFR, CBC, PRO, MDW, BMP #### [facility] [address] [place], [place] [address] CKon 09-03-2024 CK [Catalytic activity/Vol] 726 U/L High 26-192 [facility] Comment on above: Performed By: #### C BC, ANEU, PRO, MDW, ADIFF #### [facility] [address] [place], [place] [address] CT ANGIOGRAPHY ABD/PELVIS/BI LAT LOWER EXTREMon 09-03-2024 [...] cm calcified uterine fibroid. Interpreted by: Maycol Fairbanks MD Preliminary Report By: Maycol Fairbanks MD Electronically signed By Maycol Fairbanks MD Dictated Date: 09/03/2024 3:00:20 AM Prelim Date: 09/03/2024 3:13:12 AM Sign Date: 09/03/2024 3:13:12 AM Ordering Provider: SAW CHAMBERS Interpreted by: Maycol Fairbanks MD Preliminary Report By: Maycol Fairbanks MD Electronically signed By Maycol Fairbanks MD Dictated Date: 09/03/2024 3:00:20 AM Prelim Date: 09/03/2024 3:13:12 AM Sign Date: 09/03/2024 3:13:12 AM Ordering Provider: SAW CHAMBERS Normal [facility] 09-03-2024 Hematocrit (Bld) [Volume fraction] 27.0 % Low 34.0-46.0 [facility] Comment on above: Performed By: #### H H #### [place] [address] Hgb 9.0 G/dL Low 12.0-16.0 [facility] Comment on above: Performed By: #### H H #### [place] [address] LABORATORYOrdered By: SYSTEM SYSTEM on 09-03-2024 Basophils [...] PRO, MDW, ADIFF #### Alberto Arias [address] [place], [place] [address] PT International Ratio 7.9 Critically abnormal ALBERTO RAIAS Comment on above: Result Comment: [employer] [place] [employer] (CHEST, 1992, 102:312S-25S) recommended therapeutic range for oral anticoagulant therapy is: LOW RISK: Prophylaxis of venous thrombosis INR: 2.0-3.0 Treatment of pulmonary embolism 2.0-3.0 Prevention of systemic embolism 2.0-3.0 HIGH RISK: Mechanical prosthetic valves 2.5-3.5 Performed By: #### C ASHLEE MONGE PRO, MDW, ADIFF #### [facility] [address] [address] [place], [place] [address] PT Coag (PPP) [Time] 95.7 s High 9.0-14.4 MATTEO ARIAS Comment on above: Performed By: #### C ASHLEE MONGE PRO, MDW, ADIFF #### [facility] [address] [place], [place] [address] PT International Ratio 7.8 Critically abnormal ALBERTO ARIAS Comment on above: Result Comment: [employer] [place] [employer] (CHEST, 1992, 102:312S-25S) recommended therapeutic range for oral anticoagulant therapy is: LOW RISK: Prophylaxis of venous thrombosis INR: 2.0-3.0 Treatment of pulmonary embolism 2.0-3.0 Prevention of systemic embolism 2.0-3.0 HIGH RISK: Mechanical prosthetic valves 2.5-3.5 Performed By: #### C ASHLEE MONGE PRO, MDW, ADIFF #### [facility] [address] [place], [place] [address] XR FEMUR MINIMUM 2 VIEWS LEF Ton [...] left knee joint effusion. Interpreted by: Maycol Fairbanks MD Preliminary Report By: Maycol Fairbanks MD Electronically signed By Maycol Fairbanks MD Dictated Date: 09/03/2024 1:58:43 AM Prelim Date: 09/03/2024 2:02:10 AM Sign Date: 09/03/2024 2:02:10 AM Ordering Provider: SAW CHAMBERS Interpreted by: Maycol Fairbanks MD Preliminary Report By: Maycol Fairbanks MD Electronically signed By Maycol Fairbanks MD Dictated Date: 09/03/2024 1:58:43 AM Prelim Date: 09/03/2024 2:02:10 AM Sign Date: 09/03/2024 2:02:10 AM Ordering Provider: SAW CHAMBERS Normal [facility]O [facility]SILLON XR KNEE THREE VIEWS LEFTon 0 09-03-2024 [...] left knee joint effusion. Interpreted by: Maycol Fairbanks MD Preliminary Report By: Maycol Fairbanks MD Electronically signed By Maycol Fairbanks MD Dictated Date: 09/03/2024 1:58:43 AM Prelim Date: 09/03/2024 2:02:10 AM Sign Date: 09/03/2024 2:02:10 AM Ordering Provider: SAW CHAMBERS Interpreted by: Maycol Fairbanks MD Preliminary Report By: Maycol Fairbanks MD Electronically signed By Maycol Fairbanks MD Dictated Date: 09/03/2024 1:58:43 AM Prelim Date: 09/03/2024 2:02:10 AM Sign Date: 09/03/2024 2:02:10 AM Ordering Provider: [facility]pe [facility]rezAuto Diffon 05-17-2024 Basophil, Absolute 0.0 10 3/mcL Normal 0.0-0.2 [facility] Comment on above: Performed By: #### A DIFF, LIPID, CMP, ANEU, VIDH, CBC, GFR #### [address] [address] Basophils/100 WBC (Bld) 0.7 % Normal 0.0-2.5 [facility] Comment on above: Performed By: #### A DIFF, LIPID, CMP, ANEU, VIDH, CBC, GFR #### [address] [address] Eosinophil, Absolute 0.2 10 3/mcL Normal 0.0-0.7 [facility] Comment on above: Performed By: #### A DIFF, LIPID, CMP, ANEU, VIDH, CBC, GFR #### [address] [address] Eosinophils/100 WBC (Bld) 2.5 % Normal 0.0-7.0 [facility] Comment on above: Performed By: #### A DIFF, LIPID, CMP, ANEU, VIDH, CBC, GFR #### [address] [address] Lymphocyte, Absolute 1.6 10 3/mcL Normal 0.9-4.3 [facility] Comment on above: Performed By: #### A DIFF, LIPID, CMP, ANEU, VIDH, CBC, GFR #### [address] [address] Lymphocytes/100 WBC (Bld) 23.1 % Normal 20.0-40.0 [facility] Comment on above: Performed By: #### A DIFF, LIPID, CMP, ANEU, VIDH, CBC, GFR #### [address] [address] Monocyte, Absolute 0.6 10 3/mcL Normal 0.1-1.4 [facility] Comment on above: Performed By: #### A DIFF, LIPID, CMP, ANEU, VIDH, CBC, GFR #### [address] [place] [id number] [place], [place] [address] Monocytes/100 WBC (Bld) 9.6 % Normal 2.0-13.0 [facility] Comment on above: Performed By: #### A DIFF, LIPID, CMP, ANEU, VIDH, CBC, GFR #### [address] [id number] Neutrophils/100 WBC (Bld) 64.1 % Normal 50.0-75.0 [facility] Comment on above: Performed By: #### A DIFF, LIPID, CMP, ANEU, VIDH, CBC, GFR #### [address] [id number] .GFRon 05-17-2024 Estimated Glomerular Filtration Rate 55 ml/min/1.73sqm Normal [facility] Comment on above: Result Comment: Stages of [...] calculate the eGFR results. Performed By: #### A DIFF, LIPID, CMP, ANEU, VIDH, CBC, GFR #### [id number] [place], [place] [address] .NEUABSon 05-17-2024 Neutrophil, Absolute 4.3 10 3/mcL Normal 2.3-8.1 [facility] Comment on above: Performed By: #### A DIFF, LIPID, CMP, ANEU, VIDH, CBC, GFR #### [address] [address] CBCon 05-17-2024 Erythrocyte distribution width (RBC) [Ratio] 16.5 % High 11.5-15.5 [facility] Comment on above: Performed By: #### A DIFF, LIPID, CMP, ANEU, VIDH, CBC, GFR #### [address] [address] Hematocrit (Bld) [Volume fraction] 40.7 % Normal 34.0-46.0 [facility] Comment on above: Performed By: #### A DIFF, LIPID, CMP, ANEU, VIDH, CBC, GFR #### [address] [address] Hgb 13.4 G/dL Normal 12.0-16.0 [facility] Comment on above: Performed By: #### A DIFF, LIPID, CMP, ANEU, VIDH, CBC, GFR #### [address] [address] MCH (RBC) [Entitic mass] 27.9 pg Normal 27.0-33.0 [facility] Comment on above: Performed By: #### A DIFF, LIPID, CMP, ANEU, VIDH, CBC, GFR #### [address] [address] MCHC 32.9 G/dL Normal 32.0-36.0 [facility] Comment on above: Performed By: #### A DIFF, LIPID, CMP, ANEU, VIDH, CBC, GFR #### [address] [address] MCV (RBC) [Entitic vol] 84.9 fL Normal 80.0-99.0 [facility] Comment on above: Performed By: #### A DIFF, LIPID, CMP, ANEU, VIDH, CBC, GFR #### [address] [address] Platelet 255 10 3/mcL Normal 150-450 [facility] Comment on above: Performed By: #### A DIFF, LIPID, CMP, ANEU, VIDH, CBC, GFR #### [address] [address] Platelet mean volume (Bld) [Entitic vol] 8.8 fL Normal 6.6-10.5 [facility] Comment on above: Performed By: #### A DIFF, LIPID, CMP, ANEU, VIDH, CBC, GFR #### [address] [address] RBC 4.79 10 6/mcL Normal 4.10-5.30 [facility] Comment on above: Performed By: #### A DIFF, LIPID, CMP, ANEU, VIDH, CBC, GFR #### [address] [address] WBC 6.8 10 3/mcL Normal 4.5-10.8 [facility] Comment on above: Performed By: #### A DIFF, LIPID, CMP, ANEU, VIDH, CBC, GFR #### [address] [address] CMPon 05-17-2024 Albumin Level 3.9 G/dL Normal 3.4-4.8 [facility] Comment on above: Performed By: #### A DIFF, LIPID, CMP, ANEU, VIDH, CBC, GFR #### [address] [address] Albumin/Globulin [Mass ratio] 1.0 {ratio} Low 1.1-2.5 [facility] Comment on above: Performed By: #### A DIFF, LIPID, CMP, ANEU, VIDH, CBC, GFR #### [address] [address] ALP [Catalytic activity/Vol] 101 U/L Normal 40-135 [facility] Comment on above: Performed By: #### A DIFF, LIPID, CMP, ANEU, VIDH, CBC, GFR #### [address] [address] ALT [Catalytic activity/Vol] 14 U/L Normal 14-59 [facility] Comment on above: Performed By: #### A DIFF, LIPID, CMP, ANEU, VIDH, CBC, GFR #### [address] [address] AST [Catalytic activity/Vol] 12 U/L Normal 10-40 [facility] Comment on above: Performed By: #### A DIFF, LIPID, CMP, ANEU, VIDH, CBC, GFR #### [address] [address] Bili Total 0.9 mg/dL Normal 0.2-1.0 [facility] Comment on above: Result Comment: Use of this assay is not recommended for patients undergoing treatment with eltrombopag due to the potential for falsely elevated results. Performed By: #### A DIFF, LIPID, CMP, ANEU, VIDH, CBC, GFR #### [address] [address] BUN/Creatinine Ratio 14 ratio Normal 7-27 [facility] Comment on above: Performed By: #### A DIFF, LIPID, CMP, ANEU, VIDH, CBC, GFR #### [address] [address] Calcium [Mass/Vol] 9.7 mg/dL Normal 8.4-10.2 [facility] Comment on above: Performed By: #### A DIFF, LIPID, CMP, ANEU, VIDH, CBC, GFR #### [address] [address] Chloride [Moles/Vol] 100 mmol/L Normal 98-107 [facility] Comment on above: Performed By: #### A DIFF, LIPID, CMP, ANEU, VIDH, CBC, GFR #### [address] [address] CO2 [Moles/Vol] 30 mmol/L Normal 23-31 [facility] Comment on above: Performed By: #### A DIFF, LIPID, CMP, ANEU, VIDH, CBC, GFR #### [address] [address] Creatinine [Mass/Vol] 1.05 mg/dL High 0.55-1.02 [facility] Comment on above: Result Comment: Test ing performed on Siemens Dimension EXL analyzer using a modified kinetic Jess technique. Performed By: #### A DIFF, LIPID, CMP, ANEU, VIDH, CBC, GFR #### [address] [address] Electrolyte Balance 6.0 mEq/L Normal 4.0-15.0 [facility] Comment on above: Performed By: #### A DIFF, LIPID, CMP, ANEU, VIDH, CBC, GFR #### [address] [address] Globulin 4.0 G/dL High 1.5-3.8 [facility] Comment on above: Performed By: #### A DIFF, LIPID, CMP, ANEU, VIDH, CBC, GFR #### [address] [address] Glucose [Mass/Vol] 84 mg/dL Normal 83-110 [facility] Comment on above: Performed By: #### A DIFF, LIPID, CMP, ANEU, VIDH, CBC, GFR #### [address] [address] Potassium [Moles/Vol] 3.9 mmol/L Normal 3.5-5.1 [facility] Comment on above: Performed By: #### A DIFF, LIPID, CMP, ANEU, VIDH, CBC, GFR #### [address] [address] Sodium [Moles/Vol] 136 mmol/L Normal 136-145 [facility] Comment on above: Performed By: #### A DIFF, LIPID, CMP, ANEU, VIDH, CBC, GFR #### [address] [address] Total Protein 7.9 G/dL Normal 6.4-8.2 [facility] Comment on above: Performed By: #### A DIFF, LIPID, CMP, ANEU, VIDH, CBC, GFR #### [address] [address] Urea nitrogen [Mass/Vol] 15 mg/dL Normal 7-18 [facility] Comment on above: Performed By: #### A DIFF, LIPID, CMP, ANEU, VIDH, CBC, GFR #### [address] [address] LIPIDon 05-17-2024 Cholesterol [Mass/Vol] 135 mg/dL Normal 0-200 [facility] Comment on above: Result Comment: Chol esterol Reference Interval: Less than 200 Desirable 200-239 Borderline high risk 240 and above High risk Performed By: #### A DIFF, LIPID, CMP, ANEU, VIDH, CBC, GFR #### [address] [address] Cholesterol in HDL [Mass/Vol] 55 mg/dL Normal 40-60 [facility] Comment on above: Performed By: #### A DIFF, LIPID, CMP, ANEU, VIDH, CBC, GFR #### [address] [address] Cholesterol in LDL [Mass/Vol] 52 mg/dL Normal 0-130 [facility] Comment on above: Performed By: #### A DIFF, LIPID, CMP, ANEU, VIDH, CBC, GFR #### [address] [address] Triglyceride [Mass/Vol] 140 mg/dL Normal 0-150 [facility] Comment on above: Result Comment: Trig lyceride Reference Interval: Less than 150 Normal 150-199 Borderline high risk 200-499 High risk 500 or higher Very high risk Performed By: #### A DIFF, LIPID, CMP, ANEU, VIDH, CBC, GFR #### [address] [address] PBNPon 05-17-2024 Natriuretic peptide B (Bld) [Mass/Vol] 189 pg/mL Normal 0-450 [facility] Comment on above: Result Comment: NT-p roBNP results of less than 300 pg/mL effectively rules out acute congestive heart failure with 99% negative predictive value. Performed By: #### P BNP #### [address] [address] VIDHon 05-17-2024 Vit. D 25-Hydroxy 67.6 ng/mL Normal [facility] Comment on above: Result Comment: Inte rpretive Values Based on Total 25(OH) Vitamin D: Deficient <20 ng/mL Insufficient 20 - <30 ng/mL Sufficient 30-100 ng/mL Performed By: #### A DIFF, LIPID, CMP, ANEU, VIDH, CBC, GFR #### [address] [place], [place] [address] Lipid Profileon 03-02-2024 Cholesterol [Mass/Vol] 140 mg/dL Normal 200 [facility] Comment on above: Order Comment: PT CO NTED LABS DONE NOW Result Comment: <200 mg/dL Desirable 200-240 mg/dL Borderline >240 mg/dL High Risk Performed By: #### L 500.4100, L500.3400 #### [facility] [address] [place], [address] Cholesterol in HDL [Mass/Vol] 49 mg/dL Normal [facility] Comment on above: Order Comment: PT CO NTED LABS DONE NOW Result Comment: The drugs N-Acetylcysteine and Metamizole may falsely depress this assay. Reference Range HDL <40 mg/dL Low HDL Cholesterol HDL >or= 60 mg/dL High HDL Cholesterol Performed By: #### L 500.4100, L500.3400 #### [facility] [address] [place], [address] Cholesterol in LDL [Mass/Vol] 65 mg/dL Normal 0-130 [facility] Comment on above: Order Comment: [facility] NTED LABS DONE NOW Performed By: #### L 500.4100, L500.3400 #### [facility] [address] [place], [address] Cholesterol in VLDL [Mass/Vol] 26 mg/dL Normal 5-40 [facility] Comment on above: Order Comment: [facility] NTED LABS DONE NOW Performed By: #### L 500.4100, L500.3400 #### [facility] [address] [place], [address] Triglyceride [Mass/Vol] 128 mg/dL Normal [facility] Comment on above: Order Comment: PT [place] NTED LABS DONE NOW Result Comment: The drugs N-Acetylcysteine and Metamizole may falsely depress this assay. Serum Triglycerides Reference Interval Normal <150 mg/dL Borderline high 150 - 199 mg/dL High 200 - 499 mg/dL Very High > or = 500 mg/dL Performed By: #### L 500.4100, L500.3400 #### [facility] [address] [place], [address] CHOL Normal 200 [facility] Comment on above: Result Comment: EXPI RED Performed By: #### L 500.3400, L500.4100 #### [facility] [address] [place], [address] HDL Normal [facility] Comment on above: Result Comment: EXPI RED Performed By: #### L 500.3400, L500.4100 #### [facility] [address] [place], [address] LDL Normal 0-130 [facility] Comment on above: Result Comment: EXPI RED Performed By: #### L 500.3400, L500.4100 #### [facility] [address] [place], [address] TRIG Normal [facility] Comment on above: Result Comment: EXPI RED Performed By: #### L 500.3400, L500.4100 #### [facility] [address] [place], [address] VLDL Normal 5-40 [facility] Comment on above: Result Comment: EXPI RED Performed By: #### L 500.3400, L500.4100 #### [facility] [address] [place], [address] Liver Profileon 03-02-2024 Albumin [Mass/Vol] 3.8 g/dL Normal 3.2-5.0 [facility] Comment on above: Order Comment: PT [place] NTED LABS DONE NOW Performed By: #### L 500.4100, L500.3400 #### [facility] [address] [place], [address] ALK P 104 U/L Normal 45-117 [facility] Comment on above: Order Comment: PT [place] NTED LABS DONE NOW Performed By: #### L 500.4100, L500.3400 #### [facility] [address] [place], [address] ALT [Catalytic activity/Vol] 14 U/L Normal 13-56 [facility] Comment on above: Order Comment: PT WA NTED LABS DONE NOW Performed By: #### L 500.4100, L500.3400 #### [facility] [address] [place], [address] AST [Catalytic activity/Vol] 14 U/L Low 15-37 [facility] Comment on above: Order Comment: PT WA NTED LABS DONE NOW Performed By: #### L 500.4100, L500.3400 #### [facility] [address] [place], [address] Bilirubin [Mass/Vol] 1.10 mg/dL High 0.20-1.00 [facility] Comment on above: Order Comment: PT WA NTED LABS DONE NOW Result Comment: For patients on eltrombopag therapy, use of Dimension Tumtum TBIL is not recommended. Performed By: #### L 500.4100, L500.3400 #### [facility] [address] [place], [address] Bilirubin.direct [Mass/Vol] 0.31 mg/dL High 0.00-0.30 [facility] Comment on above: Order Comment: PT WA NTED LABS DONE NOW Performed By: #### L 500.4100, L500.3400 #### [facility] [address] [place], [address] Globulin (S) [Mass/Vol] 4.7 g/dL High 2.2-4.2 [facility] Comment on above: Order Comment: PT WA NTED LABS DONE NOW Performed By: #### L 500.4100, L500.3400 #### [facility] [address] [place], [address] T PROT 8.5 g/dL High 6.4-8.2 [facility] Comment on above: Order Comment: PT WA NTED LABS DONE NOW Performed By: #### L 500.4100, L500.3400 #### [facility] [address] [place], [address] ALB Normal 3.2-5.0 [facility] Comment on above: Result Comment: EXPI RED Performed By: #### L 500.3400, L500.4100 #### [facility] [address] [place], [address] ALK P Normal 45-117 [facility] Comment on above: Result Comment: EXPI RED Performed By: #### L 500.3400, L500.4100 #### [facility] [address] [place], [address] ALT Normal 13-56 [facility] Comment on above: Result Comment: EXPI RED Performed By: #### L 500.3400, L500.4100 #### [facility] [address] [place], [address] AST Normal 15-37 [facility] Comment on above: Result Comment: EXPI RED Performed By: #### L 500.3400, L500.4100 #### [facility] [address] [place], [address] D BILI Normal 0.00-0.30 [facility] Comment on above: Result Comment: EXPI RED Performed By: #### L 500.3400, L500.4100 #### [facility] [address] [place], [address] T BILI Normal 0.20-1.00 [facility] Comment on above: Result Comment: EXPI RED Performed By: #### L 500.3400, L500.4100 #### [facility] [address] [place], [address] T PROT Normal 6.4-8.2 [facility] Comment on above: Result Comment: EXPI RED Performed By: #### L 500.3400, L500.4100 #### [facility] [address] [place], [address] Prothrombin Time w/INRon INR Coag (PPP) [Relative time] 1.7 {INR} Normal [facility] Comment on above: Order Comment: Comme nts: STANDING ORDER: Fax to [facility] Performed By: #### L 300.3900 #### [facility] [address] [place], [address] PT Coag (PPP) [Time] 19.9 s High 11.7-14.9 [facility] Comment on above: Order Comment: Comme nts: STANDING ORDER: Fax to [facility] Performed By: #### L 300.3900 #### [facility] [address] [place], [address] LABORATORYOrdered By: SYSTEM SYSTEM on 01-19-2024 INR Coag (PPP) [Relative time] 2.0 {INR} Invalid Interpretation Code AO [facility] Comment on above: Interpretive Data: Ruchi ortiz [employer] [place] [employer] (CHEST, 1992, 102:312S-25S) [...] Coag (PPP) [Time] 23.2 s High 9.0-14.4 [facility] Comment on above: Performed By: #### P RO #### [address] [address] PT International Ratio 2.0 Normal [facility] Comment on above: Result Comment: The [employer] [place] [employer] (CHEST, 1991, 102:312S-25S) recommended therapeutic range for oral anticoagulant therapy is: LOW RISK: Prophylaxis of venous thrombosis INR: 2.0-3.0 Treatment of pulmonary embolism 2.0-3.0 Prevention of systemic embolism 2.0-3.0 HIGH RISK: Mechanical prosthetic valves 2.5-3.5 Performed By: #### P RO #### [address] [address] LABORATORYOrdered By: SYSTEM SYSTEM on 12-27-2023 INR Coag (PPP) [Relative time] 1.3 {INR} Invalid Interpretation Code AO [facility] Comment on above: Interpretive Data: T angel Citizen [employer] [place] [employer] (CHEST, 1991, 102:312S-25S) [...] Coag (PPP) [Time] 15.0 s High 9.0-14.4 [facility] Comment on above: Performed By: #### P RO #### [address] [address] PT International Ratio 1.3 [facility] Comment on above: Result Comment: The [employer] [place] [employer] (CHEST, 1991, 102:312S-25S) recommended therapeutic range for oral anticoagulant therapy is: LOW RISK: Prophylaxis of venous thrombosis INR: 2.0-3.0 Treatment of pulmonary embolism 2.0-3.0 Prevention of systemic embolism 2.0-3.0 HIGH RISK: Mechanical prosthetic valves 2.5-3.5 Performed By: #### P RO #### [address] [address] LABORATORYOrdered By: SYSTEM SYSTEM on 11-18-2023 INR Coag (PPP) [Relative time] 2.0 {INR} Invalid Interpretation Code AO [facility] Comment on above: Interpretive Data: Ruchi ortiz [employer] [place] [employer] (CHEST, 1991, 102:312S-25S) [...] Coag (PPP) [Time] 23.3 s High 9.0-14.4 [facility] Comment on above: Performed By: #### A DIFF, LIPID, CMP, ANEU, VIDH, CBC, GFR #### [address] [address] PT International Ratio 2.0 Normal [facility] Comment on above: Result Comment: The [employer] [place] [employer] (CHEST, 1991, 102:312S-25S) recommended therapeutic range for oral anticoagulant therapy is: LOW RISK: Prophylaxis of venous thrombosis INR: 2.0-3.0 Treatment of pulmonary embolism 2.0-3.0 Prevention of systemic embolism 2.0-3.0 HIGH RISK: Mechanical prosthetic valves 2.5-3.5 Performed By: #### A DIFF, LIPID, CMP, ANEU, VIDH, CBC, GFR #### [address] [place], [place] [address] BD BONE DENSITY DEXA AXIAL [facility]2023 BD BONE DENSITY DEXA AXIAL SKELETON [...] 10/13/2023 2:47:13 PM Ordering Provider: YULISSA Quispe [facility] [place] MAMMOGRAM SCREENING BILAT ZHANGL Raay/Sally 10-13-2023 [place] MAMMOGRAM SCREENING BILATERAL W/LOIS ORIGINAL FROM: [place] [id number] [place], [place] [address] PROCEDURE FOR: NADEGE HU [address] [place] [id number] Home: PID#: [id number] Exam#: [id number] : 1950 Age: 73 TO: YULISSA CORTES APRN [employer] [address] [place], [place] [address] Fax: NO FAX EXAMINATION: SCREENING DIGITAL BILATERAL [...] Continued screening with annual mammograms is recommended. Tyrkerry Cuzick risk calculations, generated with the history provided, [...] addition to annual mammographic screening per the [place] [employer]. BIRADS: BI-RADS: 2: Benign RECALL: 1 year screening RECALL TYPE: mammo LETTER SENT: Normal BI-RADS 1 and 2 Interpreted by: Tano Wright MD Preliminary Report By: Tano Wright MD Electronically signed By Tano Wright MD Dictated Date: 10/13/2023 7:15:49 PM Prelim Date: 10/13/2023 7:17:57 PM Sign Date: 10/13/2023 7:17:57 PM Ordering Provider: YULISSA CORTES Facsimile Machine Operator: MELA TRAN RT(R)(M)(CT) letter sent: Normal BI-RADS 1 and 2 Mammogram BI-RADS: 2 Benign Normal [facility] [place]) PROon 10-13-2023 PT Coag (PPP) [Time] 25.6 s High 9.0-14.4 [facility]) Comment on above: Performed By: #### C MP, GFR, LIPID, CBC, ADIFF, ANEU #### [address] [address] PT International Ratio 2.2 Normal [facility]) Comment on above: Result Comment: The [employer] [place] [employer] (CHEST, 1992, 102:312S-25S) recommended therapeutic range for oral anticoagulant therapy is: LOW RISK: Prophylaxis of venous thrombosis INR: 2.0-3.0 Treatment of pulmonary embolism 2.0-3.0 Prevention of systemic embolism 2.0-3.0 HIGH RISK: Mechanical prosthetic valves 2.5-3.5 Performed By: #### C MP, GFR, LIPID, CBC, ADIFF, ANEU #### [address] [address] HFPon 09-20-2023 Bili Indirect 0.5 mg/dL Normal [facility]) Comment on above: Performed By: #### C MP, GFR, LIPID, CBC, ADIFF, ANEU #### [address] [address] Albumin Level 3.6 G/dL Normal 3.4-4.8 [facility]) Comment on above: Performed By: #### C MP, GFR, LIPID, CBC, ADIFF, ANEU #### [address] [address] Albumin/Globulin [Mass ratio] 0.9 {ratio} Low 1.1-2.5 [facility]) Comment on above: Performed By: #### C MP, GFR, LIPID, CBC, ADIFF, ANEU #### [address] [address] ALP [Catalytic activity/Vol] 84 U/L Normal 40-135 [facility]) Comment on above: Performed By: #### C MP, GFR, LIPID, CBC, ADIFF, ANEU #### [address] [address] ALT [Catalytic activity/Vol] 20 U/L Normal 14-59 [facility] [place] Comment on above: Performed By: #### C MP, GFR, LIPID, CBC, ADIFF, ANEU #### [address] [address] AST [Catalytic activity/Vol] 10 U/L Normal 10-40 [facility] [place]) Comment on above: Performed By: #### C MP, GFR, LIPID, CBC, ADIFF, ANEU #### [address] [address] Bili Direct 0.1 mg/dL Normal 0.0-0.2 [facility] [place]) Comment on above: Result Comment: Use of this assay is not recommended for patients undergoing treatment with eltrombopag due to the potential for falsely elevated results. Performed By: #### C MP, GFR, LIPID, CBC, ADIFF, ANEU #### [place] [id number] Bili Total 0.6 mg/dL Normal 0.2-1.0 [facility] [place]) Comment on above: Result Comment: Use of this assay is not recommended for patients undergoing treatment with eltrombopag due to the potential for falsely elevated results. Performed By: #### C MP, GFR, LIPID, CBC, ADIFF, ANEU #### [address] [address] Globulin 3.8 G/dL Normal [facility] [place] Comment on above: Performed By: #### C MP, GFR, LIPID, CBC, ADIFF, ANEU #### [address] [address] Total Protein 7.4 G/dL Normal 6.4-8.2 [facility] [place]) Comment on above: Performed By: #### C MP, GFR, LIPID, CBC, ADIFF, ANEU #### [address] [address] LIPIDon 09-20-2023 Cholesterol [Mass/Vol] 147 mg/dL Normal 0-200 [facility] [place]) Comment on above: Result Comment: Chol esterol Reference Interval: Less than 200 Desirable 200-239 Borderline high risk 240 and above High risk Performed By: #### C MP, GFR, LIPID, CBC, ADIFF, ANEU #### [address] [address] Cholesterol in HDL [Mass/Vol] 50 mg/dL Normal 40-60 [facility] [place] Comment on above: Performed By: #### C MP, GFR, LIPID, CBC, ADIFF, ANEU #### [address] [address] Cholesterol in LDL [Mass/Vol] 68 mg/dL Normal 0-130 [facility]) Comment on above: Performed By: #### C MP, GFR, LIPID, CBC, ADIFF, ANEU #### [address] [address] Triglyceride [Mass/Vol] 145 mg/dL Normal 0-150 [facility]) Comment on above: Result Comment: Trig lyceride Reference Interval: Less than 150 Normal 150-199 Borderline high risk 200-499 High risk 500 or higher Very high risk Performed By: #### C MP, GFR, LIPID, CBC, ADIFF, ANEU #### [address] [address] PROon 09-20-2023 PT Coag (PPP) [Time] 28.1 s High 9.0-14.4 [facility] [place] Comment on above: Performed By: #### P RO #### [address] [address] PT International Ratio 2.4 Normal [facility]) Comment on above: Result Comment: The [employer] [place] [employer] (CHEST, 1992, 102:312S-25S) recommended therapeutic range for oral anticoagulant therapy is: LOW RISK: Prophylaxis of venous thrombosis INR: 2.0-3.0 Treatment of pulmonary embolism 2.0-3.0 Prevention of systemic embolism 2.0-3.0 HIGH RISK: Mechanical prosthetic valves 2.5-3.5 Performed By: #### P RO #### [address] [address] .Auto Diffon 08-31-2023 Basophil, Absolute 0.1 10 3/mcL Normal 0.0-0.2 [facility] [place]) Comment on above: Performed By: #### C MP, GFR, LIPID, CBC, ADIFF, ANEU #### [address] [address] Basophils/100 WBC (Bld) 0.9 % Normal 0.0-2.5 [facility] [place]) Comment on above: Performed By: #### C MP, GFR, LIPID, CBC, ADIFF, ANEU #### [address] [address] Eosinophil, Absolute 0.2 10 3/mcL Normal 0.0-0.4 [facility] ([place]) Comment on above: Performed By: #### C MP, GFR, LIPID, CBC, ADIFF, ANEU #### [address] [address] Eosinophils/100 WBC (Bld) 2.1 % Normal 0.0-7.0 [facility] [place]) Comment on above: Performed By: #### C MP, GFR, LIPID, CBC, ADIFF, ANEU #### [address] [address] Lymphocyte, Absolute 1.8 10 3/mcL Normal 0.8-3.9 [facility] ([place]) Comment on above: Performed By: #### C MP, GFR, LIPID, CBC, ADIFF, ANEU #### [address] [address] Lymphocytes/100 WBC (Bld) 20.8 % Normal 10.0-50.0 [facility] ([place]) Comment on above: Performed By: #### C MP, GFR, LIPID, CBC, ADIFF, ANEU #### [address] [address] Monocyte, Absolute 0.7 10 3/mcL Normal 0.2-1.0 [facility] ([place]) Comment on above: Performed By: #### C MP, GFR, LIPID, CBC, ADIFF, ANEU #### [address] [address] Monocytes/100 WBC (Bld) 8.0 % Normal 1.7-13.0 [facility] ([place]) Comment on above: Performed By: #### C MP, GFR, LIPID, CBC, ADIFF, ANEU #### [address] [address] Neutrophils/100 WBC (Bld) 68.2 % Normal 37.0-80.0 [facility] ([place]) Comment on above: Performed By: #### C MP, GFR, LIPID, CBC, ADIFF, ANEU #### [address] [address] .GFRon 08-31-2023 GFR Non- 44 ml/min/1.73sqm Normal [facility] ([place]) Comment on above: Result Comment: GFR Population [...] MP, GFR, LIPID, CBC, ADIFF, ANEU #### [address] [address] GFR 54 ml/min/1.73sqm Normal [facility] ([place]) Comment on above: Result Comment: GFR Population [...] MP, GFR, LIPID, CBC, ADIFF, ANEU #### [address] [address] .NEUABSon 08-31-2023 Neutrophil, Absolute 6.0 10 3/mcL Normal 2.9-6.2 [facility] ([place]) Comment on above: Performed By: #### C MP, GFR, LIPID, CBC, ADIFF, ANEU #### [address] [address] CBCon 08-31-2023 Erythrocyte distribution width (RBC) [Ratio] 15.3 % High 11.5-14.5 [facility] ([place]) Comment on above: Performed By: #### C MP, GFR, LIPID, CBC, ADIFF, ANEU #### [place] [id number] Hematocrit (Bld) [Volume fraction] 37.5 % Normal 37.0-47.0 [facility] ([place]) Comment on above: Performed By: #### C MP, GFR, LIPID, CBC, ADIFF, ANEU #### [place] [id number] Hgb 12.4 G/dL Normal 12.0-16.0 [facility] ([place]) Comment on above: Performed By: #### C MP, GFR, LIPID, CBC, ADIFF, ANEU #### [place] [address] MCH (RBC) [Entitic mass] 30.0 pg Normal 27.0-31.2 [facility] ([place]) Comment on above: Performed By: #### C MP, GFR, LIPID, CBC, ADIFF, ANEU #### [place] [id number] MCHC 33.0 G/dL Normal 33.0-37.0 [facility] ([place]) Comment on above: Performed By: #### C MP, GFR, LIPID, CBC, ADIFF, ANEU #### [address] [address] MCV (RBC) [Entitic vol] 91.0 fL Normal 80.0-94.0 [facility] ([place]) Comment on above: Performed By: #### C MP, GFR, LIPID, CBC, ADIFF, ANEU #### [address] [address] Platelet 282 10 3/mcL Normal 130-400 [facility] ([place]) Comment on above: Performed By: #### C MP, GFR, LIPID, CBC, ADIFF, ANEU #### [address] [address] Platelet mean volume (Bld) [Entitic vol] 8.7 fL Normal 7.4-10.4 [facility] ([place]) Comment on above: Performed By: #### C MP, GFR, LIPID, CBC, ADIFF, ANEU #### [address] [address] RBC 4.12 10 6/mcL Low 4.20-5.40 [facility] ([place]) Comment on above: Performed By: #### C MP, GFR, LIPID, CBC, ADIFF, ANEU #### [address] [address] WBC 8.8 10 3/mcL Normal 4.6-10.8 [facility] ([place]) Comment on above: Performed By: #### C MP, GFR, LIPID, CBC, ADIFF, ANEU #### [address] [address] CMPon 08-31-2023 Albumin Level 3.9 G/dL Normal 3.4-4.8 [facility] ([place]) Comment on above: Performed By: #### C MP, GFR, LIPID, CBC, ADIFF, ANEU #### [address] [address] Albumin/Globulin [Mass ratio] 1.1 {ratio} Normal 1.1-2.5 [facility] ([place]) Comment on above: Performed By: #### C MP, GFR, LIPID, CBC, ADIFF, ANEU #### [address] [address] ALP [Catalytic activity/Vol] 82 U/L Normal 40-135 [facility] ([place]) Comment on above: Performed By: #### C MP, GFR, LIPID, CBC, ADIFF, ANEU #### [address] [address] ALT [Catalytic activity/Vol] 16 U/L Normal 14-59 [facility] ([place]) Comment on above: Performed By: #### C MP, GFR, LIPID, CBC, ADIFF, ANEU #### [address] [address] AST [Catalytic activity/Vol] 13 U/L Normal 10-40 [facility] ([place]) Comment on above: Performed By: #### C MP, GFR, LIPID, CBC, ADIFF, ANEU #### [address] [address] Bili Total 0.6 mg/dL Normal 0.2-1.0 [facility] ([place]) Comment on above: Result Comment: Use of this assay is not recommended for patients undergoing treatment with eltrombopag due to the potential for falsely elevated results. Performed By: #### C MP, GFR, LIPID, CBC, ADIFF, ANEU #### [address] [address] BUN/Creatinine Ratio 23 ratio Normal 7-27 [facility] ([place]) Comment on above: Performed By: #### C MP, GFR, LIPID, CBC, ADIFF, ANEU #### [address] [address] Calcium [Mass/Vol] 9.6 mg/dL Normal 8.4-10.2 [facility] ([place]) Comment on above: Performed By: #### C MP, GFR, LIPID, CBC, ADIFF, ANEU #### [address] [address] Chloride [Moles/Vol] 98 mmol/L Normal 98-107 [facility] ([place]) Comment on above: Performed By: #### C MP, GFR, LIPID, CBC, ADIFF, ANEU #### [address] [address] CO2 [Moles/Vol] 31 mmol/L Normal 23-31 [facility] ([place]) Comment on above: Performed By: #### C MP, GFR, LIPID, CBC, ADIFF, ANEU #### [address] [address] Creatinine [Mass/Vol] 1.19 mg/dL High 0.55-1.02 [facility] ([place]) Comment on above: Performed By: #### C MP, GFR, LIPID, CBC, ADIFF, ANEU #### [address] [address] Electrolyte Balance 7.0 mEq/L Normal 4.0-15.0 [facility] ([place]) Comment on above: Performed By: #### C MP, GFR, LIPID, CBC, ADIFF, ANEU #### [address] [address] Globulin 3.7 G/dL Normal [facility] ([place]) Comment on above: Performed By: #### C MP, GFR, LIPID, CBC, ADIFF, ANEU #### [address] [address] Glucose [Mass/Vol] 104 mg/dL Normal 83-110 [facility] ([place]) Comment on above: Performed By: #### C MP, GFR, LIPID, CBC, ADIFF, ANEU #### [address] [address] Potassium [Moles/Vol] 4.4 mmol/L Normal 3.5-5.1 [facility] ([place]) Comment on above: Performed By: #### C MP, GFR, LIPID, CBC, ADIFF, ANEU #### [address] [address] Sodium [Moles/Vol] 136 mmol/L Normal 136-145 [facility] ([place]) Comment on above: Performed By: #### C MP, GFR, LIPID, CBC, ADIFF, ANEU #### [address] [address] Total Protein 7.6 G/dL Normal 6.4-8.2 [facility] ([place]) Comment on above: Performed By: #### C MP, GFR, LIPID, CBC, ADIFF, ANEU #### [address] [address] Urea nitrogen [Mass/Vol] 27 mg/dL High 7-18 [facility] ([place]) Comment on above: Performed By: #### C MP, GFR, LIPID, CBC, ADIFF, ANEU #### [address] [address] LIPIDon 08-31-2023 Cholesterol [Mass/Vol] 132 mg/dL Normal 0-200 [facility] ([place]) Comment on above: Result Comment: Chol esterol Reference Interval: Less than 200 Desirable 200-239 Borderline high risk 240 and above High risk Performed By: #### C MP, GFR, LIPID, CBC, ADIFF, ANEU #### [address] [address] Cholesterol in HDL [Mass/Vol] 47 mg/dL Normal 40-60 [facility] ([place]) Comment on above: Performed By: #### C MP, GFR, LIPID, CBC, ADIFF, ANEU #### [address] [address] Cholesterol in LDL [Mass/Vol] 49 mg/dL Normal 0-130 [facility] ([place]) Comment on above: Performed By: #### C MP, GFR, LIPID, CBC, ADIFF, ANEU #### [address] [address] Triglyceride [Mass/Vol] 181 mg/dL High 0-150 [facility] ([place]) Comment on above: Result Comment: Trig lyceride Reference Interval: Less than 150 Normal 150-199 Borderline high risk 200-499 High risk 500 or higher Very high risk Performed By: #### C MP, GFR, LIPID, CBC, ADIFF, ANEU #### [address] [address] PROon 08-31-2023 PT Coag (PPP) [Time] 31.9 s High 9.0-14.4 [facility] ([place]) Comment on above: Performed By: #### C MP, GFR, LIPID, CBC, ADIFF, ANEU #### [address] [address] PT International Ratio 2.8 Normal [facility] ([place]) Comment on above: Result Comment: [employer] [place] [employer] (CHEST, 1991, 102:312S-25S) recommended therapeutic range for oral anticoagulant therapy is: LOW RISK: Prophylaxis of venous thrombosis INR: 2.0-3.0 Treatment of pulmonary embolism 2.0-3.0 Prevention of systemic embolism 2.0-3.0 HIGH RISK: Mechanical prosthetic valves 2.5-3.5 Performed By: #### C MP, GFR, LIPID, CBC, ADIFF, ANEU #### [place] [address] PROon 08-27-2023 PT Coag (PPP) [Time] 73.0 s High 9.0-14.4 [facility] ([place]) Comment on above: Performed By: #### P RO #### [address] [address] PT International Ratio 6.2 Critically abnormal [facility] ([place]) Comment on above: Result Comment: [employer] [place] [employer] (CHEST, 1991, 102:312S-25S) recommended therapeutic range for oral anticoagulant therapy is: LOW RISK: Prophylaxis of venous thrombosis INR: 2.0-3.0 Treatment of pulmonary embolism 2.0-3.0 Prevention of systemic embolism 2.0-3.0 HIGH RISK: Mechanical prosthetic valves 2.5-3.5 Performed By: #### P RO #### [address] [address] PROon 08-18-2023 PT Coag (PPP) [Time] 46.9 s High 9.0-14.4 [facility] ([place]) Comment on above: Performed By: #### C MP, GFR, LIPID, CBC, ADIFF, ANEU #### [address] [address] PT International Ratio 4.0 Normal [facility] ([place]) Comment on above: Result Comment: [employer] [place] [employer] (CHEST, 1991, 102:312S-25S) recommended therapeutic range for oral anticoagulant therapy is: LOW RISK: Prophylaxis of venous thrombosis INR: 2.0-3.0 Treatment of pulmonary embolism 2.0-3.0 Prevention of systemic embolism 2.0-3.0 HIGH RISK: Mechanical prosthetic valves 2.5-3.5 Performed By: #### C MP, GFR, LIPID, CBC, ADIFF, ANEU #### [address] [address] PROon 08-09-2023 PT Coag (PPP) [Time] 18.9 s High 9.0-14.4 [facility] ([place]) Comment on above: Performed By: #### C MP, GFR, LIPID, CBC, ADIFF, ANEU #### [address] [address] PT International Ratio 1.6 Normal [facility] ([place]) Comment on above: Result Comment: [employer] [place] [employer] (CHEST, 1991, 102:312S-25S) recommended therapeutic range for oral anticoagulant therapy is: LOW RISK: Prophylaxis of venous thrombosis INR: 2.0-3.0 Treatment of pulmonary embolism 2.0-3.0 Prevention of systemic embolism 2.0-3.0 HIGH RISK: Mechanical prosthetic valves 2.5-3.5 Performed By: #### C MP, GFR, LIPID, CBC, ADIFF, ANEU #### [address] [address] Basophil percentageOrdered B y: Annalisa Mabry on 01-27-2023 Chloride [Moles/Vol] 100 mmol/L 98-107 [facility] Glucose [Mass/Vol] 165 mg/dL 74-106 [facility] Comment on above: Fasting Glucose resu lt greater than or equal to 126 mg/dL suggests DIABETES MELLITUS per A.D.A. criteria. Potassium [Moles/Vol] 3.8 mmol/L 3.5-5.1 [facility] Sodium [Moles/Vol] 135 mmol/L 136-145 [facility] Laboratory - Chemistry and C hemistry - challengeOrdered By: Annalisa Mabry on 01-27-2023 CO2 [Moles/Vol] 29.0 mmol/L 21.0-32.0 [facility] Urea nitrogen/Creatinine [Mass ratio] 17.1 mg/mg 10-20 [facility] No Panel InformationOrdered By: Annalisa Mabry on 01-27-2023 Estimated GFR (MDRD) Amer 62 mL/min >60 [facility] Comment on above: GFR Calc Estimated GFR (MDRD) Non-Af Amer 51 mL/min >60 [facility] Comment on above: Non- GFR Calc Serum or plasma calcium carter urement (mass/volume)Ordered By: Annalisa Mabry on 01-27-2023 Calcium [Mass/Vol] 9.6 mg/dL 8.5-10.1 [facility] Serum or plasma creatinine m easurement (mass/volume)Ordered By: Annalisa Mabry on 01-27-2023 Creatinine [Mass/Vol] 1.11 mg/dL 0.55-1.02 [facility] Comment on above: The validity of the calculated GFR & GFRAA in patients over 70 years has not been determined. Clinical correlation is essential. Serum or plasma urea nitroge n measurement (mass/volume)Ordered By: Annalisa Mabry on 01-27-2023 Urea nitrogen [Mass/Vol] 19 mg/dL 7-18 [facility] Thin prep Papanicolaou smear with manual screeningOrdered By: Annalisa Mabry on 01-27-2023 Thin prep Papanicolaou smear with manual screening 6 5-15 [facility] Basophil percentageOrdered B y: Annalisa Mabry on 01-05-2023 Chloride [Moles/Vol] 102 mmol/L 98-107 [facility] Glucose [Mass/Vol] 119 mg/dL 74-106 [facility] Comment on above: Fasting Glucose resu lt from 100 to 125 mg/dL suggests IMPAIRED HOMEOSTASIS per A.D.A. criteria. Potassium [Moles/Vol] 4.1 mmol/L 3.5-5.1 [facility] Sodium [Moles/Vol] 136 mmol/L 136-145 [facility] Laboratory - Chemistry and C hemistry - challengeOrdered By: Annalisa Mabry on 01-05-2023 CO2 [Moles/Vol] 32.0 mmol/L 21.0-32.0 [facility] Urea nitrogen/Creatinine [Mass ratio] 19.6 mg/mg 10-20 [facility] No Panel InformationOrdered By: Annalisa Mabry on 01-05-2023 Estimated GFR (MDRD) Amer 64 mL/min >60 [facility] Comment on above: GFR Calc Estimated GFR (MDRD) Non-Af Amer 53 mL/min >60 [facility] Comment on above: Non- GFR Calc Serum or plasma calcium carter urement (mass/volume)Ordered By: Annalisa Mabry on 01-05-2023 Calcium [Mass/Vol] 9.7 mg/dL 8.5-10.1 [facility] Serum or plasma creatinine m easurement (mass/volume)Ordered By: Annalisa Mabry on 01-05-2023 Creatinine [Mass/Vol] 1.07 mg/dL 0.55-1.02 [facility] Comment on above: The validity of the calculated GFR & GFRAA in patients over 70 years has not been determined. Clinical correlation is essential. Serum or plasma urea nitroge n measurement (mass/volume)Ordered By: Annalisa Mabry on 01-05-2023 Urea nitrogen [Mass/Vol] 21 mg/dL 7-18 [facility] Thin prep Papanicolaou smear with manual screeningOrdered By: Annalisa Mabry on 01-05-2023 Thin prep Papanicolaou smear with manual screening 2 5-15 [facility] Basophil percentageOrdered B y: [place] Yovani on 09-16-2022 Bilirubin [Mass/Vol] 0.80 mg/dL 0.20-1.00 [facility] Comment on above: For patients on eltr ombopag therapy, use of Dimension Tumtum TBIL is not recommended. Cholesterol [Mass/Vol] 146 mg/dL <200 [facility] Comment on above: <200 mg/dL Desirable 200-240 mg/dL Borderline >240 mg/dL High Risk Protein [Mass/Vol] 8.0 g/dL 6.4-8.2 [facility] Triglyceride [Mass/Vol] 165 mg/dL <199 [facility] Comment on above: The drugs N-Acetylcy steine and Metamizole may falsely depress this assay.Serum Triglycerides Reference Interval Normal <150 mg/dL Borderline high 150 - 199 mg/dL High 200 - 499 mg/dL Very High > or = 500 mg/dL Direct bilirubinOrdered By: Akhil Pina on 09-16-2022 Bilirubin.direct [Mass/Vol] 0.13 mg/dL 0.00-0.30 [facility] Laboratory - Chemistry and C hemistry - challengeOrdered By: Akhil Pina on 09-16-2022 ALP [Catalytic activity/Vol] 84 U/L 45-117 [facility] ALT [Catalytic activity/Vol] 18 U/L 13-56 [facility] Globulin (S) [Mass/Vol] 4.4 g/dL 2.2-4.2 [facility] Serum or plasma albumin carter urement (mass/volume)Ordered By: Akhil Pina on 09-16-2022 Albumin [Mass/Vol] 3.6 g/dL 3.2-5.0 [facility] Serum or plasma cholesterol in HDL measurement (mass/volume)Ordered By: Akhil Pina on 09-16-2022 Cholesterol in HDL [Mass/Vol] 47 mg/dL >40 [facility] Comment on above: The drugs N-Acetylcy steine and Metamizole may falsely depress this assay. Reference Range HDL <40 mg/dL Low HDL Cholesterol HDL >or= 60 mg/dL High HDL Cholesterol Serum or plasma cholesterol in VLDL measurement (mass/volume)Ordered By: Akhil Pina on 09-16-2022 Cholesterol in VLDL [Mass/Vol] 33 mg/dL 5-40 [facility] Serum or plasma low density lipoprotein (LDL) cholesterol measurement (mass/volume)Ordered By: Akhil Pina on 09-16-2022 Cholesterol in LDL [Mass/Vol] 66 mg/dL 0-130 [facility] Thin prep Papanicolaou smear with manual screeningOrdered By: Akhil Pina on 09-16-2022 Thin prep Papanicolaou smear with manual screening 26 U/L 15-37 [facility] Comment on above: Slight Hemolysis, Re [...] percentageon 2021 Bilirubin [Mass/Vol] 0.80 mg/dL 0.20-1.00 [facility] Work Phone: Comment on above: For patients on eltr ombopag therapy, use of Dimension Tumtum TBIL is not recommended. Cholesterol [Mass/Vol] 153 mg/dL <200 [facility] Work Phone: Comment on above: <200 mg/dL Desirable 200-240 mg/dL Borderline >240 mg/dL High Risk Protein [Mass/Vol] 8.0 g/dL 6.4-8.2 [facility] Work Phone: Triglyceride [Mass/Vol] 192 mg/dL <199 [facility] Work Phone: Comment on above: The drugs N-Acetylcy steine and Metamizole may falsely depress this assay.Serum Triglycerides Reference Interval Normal <150 mg/dL Borderline high 150 - 199 mg/dL High 200 - 499 mg/dL Very High > or = 500 mg/dL Direct bilirubinon 2 Bilirubin.direct [Mass/Vol] 0.24 mg/dL 0.00-0.30 [facility] Work Phone: Laboratory - Chemistry and C hemistry - challengeon 09-23-2021 ALP [Catalytic activity/Vol] 79 U/L 45-117 [facility] Work Phone: ALT [Catalytic activity/Vol] 16 U/L 13-56 [facility] Work Phone: Globulin (S) [Mass/Vol] 4.0 g/dL 2.2-4.2 [facility] Work Phone: Serum or plasma albumin carter urement (mass/volume)on 09-23-2021 Albumin [Mass/Vol] 4.0 g/dL 3.2-5.0 [facility] Work Phone: Serum or plasma cholesterol in HDL measurement (mass/volume)on 09-23-2021 Cholesterol in HDL [Mass/Vol] 48 mg/dL >40 [facility] Work Phone: Comment on above: The drugs N-Acetylcy steine and Metamizole may falsely depress this assay. Reference Range HDL <40 mg/dL Low HDL Cholesterol HDL >or= 60 mg/dL High HDL Cholesterol Serum or plasma cholesterol in VLDL measurement (mass/volume)on 09-23-2021 Cholesterol in VLDL [Mass/Vol] 38 mg/dL 5-40 [facility] Work Phone: Serum or plasma low density lipoprotein (LDL) cholesterol measurement (mass/volume)on 09-23-2021 Cholesterol in LDL [Mass/Vol] 67 mg/dL 0-130 [facility] Work Phone: Thin prep Papanicolaou smear with manual screeningon 09-23-2021 Thin prep Papanicolaou smear with manual screening 13 U/L 15-37 [facility] Work Phone: LABORATORYOrdered By: Tena Morley [...] definite cause of disease. Laboratories within the [place] and its territories are required to report all positive results to the appropriate public health authorities.Detection of analyte target(s) does not imply that the corresponding virus(es) are infectious or are the causative agents for clinical symptoms.There is a risk of false positive values resulting from cross-contamination by target organisms, their nucleic acids or amplified product, or from non-specific signals in the assay.Cardinal Midstream SARS-CoV-2 Assay is a Real-Time reverse-transcriptase polymerase [...] Last Updated: 04-Jan-2020 07:06 by Mitch Dominguez) [facility] Preop Checkliston 01-04-2020 Preop Checklist Preop Checklist: Preop Checklist: Arrival [id number] Arrival Time06:35 Procedure Typeleft eye cataract Temperature C37.4 degrees C Temperature F99.3 degrees F Heart Rate55 beats per minute Respiratory Rate16 breath per minute Blood Pressure Ktbarirc749 mm/Hg Blood Pressure Hcxnoomsu00 mm/Hg NPO [id number] 17:30 ID Band Onyes Allergy Bandno known allergies Consent Signedyes H&P Completeyes Anesthesia Assessment Completedyes EKG Performednot ordered Chest X-Ray Performednot ordered HCG Urine TestN/A Chlorhexadine Bath Givennot applicable Nasal Antiseptic Appliednot applicable Hair Washednot applicable Hat placed on infant prior to transportnot applicable SCD's Appliednot applicable MELINDA Hose Appliednot ordered Denturesnot applicable Prostheticsnot applicable [...] Communication: Language / CommunicationEnglish Electronic Signatures: Mami Tomlin) (Signed 04-Jan-2020 07:14) Authored: Preop Checklist Last Updated: 04-Jan-2020 07:14 by Mami Tomlin (IVAN) [facility] CORONAVIRUS 2019, SCREEN ASY MPTOMATICon 01-01-2020 CORONAVIRUS 2019,PCR NOT DETECTED Normal Not Detected [facility] Comment on above: Result Comment: . [...] patient management decisions. Fact sheet for providers: https://www.fda.gov/media/188293/download Fact sheet for patients: https://www.fda.gov/media/168107/download This test has received FDA Emergency Use Authorization (EUA) and has been verified by [facility] ([facility]). This test is only authorized for the duration of time that circumstances exist to justify the authorization of the emergency use of in vitro diagnostic tests for the detection of SARS-CoV-2 virus and/or diagnosis of COVID-19 infection under section 564(b)(1) of the Act, 21 U.S.C. 360bbb-3(b)(1), unless the authorization is terminated or revoked sooner. [facility] is certified under CLIA-88 as qualified to perform high complexity testing. Testing is performed in the [facility] laboratories located at [address] [place] [address]. Performed By: #### C OVSC #### [place] [address] Lab Specimen Source Nasal, Nasopharyngeal Normal [facility] Comment on above: Performed By: #### C OVSC #### [place] [address] CORONAVIRUS 2019, SCREEN ASY MPTOMATICon 12-27-2019 EMPLOYED IN HEALTHCARE? Unknown Normal [facility] Comment on above: Performed By: #### C OVSC #### [place] [address] FIRST COVID NASAL SWAB TEST? Unknown Normal [facility] Comment on above: Performed By: #### C OVSC #### [address] [place] [address] HOSPITALIZED (OR PLANNED TO BE ADMITTED)? Unknown Normal [facility] Comment on above: Performed By: #### C OVSC #### [address] [place] [address] ICU? Unknown Normal [facility] Comment on above: Performed By: #### C OVSC #### [facility] [address] [place] [id number] ? Unknown Normal [facility] Comment on above: Performed By: #### C OVSC #### [facility] [address] [place] [address] REQUIRED FOR PROCEDURE/SURGERY? Unknown Normal [facility] Comment on above: Performed By: #### C OVSC #### [facility] [address] [place] [phone] RESIDENT IN CONGREGATE CARE SETTING? Unknown Normal [facility] Comment on above: Performed By: #### C OVSC #### [facility] [address] [place] [address] SYMPTOMATIC DEFINED BY CDC? Unknown Normal [facility] Comment on above: Performed By: #### C OVSC #### [facility] [address] [place] [id number] EMPLOYEE? Unknown Normal [facility] Comment on above: Performed By: #### C OVSC #### [facility] [address] 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 (procedure may be cancelled if no local combination truck driver), center location, insurance information Prep Instructions Reviewedyes Instructed to Have No Fluids Aftermidnight Stated Reason for Admissionleft eye cataract Primary Contact Name and [phone] Limitations on Visitors/Phone Callsnone Patient Belongingsremains with patient Patient Belongings Remaining with Patientclothing Medications Brought to Hospitalno General Health: Weight in kg81.5 kilogram(s) Weight in til664.6 pound(s) Weight Methodactual (measured) Scale Typestanding Height in feet5 feet Height in inches4 inch(es) Height in cm162.5 centimeter(s) Height Methodstated BMI (kg/m2)30.863 square meter Patient or Family Member Reaction to Anesthesiano previous reaction; no previous family member reaction Blood Avoidance/Restrictionsn one Previous Transfusion Reactionno Health Mgmt: Symptoms/Conditions Managed at H[place]one Barriers to Managing Healthnone Relationship/Environ: Living Arrangementshouse Lives Withspouse Resource/Environmental Concernsnone [facility] Anticipated at Transitionnone Substance: Current or [...] instruction; written material Cultural Considerationsnone Developmental Considerationsnone Denominational Considerationsnone Other learner availableyes... Learnerfamily Factors Influencing Readiness to Learnrequests information, motivation to learn Factors that Impact Ability to Learnvisual problems Devices/Methods Used to Communicatenone Learning Preferencesverbal instruction, written material Cultural Considerationsnone Developmental Considerationsnone Denominational Considerationsnone Falls RiskPatient location auto qualifies him/her for HIGH RISK. Are there any cultural, spiritual, episcopalian practices/values/needs that are important for us to knowno Do you want a visit/item from [facility] Would you like your Licensed Therapist/Court Crier notifiedno Pain Scalenumerical 0-10 Pain Scale Educationteaching provided Current Pain Level0 = None Acceptable Pain Level3 = Mild Expression of Pain (nonverbal)none Chronic Painno Information Review: Allergies, Home Meds and Significant Events have been Reviewed and Verified with Patient/Familyyes Allergy, Intolerance, Adverse Event: Allergies: No Known Allergies: Active Electronic Signatures: Mami TomlinRN) (Signed 04-Jan-2020 06:51) Authored: Initial Info, General Health, Health Mgmt, Relationship/Environ, Risk Screens, Additional Information Staci Torres (RN) (Signed 27-Dec-2019 14:31) Authored: Initial Info, General Health, Relationship/Environ, Substance, Risk Screens, Additional Information Last Updated: 04-Jan-2020 06:51 by Mami Tomlin (IVAN) References: 1. Data Referenced From Patient Profile - Preop v2 04-Dec-2019 11:53 [facility] History and Physical - Surgi denice Update [...] Last Updated: 07-Dec-2019 07:01 by Mitch Dominguez) [facility] Preop Checkliston 12-07-2019 Preop Checklist Preop Checklist: Preop Checklist: Arrival [id number] Arrival Time06:20 Procedure Typeright cataract NPO [id number] 20:30 NPO Commentsips of water with am meds ID Band Onyes Allergy Bandno known allergies Consent Signedyes H&P Completeyes Anesthesia Assessment Completedyes SCD's Appliednot applicable MELINDA Hose Appliednot ordered Denturesnot applicable Prostheticsnot applicable [...] Language / CommunicationEnglish Electronic Signatures: Irene Snowden (RN) (Signed 07-Dec-2019 06:57) Authored: Preop Checklist Last Updated: 07-Dec-2019 06:57 by Irene Snowden (RN) Normal [facility] CORONAVIRUS 2019, SCREEN ASY MPTOMATICon 12-06-2019 CORONAVIRUS 2019,PCR NOT DETECTED Normal Not Detected [facility] Comment on above: Result Comment: This [...] patient management decisions. Fact sheet for providers: https://www.fda.gov/media/911403/download Fact sheet for patients: https://www.fda.gov/media/994460/download This test has received FDA Emergency Use Authorization (EUA) and has been verified by [facility] ([facility]). This test is only authorized for the duration of time that circumstances exist to justify the authorization of the emergency use of in vitro diagnostic tests for the detection of SARS-CoV-2 virus and/or diagnosis of COVID-19 infection under section 564(b)(1) of the Act, 21 U.S.C. 360bbb-3(b)(1), unless the authorization is terminated or revoked sooner. [facility] is certified under CLIA-88 as qualified to perform high complexity testing. Testing is performed in the [facility] laboratories located at [address] [place] [address]. Performed By: #### C [facility] #### [place] [address] CORONAVIRUS 2019, SCREEN ASY MPTOMATICon 12-05-2019 Lab Specimen Source Nasal, Nasopharyngeal Normal [facility] Comment on above: Performed By: #### C [facility] #### [facility] [address] [place] [address] Patient Profile - Preop v2on 12-04-2019 Patient Profile - Preop v2 Profile: Initial Info: How to be Addressedsharon Spoken Language PreferredEnglish Source of Informationpatient Are you currently using the Personal Electronic Health Record or MotionDSPOceenyes Instructions Givenappropriate clothing, center location, bring responsible adult as the local combination truck driver (procedure may be cancelled if no local combination truck driver) Prep Instructions Reviewedyes Instructed to Have No Fluids Aftermidnight Stated Reason for Admissionright eye cataract Primary Contact Name and [phone] Patient Belongingsremains with patient Patient Belongings Remaining with Patientclothing Medications Brought to Hospitalno General Health: Weight in kg81.1 kilogram(s) Weight in ydd390.7 pound(s) Weight Methodactual (measured) Scale Typestanding Height [...] instruction; written material Cultural Considerationsnone Developmental Considerationsnone Denominational Considerationsnone Other learner availableyes... Learnerfamily Factors Influencing Readiness to Learnrequests information, motivation to learn Factors that Impact Ability to Learnvisual problems Devices/Methods Used to Communicatenone Learning Preferencesverbal instruction, written material Cultural Considerationsnone Developmental Considerationsnone Denominational Considerationsnone Falls RiskPatient location auto qualifies him/her for HIGH RISK. Are there any cultural, spiritual, episcopalian practices/values/needs that are important for us to knowno Do you want a visit/item from [facility] Would you like your Licensed Therapist/Court Crier notifiedno Pain Scalenumerical 0-10 Pain Scale Educationteaching [...] unspecified artificial knee joint Electronic Signatures: Irene Snowden (IVAN) (Signed 07-Dec-2019 06:48) Authored: Initial Info, General Health, Relationship/Environ, Risk Screens, Additional Information Staci Torres) (Signed 04-Dec-2019 11:55) Authored: Initial Info, General Health, Substance, Risk Screens, Additional Information Last Updated: 07-Dec-2019 06:48 by Irene Snowden) [facility] Vital Signs Date Time Vital Sign Value Performing Clinician Facility 09-12-2024 10:46-0400 Diastolic blood pressure 95 mm[Hg] Yulissa Cortes NP-C Work Phone: [facility] 09-12-2024 10:46-0400 Heart rate 73 /min Yulissa Cortes NP-C Work Phone: [facility] 09-12-2024 10:46-0400 Systolic blood pressure 196 mm[Hg] Yulissa Cortes NP-C Work Phone: [facility] 09-12-2024 10:31-0400 Body height 160.02 cm Yulissa Sophia SERVICE LOSS CONTROL CONSULTANT-C Work Phone: [facility] 09-12-2024 10:31-0400 Body mass index (BMI) [Ratio] 30.2 kg/m2 Yulissa Sophia SERVICE LOSS CONTROL CONSULTANT-C Work Phone: [facility] 09-12-2024 10:31-0400 Body weight 77.56 kg Yulissa Sophia SERVICE LOSS CONTROL CONSULTANT-C Work Phone: [facility] 09-12-2024 10:31-0400 Respiratory rate 16 /min Yulissa Flormer SERVICE LOSS CONTROL CONSULTANT-C Work Phone: [facility] 04-18-2022 09:32-0500 Body temperature 98.24 [degF] MONTRELL VERDIN DO [facility] 04-18-2022 09:32-0500 Diastolic Blood Pressure Non-Invasive 70 1 MONTRELL VERDIN DO [facility] 04-18-2022 09:32-0500 Heart rate 77 /min MONTRELL VERDIN DO [facility] 04-18-2022 09:32-0500 Respiratory rate 18 /min MONTRELL VERDIN DO [facility] 04-18-2022 09:32-0500 Systolic Blood Pressure Non-Invasive 132 1 MONTRELL VERDIN DO [facility] 04-07-2022 14:26-0500 Diastolic Blood Pressure Non-Invasive [address] ELIZABET MYERS MD [facility] 04-07-2022 14:26-0500 Heart rate 65 /min DR ELIZABET MYERS MD [facility] 04-07-2022 14:26-0500 Respiratory rate 14 /min DR ELIZABET MYERS MD [facility] 04-07-2022 14:26-0500 Systolic Blood Pressure Non-Invasive [address] ELIZABET MYERS MD [facility] 04-07-2022 12:40-0500 Diastolic Blood Pressure Non-Invasive [address] ELIZABET MYERS MD [facility] 04-07-2022 12:40-0500 Heart rate 67 /min DR ELIZABET MYERS MD [facility] 04-07-2022 12:40-0500 Respiratory rate 13 /min DR ELIZABET MYERS MD [facility] 04-07-2022 12:40-0500 Systolic Blood Pressure Non-Invasive [address] ELIZABET MYERS MD [facility] 04-07-2022 12:02-0500 Diastolic Blood Pressure Non-Invasive [address] ELIZABET MYERS MD [facility] 04-07-2022 12:02-0500 Heart rate 65 /min DR ELIZABET MYERS MD [facility] 04-07-2022 12:02-0500 Respiratory rate 15 /min DR ELIZABET MYERS MD [facility] 04-07-2022 12:02-0500 Systolic Blood Pressure Non-Invasive [address] ELIZABET MYERS MD [facility] 04-07-2022 08:48-0500 Body temperature 97.16 [degF] DR ELIZABET MYERS MD [facility] 04-07-2022 08:48-0500 Reason For Taking VItal Signs DR ELIZABET MYERS MD [facility] 04-07-2022 08:40-0500 Heart rate 65 /min DR ELIZABET MYERS MD [facility] 04-07-2022 08:40-0500 Respiratory Rate - Anes 12 br/min DR ELIZABET MYERS MD [facility] 04-07-2022 08:35-0500 Heart rate 60 /min DR ELIZABET MYERS MD [facility] 04-07-2022 08:35-0500 Respiratory Rate - Anes 11 br/min DR ELIZABET MYERS MD [facility] 04-07-2022 08:30-0500 Heart rate 61 /min DR ELIZABET MYERS MD [facility] 04-07-2022 08:30-0500 Respiratory Rate - Anes 0 br/min DR ELIZABET MYERS MD [facility] 04-07-2022 05:47-05[address] Pressure Cuff Size DR ELIZABET MYERS MD [facility] 04-07-2022 05:47-[address] ELIZABET MYERS MD [facility] 04-07-2022 05:47-[address] ELIZABET Menjivar [facility] 04-07-2022 05:47-0500 Body height [address] ELIZABET MYERS MD [facility] 04-07-2022 05:47-0500 Body temperature 98.06 [degF] DR ELIZABET MYERS MD [facility] 02-07-2023 05:47-0500 Body weight 77.[address] ELIZABET MYERS MD [facility] 04-07-2022 05:47-0500 Body weight 30.2 kg/m2 DR ELIZABET MYERS MD [facility] 03-23-2022 09:20-[address] ELIZABET MYERS MD [facility] 03-23-2022 09:20-[address] ELIZABET Menjivar [facility] 03-23-2022 09:20-0500 Body height [address] ELIZABET MYERS MD [facility] 03-23-2022 09:20-0500 Body weight 79.[address] ELIZABET MYERS MD [facility] 03-23-2022 09:20-0500 Body weight 31.05 kg/m2 DR ELIZABET MYERS MD [facility] 03-23-2022 09:20-0500 Diastolic Blood Pressure Non-Invasive [address] ELIZABET MYERS MD [facility] 03-23-2022 09:20-0500 Heart rate 48 /min DR ELIZABET MYERS MD [facility] 03-23-2022 09:20-0500 Respiratory rate 18 /min DR ELIZABET MYERS MD [facility] 03-23-2022 09:20-0500 Systolic Blood Pressure Non-Invasive [address] ELIZABET MYERS MD [facility] 09-23-2021 10:16-0400 Body height 160.02 cm SERVICE LOSS CONTROL CONSULTANTMunaC Yulissa Cortes SERVICE LOSS CONTROL CONSULTANT Work Phone: [facility] Work Phone: 09-23-2021 10:16-0400 Body mass index (BMI) [Ratio] 32.4 kg/m2 SERVICE LOSS CONTROL CONSULTANT-C Yulissa Sophia SERVICE LOSS CONTROL CONSULTANT Work Phone: [facility] Work Phone: 09-23-2021 10:16-0400 Body weight 83 kg SERVICE LOSS CONTROL CONSULTANT-C Yulissa Cortes SERVICE LOSS CONTROL CONSULTANT Work Phone: [facility] Work Phone: 09-23-2021 10:16-0400 Diastolic blood pressure 66 mm[Hg] SERVICE LOSS CONTROL CONSULTANT-C Yulissa Cortes SERVICE LOSS CONTROL CONSULTANT Work Phone: [facility] Work Phone: 09-23-2021 10:16-0400 Heart rate 56 /min SERVICE LOSS CONTROL CONSULTANT-C Yulissa Cortes SERVICE LOSS CONTROL CONSULTANT Work Phone: [facility] Work Phone: 09-23-2021 10:16-0400 Respiratory rate 16 /min SERVICE LOSS CONTROL CONSULTANT-C Yulissa Sophia SERVICE LOSS CONTROL CONSULTANT Work Phone: [facility] Work Phone: 09-23-2021 10:16-0400 SaO2% (BldA) [Mass fraction] 96 % SERVICE LOSS CONTROL CONSULTANT-C Yulissa Cortes SERVICE LOSS CONTROL CONSULTANT Work Phone: [facility] Work Phone: 09-23-2021 10:16-0400 Systolic blood pressure 127 mm[Hg] SERVICE LOSS CONTROL CONSULTANT-C Yulissa Cortes SERVICE LOSS CONTROL CONSULTANT Work Phone: [facility] Work Phone: Encounters Encounter Date Encounter Type Care Provider Facility Start: 09-28-2024 ambulatory Venkatesh Myles SERVICE LOSS CONTROL CONSULTANT Facility :[facility] Start: 09-21-2024 ambulatory Venkatesh Myles SERVICE LOSS CONTROL CONSULTANT Facility :[facility] Start: 09-15-2024 End: 09-15-2024 ambulatory ALETHA DARLING BOTTLE CARRIER-WELT BEATER Facility:[facility] Start: 09-15-2024 End: 09-15-2024 Patient encounter procedure ALETHA DARLING BOTTLE CARRIER-WELT BEATER [facility] Start: 09-12-2024 End: 09-12-2024 Patient encounter procedure Venkatesh Myles SERVICE LOSS CONTROL CONSULTANT-C -[facility] Work Phone: Start: 09-12-2024 End: 09-12-2024 ambulatory Yulissa Cortes SERVICE LOSS CONTROL CONSULTANT-C Work Phone: -[facility] Start: 09-12-2024 End: 09-12-2024 ambulatory Yulissa Cortes SERVICE LOSS CONTROL CONSULTANT-C Work Phone: -Laboratory Start: 09-12-2024 End: 09-12-2024 Patient encounter procedure Venkatesh Myles SERVICE LOSS CONTROL CONSULTANT-C -Laboratory Work Phone: Start: 09-12-2024 End: 09-12-2024 ambulatory Venkatesh Myles NP Facility:[facility] Start: 09-03-2024 Emergency department patient visit JOSE ISAACS DO Facility:A Start: 09-03-2024 End: 09-06-2024 Evaluation and management of inpatient ADY TAVAREZERLY [facility] Start: 07-28-2024 Encounter for genera l adult medical examination without abnormal findings Venkatesh Myles NP [facility] Start: 05-17-2024 End: 05-17-2024 ambulatory YULISSA CORTES BOTTLE CARRIER-WELT BEATER Facility:[facility] Start: 04-18-2024 End: 04-18-2024 ambulatory Venkatesh Myles NP Facility:[facility] Start: 03-02-2024 End: 03-02-2024 ambulatory Yulissa Cortes SERVICE LOSS CONTROL CONSULTANT Facility:[facility] Start: 01-19-2024 ambulatory Yulissa Cortes SERVICE LOSS CONTROL CONSULTANT Facil ity:[facility] Start: 12-27-2023 ambulatory Yulissa Cortes NP Facil ity:[facility] Start: 11-18-2023 ambulatory Yulissa Cortes SERVICE LOSS CONTROL CONSULTANT Facil ity:[facility] Start: 10-13-2023 End: 10-13-2023 ambulatory YULISSA CORTES BOTTLE CARRIER-WELT BEATER Facility:[facility] Start: 10-13-2023 End: 10-13-2023 Patient encounter procedure YULISSA CORTES BOTTLE CARRIER-WELT BEATER [facility] Start: 10-13-2023 ambulatory Yulissa Cortes SERVICE LOSS CONTROL CONSULTANT Facil ity:[facility] Start: 09-20-2023 End: 09-20-2023 ambulatory AKHIL PINA MD Facility:[facility] Start: 08-31-2023 End: 08-31-2023 ambulatory YULISSA FLORMER BOTTLE CARRIER-WELT BEATER Facility:[facility] Start: 08-09-2023 ambulatory AKHIL PINA MD Fac ility:[facility] Start: 08-09-2023 End: 09-02-2024 Lab-Standing Order AKHIL PINA MD [facility] Start: 01-27-2023 End: 01-27-2023 ambulatory [facility] Work Phone: Start: 01-27-2023 End: 01-27-2023 Patient encounter procedure [facility] Work Phone: Start: 01-05-2023 End: 01-05-2023 Patient encounter procedure [facility] Work Phone: Start: 09-16-2022 End: 09-16-2022 ambulatory [facility] Work Phone: Start: 09-16-2022 End: 09-16-2022 Patient encounter procedure [facility] Work Phone: Start: 08-31-2022 End: 08-31-2022 Patient encounter procedure YULISSA CORTES BOTTLE CARRIER-WELT BEATER [facility] Start: 04-18-2022 End: 04-18-2022 Emergency department patient visit MONTRELL VERDIN DO [facility] Start: 04-07-2022 End: 04-07-[address] ELIZABET MYERS MD [facility] Start: 03-23-2022 End: 03-23-[address] ELIZABET MYERS MD [facility] Start: 03-23-2022 End: 03-23-[address] ELIZABET MYERS MD [facility] Start: 10-03-2021 Non-patient / Non-visit SERVICE LOSS CONTROL CONSULTANT-C Aimee Cortes SERVICE LOSS CONTROL CONSULTANT Work Phone: [facility] Start: 10-03-2021 End: 10-03-2021 Patient encounter procedure SERVICE LOSS CONTROL CONSULTANT-C Yulissa Cortes SERVICE LOSS CONTROL CONSULTANT Work Phone: [facility] Start: 09-30-2021 End: 09-30-2021 Patient encounter procedure YULISSA CORTES BOTTLE CARRIER-WELT BEATER [facility] Start: 09-23-2021 End: 09-23-2021 Patient encounter procedure SERVICE LOSS CONTROL CONSULTANT-Cinthia Cortes SERVICE LOSS CONTROL CONSULTANT Work Phone: [facility] Start: 09-23-2021 End: 09-23-2021 Patient encounter procedure SERVICE LOSS CONTROL CONSULTANT-Cinthia Cortes SERVICE LOSS CONTROL CONSULTANT [facility] Start: 04-02-2021 End: 04-02-2021 Patient encounter procedure ZAHRAA JACOBS BOTTLE CARRIER-WELT BEATER [facility] Start: 03-03-2021 End: 03-03-2021 Patient encounter procedure JOSE ISAACS DO [facility] Procedures Date Procedure Procedure Detail Performing Clinician Start: 04-07-2022 Total replacement of left knee joint DR ELIZABET MYERS MD Start: 02-08-2017 Cardiac catheter (ph ysical object) JOSE ISAACS DO Laparoscopy JOSE ISAACS D O Comment on above: opened tubes before [address] RICKIE ROBISON Comment on above: right Plan of Treatment Date Care Activity Detail Author Cardiovascular stress testing [facility] Work Phone: NM Heart Views W str ess and W radionuclide IV [facility] NM Heart Views W str ess and W radionuclide IV [facility] Immunizations Immunization Date Immunization Notes Care Provider Fa [facility] 11-22-2023 influenza, high dose seasonal, preservative-free; Translations: [Fluad PF Prefilled Syringe ] MR AKHIL PINA MD [facility] 08-31-2023 Pneumococcal conjuga te PCV20, polysaccharide [id number] conjugate, adjuvant, PF; Translations: [Prevnar 20] YULISSA CORTES BOTTLE CARRIER-WELT BEATER [facility] 12-14-2022 influenza virus vacc ine, unspecified formulation YULISSA CORTES BOTTLE CARRIER-WELT BEATER [facility] 01-01-2022 influenza virus vacc ine, unspecified formulation DR ELIZABET MYERS MD [facility] 12-01-2019 influenza, injectabl e, quadrivalent, preservative free; Translations: [Fluarix PF Quadrivalent ] JOSE ISAACS DO [facility] 12-06-2018 influenza, injectabl e, quadrivalent, preservative free; Translations: [Fluarix PF Quadrivalent ] JOSE TAMARAKRISTOPHER DO [facility] 12-27-2017 influenza virus vacc ine, unspecified formulation JOSE MCDONALDKRISTOPHER DO [facility] 08-07-2013 pneumococcal polysaccharide vaccine, [address] ELIZABET MYERS MD [facility] 08-07-2013 zoster vaccine, live DR GRETTA MYERS MD [facility] 07-29-2012 tetanus toxoid, redu hunter diphtheria toxoid, and acellular pertussis vaccine, adsorbed JOSE ISAACS [facility] Payers Date Payer Category Payer Medicare [id number] 2024 Private Health Insurance [id number] 2024 Unknown [id number] 2023 Self-pay [id number] 2023 Unknown [id number] 2023 Medicare [id number] 2012 Unknown [id number] 2010 Unknown [id number] 1948 Unknown [id number] 2.16.8 [id number] 1948 Unknown [id number] 2.16.8 40.1.375621.3.579.2.62 1948 Unknown [id number] 2.16.8 40.1.289681.3.579.2.62 1948 Unknown [id number] 2.16.8 40.1.468625.3.579.2.62 1948 Unknown [id number] 2.16. 840.1.899168.3.579.2. 1948 Unknown [id number] 2.16. 840.1.143884.3.579.2. 1948 Unknown [id number] 2.16. 840.1.165374.3.579.2. 1948 Unknown [id number] 2.16.8 40.1.089395.3.579.2.627 Unknown [id number] 2.16.8 40.1.443658.3.579.2.462 Unknown [id number] 2.16.8 40.1.132353.3.579.2.462 Unknown [id number] 2.16.8 40.1.303825.3.579.2.462 Unknown [id number] 2.16.8 40.1.564350.3.579.2.462 Unknown [id number] 2.16.8 40.1.009480.3.579.2.462 Unknown [id number] 2.16.8 40.1.916873.3.579.2.462 Unknown [id number] 2.16.8 40.1.329521.3.579.2.462 Unknown [id number] 2.16.8 40.1.146936.3.579.2.462 Unknown [id number] 2.16.8 40.1.547504.3.579.2.462 Unknown [id number] 2.16.8 40.1.028910.3.579.2.462 Social History Date Type Detail Facility Start: 04-04-2019 End: 09-23-2022 Never smoked tobacco (finding) [facility] Start: 1950 Sex Assigned At Female [facility] Start: 09-23-2021 End: 09-23-2022 Tobacco smoking status NHIS Unknown if ever smoked [facility] Sexual Orientation [facility] Start: 01-24-2019 Sex Female (finding) [facility] Functional Status Date Assessment Result Facility 04-18-2022 Functional Status ID band on, Call device within reach, Bed in low position, Wheels locked, Upper/Half-Length side-rails up, Phone within reach, personal items within reach, Assistive devices within reach, Toileting device within reach, Bedside Cart Locked, Visitor at bedside, Safety level maintained [facility] 04-07-2022 Functional Status Mod I [facility] 04-07-2022 Functional Status ice on [facility] 04-07-2022 Functional Status Maintained [facility] 03-23-2022 Functional Status Sensory Deficits None [facility] Mental Status Date Assessment Result Facility 04-18-2022 Mental Status Oriented x 4 [facility] 04-07-2022 Mental Status Oriented x 4 [facility] 04-07-2022 Mental Status [facility] Clinical Notes 08-01-2020 to 09-12-2024 Note Date & Type Note Facility 09-12-2024 Evaluation note Diagnosis Onset Date Resolution Essential hypertension chronic Ju 2024 9:37am Hyperlipidemia chronic September 12, 2024 9:37am Paroxysmal atrial flutter chronic September 12, 2024 9:37am [facility] Work Phone: 1(917) 836-213907-09-2025 Discharge summary Date of Service 09/06/2024 Discharge Diagnosis Acute left knee pain with a hematoma. Extension of hematoma into the retroperitoneal region. Supratherapeutic INR. History of atrial fibrillation on Coumadin. Rhabdomyolysis. Hypertension. Morbid obesity. Anemia. Hospital Course 74-year-old female with history of atrial fibrillation on Coumadin, prediabetes, essential hypertension, chronic kidney disease who was at [facility] 2 weeks ago noted that she had trauma to her left lower extremity Wednesday 08/30 followed by progressively worsening pain and swelling of the left lower extremity presented to the ER in [place] today due to significant left lower extremity [...] IV Kcentra stat and was transferred to [facility] for further management. Patient was gently hydrated for rhabdomyolysis which continued to trend down. Coumadin has been held. INR at the time of discharge is 2. Patient follows with a aquacultural worker supervisor at [facility] who also manages her Coumadin levels. Discussed with patient and her to follow-up with aquacultural worker supervisor in 1 to 2 weeks regarding restarting Coumadin versus Xarelto versus Eliquis. She may also discuss about what possible watchman's procedure with her aquacultural worker supervisor. Her pain has been controlled with oxycodone in the beginning, now only on Tylenol 1 g scheduled 4 times a day. Continue to monitor liver enzymes. Patient has also been found to be anemic likely secondary to blood loss. This can also be monitoredas outpatient. She can also benefit from iron supplements as outpatient. Patient was advised to follow-up with both her aquacultural worker supervisor and PCP regarding resumption of anticoagulation. Allergies NKA Consults No qualifying data available. Imaging Results and Diagnostics CT Angiography Abd/Pelvis/Bilat Lower Ex Result Date: September 03, 2024 Verified By: TIKI ROBISON, MAYCOL Sánchez CLINICAL STATEMENT: IMPRESSION: 1. No arterial stenosis or occlusion in the pelvis or bilateral lowerextremities.2. Intramuscular hematoma in the left iliacus muscle with extension into theposterior left retroperitoneum.3. Intramuscular hematoma in the left thigh.4. Bilateral total knee replacements with left knee joint effusion.5. Diverticulosis of the colon without signs of acute diverticulitis.6. 2.2 cm calcifieduterine fibroid. XR Knee 3 Views Left Result Date: September 03, 2024 Verified By: MAYCOL FAIRBANKS MD CLINICAL STATEMENT: IMPRESSION: 1. No fracture or dislocation of the left hip or left femur.2. Left total knee arthroplasty without radiographic evidence of complication.3. Moderate left knee joint effusion. XR Femur Minimum 2 Views Left Result Date: September 03, 2024 Verified By: MAYCOL FAIRBANKS MD CLINICAL STATEMENT: IMPRESSION: 1. No fracture [...] mouth daily at bedtime for 90 Days. Refills:3. traZODone (traZODone 50 mg oral tablet)1 tab(s) [...] with JOSE ISAACS DO When:Within 1-2 days Where:[address] [place] [address]- [phone] Additional Information: Please call the office to [...] FRED ROSALES MD on 09/06/2024 09:52 PM [id number] Hospital Discharge instructions Patient Education 09/06/2024 16:16:54 Acute Pain, Adult Acute Pain, Adult Acute pain is a type of sudden pain that may last for just a few days or for as long as six months.It is often related to an illness, injury, or medical procedure. Acute pain may be mild, moderate, or severe. Pain can make it hard for you to do your normal, daily activities. It can cause anxiety and lead toother problems if it is left untreated. Treatment depends on the cause and severity of your pain. Acute pain usually goes away once your injury has healed or you are no longer ill. Follow these instructions at home: Medicines Take vmtk-iax-xwagnqo and prescription medicines only as told by [...] pain is severe. ?Do not take other rzni-kmb-ncfexmj pain medicines in addition to prescription pain medicine unlesstold by your health care provider. ?Ask your [...] grains, and fresh fruits and vegetables. ?Take jixz-xve-rlutxvv or prescription medicines. ?Limit foods that are [...] told by your health care provider. Use theheat source that your health care provider recommends, [...] or you are no longer ill. Take usjm-yzc-mqcuzkc and prescription medicines only as told by [...] 03/01/2016 Document Revised: 07/03/2019 Document Reviewed: 07/03/2019 [employer] Patient Education 2019 [employer]. Follow Up Care 09/03/2024 00:01:16 With:Dr. Muñoz, Cardiology. Follow-up for recommendations about future anticoagulation warfarin versus Xarelto versus Eliquis versus watchman's procedure. Address:Unknown When:1-2 days With:JOSE ISAACS DO Address: [address] [place] [address] [phone] When:1-2 days Comments:Please call the office to schedule a hospital follow up appointment. [facility] 07-09-2025 Note Discharge Instructions Thank you for allowing [facility] to assist you with your healthcare needs. The following is importantdischarge information regarding your hospital visit. Your Care Team JOSE ISAACS DO Your Diagnosis Hypocoagulable state Nontraumatic hematoma of muscle Retroperitoneal bleed Warfarin toxicity What to do next Scheduled Follow-Up Appointments Appointment Type When With Where Contact Information StatusPC OV 10/19/2024 10:00 AM EDT JOSE ISAACS DO [facility] Confirmed Follow Up Appointments Follow Up with Dr. Muñoz, Cardiology. Follow-up for recommendations about future anticoagulation warfarin versus Xarelto versus Eliquis versus watchman's procedure. When:Within 1-2 days Follow Up with JOSE ISAACS DO When:Within 1-2 days Where:[address] [place] [address]- [phone] Additional Information: Please call the office to [...] JOSE ISAACS DO, 09/06/24 13:54:00 EDT Discharge Radiology No qualifying [...] days or for as long as six months.It is often related to an illness, injury, or medical procedure. Acute pain may be mild, moderate, or severe. Pain can make it hard for you to do your normal, daily activities. It can cause anxiety and lead toother problems if it is left untreated. Treatment depends on the cause and severity of your pain. Acute pain usually goes away once your injury has healed or you are no longer ill. Follow these instructions at home: Medicines Take qghj-tcj-rozgvrq and prescription medicines only as told by [...] is severe. ? Do not take other wghr-rrs-jvfqqpl pain medicines in addition to prescription pain [...] and fresh fruits and vegetables. ? Take tewt-kzr-racjwat or prescription medicines. ? Limit foods that [...] told by your health care provider. Use theheat source that your health care provider recommends, [...] or you are no longer ill. Take dkrj-wvw-tuxwjtf and prescription medicines only as told by [...] 03/01/2016 Document Revised: 07/03/2019 Document Reviewed: 07/03/2019 [employer] Patient Education 2020 [employer]. Additional Information VACCINATE! IT SAVES LIVES! Members of the community who have not yet received the COVID-19 vaccine and would like to receive it can visit one of [facility] vaccine clinics. There are many vaccine clinic locations within the [facility]. For locations and available times, please visit [email or web address] It is important to note that some COVID mobile vaccine clinics are held outdoors and may be canceled in rainy or stormy conditions. To learn more about pediatric vaccinations (ages 5-11), we invite you to visit the [facility] webpage. https://www.[facility].org/pages/2190-Pvusr-Ebuoufzlbey-Grkhksnzid-Scqou-Wkw stions.htmlTo learn more about the COVID-19 vaccine, we invite you to visit the CDC website for a list of frequently asked questions.https://www.cdc.gov/coronavirus/2019-ncov/vaccines/faq.html [facility] Patient Portal Access Instructions: Stay connected with your healthcare team and access your personal medical information anytime with the [facility] Patient Portal. Please follow the directions below to create your [facility] account: 1.Access the email account you provided upon registration to the hospital/physician office.2.Look for an invitation email from [facility].3.Open the email and access the invitation link: AcceptInvitation to [facility].4.Fill in the required luong to create your account. To access your account, visit [email or web address]. Click the blue button labeled Access Patient Portal and then log in with the username and password that you created in the steps above. You will be able to view your test results, lab results, a summary of your visits, upcoming appointments and more. There is also a convenient messaging option where you can send secure messages to your [email or web address]. In addition, you will have the ability to download any documents or summaries to your computer and/or send the information securely to a physician. Remember that your healthcare information is confidential, so carefully consider who you will allowto register on the [facility] Patient Portal for access to your information. You can also access the [facility] Patient Portal on the [facility] sophia. Simply click on Patient Portal and then log into your account. If you would like to receive a full copy of your medical records, please contact the [facility] Medical Records Department by calling [phone], Wednesday through Wednesday between 8 a.m. and [...] Call your local pharmacy or go to [email or web address] to find one close to you.3.Make use of household items: Use cat litter or old coffee grounds to dispose medications if other options arenot available. Mix your drugs with these household products, seal them in an airtight container andthrow it into the garbage. Call [facility]: [phone] to be sure your drugs can be [...] aware that I should contact my doctor. Patient/Flight Attendant Inflight Services Signature: Date/Time: Relationship to Patient: Witness Name/Signature: Date/Time: [id number] Note Date of Service 09/06/2024 Subjective 74-year-old female with history of atrial fibrillation on Coumadin, prediabetes, essential hypertension, chronic kidney disease who was at [facility] 2 weeks ago noted that she had trauma to her left lower extremity Wednesday 08/30 followed by progressively worsening pain and swelling of the left lower extremity presented to the ER in [place] today due to significant left lower extremity [...] IV Kcentra stat and was transferred to [facility] for further management. Patient has been getting [...] Protime: 22.6 H PT International Ratio: 2.0 09/05 09:55 Hgb: 9.0 L Hct: 26.5 L Protime: 25.5 H PT International Ratio: 2.2 EKG No qualifying data available. Assessment/Plan Acute left knee pain with a hematoma. Extension of hematoma into the retroperitoneal region. Supratherapeutic INR. History of atrial fibrillation on Coumadin. Rhabdomyolysis. Hypertension. Morbid obesity. Anemia. Digitally Signed by FRED ROSALES MD on 09/06/2024 09:47 PM [facility] [id number] Note Date of Service 09/05/2024 Chief Complaint [...] hypertension, chronic kidney disease who was at [facility] 2 weeks ago noted that she had trauma to her left lower extremity Wednesday 08/30 followed by progressively worsening pain and swelling of the left lower extremity presented to the ER in [place] today due to significant left lower extremity [...] IV Kcentra stat and was transferred to [facility] for further management. Patient has left knee [...] will benefit from iron at the time ofdischarge. Objective Vitals and Measurements T: 37.0 C [...] (one day only), Blood, Once, Preferred Lab: [facility], Stop date 09/06/24 5:00:00 EDT CPK, 09/06/24 5:00:00 EDT, Next AM Draw (one day only), Blood, Once, Preferred Lab: [facility], Stop date 09/06/24 5:00:00 EDT Prothrombin Time - Panel(INR/PT), 09/06/24 5:01:00 EDT, Next AM Draw (one day only), Blood, Once, Preferred Lab: [facility], Stop date 09/06/24 5:01:00 EDT [...] post fall intractable pain will need to restartCoumadin in the next 1 to 2 days follow-up with CPK which is trending down. cbc, pt/inr cpk in am Anticipated Date of Discharge Level of Care Indication Regular Floor DVT Prophylaxis Contraindicated Maintenance IVF Indication Hypovolemia / RUT Indwelling Urinary Catheter Indication NA No indwelling catheter Anticipated Timeline of Discharge 48 hours Anticipated DC Disposition Home c [facility] Time Spent 50 min Digitally Signed by CHAYO BELLO MD on 09/05/2024 06:17 PM Digitally Signed by CHAYO BELLO MD on 09/05/2024 08:21 PM [facility] [id number] Note Date of Service 09/04/24 Subjective 74-year-old female with history of atrial fibrillation on Coumadin, prediabetes, essential hypertension, chronic kidney disease who was at [facility] 2 weeks ago noted that she had trauma to her left lower extremity Wednesday 08/30 followed by progressively worsening pain and swelling of the left lower extremity presented to the ER in [place] today due to significant left lower extremity pain, swelling, difficulty with ambulation. On evaluation in the ER vitals unremarkable. CBC white count 12.7, hemoglobin 10, PT 95, INR 7.8, creatinine 1.09, BUN 35, CPK 726. CT left lower extremity identified intramuscular hematoma of the left iliopsoas muscle with extension into the posterior left retro peritoneum and intramuscular hematoma in the left thigh. She received morphine 4 mg IV push, 2.5 mgoral vitamin K, 1500 units of IV Kcentra stat and was transferred to [facility] for further management. At [facility] patient was monitored for signs of ongoing bleeding. Hemoglobin initially was 9 from 9.7though she was started on gentle IV fluid. Hemoglobin continues to be monitored bleeding is felt tara less likely. Repeat INR was 2.3 from 7.9 following the Kcentra and vitamin K received in the ER.Creatinine and CPK improved 1.09 and 726 to [...] RR: 18 BP: 101/49 SpO2: 94% HT: 160cm WT: 80.1 kg BMI: 31.29 Intake and [...] oral vitamin K and Kcentra 09/03 at [place] ER - Atrial fibrillation on chronic Coumadin [...] PEYTON GOMES MD on 09/04/2024 01:42 PM [facility] [id number] Interventional radiology Consult note CTA from yesterday [...] CAYLA VILLA MD on 09/04/2024 11:04 AM [facility] [id number] History and physical note Date of Service 09/03/24 Chief Complaint pt c/o left knee pain after twisting it on vacation at [facility]. pt states she twisted knee on wed. History of Present Illness 74-year-old female with history of atrial fibrillation on Coumadin, prediabetes, essential hypertension, chronic kidney disease who was at [facility] 2 weeks ago noted that she had trauma to her left lower extremity Wednesday 08/30 followed by progressively worsening pain and swelling of the left lower extremity presented to the ER in [place] today due to significant left lower extremity pain, swelling, difficulty with ambulation. On evaluation in the ER vitals unremarkable. CBC white count 12.7, hemoglobin 10, PT 95, INR 7.8, creatinine 1.09, BUN 35, CPK 726. CT left lower extremity identified intramuscular hematoma of the left iliopsoas muscle with extension into the posterior left retro peritoneum and intramuscular hematoma in the left thigh. She received morphine 4 mg IV push, 2.5 mgoral vitamin K, 1500 units of IV Kcentra stat and was transferred to [facility] for further management. This time patient reports [...] Result Date: September 03, 2024 Verified By: TIKI ROBISON, MAYCOL Sánchez CLINICAL STATEMENT: IMPRESSION: 1. No arterial stenosis or occlusion in the pelvis or bilateral lowerextremities.2. Intramuscular hematoma in the left iliacus muscle with extension into theposterior left retroperitoneum.3. Intramuscular hematoma in the left thigh.4. Bilateral total knee replacements with left knee joint effusion.5. Diverticulosis of the colon without signs of acute diverticulitis.6. 2.2 cm calcifieduterine fibroid. XR Knee 3 Views Left Result Date: September 03, 2024 Verified By: MAYCOL FAIRBANKS MD CLINICAL STATEMENT: IMPRESSION: 1. No fracture or dislocation of the left hip or left femur.2. Left total knee arthroplasty without radiographic evidence of complication.3. Moderate left knee joint effusion. XR Femur Minimum 2 Views Left Result Date: September 03, 2024 Verified By: MAYCOL FAIRBANKS MD CLINICAL STATEMENT: IMPRESSION: 1. No fracture or dislocation of the left hip or left femur.2. Left total knee arthroplasty without radiographic evidence of complication.3. Moderate left knee joint effusion. Assessment/Plan - Intractable pain due to lower extremity hematomas related to supratherapeutic INR while on coumadin for her atrial fibrillation - Supratherapeutic INR status post oral vitamin K and Kcentra 09/03 at [place] ER - Atrial fibrillation on chronic Coumadin - Traumatic Rhabdomyolysis - Essential hypertension Patient is admitted to the hospital due to presenting with intractable pain requiring multiple IV narcotic doses for control of her pain over at [facility]. Will continue controlling pain with IV medication [...] Domestic Concerns: None. Living situation: Home/Independent. Primary Paralegal Legal Secretary: Lives with spouse.Spouse Name: brian. Marital Status: ., 03/23/2022 Nutrition/Health [...] pneumococcal 23-valent vaccine(Pneumovax: 0 unknown unit (08/07/13) tetanus/diphtheria/pertussMUL.ORD![id number]: 0 unknown unit (07/29/12) zoster vaccine live: 0 unknown unit (08/07/13) Code Status dnr dni Digitally Signed by PEYTON GOMES MD on 09/03/2024 03:13 PM Digitally Signed by PEYTON GOMES MD on 09/03/2024 03:16 PM [facility] [id number] Evaluation + Plan noteExtracted from: Title:History and Physical Author:PEYTON GOMES MD Date:09/03/24 - Intractable pain due to lo wer extremity hematomas related to supratherapeutic INR while on coumadin for her atrial fibrillation - Supratherapeutic INR status post oral vitamin K and Kcentra 09/03 at [place] ER - Atrial fibrillation on chronic Coumadin - Traumatic Rhabdomyolysis - Essential hypertension Patient is admitted to the hospital due to presenting with intractable pain requiring multiple IV narcotic doses for control of her pain over at [facility]. Will continue controlling pain with IV medication [...] Date:10/19/2024 10:00:00 AM Scheduled Provider:JOSE ISAACS DO Location:[facility] Appointment Type:[facility] 07-06-2025 Note* Exam Date Time Procedure Performing Provider Status 09/03/24 2:[address] Angiography Abd/P dilma/Bilat Lower Ex MAYCOL FAIRBANKS MD; Auth (Verified) [id number] ORIGINAL EXAMINATION: CTA OF THE AORTA WITH [...] cm calcified uterine fibroid. Interpreted by: Maycol Fairbanks MD Preliminary Report By: Maycol Fairbanks MD Electronically signed By Maycol Fairbanks MD Dictated Date: 09/03/2024 3:00:20 AM Prelim Date: 09/03/2024 3:13:12 AM Sign Date: 09/03/2024 3:13:12 AM Ordering Provider: SAW CHAMBERS Interpreted by: Maycol Fairbanks MD Preliminary Report By: Maycol Fairbanks MD Electronically signed By Maycol Fairbanks MD Dictated Date: 09/03/2024 3:00:20 AM Prelim Date: 09/03/2024 3:13:12 AM Sign Date: 09/03/2024 3:13:12 AM Ordering Provider: SAW CHAMBERS [facility] [id number] Note* Exam Date Time Procedure Performing Provider Status 09/03/24 1:56 AM XR Knee 3 Views Left MAYCOL FAIRBANKS MD; Auth (Verified) [id number] ORIGINAL EXAMINATION: TWO XRAY VIEWS OF THE [...] left knee joint effusion. Interpreted by: Maycol Fairbanks MD Preliminary Report By: Maycol Fairbanks MD Electronically signed By Maycol Fairbanks MD Dictated Date: 09/03/2024 1:58:43 AM Prelim Date: 09/03/2024 2:02:10 AM Sign Date: 09/03/2024 2:02:10 AM Ordering Provider: SWA CHAMBERS Interpreted by: Maycol Fairbanks MD Preliminary Report By: Maycol Fairbanks MD Electronically signed By Maycol Fairbanks MD Dictated Date: 09/03/2024 1:58:43 AM Prelim Date: 09/03/2024 2:02:10 AM Sign Date: 09/03/2024 2:02:10 AM Ordering Provider: SAW CHAMBERS [facility] [id number] Note* Exam Date Time Procedure Performing Provider Status 09/03/24 1:54 AM XR Femur Minimum 2 Views Left MAYCOL FAIRBANKS MD; Auth (Verified) [id number] ORIGINAL EXAMINATION: TWO XRAY VIEWS OF THE [...] left knee joint effusion. Interpreted by: Maycol Fairbanks MD Preliminary Report By: Maycol Fairbanks MD Electronically signed By Maycol Fairbanks MD Dictated Date: 09/03/2024 1:58:43 AM Prelim Date: 09/03/2024 2:02:10 AM Sign Date: 09/03/2024 2:02:10 AM Ordering Provider: SAW CHAMBERS Interpreted by: Maycol Fairbanks MD Preliminary Report By: Maycol Fairbanks MD Electronically signed By Maycol Fairbanks MD Dictated Date: 09/03/2024 1:58:43 AM Prelim Date: 09/03/2024 2:02:10 AM Sign Date: 09/03/2024 2:02:10 AM Ordering Provider: SAW CHAMBERS [facility] [id number] Note ORIGINAL EXAMINATION: BONE DENSITOMETRY 10/13/2023 2:08 [...] Date: 10/13/2023 2:47:13 PM Ordering Provider: YULISSA [facility]07-03-2024 Evaluation + Plan note Future Scheduled Tests Laboratory* Basic Metabolic Panel 09/01/23 [facility] 02-18-2023 Hospital Discharge instructions Patient Education 04/18/2022 [...] from the wound Vomiting, constipation, or diarrhea [id number] [employer]. [address] [place] [address], [place] [address]. All rights reserved. This information is not intended as a substitute for professional medical care. Always follow yourhealthcare professional's instructions. Follow Up Care 04/18/2022 09:26:34 With:ELIZABET MYERS MD Address: [address] [place] [address] & [place] [address] [phone] When:2-4 days [facility] 02-18-2023 Note Discharge Instructions Thank you for allowing [facility] to assist you with your healthcare needs. The following is importantdischarge information regarding your hospital visit. Diagnosis from Today's Visit Knee pain-swelling What to Do Next Instructions from Your Care Team No qualifying data available. Post Acute Orders No qualifying data available. You Need to Schedule the Following Appointments Follow Up with ELIZABET MYERS MD When Within 2-4 days Where: [address] [place] [address] & [place] [address]- [phone] Allergies NKA Medications Please ask your primary [...] from the wound Vomiting, constipation, or diarrhea [id number] [employer]. [address] [place], [place] [id number]. All rights reserved. This information is not intended as a substitute for professional medical care. Always follow yourhealthcare professional's instructions. Additional Information VACCINATE! IT SAVES LIVES! Members of the community who have not yet received the COVID-19 vaccine and would like to receive it can visit one of [facility] vaccine clinics. There are many vaccine clinic locations within the [facility]. For locations and available times, please visit www.[email or web address].gov/. It is important to note that some COVID mobile vaccine clinics are held outdoors and may be canceled in rainy or stormy conditions. To learn more about pediatric vaccinations (ages 5-11), we invite you to visit the [facility] webpage. https://www.[facility].org/pages/3556-Fanmf-Dcvqtmcpans-Odqueslycb-Lahez-Gnq stions.htmlTo learn more about the COVID-19 vaccine, we invite you to visit the CDC website for a list of frequently asked questions. https://www.cdc.gov/coronavirus/2019-ncov/vaccines/faq.html [facility] Patient Portal Access Instructions: Stay connected with your healthcare team and access your personal medical information anytime with the [facility] Patient Portal. If you would like a full copy of your medical records please contact the [facility] Medical Records Department Wednesday through Wednesday between 8a.m. and 4:30p.m. Please follow the directions below to access the portal: 1.Access the email account you provided upon registration to the [facility].2.Look for an invitation email from [facility].3.Open the email and access the invitation link: Accept Invitation to [facility]4.Fill in the required luong to create your account. Sign into [email or web address] with your username and password that you [...] you will allow to register on the [facility] Patient Portal for access to your information. You can also access the [facility] Patient Portal on the Software Technology. Simply click on Health Records under [employer] and then click on the [facility] logo. HOW TO SAFELY DISPOSE OF PRESCRIPTION [...] Call your local pharmacy or go to http://bit.Optizen labs/4S1Ab4x to find one close to you.3.Make use of household items: Use cat litter or old coffee grounds to dispose medications if other options arenot available. Mix your drugs with these household products, seal them in an airtight container andthrow it into the garbage. Call [facility]: [phone] to be sure your drugs can be [...] aware that I should contact my doctor. Patient/Flight Attendant Inflight Services Signature: Date/Time: Relationship to Patient: Witness Name/Signature: Date/Time: [facility] [id number] Hospital Discharge instructions Patient Education 04/07/2022 09:02:54 [...] before eating solid foods. General instructions Take mhjm-nfp-xssrgsc and prescription medicines only as told by [...] 06/07/2016 Document Revised: 05/16/2018 Document Reviewed: 06/07/2016 AIRSIS Patient Education 2020 [employer]. 04/07/2022 09:02:47 Spinal Anesthesia and Epidural Anesthesia, [...] what activities are safe for you. Take xzqk-tif-uafqmav and prescription medicines only as told by [...] 05/07/2004 Document Revised: 08/07/2019 Document Reviewed: 06/08/2016 AIRSIS Patient Education 2020 [employer]. 04/07/2022 09:02:33 Nausea and Vomiting, Adult Nausea [...] water added (diluted fruit juice). Eat bland, gpca-mt-dxsdhh foods in small amounts as you are able. These foods include bananas, applesauce, rice, lean meats, toast, and crackers. Avoid fluids that contain a lot of sugar or caffeine, such as energy drinks, sports drinks, and soda. Avoid alcohol. Avoid spicy or fatty foods. General instructions Take zcke-lik-ugaason and prescription medicines only as told by your health care provider. Drink enough fluid to keep your urine pale yellow. Wash your hands often using soap and water. If soap and water are not available, use hand campus chaplain. Make sure that all people in your [...] eating and drinking to prevent dehydration. Take odyj-cub-htmsqwk and prescription medicines only as told by [...] 02/15/2006 Document Revised: 06/09/2019 Document Reviewed: 07/26/2018 AIRSIS Patient Education 2020 [employer]. 04/07/2022 09:02:27 Total Knee Replacement, Care After [...] Follow these instructions at home: Medicines Take pzee-yvg-sjqszri and prescription medicines only as told by [...] to keep your urine pale yellow. ?Take cdgk-rrn-zxqzwas or prescription medicines. ?Eat foods that are [...] and water are not available, use hand campus chaplain. ?Change your dressing as told by your [...] 09/04/2005 Document Revised: 06/26/2019 Document Reviewed: 09/29/2018 AIRSIS Patient Education 2020 [employer]. Follow Up Care 01/20/2022 11:31:21 With:LAURA RAMIREZ Address: [facility] [address] [place] [id number] Business (1) When:04/20/2022 10:15:00 [facility] 02-07-2023 Note ORIGINAL EXAMINATION: TWO XRAY VIEWS [...] 04/07/2022 9:27:28 AM Ordering Provider: ELIZABET MYERS [facility]02-07-2023 Summary of episode note Discharge Instructions Thank you for allowing [facility] to assist you with your healthcare needs. The following is importantdischarge information regarding your hospital visit. Your Care Team YULISSA CORTES What to do next Scheduled Follow-Up Appointments Appointment Type When With Where Contact InformationPT Outpatient Evaluation 04/09/2022 09:30 AM EST Hugo Newsome [facility] OV 09/22/2022 09:30 AM EDT YULISSA CORTES [facility] [address] [place] [address] Follow Up Appointments Follow Up with LAURA RAMIREZ When 04/20/2022 10:15 AM EST Where: [facility] [address] [place] [address]- Business (1) The Following Activity and Diet Have [...] before eating solid foods. General instructions Take vwtv-xoe-disurjy and prescription medicines only as told by [...] 06/07/2016 Document Revised: 05/16/2018 Document Reviewed: 06/07/2016 AIRSIS Patient Education 2020 AIRSIS Inc. Spinal Anesthesia and Epidural Anesthesia, Care [...] what activities are safe for you. Take ehsn-ase-emvreoc and prescription medicines only as told by [...] 05/07/2004 Document Revised: 08/07/2019 Document Reviewed: 06/08/2016 AIRSIS Patient Education 2020 AIRSIS Inc. Nausea and Vomiting, Adult Nausea is the [...] water added (diluted fruit juice). Eat bland, ydqr-pw-tclkwe foods in small amounts as you are able. These foods include bananas, applesauce, rice, lean meats, toast, and crackers. Avoid fluids that contain a lot of sugar or caffeine, such as energy drinks, sports drinks, and soda. Avoid alcohol. Avoid spicy or fatty foods. General instructions Take zexw-cia-qfictah and prescription medicines only as told by your health care provider. Drink enough fluid to keep your urine pale yellow. Wash your hands often using soap and water. If soap and water are not available, use hand campus chaplain. Make sure that all people in your [...] eating and drinking to prevent dehydration. Take ftoi-sav-fcivfdk and prescription medicines only as told by [...] 02/15/2006 Document Revised: 06/09/2019 Document Reviewed: 07/26/2018 AIRSIS Patient Education 2020 [employer]. Total Knee Replacement, Care After This sheet [...] Follow these instructions at home: Medicines Take kifz-dak-npvshoa and prescription medicines only as told by [...] keep your urine pale yellow. ? Take aost-pfb-exjjnyg or prescription medicines. ? Eat foods that [...] and water are not available, use hand campus chaplain. ? Change your dressing as told by [...] 09/04/2005 Document Revised: 06/26/2019 Document Reviewed: 09/29/2018 [employer] Patient Education 2020 [employer]. Additional Information VACCINATE! IT SAVES LIVES! Members of the community who have not yet received the COVID-19 vaccine and would like to receive it can visit one of [facility] vaccine clinics. There are many vaccine clinic locations within the [facility]. For locations and available times, please visit [email or web address]/. It is important to note that some COVID mobile vaccine clinics are held outdoors and may be canceled in rainy or stormy conditions. To learn more about pediatric vaccinations (ages 5-11), we invite you to visit the [facility] webpage. https://www.[email or web address].org/pages/[email or web address]-Mzogx-Adpshvegbgy-Czqdxdzrwj-Kcrkp-Ejt stions.htmlTo learn more about the COVID-19 vaccine, we invite you to visit the [employer] website for a list of frequently asked questions. [email or web address].Immunologix/assets/Mipxfzdz-zny-Vtxvmrus/uqucy-Jedwkam-Uchxwniqrk _Asked-Questions.pdf [facility] Patient Portal Access Instructions: Stay connected with your healthcare team and access your personal medical information anytime with the [facility] Patient Portal.If you would like a full copy of your medical records, please contact the [facility] Medical Records Department, Wednesday through Wednesday between 8a.m. and 4:30p.m. Please follow the directions below to access the portal: 1.Access the email account you provided upon registration to the [facility].2.Look for an invitation email from [facility].3.Open the email and access the invitation link: Accept Invitation to [facility]4.Fill in the required luong to create your account. Sign into [email or web address] with your username and password that you [...] you will allow to register on the [facility] Patient Portal for access to your information. You can also access the [facility] Patient Portal on the Software Technology. Simply click on Health Records under [employer] and then click on the [place] logo. HOW TO SAFELY DISPOSE OF PRESCRIPTION [...] Call your local pharmacy or go to http://Netrounds.Optizen labs/7A7Ne6o to find one close to you.3.Make use of household items: Use cat litter or old coffee grounds to dispose medications if other options arenot available. Mix your drugs with these household products, seal them in an airtight container andthrow it into the garbage. Call [facility]: [phone] to be sure your drugs can be [...] reviewed and explained to me and I,NADEGE HU understand my current condition and have read and understand these discharge instructions. I have received a written copy of the plan/instructions. If I have questions, I am aware that I should contact my doctor. Patient/Flight Attendant Inflight Services Signature: Date/Time: Relationship to Patient: Witness Name/Signature: Date/Time: [facility]02-07-2023 Note ORIGINAL EXAMINATION: TWO XRAY VIEWS OF [...] Sign Date: 04/07/2022 9:27:28 AM Ordering Provider: [facility]02-07-2023 Anesthesiology Consult note Patient: NADEGE HU Age: 71 years Sex: Female : 1950 [...] list: Medical Atrial fibrillation / SNOMED CT 50340485 / Confirmed Benign essential hypertension / SNOMED CT 7993731 / Confirmed Carpal tunnel syndrome / SNOMED CT 54093634 / Confirmed Chronic kidney disease / SNOMED CT 2432768359 / Confirmed Eczema / SNOMED CT 32616208 / Confirmed Gout / SNOMED CT 202600479 / Confirmed Hypertriglyceridemia / SNOMED CT 378929806 / Confirmed Intermittent palpitations / SNOMED CT 399349767 / Confirmed Knee osteoarthritis / SNOMED CT 773900117 / Confirmed Osteopenia / SNOMED CT 696374085 / Confirmed, Active Problems (10) Atrial fibrillation Benign essential hypertension Carpal tunnel syndrome Chronic kidney disease Eczema Gout Hypertriglyceridemia Intermittent palpitations Knee osteoarthritis Osteopenia Histories Past Medical History: No active or resolved past medical history items have been selected or recorded. Family History: Cancer Mother () Myocardial infarction Father () Procedure history: Cardiac catheter ([id number]) on 02/08/2017 at 66 Years. Laparoscopy ([id number]). 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 Social History Social & Psychosocial Habits Alcohol 04/04/2019 Use: Never Substance Abuse 04/04/2019 Use: Never Tobacco 04/04/2019 Tobacco Use: Never (less than 100 in l Exposure to Tobacco Smoke Lives in non-smoking home Home/Environment 03/23/2022 Domestic Concerns None Living situation: Home/Independent Primary Paralegal Legal Secretary: Lives with spouse Spouse Name brian Marital [...] Last Charted Resp Rate L 12br/min (APR 07:47) OTQ381 mmHg (APR 07:47) DBP65 mmHg (APR 07:47) BMI30.2 (APR 07:47) Measurements from flowsheet : Measurements 04/07/2022 5:47 EST Height 160 cm Admission Weight 77.3 kg Weight Method Stated [place] Body Weight 52.38 kg Body Mass Index [...] Person #1 We May Share MELBA SCHMITT [phone] Designated Person #1 Relationship Daughter Privacy Restrictions Requested None Height 160 cm Admission Weight 77.3 kg Weight Method Stated [place] Body Weight 52.38 kg Body Mass Index [...] Status N/A Skin Temperature Warm Skin Description [facility], Dry Skin Integrity Intact Neurological Symptoms Patient [...] Weeks No Weight Loss No Allergies No Transitional Care Liaison On Yes Consent Form Signed Yes Patient [...] Evaluation Verbalizes/Nonverbally indicates understanding Preferred Written Language Tajik Preferred Spoken Language Tajik Information Given by Patient Patient's Current Physicians [...] 18:00 Patient Cleared for Surgery By YULISSA CORTES Cardiac Clearance For Surgery By AKHIL PINA MD Lost Weight Unintentionally Recently No Eat Poorly Due to Decreased Appetite No Total MST Score 0 N/A Personal Devices, Patient Valuables None Anesthesia/Transfusions Prior anesthesia Admission Note-Nursing Same Day Patient History . Assessment and Plan Citizen Of [place] Society of Anesthesiologists (ASA) physical status classification: Class III. Anesthetic Preoperative Plan Anesthetic technique: Spinal. Regional: Spinal. Postoperative pain management: adductor canal. Risks discussed: nausea, vomiting, headache, hypotension, allergic reaction, serious complications. Informed consent: signed by patient. Digitally Signed by VETO PERDOMO on 04/07/2022 06:47 AM [facility]01-23-2023 Note ORIGINAL EXAMINATION: CT OF THE LEFT [...] No erosions. Right knee arthroplasty noted on facsimile machine operator radiographs. Scattered colonic diverticulosis without diverticulitis. Phleboliths. [...] Date: 03/23/2022 9:53:09 PM Ordering Provider: ELIZABET [facility]01-23-2023 Note ORIGINAL EXAMINATION: CT OF THE [...] No erosions. Right knee arthroplasty noted on facsimile machine operator radiographs. Scattered colonic diverticulosis without diverticulitis. Phleboliths. [...] Sign Date: 03/23/2022 9:53:09 PM Ordering Provider: [facility]01-21-2022 Note HNO ID: [id number] Author: Mitch Dominguez MD Service: ? Author [...] staff. I have seen and examined Nadege Hu. I have discussed the examination findings, diagnosis, and treatment options with Nadege Hu and/or her family. I have also reviewed and agree with the assessment and plan as stated above and agree with all its relevant components. I gave the patient the opportunity to ask questions about the findings, diagnosis, and treatment options.[facility]12-17-2021 NoteHNO ID: [id number] Author: Catalina Barrios, ERIKA Service: ? Author Type: [employer] [facility] Type: Progress Notes Filed: 02/14/2021 8:43 AM [...] check dry eye and acuities Catalina Barrios [facility]06-03-2021 Evaluation + Plan note Future Scheduled Tests Laboratory* Basic Metabolic Panel 08/01/20 Radiology* XR Knee 3 Views Left 04/02/21 [facility] Evaluation + Plan note Future Appointments Appointment Date:03/04/2021 08:20:00 AM Scheduled Provider:VENU WAKEFIELD APRN-WELT BEATER Location:[facility] Appointment Type:Telehealth Future Scheduled Tests Laboratory* Basic Metabolic Panel 08/01/20 * A1C Hemoglobin 03/08/20 [facility] Evaluation + Plan note Future Appointments Appointment Date:04/07/2022 09:30:00 AM Scheduled Provider:YULISSA CORTES APRN-WELT BEATER Location:[facility] Appointment Type: OV Follow Up Future Scheduled Tests Radiology* XR Knee 3 Views Left 04/02/21 [facility] Evaluation + Plan note Future Appointments Appointment Date:03/24/2022 10:00:00 AM Scheduled Provider:YULISSA CORTES APRN-WELT BEATER Location:[facility] Appointment Type:PC OV Follow Up Appointment Date:04/09/2022 09:30:00 AM Scheduled Provider: Location:[facility] Appointment Type:PT Outpatient Evaluation Future Scheduled Tests Radiology* XR Knee 3 Views Left 04/02/21 [facility] Evaluation + Plan note Future Appointments Appointment Date:04/09/2022 09:30:00 AM Scheduled Provider: Location:[facility] Appointment Type:PT Outpatient Evaluation Appointment Date:09/22/2022 09:30:00 AM Scheduled Provider:YULISSA CORTES Location:[facility] Appointment Type:PC OV [facility] Evaluation + Plan note Future Appointments Appointment Date:04/21/2022 09:30:00 AM Scheduled Provider:Brian Young PTA [id number] Location:[facility] Appointment Type:PT [facility] Appointment Date:04/22/2022 10:00:00 AM Scheduled Provider: Location:[facility] Appointment Type:PT Treatment - [place] Appointment Date:04/24/2022 09:45:00 AM Scheduled Provider: Location:[facility] Appointment Type:PT Treatment - [place] Appointment Date:04/27/2022 10:00:00 AM Scheduled Provider: Location:[facility] Appointment Type:PT Treatment - [place] Appointment Date:04/29/2022 10:00:00 AM Scheduled [facility] Type[facility] - [place] Appointment Date:05/01/2022 09:45:00 AM Scheduled Provider: Location:[facility] Appointment Type:PT Treatment - [place] Appointment Date:05/04/2022 09:15:00 AM Scheduled Provider:Brian Young PTA [id number] Location:[facility] Appointment Type:PT Treatment - [place] Appointment Date:05/08/2022 10:15:00 AM Scheduled Provider: Location:[facility] Appointment Type:PT Treatment - [place] Appointment Date:09/22/2022 09:30:00 AM Scheduled Provider:YULISSA CORTES Location:[facility] Appointment Type:PC OV [facility] Evaluation + Plan note Future Appointments Appointment Date:09/02/2022 10:00:00 AM Scheduled Provider:YULISSA CORTES APRN-WELT BEATER Location:[facility] Appointment Type:PC OV [facility] Evaluation + Plan note Future Appointments Appointment Date:10/19/2024 10:00:00 AM Scheduled Provider:JOSE ISAACS DO Location:[facility] Appointment Type:PC OV [facility] Evaluation note* Diagnosis Onset Date Resolution Status Essential hypertension chron ic Hyperlipidemia chronic [facility]ox[facility]mal [facility] Work Phone: Evaluation noteNo assessment information available [facility] Work Phone: evaluuyjbf note* Diagnosis Onset Date Resolution Status Admit Date Essential hypertension chronic Ju 2024 9:37am Hyperlipidemia chronic September 12, 2024 9:37am Paroxysmal atrial flutter chronic September 12, 2024 9:37am [facility] Work Phone: Hospital course Narrative No data available for this section [facility] Discharge instructions No data available for this section [facility] Progress note No data available for this section [facility] Reason for referral (narrative)No reason for referral information [facility] Work Phone: Summary Purpose Family History No Family History Records Found Relationship Condition Age at Onset Recorded Date/T chase father Coronary artery disease Unknown Advance Directives No Advanced Directives Records Found Advance Directive Response Recorded Date/ Time Advance Directives No January 11:04am Living Will No February 08 11:04am Power of Paper Hanger No February 08, 2017 11:04am Advance Directive Response Recorded Date/ Time Advance Directives No January 10:04am Living Will No February 08 10:04am Power of Paper Hanger No February 08, 2017 10:04am Advance Directive Response Recorded Date/ Time Living Will No February 08 11:04am Advance Directives No January 11:04am Procedure Findings Note Post Operative Note: Post-Pr ocedure Diagnosis: 1. 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 Regular Astigmatism Right Eye Procedure: 1. Cataract Extraction with Toric Intraocular Lens Implant Right Eye Surgeon: Mitch Dominguez MD Resident/Fellow/Other Operating Room Surgical Technician: None Estimated Blood Loss (mL): none Specimen: [...] Left Eye Surgeon: Mitch Dominguez MD Resident/Fellow/Other Operating Room Surgical Technician: None Estimated Blood Loss (mL): none Specimen: [...] flutter Chief Complaint E ORDER E ORDER Chief Complaint Admit Date S/P MATTEO 09/05September 12, 2024 9:37 am Reason for Visit Admit Date Essential hypertension September 12, 2024 9 :37am Hyperlipidemia September 12, 2024 9:37 am Paroxysmal atrial flutter September 12 9:37am Additional Source Comments INFORMATION SOURCE (unrecogn ized section and content) DATE CREATED AUTHOR 01/02/2020 [facility] DATE CREATED AUTHOR AUTHOR'S ORGANIZ ATION 01/09/2020 [facility] DATE CREATED AUTHOR AUTHOR'S ORGANIZ ATION 03/24/2021 [facility] DATE CREATED AUTHOR AUTHOR'S ORGANIZ ATION 10/16/2023 [facility] ([place] DATE CREATED AUTHOR AUTHOR'S ORGANIZ ATION 09/04/2024 [facility] DATE CREATED AUTHOR AUTHOR'S ORGANIZ ATION 09/11/2024 [facility] DATE CREATED AUTHOR AUTHOR'S ORGANIZ ATION 09/18/2024 [facility] DATE CREATED AUTHOR AUTHOR'S ORGANIZ ATION 09/27/2024 [facility] Goals (unrecognized section and content) Goals may be documented in a n alternate section Care Team (unrecognized sect ion and content) Care Team Personnel Name: Miguel Last Position: P3 Scheduling - Director Of Revenue Cycle Management Advanced Member Role: Other Name: Staci Hernandez Position: P3 Scheduling - Director Of Revenue Cycle Management Advanced Member Role: Other Name: Miguel Cedeñoryash Sánchez Position: P3 Scheduling - Director Of Revenue Cycle Management Advanced Member Role: Other Name: YULISSA CORTES APRN-PRIYANK Position: P4 Advanced Practice Nurse Med Service: Employed Provider Member Role: Primary Care Physician Address: Address: [address] [place] [address]- [place] Care Team Related Persons Name: DECLINED, DECLINED Name: KESHIA SANTACRUZ Care Team Personnel Name: Staci Hernandez Position: P3 Scheduling - Director Of Revenue Cycle Management Advanced Member Role: Other Name: Miguel Cedeño Position: P3 Scheduling - Director Of Revenue Cycle Management Advanced Member Role: Other Name: SOPHIA, YULISSA S BOTTLE CARRIER-WELT BEATER Position: P4 Advanced Practice Nurse Member Role: Primary Care Physician Address: Address: [address] Care Team Related Persons Name: DECLINED, DECLINED Name: KESHIA SANTACRUZ Care Team Personnel Name: Staci Hernandez Position: P3 Scheduling - Director Of Revenue Cycle Management Advanced Member Role: Other Name: Gala Therapy Director Of Revenue Cycle Management Julia L Position: P3 Scheduling - Director Of Revenue Cycle Management Advanced Member Role: Other Name: YULISSA CORTES BOTTLE CARRIER-WELT BEATER Position: P4 Advanced Practice Nurse Member Role: Primary Care Physician Address: Address: [address] Care Team Related Persons Name: DECLINED, DECLINED Name: KESHIA SANTACRUZ Care Team Personnel Name: Staci Hernandez Position: P3 Scheduling - Director Of Revenue Cycle Management Advanced Member Role: Other Name: Gala, Therapy Director Of Revenue Cycle Management Julia L Position: P3 Scheduling - Director Of Revenue Cycle Management Advanced Member Role: Other Name: YULISSA CORTES BOTTLE CARRIER-WELT BEATER Position: P4 Advanced Practice Nurse Member Role: Primary Care Physician Address: Address: [address] Care Team Related Persons Name: KESHIA SANTACRUZ Name: KESHIA SANTACRUZ Care Team Personnel Name: Staci Hernandez Position: P3 Scheduling - Director Of Revenue Cycle Management Advanced Member Role: Other Name: Gala Therapy Director Of Revenue Cycle Management Julia L Position: P3 Scheduling - Director Of Revenue Cycle Management Advanced Member Role: Other Name: YULISSA CORTES BOTTLE CARRIER-WELT BEATER Position: P4 Advanced Practice Nurse Member Role: Primary Care Physician Address: Address: [address] Care Team Related Persons Name: DECLINED, DECLINED Name: KESHIA SANTACRUZ Patient Care team informatio n (unrecognized section and content) Team Status: Active Member Role Status Dates Yulissa Cortes SERVICE LOSS CONTROL CONSULTANT, SERVICE LOSS CONTROL CONSULTANT-C Family Provider Active Yulissa Cortes SERVICE LOSS CONTROL CONSULTANT, SERVICE LOSS CONTROL CONSULTANT-C Primary Care Provider Active Team Status: Inactive Member Role Status Dates Yulissa Cortes SERVICE LOSS CONTROL CONSULTANT, SERVICE LOSS CONTROL CONSULTANT-C Primary Care Provider Active Akhil ROBBINS MD Attending Provider Active Dr. Akhil Pina MD Referring Provider Active Team Status: Inactive Member Role Status Dates Yulissa Cortes SERVICE LOSS CONTROL CONSULTANT, SERVICE LOSS CONTROL CONSULTANT-C Primary Care Provider Active Annalisa Mabry SERVICE LOSS CONTROL CONSULTANT, SERVICE LOSS CONTROL CONSULTANT-C Attending Provider, Referring Socrates gil Active Team Status: Active Member Role/Relationship Status Dates Dr. Jose Isaacs DO Primary Care Provider Active Team Status: Active Member Role/Relationship Status Dates Yulissa Cortes SERVICE LOSS CONTROL CONSULTANT, SERVICE LOSS CONTROL CONSULTANT-C Primary Care Provider Active Start: September 12, 2024 Venkatesh Myles SERVICE LOSS CONTROL CONSULTANT, SERVICE LOSS CONTROL CONSULTANT-C Attending Provider Active S tart: September 12, 2024 Venkatesh Myles SERVICE LOSS CONTROL CONSULTANT, SERVICE LOSS CONTROL CONSULTANT-C Referring Provider Active S tart: September 12, 2024 Team Status: Inactive Member Role/Relationship Status Dates Yulissa Cortes SERVICE LOSS CONTROL CONSULTANT, SERVICE LOSS CONTROL CONSULTANT-C Referring Provider Active Start: September 12, 2024 End: September 12, 2024 Venkatesh Myles SERVICE LOSS CONTROL CONSULTANT, SERVICE LOSS CONTROL CONSULTANT-C Attending Provider Active S tart: September 12, 2024 End: September 12, 2024 Dr. Jose Isaacs , Primary Care Provider Active Start: September 12, 2024 End: September 12, 2024 Team Status: Inactive Member Role/Relationship Status Dates Yulissa Cortes SERVICE LOSS CONTROL CONSULTANT, SERVICE LOSS CONTROL CONSULTANT-C Primary Care Provider Active Start: September 12, 2024 End: September 12, 2024 Venkatesh Myles SERVICE LOSS CONTROL CONSULTANT, SERVICE LOSS CONTROL CONSULTANT-C Attending Provider Active S tart: September 12, 2024 End: September 12, 2024 Venkatesh Myles SERVICE LOSS CONTROL CONSULTANT, SERVICE LOSS CONTROL CONSULTANT-C Referring Provider Active S tart: September 12, 2024 End: September 12, 2024 FOR RECORDS PERTAINING TO PATIENTS WHO ARE [...] BE BASED ON THE PRIMARY CLINICAL RECORDS. [facility]. provides no warranty or guarantee of the accuracy or completeness of information in this document.
--- NOTE | 2024-09-28 13:44 | STRESSREP ---
Stress Test Report Pharmacologic myocardial perfusion stress test. 74-year-old lady with a history of shortness of breath. Resting EKG demonstrates sinus bradycardia with a rate of 55 bpm. Resting blood pressure is 160/84 mmHg. 0.4 mg of regadenoson was infused per usual protocol followed by rapid intravenous saline flush injection. Continuous EKG monitoring was performed. The maximum heart rate was 73 bpm which was 50% of max impacted heart rate the maximum workload was 1 metabolic equivalent. At rest there were no ST or T wave changes noted to suggest ischemia and at peak infusion nonspecific ST changes were noted which did not meet the criteria for ischemia. No clinical angina is noted. The final blood pressure was 148/72 mmHg. Myocardial perfusion protocol. 12.0 mCi of technetium 99m sestamibi was injected at rest. 0.4 mg of regadenoson was infused per usual protocol. At peak infusion 34.1 mCi of technetium 99m sestamibi was injected stress images were obtained stress and rest images were reconstructed and compared in the short axis vertical long and horizontal long axis. Gated images were also obtained. Perfusion SPECT analysis: Review of the stress images demonstrate normal uptake of tracer noted in all areas of the myocardium. The resting images similar demonstrated normal uptake of tracer noted in all areas of the myocardium. No areas of reversibility are noted to suggest ischemia and no previous infarct is noted. Gated SPECT analysis: The gated ejection fraction is 73%. Conclusion: Normal pharmacologic myocardial perfusion stress test. Preserved ejection fraction.
== END | disposition home or self-care (01) ==
LOC: CVS 06:04
PROVIDERS: PCP Student in an Organized Health Care Education/Training Program; Referring Provider Nurse Practitioner Family; Visit Provider Nurse Practitioner Family
DX: I10 Essential (primary) hypertension (principal); I48.92 Unspecified atrial flutter; E78.00 Pure hypercholesterolemia, unspecified; R94.31 Abnormal electrocardiogram [ECG] [EKG]
CPT/HCPCS: 78452; 93017; A9500; A4216; J2785

== ENCOUNTER 2024-12-19 11:37 | Outpatient (RCR) | payer MEDICARE, SELFPAY ==
[2024-12-19 12:07] LABS: Prothrombin Time (Protime)PT. 25.2 SECONDS (11.7-14.9)
== END 2024-12-19 18:00 | disposition home or self-care (01) ==
LOC: LAB 11:37
PROVIDERS: PCP Student in an Organized Health Care Education/Training Program; Referring Provider Internal Medicine Cardiovascular Disease; Visit Provider Internal Medicine Cardiovascular Disease
DX: Z79.01 Long term (current) use of anticoagulants (principal)
CPT/HCPCS: 36415; 85610